=== PATIENT | female | born 1945 | race Caucasian/White ===

== ENCOUNTER 2016-12-19 12:48 | Inpatient (IN) | payer OTHER, MEDICARE ==
[2016-12-19] VITALS (9 sets, daily range): BP systolic 110–153; BP diastolic 66–107; PULSE 101–114; RESP 18–24; TEMP 96.6–98.2; O2SAT 92–96
[~2016-12-19] VITALS: Ht 157.5 cm; Wt 63.2 kg
[2016-12-19] MEDS ORDERED: methylPREDNISolone SOD SUCC 125 MG/2 ML VIAL IVP ONE (13:15)
[2016-12-19] MEDS ORDERED: SODIUM CHLORIDE 0.9% FLUSH 10 ML FLUSH IVF PRN ×2 (13:15→14:15)
[2016-12-19] MEDS ORDERED: ATOR40TA16 PO (13:17)
[2016-12-19] MEDS ORDERED: NORT50CA PO (13:17)
[2016-12-19] MEDS ORDERED: IPRASOL INH (13:17)
[2016-12-19] MEDS ORDERED: METO25TA6 PO (13:17)
[2016-12-19] MEDS ORDERED: FLUT1INH INH (13:17)
[2016-12-19] MEDS: RESP: ALBUTEROL 2.5 MG/IPRATROPIUM 0.5 MG NEB (SCH) INH ×2 (13:22→19:23)
[2016-12-19 13:57] LABS: AUTOMATED NEUTROPHIL # 19.1 TH/MM3 (1.8-7.7); BASOPHIL # 0.3 TH/MM3 (0-0.2); BASOPHIL % 1.1 % (0.0-2.0); EOSINOPHIL # 0.2 TH/MM3 (0-0.4); HEMATOCRIT 45.4 % (35.0-46.0); LYMPH % 6.5 % (9.0-44.0); LYMPHOCYTE # 1.5 TH/MM3 (1.0-4.8); MEAN CELL VOLUME 83.7 FL (80.0-100.0); MEAN CORPUSCULAR HEMOGLOBIN 27.5 PG (27.0-34.0); MEAN CORPUSCULAR HGB CONC 32.9 % (32.0-36.0); MONO % 7.3 % (0.0-8.0); NEUT % 84.1 % (16.0-70.0); PLATELET COUNT 503 TH/MM3 (150-450); RED BLOOD COUNT 5.42 MIL/MM3 (4.00-5.30); RED CELL DISTRIBUTION WIDTH 15.8 % (11.6-17.2); WHITE BLOOD COUNT 22.8 TH/MM3 (4.0-11.0)
[2016-12-19] MEDS ORDERED: RESP: ALBUTEROL 2.5 MG/IPRATROPIUM 0.5 MG NEB (SCH) NEB ONE (14:00)
[2016-12-19 14:03] LABS: HEMO FLAGS AUTO DIFF
--- NOTE | 2016-12-19 14:05 | PD ---
HPI Chief Complaint: Respiratory Distress Time Seen by Provider: 13:09 Travel History International Travel<30 days: No Contact w/Intl Traveler<30days: No Traveled to known affect area: No History of Present Illness HPI 71-year-old female states that about Sunday she finished her antibiotic course and on Sunday she finished her steroids through her primary care physician for her COPD exacerbation. She has not gotten better despite this treatment and feels like now she is getting worse. She states she's having a hard time breathing and feels weak all over. She denies other significant complaints. She feels worse when she moves around. She denies other modifying factors. She states that she has been using her breathing treatments 4 times a day without improvement. She states she usually uses them 4 times a day. Quality is feels short of breath. Severity is worsening. Duration is couple of days PFSH Past Medical History Narrative Medical reviewed High Cholesterol: Yes COPD: Yes Hypertension: Yes Insomnia: Yes Influenza Vaccination: Yes ?: Not Past Surgical History Narrative Surgical reviewed Appendectomy: Yes Hysterectomy: Yes Family History Family Myocardial Infarction: Yes Social History Alcohol Use: No Tobacco Use: No Substance Use: No Allergies-Medications (Allergen,Severity, Reaction): Coded Allergies: No Known Allergies (Unverified , 12/19/16) Reported Meds & Prescriptions Reported Meds & Active Scripts Active Reported Atorvastatin (Atorvastatin Calcium) 40 Mg Tab 40 Mg PO HS Nortriptyline (Nortriptyline HCl) 50 Mg Cap 50 Mg PO HS Metoprolol Succinate ER 24 HR (Metoprolol Succinate) 25 Mg Tab 25 Mg PO DAILY Breo Ellipta Inh (Fluticasone/Vilanterol) 100-25 Mcg/Act Inh 1 Puff INH DAILY Use daily at the same time. Duoneb (Ipratropium-Albuterol Neb) 0.5-2.5 Mg/3 Ml Neb 1 Nebule INH Q4HR NEB Review of Systems Except as stated in HPI: all other systems reviewed are Neg Physical Exam Narrative GENERAL: Well-nourished, well-developed patient. SKIN: Warm and dry. HEAD: Normocephalic and atraumatic. EYES: No injection or drainage. ENT: No nasal drainage noted. NECK: Supple, trachea midline. CARDIOVASCULAR: Regular rate and rhythm RESPIRATORY: Decreased aeration bilaterally. No accessory muscle use. GASTROINTESTINAL: Abdomen soft, non-tender, nondistended. EXTREMITIES: No edema. NEUROLOGICAL: Awake and alert. Moves all extremities. Normal speech. Data Data Last Documented VS Vital Signs Date Time Temp Pulse Resp B/P Pulse Ox O2 Delivery O2 Flow Rate FiO2 12/19/16 14:11 95 21 12/19/16 13:55 109 20 128/83 Room Air 117/80 12/19/16 12:55 98.2 Orders Electrocardiogram (12/19/16 13:15) B-Type Natriuretic Peptide (12/19/16 13:15) Ckmb (Isoenzyme) Profile (12/19/16 13:15) Complete Blood Count With Diff (12/19/16 13:15) Comprehensive Metabolic Panel (12/19/16 13:15) Magnesium (Mg) (12/19/16 13:15) Prothrombin Time / Inr (Pt) (12/19/16 13:15) Act Partial Throm Time (Ptt) (12/19/16 13:15) Troponin I (12/19/16 13:15) Chest, Single Ap (12/19/16 13:15) Ecg Monitoring (12/19/16 13:15) Bilateral Bp Monitoring (12/19/16 13:15) Iv Access Insert/Monitor (12/19/16 13:15) Oximetry (12/19/16 13:15) Sodium Chloride 0.9% Flush (Ns Flush) (12/19/16 13:15) Methylprednisolone So Succ Inj (Solumedr (12/19/16 13:15) Albuterol-Ipratropium Neb (Duoneb Neb) (12/19/16 13:15) Ct Pulmonary Angiogram (12/19/16 13:41) Albuterol-Ipratropium Neb (Duoneb Neb) (12/19/16 14:00) Lactic Acid Sepsis Protocol (12/19/16 14:14) Blood Culture (12/19/16 14:14) Sodium Chloride 0.9% Flush (Ns Flush) (12/19/16 14:15) Ceftriaxone Inj (Rocephin Inj) (12/19/16 14:15) Azithromycin Inj (Zithromax Inj) (12/19/16 14:15) Sodium Chlor 0.9% 1000 Ml Inj (Ns 1000 M (12/19/16 14:30) Sodium Chlor 0.9% 1000 Ml Inj (Ns 1000 M (12/19/16 14:37) Iohexol 350 Inj (Omnipaque 350 Inj) (12/19/16 15:03) Admit Order (Ed Use Only) (12/19/16 15:53) Admit To Inpatient (12/19/16 ) Vital Signs (Adult) Q4H (12/19/16 15:57) Activity Bed Rest With Brp (12/19/16 ) Diet Heart Healthy (12/19/16 Dinner) Sodium Chloride 0.9% Flush (Ns Flush) (12/19/16 21:00) Sodium Chloride 0.9% Flush (Ns Flush) (12/19/16 16:00) Albuterol-Ipratropium Neb (Duoneb Neb) (12/19/16 20:00) Albuterol Neb (Albuterol Neb) (12/19/16 16:00) Methylprednisolone So Succ Inj (Solumedr (12/19/16 16:00) Ceftriaxone Inj (Rocephin Inj) (12/19/16 16:00) Basic Metabolic Panel (Bmp) (12/20/16 06:00) Complete Blood Count With Diff (12/20/16 06:00) Influenzae A/B Antigen (12/19/16 15:57) Resp Oxygen Omega C Titrat 1-4 L (12/19/16 ) Copd Educator Consult (12/19/16 ) Azithromycin Inj (Zithromax Inj) (12/19/16 16:00) Enoxaparin Inj (Lovenox Inj) (12/19/16 16:00) Inpatient Certification (12/19/16 ) Bedside Glucose KALIE.AC&HS (12/19/16 15:59) Blood Glucose Goal (Criteria) (12/19/16 15:59) Hypoglycemia 51 - 69 Mg/Dl (12/19/16 15:59) Hypoglycemia 50 Mg/Dl Or < (12/19/16 15:59) Notify Dr: Other (12/19/16 15:59) Dextrose 50% In Leonid (Vial) Inj (D50w (Vi (12/19/16 16:00) Glucagon Inj (Glucagon Inj) (12/19/16 16:00) Insulin Aspart Supplemtl Scale (Novolog (12/19/16 16:00) Labs Laboratory Tests Test 12/19/16 12/19/16 13:48 14:34 White Blood Count 22.8 TH/MM3 Red Blood Count 5.42 MIL/MM3 Hemoglobin 14.9 GM/DL Hematocrit 45.4 % Mean Corpuscular Volume 83.7 FL Mean Corpuscular Hemoglobin 27.5 PG Mean Corpuscular Hemoglobin 32.9 % Concent Red Cell Distribution Width 15.8 % Platelet Count 503 TH/MM3 Mean Platelet Volume 7.9 FL Neutrophils (%) (Auto) 84.1 % Lymphocytes (%) (Auto) 6.5 % Monocytes (%) (Auto) 7.3 % Eosinophils (%) (Auto) 1.0 % Basophils (%) (Auto) 1.1 % Neutrophils # (Auto) 19.1 TH/MM3 Lymphocytes # (Auto) 1.5 TH/MM3 Monocytes # (Auto) 1.7 TH/MM3 Eosinophils # (Auto) 0.2 TH/MM3 Basophils # (Auto) 0.3 TH/MM3 CBC Comment AUTO DIFF Differential Total Cells 100 Counted Neutrophils % (Manual) 72 % Band Neutrophils % 11 % Lymphocytes % 8 % Monocytes % 5 % Eosinophils % 3 % Neutrophils # (Manual) 19.2 TH/MM3 Metamyelocytes 1 % Differential Comment FINAL DIFF MANUAL Platelet Estimate HIGH Platelet Morphology Comment NORMAL Red Cell Morphology Comment NORMAL Prothrombin Time 10.5 SEC Prothromb Time International 1.0 RATIO Ratio Activated Partial 24.5 SEC Thromboplast Time Sodium Level 139 MEQ/L Potassium Level 3.8 MEQ/L Chloride Level 102 MEQ/L Carbon Dioxide Level 27.7 MEQ/L Anion Gap 9 MEQ/L Blood Urea Nitrogen 17 MG/DL Creatinine 0.83 MG/DL Estimat Glomerular Filtration 68 ML/MIN Rate Random Glucose 131 MG/DL Calcium Level 9.0 MG/DL Magnesium Level 2.2 MG/DL Total Bilirubin 0.6 MG/DL Aspartate Amino Transf 15 U/L (AST/SGOT) Alanine Aminotransferase 26 U/L (ALT/SGPT) Alkaline Phosphatase 88 U/L Total Creatine Kinase 21 U/L Troponin I LESS THAN 0.02 NG/ML B-Type Natriuretic Peptide 53 PG/ML Total Protein 6.9 GM/DL Albumin 3.1 GM/DL Lactic Acid Level 1.5 mmol/L [facility] Medical Decision Making Medical Screen Exam Complete: Yes Emergency Medical Condition: Yes Medical Record Reviewed: Yes (past history confirmed) Interpretation(s) EKG shows sinus tachycardia at 115 without STEMI criteria, wandering baseline CBC & BMP Diagram 12/19/16 13:48 Last 24 hours Impressions Chest X-Ray 12/19/16 1315 Signed Impressions: Service Date/Time: Monday, December 19, 2016 13:24 - CONCLUSION: 1. Patchy opacity within the right midlung field consistent with possible pneumonia. Clinical correlation is recommended. 2. Small right pleural effusion. Nico Fox MD Differential Diagnosis COPD exacerbation, pneumonia, PE, renal failure, anemia, pneumothorax Narrative Course Will check blood work, chest x-ray and reevaluate after Solu-Medrol and DuoNeb's Patient without increased aeration after nebulizer treatment will check CT chest to rule out PE Chest x-ray shows possible infiltrate and small effusion, will add on blood cultures and lactate given elevated white count and dose with Rocephin and azithromycin patient without PE on CT, right middle lobe infiltrate with possible central obstructing lesion, will admit to the hospital for further care, lactate within normal limits Sepsis Criteria SIRS Criteria (2 or more): Heart rate over 90, WBC > 06699, < 4000 or > 10% bands Sepsis Criteria (SIRS+source): Infect source susp/known Criteria Outcome: Meets sepsis criteria Physician Communication Physician Communication dr yee agrees to admit Diagnosis Primary Impression: Pneumonia Qualified Code: J18.1 - Pneumonia of right middle lobe due to infectious organism Additional Impressions: Sepsis Qualified Code: A41.9 - Sepsis, due to unspecified organism COPD exacerbation Admitting Information Admitting Physician Requests: Admit Annette Forbes MD Dec 19, 2016 14:05
[2016-12-19 14:07] LABS: CHLORIDE 102 MEQ/L (98-107); POTASSIUM 3.8 MEQ/L (3.5-5.1); SODIUM (NA) 139 MEQ/L (136-145)
--- NOTE | 2016-12-19 14:10 | RADHPO ---
EXAM DATE/TIME: 12/19/2016 13:24 [facility] COMPARISON: No previous studies available for comparison. INDICATIONS : Shortness of breath and chest pain. MEDICAL HISTORY : Myocardial infarction. Hypercholesterolemia. Chronic obstructive pulmonary disease. Hypertension. SURGICAL HISTORY : Hysterectomy. Appendectomy. ENCOUNTER: Initial ACUITY: 2 days PAIN SCORE: 5/10 LOCATION: Bilateral chest FINDINGS: There is some patchy opacity within the right midlung field. A small right pleural effusion is noted. The left lung is clear. The heart is top normal in size. CONCLUSION: 1. Patchy opacity within the right midlung field consistent with possible pneumonia. Clinical correla tion is recommended. 2. Small right pleural effusion. Nico Fox MD on December 19, 2016 at 14:08 Board Certified Radiologist. This report was verified electronically.
[2016-12-19 14:11] LABS: ANION GAP 9 MEQ/L (5-15); BICARBONATE 27.7 MEQ/L (21.0-32.0); BLOOD UREA NITROGEN 17 MG/DL (7-18); MAGNESIUM 2.2 MG/DL (1.5-2.5)
[2016-12-19 14:14] LABS: ALT (GPT) 26 U/L (10-53); AST (GOT) 15 U/L (15-37); GLOMERULAR FILTRATION RATE 68 ML/MIN (>89)
[2016-12-19] MEDS ORDERED: cefTRIAXone INJ 1,000 MG in SODIUM CHLORIDE 0.9% INJ 100 ML IV ONE (14:15)
[2016-12-19] MEDS ORDERED: AZITHROMYCIN INJ 500 MG in SODIUM CHLOR 0.9% 250 ML INJ 250 ML IV ONE (14:15)
[2016-12-19 14:16] LABS: TOTAL BILIRUBIN ADULT 0.6 MG/DL (0.2-1.0)
[2016-12-19 14:17] LABS: ALKALINE PHOSPHATASE 88 U/L (45-117)
[2016-12-19 14:20] LABS: CREATINE KINASE 21 U/L (26-192)
[2016-12-19 14:22] LABS: APTT (PATIENT) 24.5 SEC (24.3-30.1); PROTHROMBIN TIME - PATIENT 10.5 SEC (9.8-11.6)
[2016-12-19] MEDS ORDERED: SODIUM CHLOR 0.9% 1000 ML INJ 1,000 ML IV ONE (14:30)
[2016-12-19 14:35] LABS: BANDS 11 % (0-6); EOSINOPHILS 3 % (0-4); METAMYELOCYTES 1 % (0-1); NEUTROPHIL # MANUAL DIFF 19.2 TH/MM3 (1.8-7.7); PLATELET ESTIMATE SMEAR HIGH (NORMAL); PLATELET MORPHOLOGY NORMAL (NORMAL); POLYS (SEG NEUTROPHILS) 72 % (16-70); SCAN/DIFF FINAL DIFF MANUAL; WBC DIFF SAMPLE 100
[2016-12-19] MEDS ORDERED: SODIUM CHLOR 0.9% 1000 ML INJ 800 ML IV ONE (14:37)
[2016-12-19] MEDS ORDERED: IOHEXOL 350 MG/ML 10 ML VIAL (for RAD DIAG) IV ONE (15:03)
--- NOTE | 2016-12-19 15:59 | RADHPO ---
EXAM DATE/TIME: 12/19/2016 14:47 [facility] COMPARISON: CHEST SINGLE AP, December 19, 2016, 13:24. INDICATIONS : Diffuse chest pain. Evaluate for pulmonary embolism. IV CONTRAST: 65 cc Omnipaque 350 (iohexol) IV RADIATION DOSE: 8.30 CTDIvol (mGy) MEDICAL HISTORY : Hypertension. Chronic obstructive pulmonary disease. SURGICAL HISTORY : Appendectomy. Hysterectomy. ENCOUNTER: Initial ACUITY: 3 weeks PAIN SCALE: 6/10 LOCATION: Bilateral chest TECHNIQUE: Volumetric scanning of the chest was performed using a pulmonary embolism protocol MIP images were re constructed. Using automated exposure control and adjustment of the mA and/or kV according to patien t size, radiation dose was kept as low as reasonably achievable to obtain optimal diagnostic quality images. FINDINGS: PULMONARY ARTERIES: No filling defects are seen in the pulmonary arteries through the segmental level. There is narrowin g of the pulmonary arteries as they course through the area of dense consolidation right middle lobe. LUNGS: There is a large area of consolidation in the right middle lobe which measures 4.0 x 7.3 cm. This oc cupies most of the right middle lobe. There is nonvisualization of the bronchi to the middle lobe puentes ggesting obstruction. The pulmonary arteries as they course through the dense area of consolidation are also now, but contrast is seen within pulmonary arteries. PLEURAE: There is a moderate size pleural effusion in the mid chest on the right side. This does not track do wn into the costophrenic angle. MEDIASTINUM: There are enlarged mediastinal nodes including AP window (2.3 cm) and precarinal (1.9 cm). There is concentric thickening of the pericardium up to 12 mm suggesting pericardial effusion. CONCLUSION: 1. The study is negative for pulmonary embolism. 2. Large area of consolidation involving most the entire right middle lobe without air bronchograms a nd with truncation of the bronchus to the middle lobe. This suggests a central obstructing lesion. 3. Mediastinal adenopathy. 4. Probable pericardial effusion. John Negron MD on December 19, 2016 at 15:45 Board Certified Radiologist. This report was verified electronically.
[2016-12-19] MEDS ORDERED: DEXTROSE 50% IN WATER 50 ML VIAL(D50) IV PUSH PRN (16:00)
[2016-12-19] MEDS ORDERED: GLUCAGON 1 MG/ML VIAL OTHER PRN (16:00)
[2016-12-19] MEDS ORDERED: INSULIN ASPART SUPPLEMENTAL SCALE SQ SCH (16:00)
[2016-12-19] MEDS ORDERED: SODIUM CHLORIDE 0.9% FLUSH 10 ML FLUSH IV FLUSH PRN (16:00)
[2016-12-19] MEDS ORDERED: RESP: ALBUTEROL 2.5 MG/3 ML NEB (PRN) INH (16:00)
[2016-12-19] MEDS ORDERED: MAGNESIUM HYDROXIDE SUSP 30 ML CUP PO PRN (16:15)
[2016-12-19] MEDS ORDERED: ONDANSETRON HCL 4 MG/2 ML VIAL IV PRN (16:15)
[2016-12-19] MEDS ORDERED: ALUMINUM/MAGNESIUM/SIMETH 30 ML CUP PO PRN (16:15)
[2016-12-19] MEDS ORDERED: DOCUSATE SODIUM 100 MG CAP PO PRN (16:15)
[2016-12-19] MEDS ORDERED: CALCIUM CARBONATE 500 MG CHEWABLE TAB CHEW PRN (17:30)
--- NOTE | 2016-12-19 18:14 | HHI.HP ---
HPI Service [facility] Primary Care Physician No Primary Care Physician Admission Diagnosis sepsis, pneumonia Diagnoses: Chief Complaint: Shortness of breath Travel History International Travel<30 Days: No Contact w/Intl Traveler <30 Da: No Traveled to Known Affected Are: No Sepsis Criteria SIRS Criteria (2 or more): Heart rate over 90, RR > 20 or PaCO2 < 32, WBC > 20093, < 4000 or > 10% bands Sepsis Criteria (SIRS+source): Infect source susp/known Criteria Outcome: Meets sepsis criteria History of Present Illness 71-year-old female with a past medical history of HTN, HLD, CAD, COPD, depression who presented with shortness of breath. The patient states that for the past 3 weeks she's been having sensations of shortness of breath, chest heaviness, headache, nausea, chills. She saw her PCP who prescribed her a ten- day course of azithromycin and steroids. She finished antibiotics last Sunday and steroids last Sunday. Shortness of breath was getting better, became acutely worse today with associated wheezing so she came in for evaluation. Patient denies any fevers, cough, or recent weight loss. She states that she's been having intermittent headaches that starts in her jaw and radiates up into her head. She denies any head or neck fullness. She has been referred to see pulmonology, Dr. Denton, but has not yet seen him. After receiving treatment in the ED, the patient states her wheezing and shortness of breath has significantly improved. Review of Systems Except as stated in HPI: all other systems reviewed are Neg Past Family Social History Past Medical History Hypertension Hyperlipidemia COPD Depression Coronary artery disease Past Surgical History Appendectomy Hysterectomy Reported Medications Atorvastatin (Atorvastatin Calcium) 40 Mg Tab 40 Mg PO HS Nortriptyline (Nortriptyline HCl) 50 Mg Cap 50 Mg PO HS Metoprolol Succinate ER 24 HR (Metoprolol Succinate) 25 Mg Tab 25 Mg PO DAILY Breo Ellipta Inh (Fluticasone/Vilanterol) 100-25 Mcg/Act Inh 1 Puff INH DAILY Use daily at the same time. Duoneb (Ipratropium-Albuterol Neb) 0.5-2.5 Mg/3 Ml Neb 1 Nebule INH Q4HR NEB Allergies: Coded Allergies: No Known Allergies (Unverified , 12/19/16) Active Ordered Medications Current Medications Medications (Trade) Dose Ordered Sig/Eloise Route Start Time Stop Time Status Last Admin (NS Flush) 2 ml BID IV FLUSH 12/19/16 21:00 (NS Flush) 2 ml UNSCH PRN IV FLUSH 12/19/16 16:00 Methylprednisolone Sodium Succinate 60 mg 60 mg Q6H IVP 12/19/16 20:00 Ceftriaxone Sodium 1000 mg/ Sodium Chloride 100 ml @ 200 mls/hr Q24H IV 12/20/16 15:00 (Zithromax Inj/ NS 250 ml Inj) 250 ml @ 250 mls/hr Q24H IV 12/20/16 15:00 (Lovenox Inj) 40 mg Q24H SQ 12/19/16 18:00 (D50w (Vial) Inj) 25 ml UNSCH PRN IV PUSH 12/19/16 16:00 (Glucagon Inj) 1 mg UNSCH PRN OTHER 12/19/16 16:00 (Tylenol) 650 mg Q4H PRN PO 12/19/16 16:15 (Zofran Inj) 4 mg Q6H PRN IV 12/19/16 16:15 (Colace) 100 mg BID PRN PO 12/19/16 16:15 (Milk Of Magnesia Liq) 30 ml DAILY PRN PO 12/19/16 16:15 (Mag-Al Plus Susp Liq) 30 ml Q6H PRN PO 12/19/16 16:15 (Tums Chew) 1,000 mg TID PRN CHEW 12/19/16 17:30 (Lipitor) 40 mg HS PO 12/19/16 21:00 (Breo Ellipta 100-25 Inh) 1 puff DAILY INH 12/20/16 09:00 (Pamelor) 50 mg HS PO 12/19/16 21:00 Family History Family history of AR. Denies any family history of cancer. Social History The patient continues to occasionally smoke tobacco She lives at home by herself Physical Exam Vital Signs Vital Signs Date Time Temp Pulse Resp B/P Pulse Ox O2 Delivery O2 Flow Rate FiO2 12/19/16 17:35 96.6 106 24 153/107 92 4/18/17 16:04 101 18 140/83 95 Room Air 12/19/16 14:11 95 21 12/19/16 13:55 109 20 128/83 95 Room Air 117/80 12/19/16 13:20 96 Room Air 12/19/16 13:12 109 18 128/83 96 Room Air 12/19/16 13:12 96 Room Air 12/19/16 12:55 98.2 114 18 96 Physical Exam GENERAL: Well-developed well-nourished. In no acute distress. SKIN: Warm and dry. No lesions noted. HEENT: Normocephalic. Pupils equal and round. Mucous membranes pink and moist. JVD. CARDIOVASCULAR: Regular rate and rhythm. No murmur appreciated. RESPIRATORY: No accessory muscle use. Clear to auscultation. Breath sounds equal bilaterally. Decreased breath sounds on the right. No wheezing. GASTROINTESTINAL: Abdomen soft, non-tender, nondistended. Bowel sounds x4. MUSCULOSKELETAL: No obvious deformities. Mild finger clubbing. No edema. NEUROLOGICAL: Awake and alert. No focal neurological deficits. Moves upper and lower extremities spontaneously. Normal speech. PSYCHIATRIC: Appropriate mood and affect; insight and judgment normal. Laboratory Laboratory Tests Test 12/19/16 12/19/16 13:48 14:34 White Blood Count 22.8 Red Blood Count 5.42 Hemoglobin 14.9 Hematocrit 45.4 Mean Corpuscular Volume 83.7 Mean Corpuscular Hemoglobin 27.5 Mean Corpuscular Hemoglobin 32.9 Concent Red Cell Distribution Width 15.8 Platelet Count 503 Mean Platelet Volume 7.9 Neutrophils (%) (Auto) 84.1 Lymphocytes (%) (Auto) 6.5 Monocytes (%) (Auto) 7.3 Eosinophils (%) (Auto) 1.0 Basophils (%) (Auto) 1.1 Neutrophils # (Auto) 19.1 Lymphocytes # (Auto) 1.5 Monocytes # (Auto) 1.7 Eosinophils # (Auto) 0.2 Basophils # (Auto) 0.3 CBC Comment AUTO DIFF Differential Total Cells 100 Counted Neutrophils % (Manual) 72 Band Neutrophils % 11 Lymphocytes % 8 Monocytes % 5 Eosinophils % 3 Neutrophils # (Manual) 19.2 Metamyelocytes 1 Differential Comment FINAL DIFF MANUAL Platelet Estimate HIGH Platelet Morphology Comment NORMAL Red Cell Morphology Comment NORMAL Prothrombin Time 10.5 Prothromb Time International 1.0 Ratio Activated Partial 24.5 Thromboplast Time Sodium Level 139 Potassium Level 3.8 Chloride Level 102 Carbon Dioxide Level 27.7 Anion Gap 9 Blood Urea Nitrogen 17 Creatinine 0.83 Estimat Glomerular Filtration 68 Rate Random Glucose 131 Calcium Level 9.0 Magnesium Level 2.2 Total Bilirubin 0.6 Aspartate Amino Transf 15 (AST/SGOT) Alanine Aminotransferase 26 (ALT/SGPT) Alkaline Phosphatase 88 Total Creatine Kinase 21 Troponin I LESS THAN 0.02 B-Type Natriuretic Peptide 53 Total Protein 6.9 Albumin 3.1 Lactic Acid Level 1.5 Date/Time Procedure Status Source Growth 12/19/16 16:38 Legionella Antigen Received Urine Random Urine Pending 12/19/16 16:38 Streptococcus pneumoniae Antigen (M Received Urine Random Urine Pending 12/19/16 16:17 Influenza Types A,B Antigen (PATSY) - Final Complete Nasal Washing NEGATIVE FOR FLU A AND B ANTIGEN.... 12/19/16 14:34 Aerobic Blood Culture Received Blood Peripheral Pending 12/19/16 14:34 Anaerobic Blood Culture Received Blood Peripheral Pending Result Diagram: 12/19/16 1348 12/19/[address] Angiography 12/19/16 1341 Signed Impressions: Service Date/Time: Monday, December 19, 2016 14:47 - CONCLUSION: 1. The study is negative for pulmonary embolism. 2. Large area of consolidation involving most the entire right middle lobe without air bronchograms and with truncation of the bronchus to the middle lobe. This suggests a central obstructing lesion. 3. Mediastinal adenopathy. 4. Probable pericardial effusion. John Negron MD Chest X-Ray 12/19/16 1315 Signed Impressions: Service Date/Time: Monday, December 19, 2016 13:24 - CONCLUSION: 1. Patchy opacity within the right midlung field consistent with possible pneumonia. Clinical correlation is recommended. 2. Small right pleural effusion. Nico Fox MD Assessment and Plan Assessment and Plan 71-year-old female with a past medical history of HTN, HLD, CAD, COPD, depression who presented with shortness of breath Shortness of breath with acute COPD exacerbation, pneumonia, and new onset obstructing bronchial lesion Imaging reviewed: Chest x-ray with patchy opacity in the right lung field. Pulmonary angiogram with no PE, large consolidation in the right middle lobe with suggestion of central obstructing lesion, mediastinal adenopathy. Influenza negative. Plan: Scheduled and as needed nebs. IV steroids. IV azithromycin and ceftriaxone. Supplemental oxygen as needed. Consult pulmonology for possible bronchoscopy. Continue home Breo. Check sputum culture and urinary antigens. Sepsis: Source pneumonia. Tachycardia, tachypnea, WBC 22.8 with 11% bands. Afebrile. Lactic acid within normal limits. Continue IV antibiotics. Blood cultures pending. Headache: Check a head CT with possible lung mass as above. Maybe consider MRI with contrast depending on the findings. Tylenol as needed. Hyperglycemia: Random glucose 131, likely due to recent steroid use. Monitor Accu-Cheks and cover with SSI while on steroids. History of CAD/HTN/HLD: Chronic, stable. Continue home metoprolol and statin. Consider adding aspirin. Depression: Chronic, stable. Continue home nortriptyline. DVT prophylaxis: Lovenox Written by Aren Reese, acting as scribe for Dr. Rangel on 12/19/16 at 18:13. This note was transcribed by scribe []. I, Dr. Jt Rangel personally performed the history, physical exam, and medical decision making; and confirmed the accuracy of the information in the transcribed note. Authenticated by Dr. Jt Rangel on 12/19/16 at 21:56. Discussed Condition With Patient with her daughters at bedside, Aren Mendoza Dec 19, 2016 18:14 Jt Rangel MD Dec 19, 2016 21:56
[2016-12-19] MEDS ORDERED: methylPREDNISolone SOD SUCC 125 MG/2 ML VIAL IVP SCH (20:00)
[2016-12-19] MEDS: SODIUM CHLORIDE 0.9% FLUSH 10 ML FLUSH IV FLUSH SCH (21:00)
[2016-12-19] MEDS: ATORVASTATIN 40 MG TAB PO SCH (21:52)
[2016-12-19] MEDS: NORTRIPTYLINE HCL 25 MG CAP PO SCH (21:52)
[2016-12-19] MEDS: INSULIN ASPART SUPPLEMENTAL SCALE SQ SCH (21:53)
[2016-12-19] MEDS: methylPREDNISolone SOD SUCC 40 MG/1 ML VIAL IV SCH (21:53)
--- NOTE | 2016-12-19 22:05 | MB ---
cc: BERTIN DENTON MD DATE OF CONSULTATION 12/19/16 REASON FOR CONSULTATION 1. COPD exacerbation 2. Obstructive lesion right middle lobe HISTORY OF PRESENT ILLNESS Mrs. Vu is a 71-year-old female who presents to the emergency room with increasing shortness of breath. Despite therapy as an outpatient, the patient has received outpatient therapy including antibiotic and steroids with some improvement. However, subsequent worsening symptomatology. She denies history of fever, chills, hemoptysis. She did have a CT angiogram of the chest without evidence of pulmonary mobilization, obstruction of the right middle lobe bronchus was noted with evidence of mediastinal adenopathy and question pericardial effusion. PAST MEDICAL HISTORY 1. COPD, 2. Hypertension, 3. Hyperlipidemia. 4. Mood disorder 5. Coronary artery disease. PAST SURGICAL HISTORY 1. Previous appendectomy 2. Hysterectomy MEDICATIONS At home 1. Breo once daily. 2. Metoprolol 3. Nortriptyline 4. Atorvastatin 5. DuoNeb by nebulization. ALLERGIES None known to medications. FAMILY HISTORY Noncontributory. SOCIAL HISTORY Smoked in the past, not at present. Does not use any alcohol. Does not use drugs. REVIEW OF SYSTEMS 12-point review of systems as per HPI and past history otherwise negative PHYSICAL EXAMINATION VITAL SIGNS: Temperature 97, pulse 100, respiration 24, blood pressure 150/70, oxygen saturation 92% on room air. HEENT: Exam unremarkable. Eyes without icterus. NECK: Without adenopathy or thyroid enlargement. Central trachea. CHEST: A few scattered rhonchi bilaterally. CARDIAC: PMI distant. S1-S2 audible. 1/6 ejection systolic murmur left sternal border. ABDOMEN: Lax, bowel sounds audible. EXTREMITIES: No clubbing, cyanosis or edema. LABORATORY DATA White count 22,000, hemoglobin 14, hematocrit 45, platelets 503,000. Sodium 139, potassium 3.8, BUN 17, creatinine 0.8, INR 1.0. CT angiogram - no pulmonary embolism noted. Occluded right middle lobe bronchus and total consolidation right middle lobe noted as well. The patient has mediastinal adenopathy and a question pericardial effusion. IMPRESSION 1. Pneumonia. question postobstructive. 2. Occluded right middle lobe bronchus 3. COPD 4. Hypertension 5. Hyperlipidemia 6. Mood disorder. PLAN Patient is being treated for COPD and exacerbation, antibiotics for underlying pneumonia. Once more stable, arrangement will be made for bronchoscopic examination to evaluate the obstruction of the right middle lobe. The patient does have mediastinal adenopathy and underlying malignancy obviously need be suspect. We will follow her course along with you and depending on progress proceed further. I do thank you for asking me to partake in Mrs. Vu's care. Bertin Denton MD WWW/ /6:32 PM /9:52 PM
--- NOTE | 2016-12-19 23:41 | EKG ---
Date Performed: 12/19/2016 Time Performed: 13:02:38 PTAGE: 71 years EKG: Sinus tachycardia Possible left atrial abnormality Possible inferior infarct - age undeterm ined Low QRS voltages in precordial leads Abnormal ECG NO PREVIOUS TRACING DOCTOR: Jonathan Schaefer Interpretating Date/Time 12/19/2016 23:39:58
[2016-12-20] VITALS (7 sets, daily range): BP systolic 109–157; BP diastolic 71–88; PULSE 87–103; RESP 18–20; TEMP 96.8–97.9; O2SAT 94–100
[2016-12-20] MEDS: INSULIN ASPART SUPPLEMENTAL SCALE SQ SCH ×4 (06:01→19:59)
[2016-12-20] MEDS: methylPREDNISolone SOD SUCC 40 MG/1 ML VIAL IV SCH ×3 (06:01→22:17)
[2016-12-20 06:34] LABS: AUTOMATED NEUTROPHIL # 16.2 TH/MM3 (1.8-7.7); BASOPHIL # 0.2 TH/MM3 (0-0.2); BASOPHIL % 1.4 % (0.0-2.0); HEMATOCRIT 37.4 % (35.0-46.0); LYMPH % 3.7 % (9.0-44.0); LYMPHOCYTE # 0.6 TH/MM3 (1.0-4.8); MEAN CELL VOLUME 83.3 FL (80.0-100.0); MEAN CORPUSCULAR HEMOGLOBIN 27.5 PG (27.0-34.0); MONO % 1.3 % (0.0-8.0); NEUT % 93.6 % (16.0-70.0); PLATELET COUNT 448 TH/MM3 (150-450); RED BLOOD COUNT 4.49 MIL/MM3 (4.00-5.30); RED CELL DISTRIBUTION WIDTH 15.6 % (11.6-17.2); WHITE BLOOD COUNT 17.2 TH/MM3 (4.0-11.0)
[2016-12-20 06:45] LABS: POTASSIUM 4.3 MEQ/L (3.5-5.1)
[2016-12-20 06:47] LABS: HEMO FLAGS DIFF FINAL
[2016-12-20 06:51] LABS: BICARBONATE 25.3 MEQ/L (21.0-32.0)
[2016-12-20] MEDS: RESP: ALBUTEROL 2.5 MG/IPRATROPIUM 0.5 MG NEB (SCH) INH ×3 (07:13→19:17)
[2016-12-20] MEDS: FLUTICASONE 100 MCG/VILANTEROL 25 MCG INHALER INH SCH (09:13)
[2016-12-20] MEDS: SODIUM CHLORIDE 0.9% FLUSH 10 ML FLUSH IV FLUSH SCH ×2 (09:14→19:58)
[2016-12-20] MEDS: METOPROLOL SUCCINATE 25 MG EXTENDED RELEASE TAB PO SCH (09:14)
[2016-12-20] MEDS: ACETAMINOPHEN 325 MG TAB PO PRN ×2 (09:47→19:58)
[2016-12-20] MEDS ORDERED: PNEUMOCOCCAL POLYVALENT INJ 25 MCG/0.5 ML SYR IM ONE (10:00)
--- NOTE | 2016-12-20 10:16 | RADHPO ---
EXAM DATE/TIME: 12/20/2016 09:31 [facility] COMPARISON: No previous studies available for comparison. INDICATIONS : Cephalgia. RADIATION DOSE: 64.52 CTDIvol (mGy) MEDICAL HISTORY : Chronic obstructive pulmonary disease. Hypertension. SURGICAL HISTORY : Appendectomy. Hysterectomy.Cardiac stents. ENCOUNTER: Initial ACUITY: 3 weeks PAIN SCALE: 4/10 LOCATION: cranial TECHNIQUE: Multiple contiguous axial images were obtained of the head. Using automated exposure control and adj ustment of the mA and/or kV according to patient size, radiation dose was kept as low as reasonably a chievable to obtain optimal diagnostic quality images. FINDINGS: CEREBRUM: The ventricles are normal for age. No evidence of midline shift, mass lesion, hemorrhage or acute in farction. No extra-axial fluid collections are seen. POSTERIOR FOSSA: The cerebellum and brainstem are intact. The 4th ventricle is midline. The cerebellopontine angle i s unremarkable. EXTRACRANIAL: The visualized portion of the orbits is intact. SKULL: The calvaria is intact. No evidence of skull fracture. CONCLUSION: Negative noncontrast CT brain. John Negron MD on December 20, 2016 at 10:13 Board Certified Radiologist. This report was verified electronically.
--- NOTE | 2016-12-20 14:07 | HHI.PR ---
Subjective Remarks Follow-up pneumonia, lung mass. The patient states that she is feeling better and is hoping to go home soon. Shortness of breath improving, but she does still report dyspnea with any exertion. Denies chest pain. No headache currently. She describes her headaches as starting in her jaw and radiating up to the top of her head. Objective Vitals Vital Signs Date Time Temp Pulse Resp B/P Pulse Ox O2 Delivery O2 Flow Rate FiO2 12/20/16 12:00 97.9 91 18 119/73 96 12/20/16 08:00 97.2 92 20 157/84 100 12/20/16 07:15 97 21 12/20/16 00:00 96.8 103 18 144/88 98 12/19/16 20:00 96.8 102 18 110/66 96 12/19/16 19:23 95 21 12/19/16 17:35 96.6 106 24 153/107 92 12/19/16 16:04 101 18 140/83 95 Room Air 12/19/16 14:11 95 21 I/O 12/19/16 12/19/16 12/19/16 12/20/16 12/20/16 12/20/16 07:00 15:00 23:00 07:00 15:00 23:00 Intake Total 2390 ml 240 ml Balance 2390 ml 240 ml Intake Oral 240 ml 240 ml IV Total 2150 ml # Voids 4 3 # Bowel Movements 0 1 Result Diagram: 12/20/16 0620 12/20/16 [address] Angiography 12/19/16 1341 Signed Impressions: Service Date/Time: Monday, December 19, 2016 14:47 - CONCLUSION: 1. The study is negative for pulmonary embolism. 2. Large area of consolidation involving most the entire right middle lobe without air bronchograms and with truncation of the bronchus to the middle lobe. This suggests a central obstructing lesion. 3. Mediastinal adenopathy. 4. Probable pericardial effusion. John Negron MD Chest X-Ray 12/19/16 1315 Signed Impressions: Service Date/Time: Monday, December 19, 2016 13:24 - CONCLUSION: 1. Patchy opacity within the right midlung field consistent with possible pneumonia. Clinical correlation is recommended. 2. Small right pleural effusion. Nico Fox MD Head CT 12/19/16 0000 Signed Impressions: Service Date/Time: Tuesday, December 20, 2016 09:31 - CONCLUSION: Negative noncontrast CT brain. John Negron MD Objective Remarks General: Elderly female in no acute distress. Heart: Regular rate and rhythm. No murmur. Lungs: Scattered rhonchi. Breathing is nonlabored. Abdomen: Soft, nontender, nondistended. Extremities: No lower extremity edema. Psych: Alert and oriented. Procedures None Urinary Catheter: No Vascular Central Line Catheter: No A/P Problem List: (1) Postobstructive pneumonia ICD Code: J18.9 Status: Acute (2) Sepsis ICD Code: A41.9 Status: Acute (3) Lung mass ICD Code: R91.8 Status: Acute (4) COPD exacerbation ICD Code: J44.1 Status: Acute Assessment and Plan 1. COPD exacerbation, pneumonia, lung mass: Pneumonia appears to be postobstructive. Appreciate pulmonology recommendations. Continue antibiotics, steroids, bronchodilators. Continue supplemental oxygen. Bronchoscopy once patient is more clinically stable. 2. Sepsis secondary to pneumonia: Presented with tachycardia, tachypnea, leukocytosis. Patient is afebrile. Continue antibiotics. Blood cultures are pending. 3. Headache: CT head is negative. 4. Hyperglycemia: Likely secondary to steroids. Monitor Accu-Cheks and cover with sliding scale insulin. 5. Coronary artery disease, hypertension, hyperlipidemia: Chronic, stable. Continue beta nasima, statin. 6. Depression: Chronic, stable. Continue nortriptyline. 7. DVT prophylaxis: Lovenox. Problem Qualifiers (1) Sepsis: Qualified Code: A41.9 - Sepsis, due to unspecified organism Logan Cavanaugh MD Dec 20, 2016 14:07
[2016-12-20] MEDS: cefTRIAXone INJ 1,000 MG in SODIUM CHLORIDE 0.9% INJ 100 ML IV SCH (14:20)
[2016-12-20] MEDS: AZITHROMYCIN INJ 500 MG in SODIUM CHLOR 0.9% 250 ML INJ 250 ML IV SCH (15:11)
[2016-12-20] MEDS: ENOXAPARIN SODIUM 40 MG/0.4 ML SYRINGE SQ SCH (17:17)
[2016-12-20] MEDS: ATORVASTATIN 40 MG TAB PO SCH (19:58)
[2016-12-20] MEDS: NORTRIPTYLINE HCL 25 MG CAP PO SCH (19:58)
--- NOTE | 2016-12-20 22:01 | EC ---
Study Study Date:12/20/2016 STUDY CONCLUSIONS SUMMARY - Left ventricle: The cavity size was normal. Wall thickness was normal. Systolic function was normal. The estimated ejection fraction was 65%. Wall motion was normal; there were no regional wall motion abnormalities. - Pericardium, extracardiac: There wastrace pericardial effusion. If LV function is below 40, please consider prescribing an ACEI or ARB or document rationale for non-use. PROCEDURE DATA STUDY STATUS: Elective. Procedure: Transthoracic echocardiography. Image quality was good. Scanning was performed from the parasternal, apical, and subcostal acoustic windows. Study completion: The patient tolerated the procedure well. Transthoracic echocardiography. M-mode, complete 2D, complete spectral Doppler, and color Doppler. Height: Height: 62in. Weight: Weight: 124.7lb. Body mass index: BMI: 22.9kg/m^2. Body surface area: BSA: 1.57m^2. Patient status: Inpatient. CARDIAC ANATOMY LEFT VENTRICLE: The cavity size was normal. Wall thickness was normal. Systolic function was normal. The estimated ejection fraction was 65%. Wall motion was normal; there were no regional wall motion abnormalities. AORTIC VALVE: Trileaflet; normal thickness leaflets. Doppler: Transvalvular velocity was within the normal range. There was no stenosis. No regurgitation. Peak gradient: 13mm Hg (S). AORTA: Aortic root: The aortic root was normal in size. MITRAL VALVE: Structurally normal valve. Doppler: Transvalvular velocity was within the normal range. There was no evidence for stenosis. No regurgitation. Valve area by pressure half-time: 4.68cm^2. Indexed valve area by pressure half-time: 2.98cm^2/m^2. Peak gradient: 3mm Hg (D). LEFT ATRIUM: The atrium was normal in size. RIGHT VENTRICLE: The cavity size was normal. Wall thickness was normal. PULMONIC VALVE: Doppler: Transvalvular velocity was within the normal range. There was no evidence for stenosis. No regurgitation. TRICUSPID VALVE: Structurally normal valve. Doppler: Transvalvular velocity was within the normal range. No regurgitation. Peak gradient: 13mm Hg (D). PULMONARY ARTERY: The main pulmonary artery was normal-sized. Systolic pressure was within the normal range. RIGHT ATRIUM: The atrium was normal in size. PERICARDIUM: There wastrace pericardial effusion. SYSTEMIC VEINS: Inferior vena cava: The vessel was normal in size. Patient weight: 124.7lb _Ejection fraction:_ 65-75% _Fractional shortening:_ 32% up to 5Kg 5-11.5Kg 11.6-22.9Kg 23-45Kg 45-57Kg Aortic Root 7-13 <17 13-22 17-27 17-27 LA diam 6-13 <23 24-38 33-47 37-40 RVID 10-17 7-15 7-15 7-18 8-17 LVIDd 12-22 <32 24-38 33-47 37-40 LVPW 2-4 3-6 5-7 6-8 7-8 IVS 2-4 3-6 5-7 6-8 7-8 BASIC MEASUREMENTS ADULT NORMAL Left ventricle Volume, ED, MOD, 1-plane 54 ml Volume, ES, MOD, 1-plane 16 ml Ejection fraction, MOD, 1-plane 70 % Stroke volume, MOD, 1-plane 38 ml Volume index, ED, MOD, 1-plane 34 ml/m^2 Volume index, ES, MOD, 1-plane 10 ml/m^2 Stroke index, MOD, 1-plane 24.2 ml/m^2 Aortic valve Leaflet separation 19 mm 15-26 BASIC MEASUREMENTS ADULT NORMAL Left ventricle LV internal dimension, ED 46.9 mm 37-56 LV internal dimension, ES 28.7 mm Fractional shortening 39 % 29-45 LV posterior wall, ED 8.17 mm 6-11 Septal/posterior wall ratio, ED 1 Relative wall thickness, ED 0.35 <0.45 Volume, ED, Teichholz 102 ml Volume, ES, Teichholz 31.4 ml Ejection fraction, Teichholz 69.2 % 64-83 Stroke volume, Teichholz 70.6 ml Volume index, ED, Teichholz 65 ml/m^2 Volume index, ES, Teichholz 20 ml/m^2 Stroke index, Teichholz 45 ml/m^2 Wall mass 125.2 g Wall mass index 79.7 g/m^2 Mass/height 0.79 g/cm Ventricular septum Septal thickness, ED 8.17 mm Aortic valve Leaflet separation 19 mm 15-26 Aorta Root diameter, ED 28 mm 20-37 DOPPLER MEASUREMENTS ADULT NORMAL Aortic valve Peak velocity, S 183 cm/s Peak gradient, S 13 mm Hg Mitral valve Peak E-wave velocity 87.4 cm/s Peak A-wave velocity 125 cm/s Pressure half-time 47 ms Peak gradient, D 3 mm Hg Peak E/A ratio 0.7 Valve area, pressure half-time 4.68 cm^2 Valve area index, pressure half-time 2.98 cm^2/m^2 Tricuspid valve Peak gradient, D 13 mm Hg Maximal inflow velocity 182 cm/s LEGEND: Mean values are shown as u=mean value. Asterisk (*) rocha values outside specified normal range. Prepared and signed by [place] [id number]
[2016-12-21] VITALS (7 sets, daily range): BP systolic 129–154; BP diastolic 84–94; PULSE 70–98; RESP 14–20; TEMP 96.7–98.7; O2SAT 96–97
[2016-12-21 05:41] LABS: AUTOMATED NEUTROPHIL # 26.5 TH/MM3 (1.8-7.7); BASOPHIL # 0.3 TH/MM3 (0-0.2); HEMATOCRIT 35.4 % (35.0-46.0); LYMPH % 2.5 % (9.0-44.0); LYMPHOCYTE # 0.7 TH/MM3 (1.0-4.8); MEAN CELL VOLUME 84.9 FL (80.0-100.0); MEAN CORPUSCULAR HEMOGLOBIN 27.6 PG (27.0-34.0); MEAN CORPUSCULAR HGB CONC 32.5 % (32.0-36.0); MONO % 2.6 % (0.0-8.0); NEUT % 93.9 % (16.0-70.0); PLATELET COUNT 405 TH/MM3 (150-450); RED BLOOD COUNT 4.17 MIL/MM3 (4.00-5.30); RED CELL DISTRIBUTION WIDTH 15.2 % (11.6-17.2); WHITE BLOOD COUNT 28.2 TH/MM3 (4.0-11.0)
[2016-12-21 05:44] LABS: HEMO FLAGS AUTO DIFF
[2016-12-21 05:54] LABS: POTASSIUM 4.4 MEQ/L (3.5-5.1)
[2016-12-21 05:57] LABS: BICARBONATE 25.1 MEQ/L (21.0-32.0)
[2016-12-21 06:02] LABS: BANDS 9 % (0-6); NEUTROPHIL # MANUAL DIFF 26.8 TH/MM3 (1.8-7.7); PLATELET ESTIMATE SMEAR NORMAL (NORMAL); PLATELET MORPHOLOGY NORMAL (NORMAL); POLYS (SEG NEUTROPHILS) 86 % (16-70); SCAN/DIFF FINAL DIFF MANUAL; WBC DIFF SAMPLE 100
[2016-12-21] MEDS: methylPREDNISolone SOD SUCC 40 MG/1 ML VIAL IV SCH ×3 (06:18→22:49)
[2016-12-21] MEDS: INSULIN ASPART SUPPLEMENTAL SCALE SQ SCH ×4 (06:18→22:48)
[2016-12-21] MEDS: SODIUM CHLORIDE 0.9% FLUSH 10 ML FLUSH IV FLUSH SCH ×2 (08:33→22:48)
[2016-12-21] MEDS: METOPROLOL SUCCINATE 25 MG EXTENDED RELEASE TAB PO SCH (08:33)
[2016-12-21] MEDS: FLUTICASONE 100 MCG/VILANTEROL 25 MCG INHALER INH SCH (08:43)
--- NOTE | 2016-12-21 10:10 | HHI.PR ---
Subjective Remarks Follow up pneumonia, lung mass. The patient states that she does not feel well today. Still with dyspnea on exertion. Cough is nonproductive. No fever, nausea , vomiting, chest pain. Objective Vitals Vital Signs Date Time Temp Pulse Resp B/P Pulse Ox O2 Delivery O2 Flow Rate FiO2 12/21/16 08:59 97.1 89 16 129/84 96 12/21/16 07:35 96 21 12/21/16 00:00 98.2 98 20 152/94 97 12/20/16 20:58 20 12/20/16 20:00 97.6 91 20 109/71 96 12/20/16 19:17 94 21 12/20/16 16:00 97.6 87 18 121/80 96 12/20/16 12:00 97.9 91 18 119/73 96 I/O 12/20/16 12/20/16 12/20/16 12/21/16 12/21/16 12/21/16 07:00 15:00 23:00 07:00 15:00 23:00 Intake Total 240 ml 750 ml 360 ml 60 ml Balance 240 ml 750 ml 360 ml 60 ml Intake Oral 240 ml 750 ml 360 ml 60 ml # Voids 3 3 3 1 # Bowel Movements 1 0 0 0 Result Diagram: 12/21/16 0504 12/21/16 [address] Angiography 12/19/16 1341 Signed Impressions: Service Date/Time: Monday, December 19, 2016 14:47 - CONCLUSION: 1. The study is negative for pulmonary embolism. 2. Large area of consolidation involving most the entire right middle lobe without air bronchograms and with truncation of the bronchus to the middle lobe. This suggests a central obstructing lesion. 3. Mediastinal adenopathy. 4. Probable pericardial effusion. John Negron MD Chest X-Ray 12/19/16 1315 Signed Impressions: Service Date/Time: Monday, December 19, 2016 13:24 - CONCLUSION: 1. Patchy opacity within the right midlung field consistent with possible pneumonia. Clinical correlation is recommended. 2. Small right pleural effusion. Nico Fox MD Head CT 12/19/16 0000 Signed Impressions: Service Date/Time: Tuesday, December 20, 2016 09:31 - CONCLUSION: Negative noncontrast CT brain. John Negron MD Objective Remarks General: Elderly female in no acute distress. Heart: Regular rate and rhythm. No murmur. Lungs: Scattered rhonchi. Breathing is nonlabored. Abdomen: Soft, nontender, nondistended. Extremities: No lower extremity edema. Psych: Alert and oriented. Procedures None Urinary Catheter: No Vascular Central Line Catheter: No A/P Problem List: (1) Postobstructive pneumonia ICD Code: J18.9 Status: Acute (2) Sepsis ICD Code: A41.9 Status: Acute (3) Lung mass ICD Code: R91.8 Status: Acute (4) COPD exacerbation ICD Code: J44.1 Status: Acute (5) Leukocytosis ICD Code: D72.829 Status: Acute Assessment and Plan 1. COPD exacerbation, pneumonia, lung mass: Pneumonia appears to be postobstructive. Appreciate pulmonology recommendations. Continue antibiotics, steroids, bronchodilators. Continue supplemental oxygen as needed. Currently tolerating room air. Bronchoscopy once patient is more clinically stable. 2. Sepsis secondary to pneumonia: Presented with tachycardia, tachypnea, leukocytosis. Patient is afebrile. Continue antibiotics. Blood cultures are negative so far. 3. Headache: CT head is negative. 4. Hyperglycemia: Likely secondary to steroids. Monitor Accu-Cheks and cover with sliding scale insulin. 5. Coronary artery disease, hypertension, hyperlipidemia: Chronic, stable. Continue beta nasima, statin. 6. Depression: Chronic, stable. Continue nortriptyline. 7. DVT prophylaxis: Lovenox. 8. Leukocytosis: Initially secondary to infection. WBCs had improved, but are significantly elevated again today. Recent elevation possibly secondary to steroids. Problem Qualifiers (1) Sepsis: Qualified Code: A41.9 - Sepsis, due to unspecified organism Logan Cavanaugh MD Dec 21, 2016 10:10
[2016-12-21] MEDS: ACETAMINOPHEN 325 MG TAB PO PRN ×3 (10:22→22:47)
--- NOTE | 2016-12-21 14:27 | HHI.PR ---
Subjective Remarks still sob but less Objective Vital Signs Date Time Temp Pulse Resp B/P Pulse Ox O2 Delivery O2 Flow Rate FiO2 12/21/16 13:47 97.4 84 18 154/86 97 12/21/16 08:59 97.1 89 16 129/84 96 12/21/16 07:35 96 21 12/21/16 00:00 98.2 98 20 152/94 97 12/20/16 20:58 20 12/20/16 20:00 97.6 91 20 109/71 96 12/20/16 19:17 94 21 12/20/16 16:00 97.6 87 18 121/80 96 I/O 12/20/16 12/20/16 12/20/16 12/21/16 12/21/16 12/21/16 07:00 15:00 23:00 07:00 15:00 23:00 Intake Total 240 ml 750 ml 360 ml 60 ml Balance 240 ml 750 ml 360 ml 60 ml Intake Oral 240 ml 750 ml 360 ml 60 ml # Voids 3 3 3 1 # Bowel Movements 1 0 0 0 Result Diagram: 12/21/16 0504 12/21/16 0504 Objective Remarks GENERAL: SKIN: Warm and dry. HEAD: Atraumatic. Normocephalic. EYES: Pupils equal and round. No scleral icterus. No injection or drainage. ENT: No nasal bleeding or discharge. Mucous membranes pink and moist. NECK: Trachea midline. No JVD. CARDIOVASCULAR: Regular rate and rhythm. RESPIRATORY: No accessory muscle use. Clear to auscultation. Breath sounds equal bilaterally. GASTROINTESTINAL: Abdomen soft, non-tender, nondistended. Hepatic and splenic margins not palpable. MUSCULOSKELETAL: Extremities without clubbing, cyanosis, or edema. No obvious deformities. NEUROLOGICAL: Awake and alert. No obvious cranial nerve deficits. Motor grossly within normal limits. Five out of 5 muscle strength in the arms and legs. Normal speech. PSYCHIATRIC: Appropriate mood and affect; insight and judgment normal. Assessment and Plan Assessment and Plan assessment pneumonia ? post obstructive HTN CAD PLAN O2 ANTBIOTICS F/U CXRAY IF STILL PERSISTANT INFILTRAE , BRONCHOSCOPY Bertin Denton MD Dec 21, 2016 14:27
[2016-12-21] MEDS: RESP: ALBUTEROL 2.5 MG/IPRATROPIUM 0.5 MG NEB (SCH) INH ×2 (14:57→20:00)
[2016-12-21] MEDS: AZITHROMYCIN INJ 500 MG in SODIUM CHLOR 0.9% 250 ML INJ 250 ML IV SCH (15:00)
--- NOTE | 2016-12-21 15:38 | RADHPO ---
EXAM DATE/TIME: 12/21/2016 14:30 [facility] COMPARISON: No previous studies available for comparison. INDICATIONS : Cough, short of breath, pneumonia. MEDICAL HISTORY : Hypercholesterolemia. Hypertension. Chronic obstructive pulmonary disease SURGICAL HISTORY : Appendectomy. Hysterectomy. Cardiac cath with stent placement. ENCOUNTER: Subsequent ACUITY: 3 days PAIN SCORE: 0/10 LOCATION: Chest FINDINGS: There is focal consolidation within the right midlung field consistent with atelectasis and/or pneumo gisel. Clinical correlation is recommended. The left lung is clear. The heart is stable. Degenerative changes are noted throughout the thoracic spine. CONCLUSION: 1. Focal alveolar consolidation within the right midlung field consistent with atelectasis and/or pne umonia. Clinical correlation is recommended. 2. Degenerative changes and scoliosis of the thoracic spine. Nico Fox MD on December 21, 2016 at 15:33 Board Certified Radiologist. This report was verified electronically.
[2016-12-21] MEDS: cefTRIAXone INJ 1,000 MG in SODIUM CHLORIDE 0.9% INJ 100 ML IV SCH (16:12)
[2016-12-21] MEDS: ENOXAPARIN SODIUM 40 MG/0.4 ML SYRINGE SQ SCH (17:59)
[2016-12-21] MEDS: ATORVASTATIN 40 MG TAB PO SCH (22:48)
[2016-12-21] MEDS: NORTRIPTYLINE HCL 25 MG CAP PO SCH (23:06)
[2016-12-22] VITALS (7 sets, daily range): BP systolic 142–164; BP diastolic 59–96; PULSE 78–90; RESP 15–20; TEMP 96.5–98.4; O2SAT 95–100
[2016-12-22] MEDS: methylPREDNISolone SOD SUCC 40 MG/1 ML VIAL IV SCH ×3 (05:33→21:57)
[2016-12-22] MEDS: INSULIN ASPART SUPPLEMENTAL SCALE SQ SCH ×4 (05:38→21:00)
[2016-12-22] MEDS: RESP: ALBUTEROL 2.5 MG/IPRATROPIUM 0.5 MG NEB (SCH) INH ×3 (07:46→19:22)
[2016-12-22 07:59] LABS: AUTOMATED NEUTROPHIL # 19.5 TH/MM3 (1.8-7.7); BASOPHIL % 0.1 % (0.0-2.0); EOSINOPHIL # 0.3 TH/MM3 (0-0.4); EOSINOPHIL % 1.3 % (0.0-4.0); HEMATOCRIT 34.7 % (35.0-46.0); LYMPH % 2.5 % (9.0-44.0); LYMPHOCYTE # 0.5 TH/MM3 (1.0-4.8); MEAN CORPUSCULAR HEMOGLOBIN 28.4 PG (27.0-34.0); MONO % 1.6 % (0.0-8.0); NEUT % 94.5 % (16.0-70.0); PLATELET COUNT 379 TH/MM3 (150-450); RED BLOOD COUNT 4.03 MIL/MM3 (4.00-5.30); RED CELL DISTRIBUTION WIDTH 15.9 % (11.6-17.2); WHITE BLOOD COUNT 20.6 TH/MM3 (4.0-11.0)
[2016-12-22 08:08] LABS: HEMO FLAGS DIFF FINAL
[2016-12-22] MEDS: FLUTICASONE 100 MCG/VILANTEROL 25 MCG INHALER INH SCH (08:45)
[2016-12-22] MEDS: METOPROLOL SUCCINATE 25 MG EXTENDED RELEASE TAB PO SCH (08:45)
[2016-12-22] MEDS: SODIUM CHLORIDE 0.9% FLUSH 10 ML FLUSH IV FLUSH SCH ×2 (08:45→21:56)
--- NOTE | 2016-12-22 11:17 | HHI.PR ---
Subjective Remarks Follow up pneumonia, lung mass. Patient continuing to have cough and occasional dyspnea. Cough is nonproductive. Denies fever, chills, chest pain. Objective Vitals Vital Signs Date Time Temp Pulse Resp B/P Pulse Ox O2 Delivery O2 Flow Rate FiO2 12/22/16 08:37 97.4 85 15 148/93 95 12/22/16 07:46 96 21 12/22/16 00:00 96.5 90 18 164/91 97 12/21/16 20:28 96 12/21/16 20:00 96.7 70 18 150/86 97 12/21/16 18:16 98.7 82 14 151/91 96 12/21/16 13:47 97.4 84 18 154/86 97 I/O 12/21/16 12/21/16 12/21/16 12/22/16 12/22/16 12/22/16 07:00 15:00 23:00 07:00 15:00 23:00 Intake Total 60 ml 800 ml 360 ml Balance 60 ml 800 ml 360 ml Intake Oral 60 ml 800 ml 360 ml # Voids 1 2 4 # Bowel Movements 0 1 0 Result Diagram: 12/22/16 0735 12/21/16 0504 Imaging Last Impressions Chest X-Ray 12/21/16 0000 Signed Impressions: Service Date/Time: December 14:30 - CONCLUSION: 1. Focal alveolar consolidation within the right midlung field consistent with atelectasis and/or pneumonia. Clinical correlation is recommended. 2. Degenerative changes and scoliosis of the thoracic spine. Nico Fox MD CT Angiography 12/19/16 1341 Signed Impressions: Service Date/Time: Monday, December 19, 2016 14:47 - CONCLUSION: 1. The study is negative for pulmonary embolism. 2. Large area of consolidation involving most the entire right middle lobe without air bronchograms and with truncation of the bronchus to the middle lobe. This suggests a central obstructing lesion. 3. Mediastinal adenopathy. 4. Probable pericardial effusion. John Negron MD Head CT 12/19/16 0000 Signed Impressions: Service Date/Time: Tuesday, December 20, 2016 09:31 - CONCLUSION: Negative noncontrast CT brain. John Negron MD Objective Remarks General: Elderly female in no acute distress. Heart: Regular rate and rhythm. No murmur. Lungs: Scattered rhonchi. Breathing is nonlabored. Abdomen: Soft, nontender, nondistended. Extremities: No lower extremity edema. Psych: Alert and oriented. Procedures None Urinary Catheter: No Vascular Central Line Catheter: No A/P Problem List: (1) Postobstructive pneumonia ICD Code: J18.9 Status: Acute (2) Sepsis ICD Code: A41.9 Status: Acute (3) Lung mass ICD Code: R91.8 Status: Acute (4) COPD exacerbation ICD Code: J44.1 Status: Acute (5) Leukocytosis ICD Code: D72.829 Status: Acute Assessment and Plan 1. COPD exacerbation, pneumonia, lung mass: Pneumonia appears to be postobstructive. Appreciate pulmonology recommendations. Continue antibiotics, steroids, bronchodilators. Continue supplemental oxygen as needed. Currently tolerating room air. Repeat chest x-ray continues to show consolidation. Discussed with Dr. Denton yesterday. We'll plan to transfer to [facility] for bronchoscopy. 2. Sepsis secondary to pneumonia: Presented with tachycardia, tachypnea, leukocytosis. Patient is afebrile. Continue antibiotics. Blood cultures are negative so far. 3. Headache: CT head is negative. 4. Hyperglycemia: Likely secondary to steroids. Monitor Accu-Cheks and cover with sliding scale insulin. 5. Coronary artery disease, hypertension, hyperlipidemia: Chronic, stable. Continue beta nasima, statin. 6. Depression: Chronic, stable. Continue nortriptyline. 7. DVT prophylaxis: Lovenox. 8. Leukocytosis: Initially secondary to infection. WBCs are trending down again. Monitor labs. Elevation possibly secondary to steroids, ongoing infection. Discharge Planning Transfer to [facility] for bronchoscopy. Problem Qualifiers (1) Sepsis: Qualified Code: A41.9 - Sepsis, due to unspecified organism Logan Cavanaugh MD Dec 22, 2016 11:17
[2016-12-22] MEDS: cefTRIAXone INJ 1,000 MG in SODIUM CHLORIDE 0.9% INJ 100 ML IV SCH (14:53)
[2016-12-22] MEDS: AZITHROMYCIN INJ 500 MG in SODIUM CHLOR 0.9% 250 ML INJ 250 ML IV SCH (16:29)
[2016-12-22] MEDS: ACETAMINOPHEN 325 MG TAB PO PRN ×2 (16:33→21:57)
[2016-12-22] MEDS: ENOXAPARIN SODIUM 40 MG/0.4 ML SYRINGE SQ SCH (18:00)
[2016-12-22] MEDS: NORTRIPTYLINE HCL 25 MG CAP PO SCH (21:56)
[2016-12-22] MEDS: ATORVASTATIN 40 MG TAB PO SCH (21:57)
[2016-12-23] VITALS (9 sets, daily range): BP systolic 131–178; BP diastolic 81–94; PULSE 83–93; RESP 16–20; TEMP 96.1–98.6; O2SAT 93–98
[2016-12-23] MEDS: INSULIN ASPART SUPPLEMENTAL SCALE SQ SCH ×4 (06:08→20:40)
[2016-12-23] MEDS: methylPREDNISolone SOD SUCC 40 MG/1 ML VIAL IV SCH ×3 (06:09→21:32)
[2016-12-23] MEDS: RESP: ALBUTEROL 2.5 MG/IPRATROPIUM 0.5 MG NEB (SCH) INH ×3 (07:29→19:44)
[2016-12-23] MEDS: SODIUM CHLORIDE 0.9% FLUSH 10 ML FLUSH IV FLUSH SCH ×2 (08:51→20:42)
[2016-12-23] MEDS: METOPROLOL SUCCINATE 25 MG EXTENDED RELEASE TAB PO SCH (08:51)
[2016-12-23] MEDS: FLUTICASONE 100 MCG/VILANTEROL 25 MCG INHALER INH SCH (08:51)
[2016-12-23 09:48] LABS: AUTOMATED NEUTROPHIL # 13.1 TH/MM3 (1.8-7.7); BASOPHIL # 0.1 TH/MM3 (0-0.2); BASOPHIL % 0.7 % (0.0-2.0); HEMATOCRIT 36.8 % (35.0-46.0); LYMPH % 3.6 % (9.0-44.0); LYMPHOCYTE # 0.5 TH/MM3 (1.0-4.8); MEAN CELL VOLUME 84.4 FL (80.0-100.0); MEAN CORPUSCULAR HEMOGLOBIN 27.2 PG (27.0-34.0); MEAN CORPUSCULAR HGB CONC 32.3 % (32.0-36.0); MONO % 1.8 % (0.0-8.0); NEUT % 93.9 % (16.0-70.0); PLATELET COUNT 381 TH/MM3 (150-450); RED BLOOD COUNT 4.37 MIL/MM3 (4.00-5.30); RED CELL DISTRIBUTION WIDTH 15.8 % (11.6-17.2); WHITE BLOOD COUNT 13.9 TH/MM3 (4.0-11.0)
[2016-12-23 09:59] LABS: HEMO FLAGS DIFF FINAL
--- NOTE | 2016-12-23 13:38 | HHI.PR ---
Subjective Remarks Follow-up pneumonia, lung mass. Patient awaiting transfer to [facility] for bronchoscopy. Still gets short of breath with any activity. No chest pain. Objective Vitals Vital Signs Date Time Temp Pulse Resp B/P Pulse Ox O2 Delivery O2 Flow Rate FiO2 12/23/16 12:00 98.5 86 20 131/81 95 12/23/16 08:00 97.1 85 20 136/94 95 12/23/16 07:29 98 21 12/23/16 00:50 96.1 84 16 139/91 93 12/22/16 21:36 96.6 87 20 142/96 100 12/22/16 19:25 97 21 12/22/16 15:51 98.4 84 16 154/59 97 I/O 12/22/16 12/22/16 12/22/16 12/23/16 12/23/16 12/23/16 07:00 15:00 23:00 07:00 15:00 23:00 Intake Total 360 ml 1200 ml Balance 360 ml 1200 ml Intake Oral 360 ml 1200 ml # Voids 4 4 1 # Bowel Movements 0 2 Result Diagram: 12/23/16 0935 12/21/16 0504 Imaging Last Impressions Chest X-Ray 12/21/16 0000 Signed Impressions: Service Date/Time: December 14:30 - CONCLUSION: 1. Focal alveolar consolidation within the right midlung field consistent with atelectasis and/or pneumonia. Clinical correlation is recommended. 2. Degenerative changes and scoliosis of the thoracic spine. Nico Fox MD CT Angiography 12/19/16 1341 Signed Impressions: Service Date/Time: Monday, December 19, 2016 14:47 - CONCLUSION: 1. The study is negative for pulmonary embolism. 2. Large area of consolidation involving most the entire right middle lobe without air bronchograms and with truncation of the bronchus to the middle lobe. This suggests a central obstructing lesion. 3. Mediastinal adenopathy. 4. Probable pericardial effusion. John Negrno MD Head CT 12/19/16 0000 Signed Impressions: Service Date/Time: Tuesday, December 20, 2016 09:31 - CONCLUSION: Negative noncontrast CT brain. John Negron MD Objective Remarks General: Elderly female in no acute distress. Heart: Regular rate and rhythm. No murmur. Lungs: Scattered rhonchi. Breathing is nonlabored. Abdomen: Soft, nontender, nondistended. Extremities: No lower extremity edema. Psych: Alert and oriented. Procedures None Urinary Catheter: No Vascular Central Line Catheter: No A/P Problem List: (1) Postobstructive pneumonia ICD Code: J18.9 Status: Acute (2) Sepsis ICD Code: A41.9 Status: Acute (3) Lung mass ICD Code: R91.8 Status: Acute (4) COPD exacerbation ICD Code: J44.1 Status: Acute (5) Leukocytosis ICD Code: D72.829 Status: Acute Assessment and Plan 1. COPD exacerbation, pneumonia, lung mass: Pneumonia appears to be postobstructive. Appreciate pulmonology recommendations. Continue antibiotics, steroids, bronchodilators. Continue supplemental oxygen as needed. Currently tolerating room air. Repeat chest x-ray continues to show consolidation. Awaiting transfer to [facility] for bronchoscopy. 2. Sepsis secondary to pneumonia: Presented with tachycardia, tachypnea, leukocytosis. Patient is afebrile. Continue antibiotics. Blood cultures are negative so far. 3. Headache: CT head is negative. 4. Hyperglycemia: Likely secondary to steroids. Monitor Accu-Cheks and cover with sliding scale insulin. 5. Coronary artery disease, hypertension, hyperlipidemia: Chronic, stable. Continue beta nasima, statin. 6. Depression: Chronic, stable. Continue nortriptyline. 7. DVT prophylaxis: Lovenox. 8. Leukocytosis: Initially secondary to infection. WBCs continue to improve. Monitor labs. Elevation possibly secondary to steroids, ongoing infection. Discharge Planning Transfer to [facility] for bronchoscopy. Problem Qualifiers (1) Sepsis: Qualified Code: A41.9 - Sepsis, due to unspecified organism Logan Cavanaugh MD Dec 23, 2016 13:38
[2016-12-23] MEDS: cefTRIAXone INJ 1,000 MG in SODIUM CHLORIDE 0.9% INJ 100 ML IV SCH (14:03)
[2016-12-23] MEDS: AZITHROMYCIN INJ 500 MG in SODIUM CHLOR 0.9% 250 ML INJ 250 ML IV SCH (14:03)
[2016-12-23] MEDS: ACETAMINOPHEN 325 MG TAB PO PRN ×3 (14:09→21:33)
[2016-12-23] MEDS: ENOXAPARIN SODIUM 40 MG/0.4 ML SYRINGE SQ SCH (18:00)
[2016-12-23] MEDS: NORTRIPTYLINE HCL 25 MG CAP PO SCH (20:41)
[2016-12-23] MEDS: ATORVASTATIN 40 MG TAB PO SCH (20:41)
[2016-12-24] VITALS (7 sets, daily range): BP systolic 150–170; BP diastolic 69–95; PULSE 71–86; RESP 15–21; TEMP 95.8–97.5; O2SAT 94–98
[2016-12-24] MEDS: ACETAMINOPHEN 325 MG TAB PO PRN ×4 (01:23→20:52)
[2016-12-24 05:41] LABS: AUTOMATED NEUTROPHIL # 12.3 TH/MM3 (1.8-7.7); BASOPHIL % 0.2 % (0.0-2.0); HEMATOCRIT 33.7 % (35.0-46.0); HEMO FLAGS DIFF FINAL; LYMPH % 3.7 % (9.0-44.0); LYMPHOCYTE # 0.5 TH/MM3 (1.0-4.8); MEAN CELL VOLUME 84.2 FL (80.0-100.0); MEAN CORPUSCULAR HEMOGLOBIN 27.9 PG (27.0-34.0); MEAN CORPUSCULAR HGB CONC 33.1 % (32.0-36.0); MONO % 2.9 % (0.0-8.0); NEUT % 93.2 % (16.0-70.0); PLATELET COUNT 349 TH/MM3 (150-450); RED BLOOD COUNT 4.01 MIL/MM3 (4.00-5.30); RED CELL DISTRIBUTION WIDTH 16.3 % (11.6-17.2); WHITE BLOOD COUNT 13.1 TH/MM3 (4.0-11.0)
[2016-12-24 05:49] LABS: BICARBONATE 29.7 MEQ/L (21.0-32.0); POTASSIUM 4.3 MEQ/L (3.5-5.1)
[2016-12-24] MEDS: methylPREDNISolone SOD SUCC 40 MG/1 ML VIAL IV SCH ×3 (06:37→20:43)
[2016-12-24] MEDS: INSULIN ASPART SUPPLEMENTAL SCALE SQ SCH ×2 (06:40→12:57)
[2016-12-24] MEDS: METOPROLOL SUCCINATE 25 MG EXTENDED RELEASE TAB PO SCH (07:54)
[2016-12-24] MEDS: SODIUM CHLORIDE 0.9% FLUSH 10 ML FLUSH IV FLUSH SCH ×2 (07:56→20:42)
--- NOTE | 2016-12-24 08:05 | HHI.PR ---
Subjective Remarks Patient seen and examined this morning. Her vitals are stable and she is afebrile. She is sitting comfortably eating her breakfast. She denies SOB when sitting still. But states when she does any activity she feels SOB and then develops a ZAYAS. This has been going on now for 3 weeks. She wants to know if we can stop checking her blood sugar with every meal and if she can have her duonebs. No other concerns today. Objective Vital Signs Date Time Temp Pulse Resp B/P Pulse Ox O2 Delivery O2 Flow Rate FiO2 12/24/16 04:11 96.7 86 19 158/90 95 12/24/16 03:20 18 12/23/16 23:25 178/85 12/23/16 23:11 97.7 93 18 12/23/16 20:30 98.4 83 18 164/94 94 12/23/16 19:44 94 21 12/23/16 16:00 98.6 90 20 150/93 96 12/23/16 15:09 18 12/23/16 15:09 18 12/23/16 12:00 98.5 86 20 131/81 95 12/23/16 08:00 97.1 85 20 136/94 95 I/O 12/23/16 12/23/16 12/23/16 12/24/16 12/24/16 12/24/16 07:00 15:00 23:00 07:00 15:00 23:00 Intake Total 540 ml 120 ml Balance 540 ml 120 ml Intake Oral 540 ml 120 ml # Voids 1 4 2 1 # Bowel Movements 1 0 Result Diagram: 12/24/16 0333 12/24/16 0333 Imaging Last Impressions Chest X-Ray 12/21/16 0000 Signed Impressions: Service Date/Time: December 14:30 - CONCLUSION: 1. Focal alveolar consolidation within the right midlung field consistent with atelectasis and/or pneumonia. Clinical correlation is recommended. 2. Degenerative changes and scoliosis of the thoracic spine. Nico Fox MD CT Angiography 12/19/16 1341 Signed Impressions: Service Date/Time: Monday, December 19, 2016 14:47 - CONCLUSION: 1. The study is negative for pulmonary embolism. 2. Large area of consolidation involving most the entire right middle lobe without air bronchograms and with truncation of the bronchus to the middle lobe. This suggests a central obstructing lesion. 3. Mediastinal adenopathy. 4. Probable pericardial effusion. John Negron MD Head CT 12/19/16 0000 Signed Impressions: Service Date/Time: Tuesday, December 20, 2016 09:31 - CONCLUSION: Negative noncontrast CT brain. John Negron MD Objective Remarks GENERAL: well appearing NAD SKIN: Warm and dry. HEAD: Normocephalic. EYES: No scleral icterus. No injection or drainage. NECK: Supple, trachea midline. No JVD or lymphadenopathy. CARDIOVASCULAR: Regular rate and rhythm without murmurs, gallops, or rubs. RESPIRATORY: Breath sounds equal bilaterally. No accessory muscle use. Slightly diminished on the right. GASTROINTESTINAL: Abdomen soft, non-tender, nondistended. MUSCULOSKELETAL: No cyanosis, or edema. BACK: Nontender without obvious deformity. No CVA tenderness. A/P Problem List: (1) Pneumonia ICD Code: J18.9 (2) Lung mass ICD Code: R91.8 (3) Sepsis ICD Code: A41.9 (4) COPD exacerbation ICD Code: J44.1 (5) Postobstructive pneumonia ICD Code: J18.9 (6) Depression ICD Code: F32.9 Assessment and Plan This is a 71 yo female patient who was admitted to [facility] for sepsis due to pneumonia. The patients CXR continued to show right middle lobe obstruction, Dr. Ga was consulted and it was decided when the patient was stable she would be transferred to [facility] for bronchoscopy. The patient also has mediastinal adenopathy so an underlying malignancy must be ruled out. Dr. Ga is aware of the patient. 1. COPD exacerbation, pneumonia, lung mass: Pneumonia appears to be postobstructive. Appreciate pulmonology recommendations. Continue antibiotics, steroids, bronchodilators. Continue supplemental oxygen as needed. Currently tolerating room air. Repeat chest x-ray continues to show consolidation. 2. Sepsis secondary to pneumonia: Presented with tachycardia, tachypnea, leukocytosis. Currently afebrile, WBC downtrending, blood cultures negative x 4 days, negative flu, urine is negative legionella and strep . Rocephin & azithromycin were started 12/20 3. Headache: CT head is negative. 4. Hyperglycemia: Likely secondary to steroids. Was on sliding scale but has not required any insulin. Patient with no hx of diabetes. Will stop accu checks and hold sliding scale. Will order A1C, if abnormal will resume sliding scale and patient can likely be discharged on metformin if indicated. 5. Coronary artery disease, hypertension, hyperlipidemia: Chronic, stable. Continue beta nasima, statin. 6. Depression: Chronic, stable. Continue nortriptyline. 7. DVT prophylaxis: Lovenox. Discharge Planning D/C is pending further work up of lung mass by Dr. Harmeet Ga Problem Qualifiers (1) Pneumonia: Qualified Code: J18.1 - Pneumonia of right middle lobe due to infectious organism (2) Sepsis: Qualified Code: A41.9 - Sepsis, due to unspecified organism Renu Hansen MD R3 Dec 24, 2016 08:05
[2016-12-24] MEDS: FLUTICASONE 100 MCG/VILANTEROL 25 MCG INHALER INH SCH (10:21)
[2016-12-24] MEDS: RESP: ALBUTEROL 2.5 MG/IPRATROPIUM 0.5 MG NEB (SCH) NEB ×3 (12:48→20:44)
[2016-12-24 13:50] LABS: AUTOMATED NEUTROPHIL # 11.4 TH/MM3 (1.8-7.7); BASOPHIL # 0.2 TH/MM3 (0-0.2); BASOPHIL % 1.8 % (0.0-2.0); EOSINOPHIL # 0.1 TH/MM3 (0-0.4); EOSINOPHIL % 0.5 % (0.0-4.0); HEMATOCRIT 36.4 % (35.0-46.0); LYMPHOCYTE # 0.8 TH/MM3 (1.0-4.8); MEAN CELL VOLUME 83.4 FL (80.0-100.0); MEAN CORPUSCULAR HGB CONC 32.4 % (32.0-36.0); MONO % 6.5 % (0.0-8.0); NEUT % 85.2 % (16.0-70.0); PLATELET COUNT 300 TH/MM3 (150-450); RED BLOOD COUNT 4.36 MIL/MM3 (4.00-5.30); RED CELL DISTRIBUTION WIDTH 16.1 % (11.6-17.2); WHITE BLOOD COUNT 13.4 TH/MM3 (4.0-11.0)
[2016-12-24 13:51] LABS: HEMO FLAGS AUTO DIFF
[2016-12-24 13:58] LABS: APTT (PATIENT) 23.1 SEC (24.3-30.1)
[2016-12-24 14:12] LABS: BANDS 3 % (0-6); MYELOCYTES 2 % (0-0); NEUTROPHIL # MANUAL DIFF 12.3 TH/MM3 (1.8-7.7); POLYS (SEG NEUTROPHILS) 87 % (16-70); WBC DIFF SAMPLE 100
[2016-12-24 14:13] LABS: PLATELET ESTIMATE SMEAR NORMAL (NORMAL); PLATELET MORPHOLOGY NORMAL (NORMAL); SCAN/DIFF FINAL DIFF MANUAL
[2016-12-24] MEDS: cefTRIAXone INJ 1,000 MG in SODIUM CHLORIDE 0.9% INJ 100 ML IV SCH (15:12)
[2016-12-24] MEDS: AZITHROMYCIN INJ 500 MG in SODIUM CHLOR 0.9% 250 ML INJ 250 ML IV SCH (17:09)
[2016-12-24] MEDS: ENOXAPARIN SODIUM 40 MG/0.4 ML SYRINGE SQ SCH (17:10)
[2016-12-24] MEDS: ATORVASTATIN 40 MG TAB PO SCH (20:42)
[2016-12-24] MEDS: NORTRIPTYLINE HCL 25 MG CAP PO SCH (20:43)
[2016-12-25] MEDS: RESP: ALBUTEROL 2.5 MG/IPRATROPIUM 0.5 MG NEB (SCH) NEB ×4 (04:05→21:19)
[2016-12-25] MEDS: methylPREDNISolone SOD SUCC 40 MG/1 ML VIAL IV SCH ×3 (05:02→22:17)
[2016-12-25 06:26] LABS: AUTOMATED NEUTROPHIL # 11.6 TH/MM3 (1.8-7.7); BASOPHIL % 0.2 % (0.0-2.0); HEMATOCRIT 34.3 % (35.0-46.0); LYMPH % 6.3 % (9.0-44.0); LYMPHOCYTE # 0.8 TH/MM3 (1.0-4.8); MEAN CELL VOLUME 83.8 FL (80.0-100.0); MEAN CORPUSCULAR HEMOGLOBIN 28.3 PG (27.0-34.0); MEAN CORPUSCULAR HGB CONC 33.8 % (32.0-36.0); MONO % 3.9 % (0.0-8.0); NEUT % 89.6 % (16.0-70.0); PLATELET COUNT 329 TH/MM3 (150-450); WHITE BLOOD COUNT 12.9 TH/MM3 (4.0-11.0)
[2016-12-25 06:27] LABS: HEMO FLAGS AUTO DIFF
[2016-12-25 06:52] LABS: BICARBONATE 33.6 MEQ/L (21.0-32.0); POTASSIUM 3.9 MEQ/L (3.5-5.1)
[2016-12-25 07:53] LABS: BANDS 2 % (0-6); METAMYELOCYTES 2 % (0-1); NEUTROPHIL # MANUAL DIFF 11.1 TH/MM3 (1.8-7.7); PLATELET ESTIMATE SMEAR NORMAL (NORMAL); PLATELET MORPHOLOGY NORMAL (NORMAL); POLYS (SEG NEUTROPHILS) 82 % (16-70); SCAN/DIFF FINAL DIFF MANUAL; WBC DIFF SAMPLE 100
[2016-12-25 08:00] VITALS: BP 184/89; PULSE 86; RESP 17; TEMP 97.9; O2SAT 93
--- NOTE | 2016-12-25 08:42 | RADRPT ---
EXAM DATE/TIME: 12/25/2016 08:22 [facility] COMPARISON: No previous studies available for comparison. INDICATIONS : Right leg pain. MEDICAL HISTORY : Hypercholesterolemia. Hypertension. Chronic obstructive pulmonary disease. SURGICAL HISTORY : Appendectomy. Hysterectomy. Cardiac stents. Cardiac catheterization. ENCOUNTER: Initial ACUITY: 1 day PAIN SCORE: 2/10 LOCATION: Right leg. TECHNIQUE: Venous ultrasound of the leg was performed from the inguinal ligament to the proximal calf. Real-loretta e, color Doppler and spectral tracing, compression and augmentation techniques were used. FINDINGS: There is normal compressibility of the deep venous system from the inguinal region to the proximal ca lf. No echogenic clot is seen in the lumen of the common femoral, femoral, popliteal, and posterior tibial veins. There is a normal response of the venous system to proximal and distal augmentation an d respiration. CONCLUSION: No DVT in the right leg. Russel Vyas MD on December 25, 2016 at 8:40 Board Certified Radiologist. This report was verified electronically.
[2016-12-25 09:36] VITALS: O2SAT 97
[2016-12-25] MEDS: METOPROLOL SUCCINATE 25 MG EXTENDED RELEASE TAB PO SCH (11:00)
[2016-12-25] MEDS: SODIUM CHLORIDE 0.9% FLUSH 10 ML FLUSH IV FLUSH SCH ×2 (11:00→20:18)
[2016-12-25] MEDS: LISINOPRIL 10 MG TAB PO SCH (11:00)
[2016-12-25] MEDS: FLUTICASONE 100 MCG/VILANTEROL 25 MCG INHALER INH SCH (11:02)
--- NOTE | 2016-12-25 11:37 | HHI.PR ---
Subjective Remarks Admitted with sepsis and pneumonia, with new finding of a lung mass. Bronchoscopy pending for today. She also has results pending on a lower extremity ultrasound for leg swelling/pain. The swelling and pain are improved today, per patient. No new complaints. She has significant dyspnea with exertion but is stable when resting in bed. Objective Vital Signs Date Time Temp Pulse Resp B/P Pulse Ox O2 Delivery O2 Flow Rate FiO2 12/25/16 09:36 97 21 12/25/16 08:00 97.9 86 17 184/89 93 12/24/16 23:49 97.5 82 21 163/85 96 12/24/16 20:00 96.3 83 20 170/83 98 12/24/16 16:00 97.5 73 18 150/69 94 12/24/16 12:00 95.8 71 16 169/79 95 I/O 12/24/16 12/24/16 12/24/16 12/25/16 12/25/16 12/25/16 07:00 15:00 23:00 07:00 15:00 23:00 Intake Total 120 ml 360 ml 120 ml 120 ml Balance 120 ml 360 ml 120 ml 120 ml Intake Oral 120 ml 360 ml 120 ml 120 ml IV Total 0 ml # Voids 1 3 2 3 # Bowel Movements 0 1 0 0 Result Diagram: 12/25/16 0519 12/25/16518 Objective Remarks GENERAL: NAD, A&Ox3 SKIN: Warm and dry. HEAD: Normocephalic. EYES: No scleral icterus. No injection or drainage. NECK: Supple, trachea midline. No JVD or lymphadenopathy. CARDIOVASCULAR: Regular rate and rhythm without murmurs, gallops, or rubs. RESPIRATORY: Breath sounds equal bilaterally. No accessory muscle use. GASTROINTESTINAL: Abdomen soft, non-tender, nondistended. MUSCULOSKELETAL: No cyanosis, or edema. BACK: Nontender without obvious deformity. No CVA tenderness. Medications and IVs Administered Medications Medications (Trade) Dose Ordered Sig/Eloise Route PRN Reason Start Time Stop Time Status Last Admin Dose Admin Sodium Chloride (NS Flush) 2 ml BID IV FLUSH 12/19/16 21:00 12/25/16 11:00 Sodium Chloride 2 ml 2 ml UNSCH PRN IV FLUSH FLUSH AFTER USING IV ACCESS 12/19/16 16:00 12/23/16 14:04 Ceftriaxone Sodium 1000 mg/ Sodium Chloride 100 ml @ 200 mls/hr Q24H IV 12/20/16 15:00 12/24/16 15:12 Azithromycin/ Sodium Chloride (Zithromax Inj/ NS 250 ml Inj) 250 ml @ 250 mls/hr Q24H IV 12/20/16 15:00 12/24/16 17:09 Enoxaparin Sodium (Lovenox Inj) 40 mg Q24H SQ 12/19/16 18:00 12/24/16 17:10 Acetaminophen (Tylenol) 650 mg Q4H PRN PO Temp > 100.4, ZAYAS 12/19/16 16:15 12/24/16 20:52 Atorvastatin Calcium (Lipitor) 40 mg HS PO 12/19/16 21:00 12/24/16 20:42 Fluticasone/ Vilanterol (Breo Ellipta 100-25 Inh) 1 puff DAILY INH 12/20/16 09:00 12/25/16 11:02 Nortriptyline HCl (Pamelor) 50 mg HS PO 12/19/16 21:00 12/24/16 20:43 Metoprolol Succinate (Toprol Xl) 25 mg DAILY PO 12/20/16 09:00 12/25/16 11:00 Methylprednisolone Sodium Succinate (SoluMEDROL INJ) 40 mg Q8HR IV 12/19/16 22:00 12/25/16 05:02 Lisinopril (Prinivil) 10 mg DAILY PO 12/25/16 09:00 12/25/16 11:00 A/P Problem List: (1) Pneumonia ICD Code: J18.9 (2) Leukocytosis ICD Code: D72.829 (3) COPD exacerbation ICD Code: J44.1 (4) Sepsis ICD Code: A41.9 (5) Lung mass ICD Code: R91.8 Assessment and Plan COPD Exacerbation Pneumonia No change to antibiotics Continue steroids Globally improved Will need an oxygen walk test when discharge nears Lung Mass Bronchoscopy today Pulmonology following May be complicating her respiratory recovery Sepsis Resolved Follow clinically Hyperglycemia Steroid effect Insulin sliding scale No prior history of DM CAD HTN Hyperlipidemia Depression Continue baseline treatments No exacerbations Follow BP and follow clinically DVT Prophylaxis Lovenox Problem Qualifiers (1) Pneumonia: Qualified Code: J18.1 - Pneumonia of right middle lobe due to infectious organism (2) Sepsis: Qualified Code: A41.9 - Sepsis, due to unspecified organism Luis A Rebollar MD Dec 25, 2016 11:37
[2016-12-25 12:00] VITALS: BP 156/83; PULSE 86; RESP 17; TEMP 97.6; O2SAT 91
[2016-12-25] MEDS ORDERED: PROPOFOL 200 MG/20 ML AMP IV ONE (12:00)
[2016-12-25] MEDS ORDERED: ONDANSETRON HCL 4 MG/2 ML VIAL IV PUSH ONE (12:00)
[2016-12-25 14:45] LABS: HEMOGLOBIN A1a 1.1 %; HEMOGLOBIN A1b 2.1 %; HEMOGLOBIN Ao 83.7 %; HEMOGLOBIN P3 4.1 %
[2016-12-25] MEDS: cefTRIAXone INJ 1,000 MG in SODIUM CHLORIDE 0.9% INJ 100 ML IV SCH (15:02)
[2016-12-25 16:00] VITALS: BP 154/83; PULSE 74; RESP 17; TEMP 96.8; O2SAT 92
[2016-12-25 16:39] VITALS: O2SAT 94
[2016-12-25] MEDS ORDERED: SODIUM CHLORIDE 0.9% 20 ML VIAL ONE (17:03)
[2016-12-25] MEDS ORDERED: LIDOCAINE HCL 2% 50 ML VIAL ONE (17:03)
[2016-12-25] MEDS ORDERED: EPINEPHrine HCL (1:1000) 1 MG/ML VIAL ONE (17:04)
[2016-12-25] MEDS ORDERED: LIDOCAINE VISCOUS 2% SOLN 15 ML UDC ONE (17:15)
[2016-12-25] MEDS ORDERED: *RESP: ALBUTEROL 2.5 MG/3 ML NEB (PRN) PERIprocedural Use ONLY NEB ONE (18:27)
[2016-12-25] MEDS: AZITHROMYCIN INJ 500 MG in SODIUM CHLOR 0.9% 250 ML INJ 250 ML IV SCH (18:47)
[2016-12-25] MEDS ORDERED: DO NOT ADM ANY ANTICOAGULANT DRUGS PRN (19:45)
[2016-12-25 20:00] VITALS: BP 143/75; PULSE 62; RESP 21; TEMP 98; O2SAT 92
[2016-12-25] MEDS: NORTRIPTYLINE HCL 25 MG CAP PO SCH (20:17)
[2016-12-25] MEDS: ATORVASTATIN 40 MG TAB PO SCH (20:17)
[2016-12-25] MEDS: ACETAMINOPHEN 325 MG TAB PO PRN (20:18)
[2016-12-25] MEDS: ENOXAPARIN SODIUM 40 MG/0.4 ML SYRINGE SQ SCH (20:24)
[2016-12-26] VITALS (8 sets, daily range): BP systolic 131–167; BP diastolic 61–99; PULSE 69–85; RESP 17–20; TEMP 96.6–97.5; O2SAT 94–98
[2016-12-26] MEDS: RESP: ALBUTEROL 2.5 MG/IPRATROPIUM 0.5 MG NEB (SCH) NEB ×4 (04:02→21:38)
[2016-12-26] MEDS: methylPREDNISolone SOD SUCC 40 MG/1 ML VIAL IV SCH ×2 (05:57→17:37)
--- NOTE | 2016-12-26 07:10 | MB ---
cc: BERTIN DENTON M.D. DATE OF CONSULTATION 12/25/2016 PROCEDURE Fiberoptic bronchoscopy flexible. REASON FOR BRONCHOSCOPY Atelectasis right mid-lung lobe, rule out underlying malignancy. ANESTHESIA Fiberoptic bronchoscopy performed via LMA. FINDINGS Vocal cords intact. Trachea mildly hyperemic. Alessandra sharp. Left main bronchus, left upper and lower lobes with no obstruction or mass lesion. Right main bronchus patent. Right upper, middle and lower lobes inspected. The middle lobe is significantly narrowed. The upper and lower lobes appear patent. The middle lobe is funnel-shaped with almost a pinhead patency at the tip. Washings, brushings and biopsy of the right middle lobe orifice taken and sent for routine TB, fungal cultures, cytological exam, biopsy placed in formalin and sent for pathological exam. The procedure was well tolerated. The patient transferred to Recovery in stable condition. IMPRESSION 1. Marked narrowing right middle lobe as above. 2. Samples obtained as above. 3. Procedure well tolerated. 4. Patient transferred to Recovery in stable condition. Bertin Denton MD WWW/ROB /6:15 PM /7:02 AM
--- NOTE | 2016-12-26 07:28 | HHI.PR ---
Subjective Remarks minimal sputum up and ambulating Objective Vitals Vital Signs Date Time Temp Pulse Resp B/P Pulse Ox O2 Delivery O2 Flow Rate FiO2 12/26/16 04:00 96.6 77 19 137/66 94 12/26/16 00:00 97.3 85 20 131/61 98 12/25/16 20:00 98.0 62 21 143/75 92 12/25/16 19:15 98.4 81 16 159/92 92 Nasal Cannula 3 12/25/16 19:00 80 20 159/92 92 Nasal Cannula 3 12/25/16 18:45 96 20 155/89 92 Nasal Cannula 3 12/25/16 18:30 83 22 171/100 98 Nasal Cannula 3 12/25/16 18:15 98.0 72 22 141/85 92 Nasal Cannula 3 12/25/16 16:39 94 Nasal Cannula 3.00 12/25/16 16:00 96.8 74 17 154/83 92 12/25/16 12:00 97.6 86 17 156/83 91 12/25/16 09:36 97 21 12/25/16 08:00 97.9 86 17 184/89 93 I/O 12/25/16 12/25/16 12/25/16 12/26/16 12/26/16 12/26/16 07:00 15:00 23:00 07:00 15:00 23:00 Intake Total 120 ml 0 ml 200 ml 480 ml Output Total 5 ml Balance 120 ml 0 ml 195 ml 480 ml Intake Oral 120 ml 0 ml 480 ml IV Total 100 ml Other 100 ml Output Estimated Blood Loss 5 ml # Voids 3 5 3 # Bowel Movements 0 0 0 Result Diagram: 12/25/16 0519 12/25/16 0519 Imaging Last Impressions Lower Extremity Ultrasound 12/25/16 0000 Signed Impressions: Service Date/Time: Sunday, December 25, 2016 08:22 - CONCLUSION: No DVT in the right leg. Russel Vyas MD Chest X-Ray 12/21/16 0000 Signed Impressions: Service Date/Time: December 14:30 - CONCLUSION: 1. Focal alveolar consolidation within the right midlung field consistent with atelectasis and/or pneumonia. Clinical correlation is recommended. 2. Degenerative changes and scoliosis of the thoracic spine. Nico Fox MD CT Angiography 12/19/16 1341 Signed Impressions: Service Date/Time: Monday, December 19, 2016 14:47 - CONCLUSION: 1. The study is negative for pulmonary embolism. 2. Large area of consolidation involving most the entire right middle lobe without air bronchograms and with truncation of the bronchus to the middle lobe. This suggests a central obstructing lesion. 3. Mediastinal adenopathy. 4. Probable pericardial effusion. John Negron MD Head CT 12/19/16 0000 Signed Impressions: Service Date/Time: Tuesday, December 20, 2016 09:31 - CONCLUSION: Negative noncontrast CT brain. John Negron MD Objective Remarks awake and alert, oriented x 3 anicteric lungs- slightly decreased breath sounds and decereased vocal fremiti- right base to mid regular rhythm abdomen soft, good bowel sounds extremities no edema Procedures 12/25- bronchoscopy A/P Problem List: (1) Postobstructive pneumonia ICD Code: J18.9 Status: Acute (2) Sepsis ICD Code: A41.9 Status: Acute (3) Lung mass ICD Code: R91.8 Status: Acute (4) COPD exacerbation ICD Code: J44.1 Status: Acute (5) Leukocytosis ICD Code: D72.829 Status: Acute Assessment and Plan 71 years old female COPD Exacerbation Pneumonia Continue steroids- change to po Prednisone continue antibiotics Globally improved Will need an oxygen walk test when discharge nears Lung Mass S/P bronchoscopy Pulmonology following May be complicating her respiratory recovery Sepsis Resolved Follow clinically Hyperglycemia Steroid effect Insulin sliding scale No prior history of DM CAD HTN Hyperlipidemia Depression Continue baseline treatments No exacerbations Follow BP and follow clinically DVT Prophylaxis Lovenox Problem Qualifiers (1) Sepsis: Qualified Code: A41.9 - Sepsis, due to unspecified organism Susie Winters MD Dec 26, 2016 07:28
[2016-12-26] MEDS: SODIUM CHLORIDE 0.9% FLUSH 10 ML FLUSH IV FLUSH SCH ×2 (08:41→21:07)
[2016-12-26] MEDS: METOPROLOL SUCCINATE 25 MG EXTENDED RELEASE TAB PO SCH (08:41)
[2016-12-26] MEDS: LISINOPRIL 10 MG TAB PO SCH (08:41)
[2016-12-26] MEDS: FLUTICASONE 100 MCG/VILANTEROL 25 MCG INHALER INH SCH (08:42)
[2016-12-26] MEDS: ACETAMINOPHEN 325 MG TAB PO PRN (11:34)
[2016-12-26] MEDS: AZITHROMYCIN INJ 500 MG in SODIUM CHLOR 0.9% 250 ML INJ 250 ML IV SCH (15:29)
[2016-12-26] MEDS: cefTRIAXone INJ 1,000 MG in SODIUM CHLORIDE 0.9% INJ 100 ML IV SCH (15:29)
[2016-12-26] MEDS: ENOXAPARIN SODIUM 40 MG/0.4 ML SYRINGE SQ SCH (17:37)
[2016-12-26] MEDS: cloNIDine HCL 0.1 MG TAB PO PRN (17:43)
[2016-12-26] MEDS: NORTRIPTYLINE HCL 25 MG CAP PO SCH (21:06)
[2016-12-26] MEDS: ATORVASTATIN 40 MG TAB PO SCH (21:06)
[2016-12-27] VITALS (7 sets, daily range): BP systolic 136–166; BP diastolic 67–99; PULSE 75–114; RESP 16–18; TEMP 96.6–98.6; O2SAT 92–97
[2016-12-27] MEDS: RESP: ALBUTEROL 2.5 MG/IPRATROPIUM 0.5 MG NEB (SCH) NEB ×4 (03:34→21:03)
[2016-12-27] MEDS: methylPREDNISolone SOD SUCC 40 MG/1 ML VIAL IV SCH (05:15)
[2016-12-27] MEDS: FLUTICASONE 100 MCG/VILANTEROL 25 MCG INHALER INH SCH (09:00)
[2016-12-27] MEDS: METOPROLOL SUCCINATE 25 MG EXTENDED RELEASE TAB PO SCH (09:26)
[2016-12-27] MEDS: LISINOPRIL 10 MG TAB PO SCH (09:26)
[2016-12-27] MEDS: SODIUM CHLORIDE 0.9% FLUSH 10 ML FLUSH IV FLUSH SCH ×2 (09:28→19:47)
--- NOTE | 2016-12-27 12:13 | HHI.PR ---
Subjective Remarks minimal sputum feeling better Objective Vitals Vital Signs Date Time Temp Pulse Resp B/P Pulse Ox O2 Delivery O2 Flow Rate FiO2 12/27/16 11:23 2.00 12/27/16 08:00 97.1 90 17 136/67 95 12/27/16 03:34 97 Nasal Cannula 2.00 12/27/16 03:34 97 Nasal Cannula 2.00 12/27/16 00:00 96.6 85 16 140/71 96 12/26/16 21:40 98 Nasal Cannula 2.00 12/26/16 19:47 97.5 69 18 153/83 94 12/26/16 16:00 97.5 80 17 167/81 97 12/26/16 12:34 18 I/O 12/26/16 12/26/16 12/26/16 12/27/16 12/27/16 12/27/16 07:00 15:00 23:00 07:00 15:00 23:00 Intake Total 480 ml 400 ml 120 ml 600 ml Balance 480 ml 400 ml 120 ml 600 ml Intake Oral 480 ml 400 ml 120 ml 600 ml # Voids 3 5 3 4 # Bowel Movements 0 0 0 Result Diagram: 12/25/16 0519 12/25/16 0519 Imaging Last Impressions Lower Extremity Ultrasound 12/25/16 0000 Signed Impressions: Service Date/Time: Sunday, December 25, 2016 08:22 - CONCLUSION: No DVT in the right leg. Russel Vyas MD Chest X-Ray 12/21/16 0000 Signed Impressions: Service Date/Time: December 14:30 - CONCLUSION: 1. Focal alveolar consolidation within the right midlung field consistent with atelectasis and/or pneumonia. Clinical correlation is recommended. 2. Degenerative changes and scoliosis of the thoracic spine. Nico Fox MD CT Angiography 12/19/16 1341 Signed Impressions: Service Date/Time: Monday, December 19, 2016 14:47 - CONCLUSION: 1. The study is negative for pulmonary embolism. 2. Large area of consolidation involving most the entire right middle lobe without air bronchograms and with truncation of the bronchus to the middle lobe. This suggests a central obstructing lesion. 3. Mediastinal adenopathy. 4. Probable pericardial effusion. John Negron MD Head CT 12/19/16 0000 Signed Impressions: Service Date/Time: Tuesday, December 20, 2016 09:31 - CONCLUSION: Negative noncontrast CT brain. John Negron MD Objective Remarks awake and alert, oriented x 3 anicteric lungs- no rales or wheezes, better breath sounds- more equal regular rhythm abdomen soft, good bowel sounds extremities no edema Procedures 12/25- bronchoscopy A/P Problem List: (1) Postobstructive pneumonia ICD Code: J18.9 Status: Acute (2) Sepsis ICD Code: A41.9 Status: Acute (3) Lung mass ICD Code: R91.8 Status: Acute (4) COPD exacerbation ICD Code: J44.1 Status: Acute (5) Leukocytosis ICD Code: D72.829 Status: Acute Assessment and Plan 71 years old female COPD Exacerbation Pneumonia- possibly postobstructive Continue steroids- change to po Prednisone continue antibiotics Globally improved Will need an oxygen walk test when discharge nears Lung Mass S/P bronchoscopy Pulmonology following/biopsy/micro pending -cardiothoracic surgery consulted by Dr. Denton Sepsis Resolved Follow clinically Hyperglycemia Steroid effect Insulin sliding scale No prior history of DM CAD HTN Hyperlipidemia Depression Continue baseline treatments No exacerbations Follow BP and follow clinically DVT Prophylaxis Lovenox Problem Qualifiers (1) Sepsis: Qualified Code: A41.9 - Sepsis, due to unspecified organism Susie Winters MD Dec 27, 2016 12:13
[2016-12-27] MEDS: CEFUROXIME AXETIL 500 MG TAB PO SCH ×2 (13:27→19:46)
[2016-12-27] MEDS ORDERED: OXYGENTANK NAS.CANULA ×3 (13:40→16:26)
[2016-12-27] MEDS: cloNIDine HCL 0.1 MG TAB PO PRN (16:04)
[2016-12-27] MEDS: ENOXAPARIN SODIUM 40 MG/0.4 ML SYRINGE SQ SCH (16:04)
--- NOTE | 2016-12-27 16:18 | HHI.PR ---
Subjective Remarks still sob but less PATHOLOGY , negative cytology pending Objective Vital Signs Date Time Temp Pulse Resp B/P Pulse Ox O2 Delivery O2 Flow Rate FiO2 12/27/16 15:52 97 Nasal Cannula 2.00 12/27/16 12:00 98.6 76 17 166/82 97 12/27/16 11:23 2.00 12/27/16 08:00 97.1 90 17 136/67 95 12/27/16 03:34 97 Nasal Cannula 2.00 12/27/16 03:34 97 Nasal Cannula 2.00 12/27/16 00:00 96.6 85 16 140/71 96 12/26/16 21:40 98 Nasal Cannula 2.00 12/26/16 19:47 97.5 69 18 153/83 94 I/O 12/26/16 12/26/16 12/26/16 12/27/16 12/27/16 12/27/16 07:00 15:00 23:00 07:00 15:00 23:00 Intake Total 480 ml 400 ml 120 ml 600 ml Balance 480 ml 400 ml 120 ml 600 ml Intake Oral 480 ml 400 ml 120 ml 600 ml # Voids 3 5 3 4 # Bowel Movements 0 0 0 Result Diagram: 12/25/1651812/25/16518 Objective Remarks GENERAL: SKIN: Warm and dry. HEAD: Atraumatic. Normocephalic. EYES: Pupils equal and round. No scleral icterus. No injection or drainage. ENT: No nasal bleeding or discharge. Mucous membranes pink and moist. NECK: Trachea midline. No JVD. CARDIOVASCULAR: Regular rate and rhythm. RESPIRATORY: No accessory muscle use. Clear to auscultation. Breath sounds equal bilaterally. GASTROINTESTINAL: Abdomen soft, non-tender, nondistended. Hepatic and splenic margins not palpable. MUSCULOSKELETAL: Extremities without clubbing, cyanosis, or edema. No obvious deformities. NEUROLOGICAL: Awake and alert. No obvious cranial nerve deficits. Motor grossly within normal limits. Five out of 5 muscle strength in the arms and legs. Normal speech. PSYCHIATRIC: Appropriate mood and affect; insight and judgment normal. Assessment and Plan Assessment and Plan assessment near total occlusion RML BRONCHUS pneumonia ? post obstructive HTN CAD PLAN O2 ANTBIOTICS THORACIC SURGERY CONSULT Bertin Denton MD Dec 27, 2016 16:18
[2016-12-27] MEDS: ATORVASTATIN 40 MG TAB PO SCH (19:46)
[2016-12-27] MEDS: NORTRIPTYLINE HCL 25 MG CAP PO SCH (19:46)
[2016-12-28] VITALS (8 sets, daily range): BP systolic 135–175; BP diastolic 68–91; PULSE 74–97; RESP 16–21; TEMP 97.1–97.8; O2SAT 92–100
[2016-12-28] MEDS: RESP: ALBUTEROL 2.5 MG/IPRATROPIUM 0.5 MG NEB (SCH) NEB ×4 (03:37→21:18)
[2016-12-28] MEDS: METOPROLOL SUCCINATE 25 MG EXTENDED RELEASE TAB PO SCH (09:47)
[2016-12-28] MEDS: FLUTICASONE 100 MCG/VILANTEROL 25 MCG INHALER INH SCH (09:47)
[2016-12-28] MEDS: predniSONE 20 MG TAB PO SCH (09:47)
[2016-12-28] MEDS: CEFUROXIME AXETIL 500 MG TAB PO SCH (09:47)
[2016-12-28] MEDS: SODIUM CHLORIDE 0.9% FLUSH 10 ML FLUSH IV FLUSH SCH ×2 (09:47→20:51)
[2016-12-28] MEDS: LISINOPRIL 10 MG TAB PO SCH (09:47)
--- NOTE | 2016-12-28 10:26 | HHI.PR ---
Subjective Remarks still complains of shortness of breath with exertion minimal sputum Objective Vitals Vital Signs Date Time Temp Pulse Resp B/P Pulse Ox O2 Delivery O2 Flow Rate FiO2 12/28/16 09:14 98 Nasal Cannula 2.00 12/28/16 08:00 97.1 97 20 157/78 95 12/28/16 03:40 98 Nasal Cannula 2.00 12/28/16 00:00 97.7 78 16 160/68 92 12/27/16 20:00 97.0 114 16 163/89 92 12/27/16 16:00 97.5 75 18 166/99 97 12/27/16 15:52 97 Nasal Cannula 2.00 12/27/16 12:00 98.6 76 17 166/82 97 12/27/16 11:23 2.00 I/O 12/27/16 12/27/16 12/27/16 12/28/16 12/28/16 12/28/16 07:00 15:00 23:00 07:00 15:00 23:00 Intake Total 600 ml 440 ml 360 ml 360 ml 120 ml Balance 600 ml 440 ml 360 ml 360 ml 120 ml Intake Oral 600 ml 440 ml 360 ml 360 ml 120 ml # Voids 4 4 3 2 # Bowel Movements 0 0 0 Result Diagram: 12/25/16 0519 12/25/16 0519 Imaging Last Impressions Lower Extremity Ultrasound 12/25/16 0000 Signed Impressions: Service Date/Time: Sunday, December 25, 2016 08:22 - CONCLUSION: No DVT in the right leg. Russel Vyas MD Chest X-Ray 12/21/16 0000 Signed Impressions: Service Date/Time: December 14:30 - CONCLUSION: 1. Focal alveolar consolidation within the right midlung field consistent with atelectasis and/or pneumonia. Clinical correlation is recommended. 2. Degenerative changes and scoliosis of the thoracic spine. Nico Fox MD CT Angiography 12/19/16 1341 Signed Impressions: Service Date/Time: Monday, December 19, 2016 14:47 - CONCLUSION: 1. The study is negative for pulmonary embolism. 2. Large area of consolidation involving most the entire right middle lobe without air bronchograms and with truncation of the bronchus to the middle lobe. This suggests a central obstructing lesion. 3. Mediastinal adenopathy. 4. Probable pericardial effusion. John Negron MD Head CT 12/19/16 0000 Signed Impressions: Service Date/Time: Tuesday, December 20, 2016 09:31 - CONCLUSION: Negative noncontrast CT brain. John Negron MD Objective Remarks awake and alert, oriented x 3 anicteric lungs- no rales or wheezes, decreased breath sounds regular rhythm abdomen soft, good bowel sounds extremities no edema Procedures 12/25- bronchoscopy A/P Problem List: (1) Postobstructive pneumonia ICD Code: J18.9 Status: Acute (2) Sepsis ICD Code: A41.9 Status: Acute (3) Lung mass ICD Code: R91.8 Status: Acute (4) COPD exacerbation ICD Code: J44.1 Status: Acute (5) Leukocytosis ICD Code: D72.829 Status: Acute Assessment and Plan 71 years old female COPD Exacerbation Pneumonia- possibly postobstructive- growing Sterno Maltophilia On steroids- po Prednisone- gradual taper DC Ceftin- change to Levaquin Will need an oxygen walk test when discharge nears Lung Mass S/P bronchoscopy Pulmonology following/biopsy/micro pending -cardiothoracic surgery consulted by Dr. Denton for evaluation Repeat CXR- PA and Lateral today Sepsis secondary to PNA Resolved- on Levaquin Follow clinically Hyperglycemia Steroid effect Insulin sliding scale No prior history of DM CAD HTN Hyperlipidemia Depression Continue baseline treatments No exacerbations Follow BP and follow clinically DVT Prophylaxis Lovenox Problem Qualifiers (1) Sepsis: Qualified Code: A41.9 - Sepsis, due to unspecified organism Susie Winters MD Dec 28, 2016 10:26
--- NOTE | 2016-12-28 12:00 | RADRPT ---
EXAM DATE/TIME: 12/28/2016 10:59 [facility] COMPARISON: CT PULMONARY ANGIOGRAM, December 19, 2016, 14:47. CHEST PA & LAT, December 21, 2016, 14:30. INDICATIONS : Dyspnea. MEDICAL HISTORY : Hypercholesterolemia. Hypertension. Chronic obstructive pulmonary disease. SURGICAL HISTORY : Appendectomy. Hysterectomy. Cardiac cath with stent placement. ENCOUNTER: Initial ACUITY: 1 week PAIN SCORE: 0/10 LOCATION: Bilateral chest FINDINGS: AP and lateral views of the chest demonstrate a normal-sized cardiac silhouette with mild rightward s hift of the mediastinum. There is persistent right midlung zone airspace consolidation, stable from t he prior study and there is slight blunting of the right costophrenic angle. No pneumothorax is visua lized. CONCLUSION: Persistent volume loss in the right hemithorax with severe consolidation in the right midlung zone wi th likely trace right pleural effusion. Overall, there has been no significant change from the prior exam. Chapo Escalona MD on December 28, 2016 at 11:50 Board Certified Radiologist. This report was verified electronically.
[2016-12-28] MEDS: LEVOFLOXACIN 500 MG TAB PO SCH (12:22)
[2016-12-28] MEDS: ENOXAPARIN SODIUM 40 MG/0.4 ML SYRINGE SQ SCH (17:21)
--- NOTE | 2016-12-28 18:39 | MB ---
cc: SVETLANA MAGAÑA MD DATE OF CONSULTATION 12/28/16 1945 A 71 year-old female patient of Dr. Rashida Red and Dr. Denton with longstanding history of COPD who has apparently had some shortness of breath off and on for the past couple of months, treated for upper respiratory infection with antibiotics and steroids with some improvement. However, worsening symptoms with a recent congestion, cough, fatigue. No recent fever, chills, hemoptysis, hemoptysis. No recent ill contacts. No travel. No weight gain or weight loss. She presented to the emergency room. She had apparently been using her breathing treatment for times a day without improvement. She still feels short of breath, severity was worsening for the last couple of days prior to admission. They did a CT chest with no evidence of pulmonary emboli, however, there was obstruction of the right middle lobe bronchus with evidence of mediastinal adenopathy and questionable pericardial effusion. The patient was treated with some antibiotics again and underwent flexible fiberoptic bronchoscopy which showed marked narrowing of the right middle lobe. The left main and left upper and lower lobes with no obstruction or mass lesion. The main bronchus was patent. Right upper, middle lobes were inspected. The middle lobe was significantly narrowed. The middle lobe appeared frontal shaped with almost a pinhead patency at the tip. Bronchial washings pathology - predominantly denuded respiratory mucosa without significant histological abnormality, inconclusive, did show bronchial washings positive for Stenotrophomonas maltophilia. No AFB today, mycobacterial still pending. Fungal culture still pending. No fungal elements noted. She was negative for influenza A, B. Blood cultures were negative. She is currently on Levaquin. We were consulted to evaluate for near occlusion of the right middle lobe and evaluate for surgical intervention. PAST MEDICAL HISTORY 1. COPD. She has a nebulizer at home 2. Hypertension, 3. Hyperlipidemia, 4. Mood disorder 5. Coronary artery disease 6. Prior [place] PAST SURGICAL HISTORY 1. Appendectomy, 2. Hysterectomy 3. Cardiac cath [address] Aayush Patel where she has had two stents placed. ALLERGIES No known allergies MEDICATIONS home meds include 1. Breo elipta 2. Metoprolol 3. Nortriptyline. 4. Atorvastatin. 5. DuoNebs. FAMILY HISTORY Mother at 82. Father at 92 0 both had heart disease. SOCIAL HISTORY The patient is single. She does have a daughter nearby and a brother nearby. She smoked for 50 years, one pack. She quit three years ago. No alcohol. REVIEW OF SYSTEMS 12-point systems as per HPI, otherwise, history unremarkable. PHYSICAL EXAMINATION VITAL SIGNS: Blood pressure 130/80, heart rate 74, temperature max 97.8, pulse ox 97 on 2 liters. GENERAL: Patient is awake, alert in no acute distress. HEAD: Normocephalic, atraumatic. Pupils equal and reactive. Oral mucosa pink, moist. NECK: Supple. No JVD. CARDIAC: Heart sounds S1-S2 regular rate and rhythm. Soft systolic murmur left sternal border. LUNGS: Diminished in the right lower and mid lobe otherwise clear to auscultation. ABDOMEN: Soft, nontender. No masses or organomegaly. EXTREMITIES: No cyanosis, clubbing or edema. LABORATORY DATA Initial white cell count 22,000, went up to 28,000, now is 12,000, hemoglobin 11, hematocrit 34, platelets of 329. Sodium 139, potassium 3.9, BUN of 18, creatinine 0.79, INR 1.0. Micro as above. IMAGING STUDIES Radiological exams as above. She also had a lower extremity ultrasound which showed no DVT in the right leg. IMPRESSION This is a postobstructive pneumonia near occlusion of the right middle lobe, status post flexible bronchoscopy by Dr. Denton on 12/25/2016. Pathology inconclusive. Cytology still pending. Bronchial washes positive for Stenotrophomonas maltophilia on Levaquin at this time. At this time recommend that the patient undergo pulmonary function testing with resolution of the pneumonia. Cardiac clearance will be required prior to any surgical interventions since she has had prior stenting x2 by Dr. Aayush Patel in 2008. I also recommend PET scan as an outpatient if possible prior to any intervention. Dictated by EYAL Jackson Svetlana AYON /2:42 PM /9:01 AM
[2016-12-28] MEDS: NORTRIPTYLINE HCL 25 MG CAP PO SCH (20:50)
[2016-12-28] MEDS: ATORVASTATIN 40 MG TAB PO SCH (20:51)
[2016-12-29 00:06] VITALS: BP 155/80; PULSE 79; RESP 21; TEMP 96.7; O2SAT 96
[2016-12-29] MEDS: RESP: ALBUTEROL 2.5 MG/IPRATROPIUM 0.5 MG NEB (SCH) NEB ×4 (04:00→21:32)
[2016-12-29 08:05] VITALS: BP 136/80; PULSE 80; RESP 19; TEMP 97.6; O2SAT 96
[2016-12-29] MEDS: LISINOPRIL 10 MG TAB PO SCH (08:06)
[2016-12-29] MEDS: predniSONE 20 MG TAB PO SCH (08:06)
[2016-12-29] MEDS: METOPROLOL SUCCINATE 25 MG EXTENDED RELEASE TAB PO SCH (08:06)
[2016-12-29] MEDS: SODIUM CHLORIDE 0.9% FLUSH 10 ML FLUSH IV FLUSH SCH (08:07)
--- NOTE | 2016-12-29 08:39 | HHI.PR ---
Subjective Remarks patient up and ambulating appears comfortable minimal sputum no nausea or vomiting, no abdominal pain, no diarrhea Objective Vitals Vital Signs Date Time Temp Pulse Resp B/P Pulse Ox O2 Delivery O2 Flow Rate FiO2 12/29/16 08:05 97.6 80 19 136/80 96 12/29/16 00:06 96.7 79 21 155/80 96 12/28/16 21:19 99 Nasal Cannula 2.00 12/28/16 20:00 97.6 87 21 175/75 100 12/28/16 16:00 97.8 88 17 164/91 95 12/28/16 12:00 97.8 74 17 135/80 97 12/28/16 09:14 98 Nasal Cannula 2.00 I/O 12/28/16 12/28/16 12/28/16 12/29/16 12/29/16 12/29/16 07:00 15:00 23:00 07:00 15:00 23:00 Intake Total 360 ml 840 ml 240 ml 120 ml 120 ml Output Total 650 ml Balance 360 ml 190 ml 240 ml 120 ml 120 ml Intake Oral 360 ml 840 ml 240 ml 120 ml 120 ml IV Total 0 ml 0 ml Output Urine Total 650 ml # Voids 2 1 2 # Bowel Movements 0 3 0 0 Result Diagram: 12/25/16 0519 12/25/16 0519 Imaging Last Impressions Chest X-Ray 12/28/16 1027 Signed Impressions: Service Date/Time: December 10:59 - CONCLUSION: Persistent volume loss in the right hemithorax with severe consolidation in the right midlung zone with likely trace right pleural effusion. Overall, there has been no significant change from the prior exam. Chapo Escalona MD Lower Extremity Ultrasound 12/25/16 0000 Signed Impressions: Service Date/Time: Sunday, December 25, 2016 08:22 - CONCLUSION: No DVT in the right leg. Russel Vyas MD CT Angiography 12/19/16 1341 Signed Impressions: Service Date/Time: Monday, December 19, 2016 14:47 - CONCLUSION: 1. The study is negative for pulmonary embolism. 2. Large area of consolidation involving most the entire right middle lobe without air bronchograms and with truncation of the bronchus to the middle lobe. This suggests a central obstructing lesion. 3. Mediastinal adenopathy. 4. Probable pericardial effusion. John Negron MD Head CT 12/19/16 0000 Signed Impressions: Service Date/Time: Tuesday, December 20, 2016 09:31 - CONCLUSION: Negative noncontrast CT brain. John Negron MD Objective Remarks awake and alert, oriented x 3 anicteric lungs- no rales or wheezes, decreased breath sounds and vocal fremiti right base regular rhythm abdomen soft, good bowel sounds extremities no edema Procedures 12/25- bronchoscopy A/P Problem List: (1) Postobstructive pneumonia ICD Code: J18.9 Status: Acute (2) Sepsis ICD Code: A41.9 Status: Acute (3) Lung mass ICD Code: R91.8 Status: Acute (4) COPD exacerbation ICD Code: J44.1 Status: Acute (5) Leukocytosis ICD Code: D72.829 Status: Acute Assessment and Plan 71 years old female COPD Exacerbation Pneumonia- possibly postobstructive- growing Sterno Maltophilia On steroids- po Prednisone-down to 20 mg 12/28- gradual taper bacteria resistant to Ceftriaxone po Levaquin- started 12/27 Will need an oxygen walk test when discharge nears MDIs- Sprivia, Proventil Lung Mass S/P bronchoscopy- cytology + for malignancy with features of neuroendocrine features biopsy negative Consult Medical oncology for recommendations for further work up cardiothoracic surgery consulted by Dr. Denton for evaluation Sepsis secondary to PNA- Resolved- on Levaquin Follow clinically Hyperglycemia Steroid effect Insulin sliding scale No prior history of DM CAD HTN Hyperlipidemia Depression Continue baseline treatments No exacerbations Follow BP and follow clinically DVT Prophylaxis Lovenox Problem Qualifiers (1) Sepsis: Qualified Code: A41.9 - Sepsis, due to unspecified organism Susie Winters MD Dec 29, 2016 08:39
[2016-12-29] MEDS: FLUTICASONE 100 MCG/VILANTEROL 25 MCG INHALER INH SCH (08:57)
[2016-12-29] MEDS ORDERED: TIOTROPIUM BROMIDE 18 MCG INH INH SCH (09:00)
[2016-12-29 10:04] VITALS: O2SAT 99
[2016-12-29] MEDS: LEVOFLOXACIN 500 MG TAB PO SCH (11:25)
[2016-12-29] MEDS: ALBUTEROL SULFATE 2 MG TAB PO SCH ×2 (11:25→17:05)
[2016-12-29 12:00] VITALS: BP 164/68; PULSE 86; RESP 17; TEMP 97; O2SAT 95
[2016-12-29 16:00] VITALS: BP 114/70; PULSE 80; RESP 19; TEMP 98.1; O2SAT 95
[2016-12-29] MEDS: ENOXAPARIN SODIUM 40 MG/0.4 ML SYRINGE SQ SCH (17:05)
[2016-12-29] MEDS ORDERED: LISI10TA3 PO (17:33)
[2016-12-29] MEDS ORDERED: LEVA500T PO (17:33)
[2016-12-29] MEDS ORDERED: SPIRCAP INH (17:33)
[2016-12-29] MEDS ORDERED: PRED20 PO (17:33)
--- NOTE | 2016-12-29 17:37 | HHI.DS ---
Discharge Summary Admission Date Dec 19, 2016 at 15:54 Discharge Date: Dec 29, 2016 Admitting Diagnosis sepsis, pneumonia (1) Postobstructive pneumonia ICD Code: J18.9 Diagnosis: Principal (2) Sepsis ICD Code: A41.9 Diagnosis: Principal (3) Lung mass ICD Code: R91.8 Diagnosis: Principal (4) COPD exacerbation ICD Code: J44.1 Diagnosis: Secondary (5) Leukocytosis ICD Code: D72.829 Diagnosis: Secondary Procedures 12/25- bronchoscopy Brief History - From Admission 71-year-old female with a past medical history of HTN, HLD, CAD, COPD, depression who presented with shortness of breath. The patient states that for the past 3 weeks she's been having sensations of shortness of breath, chest heaviness, headache, nausea, chills. She saw her PCP who prescribed her a ten- day course of azithromycin and steroids. She finished antibiotics last Sunday and steroids last Sunday. Shortness of breath was getting better, became acutely worse today with associated wheezing so she came in for evaluation. Patient denies any fevers, cough, or recent weight loss. She states that she's been having intermittent headaches that starts in her jaw and radiates up into her head. She denies any head or neck fullness. She has been referred to see pulmonology, Dr. Denton, but has not yet seen him. After receiving treatment in the ED, the patient states her wheezing and shortness of breath has significantly improved. CBC/BMP: 12/25/16 0519 12/25/16 0519 Imaging Last Impressions Chest X-Ray 12/28/16 1027 Signed Impressions: Service Date/Time: December 10:59 - CONCLUSION: Persistent volume loss in the right hemithorax with severe consolidation in the right midlung zone with likely trace right pleural effusion. Overall, there has been no significant change from the prior exam. Chapo Escalona MD Lower Extremity Ultrasound 12/25/16 0000 Signed Impressions: Service Date/Time: Sunday, December 25, 2016 08:22 - CONCLUSION: No DVT in the right leg. Russel Vyas MD CT Angiography 12/19/16 1341 Signed Impressions: Service Date/Time: Monday, December 19, 2016 14:47 - CONCLUSION: 1. The study is negative for pulmonary embolism. 2. Large area of consolidation involving most the entire right middle lobe without air bronchograms and with truncation of the bronchus to the middle lobe. This suggests a central obstructing lesion. 3. Mediastinal adenopathy. 4. Probable pericardial effusion. John Negron MD Head CT 12/19/16 0000 Signed Impressions: Service Date/Time: Tuesday, December 20, 2016 09:31 - CONCLUSION: Negative noncontrast CT brain. John Negron MD PE at Discharge awake and alert, oriented x 3 anicteric lungs- no rales or wheezes, decreased breath sounds and vocal fremiti right base regular rhythm abdomen soft, good bowel sounds extremities no edema Pt update on day of discharge qualified for home 02 vs stable lungs no rales or wheezes ambulating well Hospital Course 71 years old female COPD Exacerbation Pneumonia- possibly postobstructive- growing Sterno Maltophilia On steroids- po Prednisone-down to 20 mg 12/28- gradual taper bacteria resistant to Ceftriaxone po Levaquin- started 12/27 Will need an oxygen walk test when discharge nears Is- Sprivia Proventil Lung Mass S/P bronchoscopy- cytology + for malignancy with features of neuroendocrine features biopsy negative Consult Medical oncology for recommendations for further work up cardiothoracic surgery consulted by Dr. Denton for evaluation Sepsis secondary to PNA- Resolved- on Levaquin Follow clinically Hyperglycemia Steroid effect Insulin sliding scale No prior history of DM CAD HTN Hyperlipidemia Depression Continue baseline treatments No exacerbations Follow BP and follow clinically Pt Condition on Discharge: Stable Discharge Disposition: Discharge Home Discharge Time: <= 30 minutes Discharge Instructions DIET: Follow Instructions for: As Tolerated, No Restrictions Speech Therapy-Diet Recommends: Regular Activities you can perform: Weight Bearing as Marichuy Activities to Avoid: Strenuous Activity Follow up Referrals: Oncology - 01/01/17 with MIKAYLA PCP Follow-up - 3-5 Days with PCP Pulmonology - 3-5 Days with Bertin Denton MD New Medications: Oxygen tank (Oxygen tank) 1 Ea Tank 2 LITER JIMMY.CANULA CONTINUOUS Oxygen Concentrator Portable Gaseous 2 L/min via Nasal Cannula Continuous For 99 months HYPOXEMIA PREVENTION #1 CYLINDER Levofloxacin (Levaquin) 500 Mg Tab 500 MG PO Q24H Infection #5 Ref 0 TAB Lisinopril (Lisinopril) 10 Mg Tab 10 MG PO DAILY HTN Days 30 TAB Prednisone (Prednisone) 20 Mg Tab 20 MG PO DAILY BRTH #3 TAB Tiotropium Inh (Spiriva Handihaler) 18 Mcg Cap 18 MCG INH DAILY COPD #1 Ref 1 CAP Continued Medications: Atorvastatin (Atorvastatin) 40 Mg Tab 40 MG PO HS Cholesterol Management #30 Ref 0 TAB Fluticasone-Vilanterol Inh (Breo Ellipta Inh) 100-25 Mcg/Act Inh 1 PUFF INH DAILY Use daily at the same time. #1 Ref 0 INHALER Ipratropium-Albuterol Neb (Duoneb) 0.5-2.5 Mg/3 Ml Neb 1 NEBULE INH Q4HR NEB Breathing Treatment #180 Ref 0 NEBULE Metoprolol Succinate ER 24 HR (Metoprolol Succinate ER 24 HR) 25 Mg Tab 25 MG PO DAILY #30 Ref 0 TAB Nortriptyline (Nortriptyline) 50 Mg Cap 50 MG PO HS Depression Control #30 Ref 0 CAP Susie Winters MD Dec 29, 2016 17:37
--- NOTE | 2016-12-29 19:17 | MB ---
cc: ARI DEGROOT MD, PATRICIA DATE OF CONSULTATION 12/29/16 REASON FOR CONSULTATION Consult requested by Dr. Winters for evaluation of neuroendocrine tumor of the lung. HISTORY OF PRESENT ILLNESS This is a 71-year-old very pleasant white female. 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 She has a history of heavy cigarette smoking which she quit about three years ago. She used to smoke one to two packs a day for at least 50 years. She had developed COPD and coronary artery disease. The patient has been recently suffering from cough and shortness of breath. This was treated with antibiotics by her primary physician, Dr. Red. These symptoms did not improve and the patient decided to come to the emergency room on 12/19. She had a CT angiogram which did not show any evidence of pulmonary embolism, however, it shows a 7 cm large consolidative area in the right middle lobe of the lung with mediastinal lymphadenopathy. The patient was subsequently admitted to the hospital. Dr. Denton, pbx mechanic, was consulted. The patient underwent bronchoscopy. The pathology report came back suggestive of neuroendocrine tumor. I have been asked to see the patient for further evaluation. The patient has been complaining of cough and shortness of breath. She stated that this has improved. She had severe headaches prior to coming to the hospital. She stated that the headache has now resolved. She denies any weight loss. She denies any anorexia. The rest of the review of systems is negative. PAST MEDICAL HISTORY 1. COPD, 2. Coronary artery disease status post CO, 3. Hypertension, 4. Hypercholesterolemia, 5. Peripheral neuropathy, 6. Depression. PAST SURGICAL HISTORY 1. Appendectomy 2. Complete hysterectomy, 3. Coronary stent placement. ALLERGIES None. MEDICATIONS Prior to going the hospital 1. Metoprolol 2. Atorvastatin 3. Nortriptyline 4. Nebulizer 5. Aspirin. FAMILY HISTORY Parents from stroke. The patient does not have any sisters. The patient has one brother who has coronary artery disease. She has two daughters, both were present today. The patient had one son who from heart attack. SOCIAL HISTORY The patient is a . Her a year ago. The patient used to smoke cigarettes one to two packs a day for 50 years, quit three years ago. Does not drink alcohol. 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 PHYSICAL EXAMINATION GENERAL: A well-developed, well-nourished white female in no apparent distress. VITAL SIGNS: Temperature 98.1, heart rate is 80, blood pressure 114/70, O2 saturation 95% on 2 liters nasal cannula. HEENT: PERRLA, EOMI, anicteric. No oral lesions are noted. NECK: Supple. LYMPHATICS: There is no cervical, supraclavicular or axillary lymphadenopathy noted. LUNGS: Clear. No wheezing, rhonchi or rales. HEART: Regular rate and rhythm. ABDOMEN: Soft, nontender. No hepatosplenomegaly. EXTREMITIES: No pedal edema. NEUROLOGIC: Awake, alert, oriented x3. SKIN: No significant lesions are noted. ASSESSMENT Large right middle lobe obstructive mass with mediastinal lymphadenopathy. The biopsy Is inconclusive but suggestive for neuroendocrine differentiation. I suspect the patient has small cell lung cancer until proven otherwise. PLAN I have reviewed her available records and I had an extensive discussion with the patient and two of her daughters who were present. The patient has a medical background. 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 She has read her pathology report. We discussed that the right middle lobe brushings were positive for malignant cells. They are large atypical cells with some features suggestive for neuroendocrine differentiation. However, other cells have nucleoli and abundant cytoplasm. The characterization of the tumor is not possible on this material. The lung biopsy is nondiagnostic. It was predominantly denuded respiratory mucosa without significant histopathologic abnormality. The bronchial washings are inconclusive for malignant cells. We discussed that we probably need to do the CT-guided core needle biopsy of the right lung mass. I have reviewed radiological films with invasive radiologist, Dr. Yousuf Carlton. He suggested that biopsy could be arranged as an outpatient. I discussed with the patient regarding two options. The biopsy could be done as an outpatient or we can keep her in house until next week to do the biopsy. The patient preferred to go home and have the biopsy as an outpatient. I have discussed with the patient's nurse and informed her that as far as I am concerned the patient could be discharged to home. I advised her to call her admitting physician for the discharge orders. I have also advised the patient to call me on Sunday to discuss arrangement for the lung biopsy as an outpatient. I will consult case management to arrange for the lung biopsy as an outpatient next week with the invasive radiologist. The patient would need a PET scan and MRI of the brain for further staging. The patient can be referred to our clinic next week to arrange all these studies. The patient and her daughters have asked several questions and these were answered to their satisfaction. Thank you for asking my opinion. MD ASYA Manicni/ /5:27 PM /6:52 PM MTDHeber
[2016-12-29 20:00] VITALS: BP 131/75; PULSE 84; RESP 20; TEMP 98; O2SAT 97
--- NOTE | 2017-01-02 09:05 | RSPPFT ---
DATE OF PROCEDURE: 12/21/16 COMMENTS: Spirometry with FVC of 0.5, FEV1 of 0.5, FEV1/FVC ratio at 100%. A non-significant response to acutely inhaled bronchodilator noted. IMPRESSION: 1. Decreased flow rates. 2. No obvious obstruction. 3. Possible airways restriction. If clinically warranted, lung volumes may be helpful.
== END 2016-12-29 21:38 | disposition home or self-care (01) | DRG 853 ==
LOC: PHED 12:48 → PHEDA 15:54 → PH3A 17:32 → N07A 12-23 23:00
PROVIDERS: ADMIT Internal Medicine; ATTEND Internal Medicine
PROC: 0BBD8ZX Excision of Right Middle Lung Lobe, Via Natural or Artificial Opening Endoscopic, Diagnostic (ICD-10-PCS; principal; 2016-12-25 17:27)
DX: A41.9 Sepsis, unspecified organism (principal); J18.9 Pneumonia, unspecified organism; I31.3 Pericardial effusion (noninflammatory); C34.2 Malignant neoplasm of middle lobe, bronchus or lung; G62.9 Polyneuropathy, unspecified; J44.1 Chronic obstructive pulmonary disease with (acute) exacerbation; J98.11 Atelectasis; I25.10 Atherosclerotic heart disease of native coronary artery without angina pectoris; I10 Essential (primary) hypertension; E78.5 Hyperlipidemia, unspecified; F32.9 Major depressive disorder, single episode, unspecified; T38.0X5A Adverse effect of glucocorticoids and synthetic analogues, initial encounter; R73.9 Hyperglycemia, unspecified; Z87.891 Personal history of nicotine dependence; R59.0 Localized enlarged lymph nodes; I25.2 Old myocardial infarction; E78.00 Pure hypercholesterolemia, unspecified; Z95.5 Presence of coronary angioplasty implant and graft
CPT/HCPCS: 70450; 71010; 71020; 71275; 80048; 80053; 82550; 82948; 83036; 83605; 83735; 83880; 84484; 85007; 85025; 85027; 85610; 85730; 87015; 87040; 87070; 87077; 87102; 87116; 87186; 87205; 87206; 87449; 87804; 88112; 88305; 93005; 93306; 93971; 94060; 94150; 94620; 94640; 94664; 96365; 96367; 96375; J0171; J0456; J0696; J1650; J1815; J2405; J2920; J2930; J7030; J7050; J7512; J7613; Q9967

== ENCOUNTER 2017-01-15 07:40 | Day surgery (SDC) | payer OTHER ==
[~2017-01-15] VITALS: Ht 157.5 cm; Wt 60.0 kg
[2017-01-15] VITALS (8 sets, daily range): BP systolic 118–136; BP diastolic 73–89; PULSE 65–78; RESP 18–20; TEMP 98.2–98.3; O2SAT 92–98
[~2017-01-15 07:40] MED LIST: ATOR40TA16 PO; FLUT1INH INH; IPRASOL INH; LEVA500T PO; LISI10TA3 PO; METO25TA6 PO; NORT50CA PO; OXYGENTANK NAS.CANULA; PRED20 PO; SPIRCAP INH
[2017-01-15] MEDS ORDERED: CO Q100C9 PO (08:09)
[2017-01-15 08:31] LABS: AUTOMATED NEUTROPHIL # 12.3 TH/MM3 (1.8-7.7); BASOPHIL # 0.1 TH/MM3 (0-0.2); BASOPHIL % 0.6 % (0.0-2.0); EOSINOPHIL % 0.2 % (0.0-4.0); HEMATOCRIT 39.6 % (35.0-46.0); LYMPH % 7.8 % (9.0-44.0); LYMPHOCYTE # 1.1 TH/MM3 (1.0-4.8); MEAN CELL VOLUME 84.5 FL (80.0-100.0); MEAN CORPUSCULAR HEMOGLOBIN 27.7 PG (27.0-34.0); MEAN CORPUSCULAR HGB CONC 32.8 % (32.0-36.0); MONO % 5.7 % (0.0-8.0); NEUT % 85.7 % (16.0-70.0); PLATELET COUNT 664 TH/MM3 (150-450); RED BLOOD COUNT 4.68 MIL/MM3 (4.00-5.30); RED CELL DISTRIBUTION WIDTH 17.4 % (11.6-17.2); WHITE BLOOD COUNT 14.3 TH/MM3 (4.0-11.0)
[2017-01-15 08:32] LABS: HEMO FLAGS AUTO DIFF
[2017-01-15 08:40] LABS: APTT (PATIENT) 23.4 SEC (24.3-30.1); INTERNATIONAL NORMALIZED RATIO 0.9 RATIO; PROTHROMBIN TIME - PATIENT 10.4 SEC (9.8-11.6)
[2017-01-15 09:13] LABS: BANDS 5 % (0-6); MYELOCYTES 1 % (0-0); POLYS (SEG NEUTROPHILS) 78 % (16-70); WBC DIFF SAMPLE 100
[2017-01-15 09:14] LABS: PLATELET ESTIMATE SMEAR HIGH (NORMAL); PLATELET MORPHOLOGY NORMAL (NORMAL); SCAN/DIFF FINAL DIFF MANUAL
[2017-01-15] MEDS ORDERED: MIDAZOLAM HCL 5 MG/5 ML VIAL ONE (09:45)
[2017-01-15] MEDS ORDERED: fentaNYL CITRATE 250 MCG/5 ML AMP ONE (09:46)
[2017-01-15] MEDS ORDERED: ONDANSETRON HCL 4 MG/2 ML VIAL ONE (10:00)
[2017-01-15] MEDS ORDERED: LIDOCAINE 1%/EPINEPHrine 1:100,000 SOLN 20 ML VIAL ONE (10:54)
--- NOTE | 2017-01-15 12:55 | RADRPT ---
EXAM DATE/TIME: 01/15/2017 12:34 [facility] COMPARISON: No previous studies available for comparison. INDICATIONS : Post lung biopsy. MEDICAL HISTORY : Chronic obstructive pulmonary disease. Hypercholesterolemia. Hypertension. SURGICAL HISTORY : Appendectomy. Hysterectomy. Cardiac cath with stent placement ENCOUNTER: Initial ACUITY: 1 day PAIN SCORE: 0/10 LOCATION: Bilateral chest FINDINGS: There is no pneumothorax following biopsy on the right. There is significant improvement in the ches t following the right thoracentesis. Left lung is clear. CONCLUSION: Negative for pneumothorax. Liam Carlton MD FACR on January 15, 2017 at 12:49 Board Certified Radiologist. This report was verified electronically.
--- NOTE | 2017-01-15 14:22 | RADRPT ---
EXAM DATE/TIME: 01/15/2017 10:05 [facility] COMPARISON: No previous studies available for comparison. INDICATIONS : Right lung mass. SEDATION TIME: 15 minutes BIOPSY SITE: Right lung MEDICATION(S): 1.) 2 mg midazolam (Versed) IV 2.) 100 mcg fentanyl (Sublimaze) IV DEVICE(S): 1.) 18 gauge Lozoya blunt needle 2.) 20 gauge Temno core biopsy needle MEDICAL HISTORY : Hypertension. Chronic obstructive pulmonary disease. SURGICAL HISTORY : Appendectomy. cardiac stent placement ENCOUNTER: Initial ACUITY: 1 day PAIN SCORE: 0/10 LOCATION: Bilateral chest A total of three core specimen(s) were obtained and sent to the laboratory for pathologic evaluation. PROCEDURE: 1. CT guided lungright biopsy. 2. Conscious sedation with continuous EKG and oximetry monitoring. 3. EKG and oximetry remained stable throughout the procedure. Prior to the procedure informed consent was obtained. Any appropriate prior imaging studies were rev iewed. Using automated exposure control and adjustment of the mA and/or kV according to patient size, radiation dose was kept as low as reasonably achievable to obtain optimal diagnostic quality images. The site was prepped in a sterile fashion. Full sterile technique was used, including cap, mask, robert rile gloves and gown and a large sterile sheet. Hand hygiene and 2% chlorhexidine and/or betadine/al cohol prep was utilized per protocol for cutaneous antisepsis. The skin and subcutaneous tissues wer e infiltrated with local anesthetic solution. There is now a moderate right pleural effusion. This was aspirated out. 18 gauge body was placed do wn to the mass in the right infrahilar region. 3 cores were obtained. The followup scan reveals sig nificant improvement with less fluid and no pneumothorax. Conscious sedation was performed with the prescribed dosages and duration as above in the presence of an independent trained radiology nurse to assist in the monitoring of the patient. EKG and oximetry remained stable throughout the procedure. The patient tolerated the procedure well and there were no complications. The patient was sent to Radiology Outpatient Unit in stable condition. CONCLUSION: Uncomplicated CT guided biopsy.. Liam Carlton MD FACR on January 15, 2017 at 14:18 Board Certified Radiologist. This report was verified electronically.
--- NOTE | 2017-01-15 14:23 | RADRPT ---
EXAM DATE/TIME: 01/15/2017 10:05 INDICATIONS : Pleural effusion. SEDATION TIME: 15 minutes MEDICATION(S): 1.) 2 mg midazolam (Versed) IV 2.) 100 mcg fentanyl (Sublimaze) IV DEVICE(S): 1.) 18 gauge Lozoya blunt needle FLUID: Total volume of 300 cc of clear, yellow fluid was removed. Fluid was sent for laboratory ordered studies. MEDICAL HISTORY : Hypertension. Chronic obstructive pulmonary disease. SURGICAL HISTORY : Hysterectomy. cardiac stent placement ENCOUNTER: Initial ACUITY: 1 day PAIN SCORE: 0/10 LOCATION: Bilateral chest PROCEDURE: 1. CT guided right thoracentesis. 2. Conscious sedation with continuous EKG and oximetry monitoring. 3. EKG and oximetry remained stable throughout the procedure. The site was prepped in sterile fashion. Full sterile technique was used, including cap, mask, steri le gloves and gown and a large sterile sheet. Hand hygiene and 2% chlorhexidine and/or betadine/alco hol prep was utilized per protocol for cutaneous antisepsis. The skin and subcutaneous tissues were infiltrated with local anesthetic solution. Using automated exposure control and adjustment of the mA and/or kV according to patient size, radiation dose was kept as low as reasonably achievable to obta in optimal diagnostic quality images. Patient arrived for a biopsy of mass in the right infrahilar region. There is now enlarged pleural effusion present. This was aspirated out using an 18 gauge thoracentesis needle. Attention was then turned to biopsy in the right infrahilar mass. The patient tolerated the procedure well and there were no complications. EKG and oximetry remained s table throughout the procedure. The patient was sent to recovery in stable condition. CONCLUSION: Uncomplicated CT-guided thoracentesis. Fluid was sent for cytology. Liam Carlton MD FACR on January 15, 2017 at 14:20 Board Certified Radiologist. This report was verified electronically.
== END 2017-01-15 14:30 | disposition home or self-care (01) ==
LOC: HRAD 07:40 → HRIP 07:41 → HRAD 14:30
PROVIDERS: ATTEND Internal Medicine Hematology & Oncology
DX: C34.91 Malignant neoplasm of unspecified part of right bronchus or lung (principal); J91.0 Malignant pleural effusion; I10 Essential (primary) hypertension; J44.9 Chronic obstructive pulmonary disease, unspecified; E78.00 Pure hypercholesterolemia, unspecified; I25.10 Atherosclerotic heart disease of native coronary artery without angina pectoris; F32.9 Major depressive disorder, single episode, unspecified; G62.9 Polyneuropathy, unspecified; Z87.891 Personal history of nicotine dependence; Z95.5 Presence of coronary angioplasty implant and graft
CPT/HCPCS: 32405; 32555; 71010; 77012; 85007; 85027; 85610; 85730; 88112; 88305; 88333; 88341; 88342; 99151; J2250; J2405; J3010; 81235; 88360; 88377; 88381

== ENCOUNTER 2017-01-30 15:13 | Inpatient (IN) | payer OTHER, MEDICARE ==
[~2017-01-30] VITALS: Ht 157.5 cm; Wt 53.0 kg
[2017-01-30] VITALS (8 sets, daily range): BP systolic 128–156; BP diastolic 73–83; PULSE 87–98; RESP 15–20; TEMP 97.6–98.3; O2SAT 94–100
[~2017-01-30 15:13] MED LIST changes: +CO Q100C9 PO; -LEVA500T PO; -LISI10TA3 PO; -PRED20 PO; -SPIRCAP INH
--- NOTE | 2017-01-30 15:20 | PD ---
Physical Exam Date Seen by Provider: January 30, 2017 Time Seen by Provider: 15:18 Narrative 71 yo female here for abdominal pain and SOB. SOB worst with excertion. History of pleural effusion. Concerned she might have fluid on lungs again. No chest pain. Abdominal pain is all over. No vomiting. BM is mucous like. Cramping and pain is 6/10. Congestion and chills. No injuries. Vitals sign stable. Patient awaiting bed placement. Data Data Last Documented VS Vital Signs Date Time Temp Pulse Resp B/P Pulse Ox O2 Delivery O2 Flow Rate FiO2 01/30/17 15:15 97.6 87 15 156/79 94 MDM Medical Record Reviewed: Yes Supervised Visit with JAMARI: No Ashutosh Robin January 30, 2017 15:20
--- NOTE | 2017-01-30 15:35 | PD ---
HPI Chief Complaint: Musculoskeletal Complaint Time Seen by Provider: 15:34 Travel History International Travel<30 days: No Contact w/Intl Traveler<30days: No Traveled to known affect area: No PFSH Past Medical History Hx Anticoagulant Therapy: Yes (Warfarin) Cardiovascular Problems: Yes (A.fib) High Cholesterol: Yes Chemotherapy: Yes (SUPPOSED TO START TODAY) COPD: Yes Diminished Hearing: No Endocrine: No Gastrointestinal Disorders: No Genitourinary: No Hypertension: Yes Insomnia: Yes Musculoskeletal: No Neurologic: Yes Reproductive: No Respiratory: Yes (COPD/ LUNG CA) Immunizations Current: Yes Influenza Vaccination: Yes ?: Not Menopausal: Yes Past Surgical History Abdominal Surgery: Yes (appendectomy 1982) AICD: No Appendectomy: Yes Cardiac Surgery: Yes (stents and cath 2009) Ear Surgery: No Endocrine Surgery: No Eye Surgery: No Genitourinary Surgery: No Gynecologic Surgery: Yes (hysterectomy 1982) Hysterectomy: Yes Joint Replacement: No Oral Surgery: No Pacemaker: No Thoracic Surgery: No Other Surgery: Yes Social History Alcohol Use: No Tobacco Use: No Substance Use: No Allergies-Medications (Allergen,Severity, Reaction): Coded Allergies: No Known Allergies (Unverified , 01/30/17) Reported Meds & Prescriptions Reported Meds & Active Scripts Active Reported Co Q 10 (Coenzyme Q10 (Ubidecarenone)) 100 Mg Cap 1 Cap PO DAILY Atorvastatin (Atorvastatin Calcium) 40 Mg Tab 50 Mg PO HS Nortriptyline (Nortriptyline HCl) 50 Mg Cap 50 Mg PO BID Metoprolol Succinate ER 24 HR (Metoprolol Succinate) 25 Mg Tab 50 Mg PO DAILY Breo Ellipta Inh (Fluticasone/Vilanterol) 100-25 Mcg/Act Inh 1 Puff INH DAILY Use daily at the same time. Duoneb (Ipratropium-Albuterol Neb) 0.5-2.5 Mg/3 Ml Neb 1 Nebule INH Q4HR NEB Data Data Last Documented VS Vital Signs Date Time Temp Pulse Resp B/P Pulse Ox O2 Delivery O2 Flow Rate FiO2 01/30/17 16:00 20 95 Nasal Cannula 2 01/30/17 15:43 89 128/76 01/30/17 15:15 97.6 Orders Electrocardiogram (01/30/17 ) Complete Blood Count With Diff (01/30/17 15:54) Comprehensive Metabolic Panel (01/30/17 15:54) Act Partial Throm Time (Ptt) (01/30/17 15:54) Prothrombin Time / Inr (Pt) (01/30/17 15:54) Magnesium (Mg) (01/30/17 15:54) Urinalysis - C+S If Indicated (01/30/17 15:54) Iv Access Insert/Monitor (01/30/17 15:54) Ecg Monitoring (01/30/17 15:54) Oximetry (01/30/17 15:54) Oxygen Administration (01/30/17 15:54) Chest, Single Ap (01/30/17 15:54) Sodium Chloride 0.9% Flush (Ns Flush) (01/30/17 16:00) Lipase (01/30/17 15:54) Ct Abd/Pel W Iv Contrast(Rout) (01/30/17 15:54) Ondansetron Inj (Zofran Inj) (01/30/17 16:00) Sodium Chlor 0.9% 1000 Ml Inj (Ns 1000 M (01/30/17 15:54) Lactic Acid Sepsis Protocol (01/30/17 16:32) Blood Culture (01/30/17 16:32) Sodium Chloride 0.9% Flush (Ns Flush) (01/30/17 16:45) Ceftriaxone Inj (Rocephin Inj) (01/30/17 16:45) Azithromycin Inj (Zithromax Inj) (01/30/17 16:45) Dirk Barker January 30, 2017 15:35
[2017-01-30] MEDS ORDERED: SODIUM CHLOR 0.9% 1000 ML INJ 1,000 ML IV SCH (15:54)
--- NOTE | 2017-01-30 15:54 | PD ---
HPI Chief Complaint: weakness and SOB Time Seen by Provider: 15:52 Travel History International Travel<30 days: No Contact w/Intl Traveler<30days: No Traveled to known affect area: No History of Present Illness HPI 8o-year-old female presents the emergency department with increasing exertional shortness of breath and generalized weakness over the past weekend. Patient was recently diagnosed with metastatic lung cancer approximately 6 weeks ago, with history of bilateral lung effusions and recent lung biopsy. Patient was scheduled to have chemotherapy today but was canceled secondary to insurance issues. Patient sees Dr. Paredes as her oncologist. Patient has decreased appetite but is taking fluids. She complains of generalized abdominal discomfort and bloating, as well as having mucousy stools. Patient denies vomiting or urinary symptoms. Patient states she is drinking fluids as much as possible. She is not complaining of significant pain. Patient has no headache or other neurological symptoms. She has no known drug allergies. PFSH Past Medical History Hx Anticoagulant Therapy: Yes (Warfarin) Cardiovascular Problems: Yes (A.fib) High Cholesterol: Yes Chemotherapy: Yes (SUPPOSED TO START TODAY) COPD: Yes Diminished Hearing: No Endocrine: No Gastrointestinal Disorders: No Genitourinary: No Hypertension: Yes Insomnia: Yes Musculoskeletal: No Neurologic: Yes Reproductive: No Respiratory: Yes (COPD/ LUNG CA WITH METHASTASIS) Immunizations Current: Yes Influenza Vaccination: Yes ?: Not Menopausal: Yes Past Surgical History Abdominal Surgery: Yes (appendectomy 1982) AICD: No Appendectomy: Yes Cardiac Surgery: Yes (stents and cath 2009) Ear Surgery: No Endocrine Surgery: No Eye Surgery: No Genitourinary Surgery: No Gynecologic Surgery: Yes (hysterectomy 1982) Hysterectomy: Yes Joint Replacement: No Oral Surgery: No Pacemaker: No Thoracic Surgery: No Other Surgery: Yes Social History Alcohol Use: No Tobacco Use: No Substance Use: No Allergies-Medications (Allergen,Severity, Reaction): Coded Allergies: No Known Allergies (Unverified , 01/30/17) Reported Meds & Prescriptions Reported Meds & Active Scripts Active Reported Co Q 10 (Coenzyme Q10 (Ubidecarenone)) 100 Mg Cap 1 Cap PO DAILY Atorvastatin (Atorvastatin Calcium) 40 Mg Tab 50 Mg PO HS Nortriptyline (Nortriptyline HCl) 50 Mg Cap 50 Mg PO BID Metoprolol Succinate ER 24 HR (Metoprolol Succinate) 25 Mg Tab 50 Mg PO DAILY Breo Ellipta Inh (Fluticasone/Vilanterol) 100-25 Mcg/Act Inh 1 Puff INH DAILY Use daily at the same time. Duoneb (Ipratropium-Albuterol Neb) 0.5-2.5 Mg/3 Ml Neb 1 Nebule INH Q4HR NEB Review of Systems Except as stated in HPI: all other systems reviewed are Neg General / Constitutional: Positive: Weight Loss, No: Fever Eyes: No: Visual changes HENT: No: Headaches, Vertigo, Lightheadedness, Sore Throat, Rhinitis, Rhinorrhea, Congestion, Nosebleed, Neck Stiffness, Neck Pain, Ear Discharge, Earache Cardiovascular: Positive: Dyspnea on exertion, No: Chest Pain or Discomfort, Palpitations, Irregular Rhythm, Tachycardia Respiratory: No: Cough, Shortness of Breath, Wheezing Gastrointestinal: Positive: Nausea, Abdominal Pain (mild generalized), Changes in Bowel Habits (mucousy stools), Loss of Appetite, No: Vomiting, Diarrhea, Hematemesis, Hematochezia, Constipation, Indigestion, Dysphagia Genitourinary: No: Dysuria Musculoskeletal: No: Pain Skin: No Rash Neurologic: No: Weakness Psychiatric: No: Depression Endocrine: No: Polydipsia Hematologic/Lymphatic: No: Easy Bruising Physical Exam Narrative GENERAL: Patient appears somewhat cachectic but in no obvious distress.poor pallor and poor turgor. SKIN: Warm and dry. Poor pallor and poor turgor. HEAD: Atraumatic. Normocephalic. EYES: Pupils equal and round. No scleral icterus. No injection or drainage. ENT: No nasal bleeding or discharge. Mucous membranes pink and dry. Pharynx is clear. Airway is patent. NECK: Trachea midline. No JVD. Supple and nontender. CARDIOVASCULAR: Regular rate and rhythm. No murmurs gallops or rubs. RESPIRATORY: No accessory muscle use. Clear to auscultation. Breath sounds equal bilaterally. GASTROINTESTINAL: Abdomen soft, mild nonspecific tenderness, nondistended. Hepatic and splenic margins not palpable. No CVA tenderness. MUSCULOSKELETAL: Extremities without clubbing, cyanosis, or edema. No obvious deformities. NEUROLOGICAL: Awake and alert. No obvious cranial nerve deficits. Motor grossly within normal limits. Five out of 5 muscle strength in the arms and legs. Normal speech. PSYCHIATRIC: Appropriate mood and affect; insight and judgment normal. Data Data Last Documented VS Vital Signs Date Time Temp Pulse Resp B/P Pulse Ox O2 Delivery O2 Flow Rate FiO2 01/30/17 17:42 97.8 94 20 133/81 100 Nasal Cannula 2 Orders Electrocardiogram (01/30/17 ) Complete Blood Count With Diff (01/30/17 15:54) Comprehensive Metabolic Panel (01/30/17 15:54) Act Partial Throm Time (Ptt) (01/30/17 15:54) Prothrombin Time / Inr (Pt) (01/30/17 15:54) Magnesium (Mg) (01/30/17 15:54) Urinalysis - C+S If Indicated (01/30/17 15:54) Iv Access Insert/Monitor (01/30/17 15:54) Ecg Monitoring (01/30/17 15:54) Oximetry (01/30/17 15:54) Oxygen Administration (01/30/17 15:54) Chest, Single Ap (01/30/17 15:54) Sodium Chloride 0.9% Flush (Ns Flush) (01/30/17 16:00) Lipase (01/30/17 15:54) Ondansetron Inj (Zofran Inj) (01/30/17 16:00) Sodium Chlor 0.9% 1000 Ml Inj (Ns 1000 M (01/30/17 15:54) Lactic Acid Sepsis Protocol (01/30/17 16:32) Blood Culture (01/30/17 16:32) Sodium Chloride 0.9% Flush (Ns Flush) (01/30/17 16:45) Ceftriaxone Inj (Rocephin Inj) (01/30/17 16:45) Azithromycin Inj (Zithromax Inj) (01/30/17 16:45) Ct Abd/Pel W/O Iv Contrast (01/30/17 16:34) Invasive Rad Dept Consult (01/30/17 ) Us Guided Thoracentesis (01/30/17 ) ^ Instruction (01/30/17 17:50) ^ Instruction (01/30/17 ) Admit Order (Ed Use Only) (01/30/17 17:56) Labs Laboratory Tests Test 01/30/17 01/30/17 16:00 16:40 White Blood Count 21.1 TH/MM3 Red Blood Count 4.68 MIL/MM3 Hemoglobin 12.8 GM/DL Hematocrit 40.4 % Mean Corpuscular Volume 86.3 FL Mean Corpuscular Hemoglobin 27.3 PG Mean Corpuscular Hemoglobin 31.6 % Concent Red Cell Distribution Width 18.3 % Platelet Count 459 TH/MM3 Mean Platelet Volume 8.0 FL Neutrophils (%) (Auto) 90.8 % Lymphocytes (%) (Auto) 3.9 % Monocytes (%) (Auto) 4.8 % Eosinophils (%) (Auto) 0.2 % Basophils (%) (Auto) 0.3 % Neutrophils # (Auto) 19.1 TH/MM3 Lymphocytes # (Auto) 0.8 TH/MM3 Monocytes # (Auto) 1.0 TH/MM3 Eosinophils # (Auto) 0.0 TH/MM3 Basophils # (Auto) 0.1 TH/MM3 CBC Comment AUTO DIFF Differential Total Cells 100 Counted Neutrophils % (Manual) 79 % Band Neutrophils % 14 % Lymphocytes % 5 % Monocytes % 2 % Neutrophils # (Manual) 19.6 TH/MM3 Differential Comment FINAL DIFF MANUAL Platelet Estimate HIGH Platelet Morphology Comment NORMAL Red Cell Morphology Comment NORMAL Prothrombin Time 10.7 SEC Prothromb Time International 1.0 RATIO Ratio Activated Partial 24.1 SEC Thromboplast Time Urine Color YELLOW Urine Turbidity CLEAR Urine pH 5.5 Urine Specific Lackey 1.023 Urine Protein TRACE mg/dL Urine Glucose (UA) NEG mg/dL Urine Ketones NEG mg/dL Urine Occult Blood NEG Urine Nitrite NEG Urine Bilirubin NEG Urine Urobilinogen LESS THAN 2.0 MG/DL Urine Leukocyte Esterase TRACE Urine WBC LESS THAN 1 /hpf Urine Squamous Epithelial <1 /hpf Cells Urine Hyaline Casts 1 /lpf Urine Mucus FEW /lpf Microscopic Urinalysis Comment CULT NOT INDICATED Sodium Level 136 MEQ/L Potassium Level 4.8 MEQ/L Chloride Level 96 MEQ/L Carbon Dioxide Level 31.5 MEQ/L Anion Gap 9 MEQ/L Blood Urea Nitrogen 16 MG/DL Creatinine 0.59 MG/DL Estimat Glomerular Filtration 101 ML/MIN Rate Random Glucose 115 MG/DL Calcium Level 9.7 MG/DL Magnesium Level 2.4 MG/DL Total Bilirubin 0.5 MG/DL Aspartate Amino Transf 29 U/L (AST/SGOT) Alanine Aminotransferase 22 U/L (ALT/SGPT) Alkaline Phosphatase 92 U/L Total Protein 7.0 GM/DL Albumin 3.0 GM/DL Lipase 105 U/L Lactic Acid Level 1.1 mmol/L [facility] Medical Decision Making Medical Screen Exam Complete: Yes Emergency Medical Condition: Yes Medical Record Reviewed: Yes Differential Diagnosis Weakness. Exertional dyspnea. Pleural effusions. History of lung cancer. Metastatic disease to the liver and kidneys. Electrolyte imbalance. Dehydration. Narrative Course Patient is medically stable at time of exam. Labs ordered including CBC, CMP, lipase, magnesium, coagulation studies, urinalysis. IV access is obtained and the patient is given 4 mg Zofran IV as well as thousand mL of normal saline bolus. Chest x-ray and abdominal CT with IV contrast was ordered. CBC shows leukocytosis of 21.1. Platelet count is 459. CMP is unremarkable, Lactic acid is 1.1 Urine is unremarkable. Chest x-ray shows moderate-sized right pleural effusion increased in size from prior study. His persistent and associated atelectasis and masslike consolidation per radiologist. Abdominal CT shows no acute findings of the abdomen. Patient discussed with Dr. Forbes, who feels the patient needs to have IR perform a thoracentesis for her right-sided lung effusion. Is felt the patient would need admission to observation for IR to perform this tomorrow morning. Patient was discussed with Dr. Rebollar who agreed to admit the patient to observation. Diagnosis Primary Impression: Pleural effusion on right Additional Impressions: Acute dyspnea Metastatic lung carcinoma Qualified Code: C78.00 - Metastatic lung carcinoma, unspecified laterality Admitting Information Admitting Physician Requests: Observation Condition: Stable Dirk Barker January 30, 2017 15:54
[2017-01-30] MEDS ORDERED: ONDANSETRON HCL 4 MG/2 ML VIAL IVP ONE (16:00)
[2017-01-30] MEDS ORDERED: SODIUM CHLORIDE 0.9% FLUSH 10 ML FLUSH IVF PRN ×2 (16:00→16:45)
--- NOTE | 2017-01-30 16:35 | RADRPT ---
EXAM DATE/TIME: 01/30/2017 16:20 [facility] COMPARISON: CT GUIDED THORACENTESIS RIGHT, January 15, 2017, 10:05. CHEST EXPIRATION ONLY, January 15, 2017, 12:34. [facility] PA & LAT, December 28, 2016, 10:59. CHEST SINGLE AP, December 19, 2016, 13:24. INDICATIONS : Shortness of breath. MEDICAL HISTORY : Carcinoma, lung. Hypertension Chronic obstructive pulmonary disease. SURGICAL HISTORY : None. ENCOUNTER: Initial ACUITY: 2 days PAIN SCORE: 3/10 LOCATION: Bilateral chest FINDINGS: Portable AP view of the chest demonstrates a normal-sized cardiac silhouette. There is a moderate siz e right basilar pleural-parenchymal opacity. There is mild degree of volume loss in the right hemitho rax. Left lung demonstrates no abnormality. No pneumothorax is seen. Bones and soft tissues demonstra te no acute finding. CONCLUSION: Moderate size right pleural effusion, increased in size from the prior study. There is persistent ass ociated atelectasis and masslike consolidation. Chapo Escalona MD on January 30, 2017 at 16:32 Board Certified Radiologist. This report was verified electronically.
[2017-01-30 16:45] LABS: AUTOMATED NEUTROPHIL # 19.1 TH/MM3 (1.8-7.7); BASOPHIL # 0.1 TH/MM3 (0-0.2); BASOPHIL % 0.3 % (0.0-2.0); EOSINOPHIL % 0.2 % (0.0-4.0); HEMATOCRIT 40.4 % (35.0-46.0); LYMPH % 3.9 % (9.0-44.0); LYMPHOCYTE # 0.8 TH/MM3 (1.0-4.8); MEAN CELL VOLUME 86.3 FL (80.0-100.0); MEAN CORPUSCULAR HEMOGLOBIN 27.3 PG (27.0-34.0); MEAN CORPUSCULAR HGB CONC 31.6 % (32.0-36.0); MONO % 4.8 % (0.0-8.0); NEUT % 90.8 % (16.0-70.0); PLATELET COUNT 459 TH/MM3 (150-450); RED BLOOD COUNT 4.68 MIL/MM3 (4.00-5.30); RED CELL DISTRIBUTION WIDTH 18.3 % (11.6-17.2); WHITE BLOOD COUNT 21.1 TH/MM3 (4.0-11.0)
[2017-01-30] MEDS ORDERED: cefTRIAXone INJ 1,000 MG in SODIUM CHLORIDE 0.9% INJ 100 ML IV ONE (16:45)
[2017-01-30] MEDS ORDERED: AZITHROMYCIN INJ 500 MG in SODIUM CHLOR 0.9% 250 ML INJ 250 ML IV ONE (16:45)
[2017-01-30 16:49] LABS: HEMO FLAGS AUTO DIFF
[2017-01-30 16:50] LABS: BLOOD, URINE NEG (NEG); COMMENT (UR) CULT NOT INDICATED; CULTURE IF INDICATED CULT NOT INDICATED; GLUCOSE,URINE NEG (NEG); HYALINE CAST, URINE 1 /lpf (RARE); KETONE, URINE NEG (NEG); MUCUS URINE FEW /lpf (OCC); NITRITE,URINE NEG (NEG); PH, URINE 5.5 (5.0-8.5); SQUAMOUS EPITHELIAL CELL URINE <1 /hpf (0-5); URINE COLOR YELLOW (YELLW/STRAW)
[2017-01-30 17:11] LABS: ALKALINE PHOSPHATASE 92 U/L (45-117); TOTAL BILIRUBIN ADULT 0.5 MG/DL (0.2-1.0)
[2017-01-30 17:17] LABS: ALT (GPT) 22 U/L (10-53); ANION GAP 9 MEQ/L (5-15); AST (GOT) 29 U/L (15-37); BICARBONATE 31.5 MEQ/L (21.0-32.0); BLOOD UREA NITROGEN 16 MG/DL (7-18); CHLORIDE 96 MEQ/L (98-107); GLOMERULAR FILTRATION RATE 101 ML/MIN (>89); MAGNESIUM 2.4 MG/DL (1.5-2.5); POTASSIUM 4.8 MEQ/L (3.5-5.1); SODIUM (NA) 136 MEQ/L (136-145)
[2017-01-30 17:18] LABS: BANDS 14 % (0-6); NEUTROPHIL # MANUAL DIFF 19.6 TH/MM3 (1.8-7.7); POLYS (SEG NEUTROPHILS) 79 % (16-70); WBC DIFF SAMPLE 100
[2017-01-30 17:19] LABS: PLATELET ESTIMATE SMEAR HIGH (NORMAL); PLATELET MORPHOLOGY NORMAL (NORMAL); SCAN/DIFF FINAL DIFF MANUAL
--- NOTE | 2017-01-30 17:20 | RADRPT ---
EXAM DATE/TIME: 01/30/2017 17:06 [facility] COMPARISON: CHEST SINGLE AP, January 30, 2017, 16:20. INDICATIONS : Diffuse abdominal pain. Metastatic lung cancer. ORAL CONTRAST: No oral contrast ingested. RADIATION DOSE: 9.96 CTDIvol (mGy) MEDICAL HISTORY : Cardiovascular disease. Chronic obstructive pulmonary disease. Hypertension.Lung cancer. SURGICAL HISTORY : Hysterectomy. Appendectomy.Coronary stents. ENCOUNTER: Initial ACUITY: 1 day PAIN SCALE: 6/10 LOCATION: Bilateral abdomen TECHNIQUE: Volumetric scanning of the abdomen and pelvis was performed. Using automated exposure control and ad justment of the mA and/or kV according to patient size, radiation dose was kept as low as reasonably achievable to obtain optimal diagnostic quality images. The lack of IV contrast limits the diagnosis for certain organ pathology. FINDINGS: LOWER LUNGS: Moderate to large right effusion with parenchymal consolidation/mass extending from the right hilar a sal with collapse of the right lower lung. The left lung base is clear. LIVER: Homogeneous density without lesion. There is no dilation of the biliary tree. A few tiny calcified g allstones. No surrounding inflammatory changes. SPLEEN: Normal size without lesion. PANCREAS: Within normal limits. KIDNEYS: Normal in size and shape. There is no mass, stone, or hydronephrosis. Probable 1 cm cyst left kidney . ADRENAL GLANDS: Within normal limits. VASCULAR: There is no aortic aneurysm. Atherosclerotic changes. BOWEL/MESENTERY: The stomach, small bowel, and colon demonstrate no acute abnormality. There is no free intraperitone al air or fluid. Scattered diverticulosis of the sigmoid colon without inflammatory changes. ABDOMINAL WALL: Within normal limits. RETROPERITONEUM: There is no lymphadenopathy. BLADDER: No wall thickening or mass. REPRODUCTIVE: Within normal limits. INGUINAL: There is no lymphadenopathy or hernia. MUSCULOSKELETAL: Within normal limits for patient age. Primary degenerative changes. No gross lytic or blastic lesions . CONCLUSION: 1. Moderate to large right pleural effusion 2. Prominent consolidation/mass right hilar area with collapse of the right lower lung 3. Tiny gallstones in the gallbladder. No biliary tract obstruction. 4. Scattered diverticulosis of the sigmoid colon without inflammatory changes. Germain Massey MD on January 30, 2017 at 17:14 Board Certified Radiologist. This report was verified electronically.
[2017-01-30 17:22] LABS: APTT (PATIENT) 24.1 SEC (24.3-30.1); PROTHROMBIN TIME - PATIENT 10.7 SEC (9.8-11.6)
[2017-01-30] MEDS ORDERED: SODIUM CHLORIDE 0.9% FLUSH 10 ML FLUSH IV FLUSH PRN (18:15)
[2017-01-30] MEDS ORDERED: BISACODYL 10 MG SUPP RECTAL PRN (18:15)
[2017-01-30] MEDS ORDERED: SENNOSIDES 8.6 MG TAB PO PRN (18:15)
[2017-01-30] MEDS ORDERED: NALOXONE HCL 0.4 MG/ML AMP IV PRN (18:15)
[2017-01-30] MEDS ORDERED: MAGNESIUM HYDROXIDE SUSP 30 ML CUP PO PRN (18:15)
[2017-01-30] MEDS ORDERED: LACTULOSE SYRUP 20 GM/30 ML CUP PO PRN (18:15)
--- NOTE | 2017-01-30 19:05 | HHI.HP ---
[facility] Service [facility] Primary Care Physician Rashida Mcneil MD Admission Diagnosis Pleural Effusion with Acute Dyspnea Diagnoses: Travel History International Travel<30 Days: No Contact w/Intl Traveler <30 Da: No Traveled to Known Affected Are: No History of Present Illness Mrs. Vu is a 71 year old female. She came in today with shortness of breath. She has a history of lung cancer with metastasis to the abdomen. Pleural effusions have been a problem in the past, her last drainage is reported to be about two weeks ago. Tonight she has a right-sided pleural effusion. Symptoms at home have some dyspnea and shortness of breath. No fevers reported. I am seeing her after her thorocentesis, which pulled off about 1L of fluid and had to be discontinued due to pain. Mrs. Vu is still in pain when seen, and is breathing better. No other complaints present tonight. Review of Systems Constitutional: DENIES: Fatigue, Fever, Chills Eyes: DENIES: Blurred vision, Diplopia Ears, nose, mouth, throat: DENIES: Tinnitus, Hearing loss Respiratory: COMPLAINS OF: Cough, Wheezing, Shortness of breath Cardiovascular: COMPLAINS OF: Chest pain, DENIES: Palpitations, Syncope Gastrointestinal: DENIES: Abdominal pain, Black stools, Bloody stools Musculoskeletal: DENIES: Joint pain, Muscle aches Integumentary: DENIES: Abnormal pigmentation Immunologic/allergic: DENIES: Eczema Neurologic: DENIES: Abnormal gait, Headache Psychiatric: DENIES: Anxiety, Confusion Past Family Social History Past Medical History Hypertension Hyperlipidemia COPD Depression Coronary artery disease Past Surgical History Appendectomy Hysterectomy Reported Medications Reported Meds & Active Scripts Active Reported Co Q 10 (Coenzyme Q10 (Ubidecarenone)) 100 Mg Cap 1 Cap PO DAILY Atorvastatin (Atorvastatin Calcium) 40 Mg Tab 50 Mg PO HS Nortriptyline (Nortriptyline HCl) 50 Mg Cap 50 Mg PO BID Metoprolol Succinate ER 24 HR (Metoprolol Succinate) 25 Mg Tab 50 Mg PO DAILY Breo Ellipta Inh (Fluticasone/Vilanterol) 100-25 Mcg/Act Inh 1 Puff INH DAILY Use daily at the same time. Duoneb (Ipratropium-Albuterol Neb) 0.5-2.5 Mg/3 Ml Neb 1 Nebule INH Q4HR NEB Allergies: Coded Allergies: No Known Allergies (Unverified , 01/30/17) Active Ordered Medications Administered Medications Medications (Trade) Dose Ordered Sig/Eloise Route PRN Reason Start Time Stop Time Status Last Admin Dose Admin Sodium Chloride (NS Flush) 2 ml UNSCH PRN IVF FLUSH AFTER USING IV ACCESS 01/30/17 16:45 01/30/17 16:18 Family History Myocardial infarction Social History Occasional use of tobacco Patient lives alone at home No alcohol abuse No drug abuse Physical Exam Vital Signs Vital Signs Date Time Temp Pulse Resp B/P Pulse Ox O2 Delivery O2 Flow Rate FiO2 01/30/17 17:42 97.8 94 20 133/81 100 Nasal Cannula 2 01/30/17 16:00 20 95 Nasal Cannula 2 01/30/17 16:00 95 Nasal Cannula 2 01/30/17 15:43 89 17 128/76 95 Room Air 01/30/17 15:35 89 22 01/30/17 15:15 97.6 87 15 156/79 94 Physical Exam GENERAL: NAD, A&Ox3 SKIN: Warm and dry. HEAD: Normocephalic. EYES: No scleral icterus. No injection or drainage. NECK: Supple, trachea midline. No JVD or lymphadenopathy. CARDIOVASCULAR: Regular rate and rhythm without murmurs, gallops, or rubs. RESPIRATORY: Breath sounds equal bilaterally. No accessory muscle use. Decreased breath sounds on the right GASTROINTESTINAL: Abdomen soft, non-tender, nondistended. MUSCULOSKELETAL: No cyanosis, or edema. Laboratory Laboratory Tests Test 01/30/17 01/30/17 16:00 16:40 White Blood Count 21.1 Red Blood Count 4.68 Hemoglobin 12.8 Hematocrit 40.4 Mean Corpuscular Volume 86.3 Mean Corpuscular Hemoglobin 27.3 Mean Corpuscular Hemoglobin 31.6 Concent Red Cell Distribution Width 18.3 Platelet Count 459 Mean Platelet Volume 8.0 Neutrophils (%) (Auto) 90.8 Lymphocytes (%) (Auto) 3.9 Monocytes (%) (Auto) 4.8 Eosinophils (%) (Auto) 0.2 Basophils (%) (Auto) 0.3 Neutrophils # (Auto) 19.1 Lymphocytes # (Auto) 0.8 Monocytes # (Auto) 1.0 Eosinophils # (Auto) 0.0 Basophils # (Auto) 0.1 CBC Comment AUTO DIFF Differential Total Cells 100 Counted Neutrophils % (Manual) 79 Band Neutrophils % 14 Lymphocytes % 5 Monocytes % 2 Neutrophils # (Manual) 19.6 Differential Comment FINAL DIFF MANUAL Platelet Estimate HIGH Platelet Morphology Comment NORMAL Red Cell Morphology Comment NORMAL Prothrombin Time 10.7 Prothromb Time International 1.0 Ratio Activated Partial 24.1 Thromboplast Time Urine Color YELLOW Urine Turbidity CLEAR Urine pH 5.5 Urine Specific [place] 1.023 Urine Protein TRACE Urine Glucose (UA) NEG Urine Ketones NEG Urine Occult Blood NEG Urine Nitrite NEG Urine Bilirubin NEG Urine Urobilinogen LESS THAN 2.0 Urine Leukocyte Esterase TRACE Urine WBC LESS THAN 1 Urine Squamous Epithelial <1 Cells Urine Hyaline Casts 1 Urine Mucus FEW Microscopic Urinalysis Comment CULT NOT INDICATED Sodium Level 136 Potassium Level 4.8 Chloride Level 96 Carbon Dioxide Level 31.5 Anion Gap 9 Blood Urea Nitrogen 16 Creatinine 0.59 Estimat Glomerular Filtration 101 Rate Random Glucose 115 Calcium Level 9.7 Magnesium Level 2.4 Total Bilirubin 0.5 Aspartate Amino Transf 29 (AST/SGOT) Alanine Aminotransferase 22 (ALT/SGPT) Alkaline Phosphatase 92 Total Protein 7.0 Albumin 3.0 Lipase 105 Lactic Acid Level 1.1 Date/Time Procedure Status Source Growth 01/30/17 16:45 Aerobic Blood Culture Received Blood Peripheral Pending 01/30/17 16:45 Anaerobic Blood Culture Received Blood Peripheral Pending Result Diagram: 01/30/17 1600 01/30/17 1600 Imaging Last Impressions Abdomen/Pelvis CT 01/30/17 1634 Signed Impressions: Service Date/Time: Monday, January 30, 2017 17:06 - CONCLUSION: 1. Moderate to large right pleural effusion 2. Prominent consolidation/mass right hilar area with collapse of the right lower lung 3. Tiny gallstones in the gallbladder. No biliary tract obstruction. 4. Scattered diverticulosis of the sigmoid colon without inflammatory changes. Germain Massey MD Chest X-Ray 01/30/17 1554 Signed Impressions: Service Date/Time: Monday, January 30, 2017 16:20 - CONCLUSION: Moderate size right pleural effusion, increased in size from the prior study. There is persistent associated atelectasis and masslike consolidation. Chapo Escalona MD Assessment and Plan Problem List: (1) Acute dyspnea ICD Code: R06.00 Status: Acute (2) Metastatic lung carcinoma ICD Code: C78.00 Status: Acute (3) Pleural effusion on right ICD Code: J90 Status: Acute Assessment and Plan Assessment and plan 71-year-old female admitted with a right-sided pleural effusion and related dyspnea Lung cancer Left-sided pleural effusion Dyspnea Thoracentesis performed Monitor for signs of pneumothorax overnight Follow up chest x-ray in AM Determine if further thoracentesis is needed based on imaging Interventional radiology consulted Nothing by mouth after midnight Hypertension Continue baseline home treatments Follow blood pressure next Hyperlipidemia Continue baseline treatments Follow up in outpatient COPD Follow-up for exacerbation Currently exacerbated When necessary albuterol Depression Continue baseline treatment Outpatient monitoring Coronary artery disease Follow clinically No reports of chest pain DVT prophylaxis SCDs given pending procedure Physician Certification 2 Midnight Certification Type: Admission for Inpatient Services Order for Inpatient Services The services are ordered in accordance with Medicare regulations or non- Medicare payer requirements, as applicable. In the case of services not specified as inpatient-only, they are appropriately provided as inpatient services in accordance with the 2-midnight benchmark. Estimated LOS (days): 2 days is the estimated time the patient will need to remain in the hospital, assuming treatment plan goals are met and no additional complications. Post-Hospital Plan: Home Problem Qualifiers (1) Metastatic lung carcinoma: Qualified Code: C78.00 - Metastatic lung carcinoma, unspecified laterality Luis A Rebollar MD January 30, 2017 7:05 pm
--- NOTE | 2017-01-30 19:18 | RADRPT ---
EXAM DATE/TIME: 01/30/2017 18:57 [facility] COMPARISON: CHEST EXPIRATION ONLY, January 15, 2017, 12:34. INDICATIONS : Post thoracentesis. MEDICAL HISTORY : None. SURGICAL HISTORY : None. ENCOUNTER: Initial ACUITY: 1 day PAIN SCORE: 0/10 LOCATION: Right chest FINDINGS: A single portable frontal view of the chest shows worsening consolidation involving the right lung ba se. Tiny right effusion is stable. Left lung is clear. Heart remains mildly enlarged. No pneumothorax following right thoracentesis. CONCLUSION: 1. No pneumothorax following thoracentesis. 2. Worsening consolidation of the right lung base. 3. Tiny residual right effusion. John Contreras Jr., MD on January 30, 2017 at 19:15 Board Certified Radiologist. This report was verified electronically.
[2017-01-30] MEDS ORDERED: ACETAMINOPHEN/HYDROcodone 325 MG/7.5 MG TAB PO ONE (19:45)
[2017-01-30] MEDS ORDERED: RESP: ALBUTEROL 2.5 MG/3 ML NEB (SCH) NEB (20:00)
[2017-01-30] MEDS: RESP: ALBUTEROL 2.5 MG/IPRATROPIUM 0.5 MG NEB (SCH) INH (20:00)
[2017-01-30] MEDS: DOCUSATE SODIUM 50 MG/SENNA 8.6 MG TAB PO SCH (21:00)
--- NOTE | 2017-01-30 22:07 | RADRPT ---
EXAM DATE/TIME: 01/30/2017 18:29 [facility] COMPARISON: No previous studies available for comparison. INDICATIONS : Pleural effusion. MEDICAL HISTORY : Hypercholesterolemia. Chronic obstructive pulmonary disease. Hypertension. Lung cancer with metastasi s. Afib. SURGICAL HISTORY : Hysterectomy. Appendectomy. Coronary artery stent. ENCOUNTER: Initial ACUITY: 1 month PAIN SCORE: 8/10 LOCATION: Right chest FLUID: Total volume of 1000 cc of clear, yellow fluid was removed. Fluid was discarded. Thoracentesis was therapeutic only. TECHNIQUE: 1. Ultrasound guidance for thoracentesis. 2. Thoracentesis. The risks, benefits, and alternatives to ultrasound guided thoracentesis were explained to the patien t in lay simple terms, including the risk of bleeding and infection. Written and verbal informed con sent was obtained. Appropriate area for thoracentesis was marked under ultrasound guidance with the patient in the uprig ht position. Overlying skin was prepped and draped in the usual sterile fashion and with local anest hetic, a dermatotomy was made with an 11 blade scalpel. A 6 [place] thoracentesis catheter was placed in the pleural space and fluid was removed. Catheter was then removed and a sterile dressing applie d. There were no immediate complications. The patient tolerated the procedure well and the left the ultrasound suite in stable condition. Chest radiograph is to be obtained. CONCLUSION: Uncomplicated ultrasound guided right thoracentesis. John Contreras Jr., MD on January 30, 2017 at 22:04 Board Certified Radiologist. This report was verified electronically.
[2017-01-30] MEDS: ATORVASTATIN 40 MG TAB PO SCH (23:36)
[2017-01-30] MEDS: SODIUM CHLORIDE 0.9% FLUSH 10 ML FLUSH IV FLUSH SCH (23:37)
[2017-01-30] MEDS: ACETAMINOPHEN/HYDROcodone 325 MG/7.5 MG TAB PO PRN (23:38)
[2017-01-30] MEDS: SODIUM CHLOR 0.9% 1000 ML INJ 1,000 ML IV SCH (23:40)
[2017-01-30] MEDS: NORTRIPTYLINE HCL 25 MG CAP PO SCH (23:47)
[2017-01-31] VITALS (10 sets, daily range): BP systolic 108–156; BP diastolic 57–80; PULSE 79–111; RESP 18–22; TEMP 97.2–98.1; O2SAT 95–100
[2017-01-31] MEDS: RESP: ALBUTEROL 2.5 MG/IPRATROPIUM 0.5 MG NEB (SCH) INH ×7 (04:00→23:57)
[2017-01-31] MEDS: ACETAMINOPHEN/HYDROcodone 325 MG/7.5 MG TAB PO PRN ×3 (04:33→21:18)
[2017-01-31 07:39] LABS: AUTOMATED NEUTROPHIL # 15.3 TH/MM3 (1.8-7.7); BASOPHIL # 0.1 TH/MM3 (0-0.2); BASOPHIL % 0.5 % (0.0-2.0); EOSINOPHIL # 0.2 TH/MM3 (0-0.4); HEMATOCRIT 35.9 % (35.0-46.0); LYMPH % 7.3 % (9.0-44.0); LYMPHOCYTE # 1.4 TH/MM3 (1.0-4.8); MEAN CELL VOLUME 86.1 FL (80.0-100.0); MEAN CORPUSCULAR HEMOGLOBIN 27.5 PG (27.0-34.0); MONO % 8.3 % (0.0-8.0); NEUT % 82.9 % (16.0-70.0); PLATELET COUNT 416 TH/MM3 (150-450); RED BLOOD COUNT 4.17 MIL/MM3 (4.00-5.30); RED CELL DISTRIBUTION WIDTH 17.7 % (11.6-17.2); WHITE BLOOD COUNT 18.5 TH/MM3 (4.0-11.0)
[2017-01-31 07:46] LABS: HEMO FLAGS AUTO DIFF
[2017-01-31 08:33] LABS: BANDS 6 % (0-6); NEUTROPHIL # MANUAL DIFF 15.7 TH/MM3 (1.8-7.7); POLYS (SEG NEUTROPHILS) 79 % (16-70); WBC DIFF SAMPLE 100
[2017-01-31 08:34] LABS: PLATELET ESTIMATE SMEAR NORMAL (NORMAL); PLATELET MORPHOLOGY NORMAL (NORMAL); SCAN/DIFF FINAL DIFF MANUAL
[2017-01-31] MEDS: DOCUSATE SODIUM 50 MG/SENNA 8.6 MG TAB PO SCH ×2 (09:00→21:00)
[2017-01-31] MEDS: SODIUM CHLORIDE 0.9% FLUSH 10 ML FLUSH IV FLUSH SCH ×2 (09:00→21:00)
[2017-01-31] MEDS ORDERED: NON-FORMULARY DRUG (Coenzyme Q10 (Ubidecarenone) (Co Q 10) 1 CAP) PO SCH (09:00)
[2017-01-31] MEDS: NORTRIPTYLINE HCL 25 MG CAP PO SCH ×2 (09:00→21:00)
[2017-01-31] MEDS: METOPROLOL SUCCINATE 25 MG EXTENDED RELEASE TAB PO SCH (09:01)
[2017-01-31] MEDS: FLUTICASONE 100 MCG/VILANTEROL 25 MCG INHALER INH SCH (09:06)
[2017-01-31] MEDS: SODIUM CHLOR 0.9% 1000 ML INJ 1,000 ML IV SCH ×2 (09:18→20:06)
--- NOTE | 2017-01-31 09:33 | EKG ---
Date Performed: 01/30/2017 Time Performed: 15:34:25 PTAGE: 71 years EKG: Sinus rhythm NORMAL ECG PREVIOUS TRACING : 12/19/2016 13.02 DOCTOR: Osmel Jauregui Interpretating Date/Time 01/31/2017 09:32:01
[2017-01-31] MEDS: ONDANSETRON HCL 4 MG/2 ML VIAL IV PUSH PRN ×2 (10:24→18:43)
--- NOTE | 2017-01-31 10:47 | RADRPT ---
EXAM DATE/TIME: 01/31/2017 09:50 [facility] COMPARISON: CHEST PA & LAT, December 28, 2016, 10:59. INDICATIONS : Short of breath, post thoracentesis. MEDICAL HISTORY : Chronic obstructive pulmonary disease. Myocardial infarction. SURGICAL HISTORY : CABG. Carotid stent. ENCOUNTER: Subsequent ACUITY: 3 days PAIN SCORE: 0/10 LOCATION: Bilateral chest FINDINGS: Moderate right pleural effusion with associated right lower lobe airspace disease. Left lung is clear . Cardiomediastinal contours are stable. Remainder of the exam is unchanged. CONCLUSION: 1. Moderate right pleural effusion with associated right lower lobe airspace disease. Navid Tompkins MD on January 31, 2017 at 10:43 Board Certified Radiologist. This report was verified electronically.
[2017-01-31 13:25] LABS: BICARBONATE 31.9 MEQ/L (21.0-32.0); POTASSIUM 3.8 MEQ/L (3.5-5.1)
[2017-01-31] MEDS: cefTRIAXone INJ 1,000 MG in SODIUM CHLORIDE 0.9% INJ 100 ML IV SCH (15:33)
--- NOTE | 2017-01-31 16:17 | HHI.PR ---
Subjective Remarks Incomplete thoracentesis yesterday as patient had to stop the procedure secondary to pain. 1 L had been removed. A repeat chest x-ray today shows no pneumothorax but she does have persistence of a moderate sized pleural effusion. Objective Vital Signs Date Time Temp Pulse Resp B/P Pulse Ox O2 Delivery O2 Flow Rate FiO2 01/31/17 15:30 100 Nasal Cannula 2.00 01/31/17 12:00 97.7 86 22 114/58 100 01/31/17 08:14 108 01/31/17 08:09 98 Nasal Cannula 2.00 01/31/17 08:00 97.2 111 22 143/80 99 01/31/17 08:00 Nasal Cannula 2.00 01/31/17 04:48 97.8 103 18 149/71 95 01/31/17 04:00 Nasal Cannula 2.00 01/31/17 00:26 98.1 98 18 156/75 100 01/31/17 00:00 Nasal Cannula 2.00 01/30/17 23:30 Nasal Cannula 2.00 01/30/17 23:00 97 01/30/17 22:00 98.3 93 18 153/73 97 01/30/17 21:39 98 20 141/83 99 Nasal Cannula 2 01/30/17 20:13 96 Nasal Cannula 21 01/30/17 17:42 97.8 94 20 133/81 100 Nasal Cannula 2 I/O 01/30/17 01/30/17 01/30/17 01/31/17 01/31/17 01/31/17 07:00 15:00 23:00 07:00 15:00 23:00 Intake Total 947 ml Output Total 600 ml Balance 347 ml Intake Oral 360 ml IV Total 587 ml Output Urine Total 600 ml # Voids 3 # Bowel Movements 0 1 Result Diagram: 01/31/17 0620 01/31/17 1233 Imaging Last Impressions Chest X-Ray 01/31/17 0000 Signed Impressions: Service Date/Time: Tuesday, January 31, 2017 09:50 - CONCLUSION: 1. Moderate right pleural effusion with associated right lower lobe airspace disease. Navid Tompkins MD Abdomen/Pelvis CT 01/30/17 1634 Signed Impressions: Service Date/Time: Monday, January 30, 2017 17:06 - CONCLUSION: 1. Moderate to large right pleural effusion 2. Prominent consolidation/mass right hilar area with collapse of the right lower lung 3. Tiny gallstones in the gallbladder. No biliary tract obstruction. 4. Scattered diverticulosis of the sigmoid colon without inflammatory changes. Germain Massey MD Thoracentesis Ultrasound 01/30/17 0000 Signed Impressions: Service Date/Time: Monday, January 30, 2017 18:29 - CONCLUSION: Uncomplicated ultrasound guided right thoracentesis. John Contreras Jr., MD Procedures Right side Thoracentesis on 01/30/17 Objective Remarks GENERAL: NAD, A&Ox3 SKIN: Warm and dry. HEAD: Normocephalic. EYES: No scleral icterus. No injection or drainage. NECK: Supple, trachea midline. No JVD or lymphadenopathy. CARDIOVASCULAR: Regular rate and rhythm without murmurs, gallops, or rubs. RESPIRATORY: Decreased breath sounds on the right compared to the left at approximately the mid lung field and down. No accessory muscle use. GASTROINTESTINAL: Abdomen soft, non-tender, nondistended. MUSCULOSKELETAL: No cyanosis, or edema. Medications and IVs Administered Medications Medications (Trade) Dose Ordered Sig/Eloise Route PRN Reason Start Time Stop Time Status Last Admin Dose Admin Sodium Chloride (NS 1000 ml Inj) 1,000 ml @ 83 mls/hr Q12H3M IV 01/30/17 20:00 01/31/17 09:18 Sodium Chloride (NS Flush) 2 ml BID IV FLUSH 01/30/17 21:00 01/30/17 23:37 Acetaminophen/ Hydrocodone Bitart ([place] 7.5-325 Mg) 1 tab Q4H PRN PO PAIN SCALE 6 TO 10 01/30/17 18:15 01/31/17 09:01 Atorvastatin Calcium (Lipitor) 40 mg HS PO 01/30/17 21:00 01/30/17 23:36 Fluticasone/ Vilanterol (Breo Ellipta 100-25 Inh) 1 puff DAILY INH 01/31/17 09:00 01/31/17 09:06 Metoprolol Succinate (Toprol Xl) 50 mg DAILY PO 01/31/17 09:00 01/31/17 09:01 Nortriptyline HCl (Pamelor) 50 mg BID PO 01/30/17 21:00 01/31/17 09:00 Ondansetron HCl 4 mg 4 mg Q6HR PRN IV PUSH Nausea 01/31/17 10:15 01/31/17 10:24 Ceftriaxone Sodium/Sodium Chloride (Rocephin Inj/NS Inj) 100 ml @ 200 mls/hr Q24H IV 01/31/17 16:00 01/31/17 15:33 A/P Problem List: (1) Acute dyspnea ICD Code: R06.00 (2) Metastatic lung carcinoma ICD Code: C78.00 (3) Pleural effusion on right ICD Code: J90 Assessment and Plan Assessment and plan 71-year-old female admitted with a right-sided pleural effusion and related dyspnea. Status post thoracentesis on 01/30/17. Yesterday's procedure could not be completed secondary to pain. It appears she would benefit from repeat thoracentesis. Pain symptoms have improved today. Lung cancer Left-sided pleural effusion Dyspnea Thoracentesis performed on 01/30/17 Follow up chest x-ray shows continued pleural effusion Determine if further thoracentesis is needed based on imaging Interventional radiology consulted Nothing by mouth after midnight Hypertension Continue baseline home treatments Follow blood pressure next Hyperlipidemia Continue baseline treatments Follow up in outpatient COPD Follow-up for exacerbation Currently exacerbated When necessary albuterol Depression Continue baseline treatment Outpatient monitoring Coronary artery disease Follow clinically No reports of chest pain DVT prophylaxis SCDs given pending procedure Problem Qualifiers (1) Metastatic lung carcinoma: Qualified Code: C78.00 - Metastatic lung carcinoma, unspecified laterality Luis A Rebollar MD January 31, 2017 16:17
[2017-01-31] MEDS: AZITHROMYCIN INJ 500 MG in SODIUM CHLOR 0.9% 250 ML INJ 250 ML IV SCH (16:42)
[2017-01-31] MEDS: ATORVASTATIN 40 MG TAB PO SCH (21:18)
[2017-02-01] VITALS (12 sets, daily range): BP systolic 97–151; BP diastolic 52–73; PULSE 74–102; RESP 20; TEMP 97–98.6; O2SAT 95–100
[2017-02-01] MEDS: ONDANSETRON HCL 4 MG/2 ML VIAL IV PUSH PRN ×4 (00:33→21:36)
[2017-02-01] MEDS: RESP: ALBUTEROL 2.5 MG/IPRATROPIUM 0.5 MG NEB (SCH) INH ×5 (04:00→20:09)
[2017-02-01] MEDS: SODIUM CHLOR 0.9% 1000 ML INJ 1,000 ML IV SCH ×2 (08:09→20:12)
[2017-02-01] MEDS: NORTRIPTYLINE HCL 25 MG CAP PO SCH ×2 (08:32→21:39)
[2017-02-01] MEDS: METOPROLOL SUCCINATE 25 MG EXTENDED RELEASE TAB PO SCH (08:32)
[2017-02-01] MEDS: ACETAMINOPHEN/HYDROcodone 325 MG/7.5 MG TAB PO PRN ×2 (08:32→21:36)
[2017-02-01] MEDS: SODIUM CHLORIDE 0.9% FLUSH 10 ML FLUSH IV FLUSH SCH ×2 (08:41→21:37)
[2017-02-01] MEDS: FLUTICASONE 100 MCG/VILANTEROL 25 MCG INHALER INH SCH (09:00)
[2017-02-01] MEDS: DOCUSATE SODIUM 50 MG/SENNA 8.6 MG TAB PO SCH ×2 (09:00→21:00)
[2017-02-01] MEDS ORDERED: HYDROmorphone HCL PF 1 MG/ML VIAL IV PUSH PRN (10:00)
[2017-02-01] MEDS ORDERED: ONDANSETRON HCL 4 MG/2 ML VIAL IV PUSH PRN (10:00)
--- NOTE | 2017-02-01 15:30 | RADRPT ---
EXAM DATE/TIME: 02/01/2017 14:47 [facility] COMPARISON: CHEST EXPIRATION ONLY, January 30, 2017, 18:57. INDICATIONS : Post right thoracentesis MEDICAL HISTORY : Chronic obstructive pulmonary disease. Myocardial infarction. SURGICAL HISTORY : CABG. Carotid stent. ENCOUNTER: Subsequent ACUITY: 1 day PAIN SCORE: 0/10 LOCATION: Right Chest FINDINGS: Portable upright expiratory view of the chest demonstrates no pneumothorax following recent right tho racentesis. Persistent opacity/mass is present in the right lower lung zone with a small amount of re sidual pleural fluid. There is rightward shift of the mediastinum. CONCLUSION: No pneumothorax following recent right thoracentesis. Pulmonary mass and small amount of pleural flui d remain. Chapo Escalona MD on February 01, 2017 at 15:27 Board Certified Radiologist. This report was verified electronically.
[2017-02-01] MEDS: AZITHROMYCIN INJ 500 MG in SODIUM CHLOR 0.9% 250 ML INJ 250 ML IV SCH (16:00)
--- NOTE | 2017-02-01 16:02 | HHI.PR ---
Subjective Remarks Repeat thoracentesis today. About 950ml removed. Patient is willing to stay through tomorrow morning for monitoring and to ensure that she is not having rapid return of her effusion. Other complaints today have been nausea (chronic ) and dysuria. Objective Vital Signs Date Time Temp Pulse Resp B/P Pulse Ox O2 Delivery O2 Flow Rate FiO2 02/01/17 15:31 96 20 104/65 99 02/01/17 15:15 98.6 96 20 98/63 100 02/01/17 14:53 97.0 91 20 97/66 98 02/01/17 13:58 97.0 101 20 128/73 96 02/01/17 12:00 97.5 95 20 123/56 95 02/01/17 08:02 99 Nasal Cannula 3.00 02/01/17 08:00 74 02/01/17 08:00 98.3 102 20 151/52 100 02/01/17 08:00 96 Nasal Cannula 2.00 21 02/01/17 04:00 98.0 83 20 120/67 97 02/01/17 00:00 97.7 89 20 125/69 97 01/31/17 20:15 79 01/31/17 20:15 Nasal Cannula 2.00 01/31/17 20:00 97.4 79 19 108/57 100 I/O 01/31/17 01/31/17 01/31/17 02/01/17 02/01/17 02/01/17 07:00 15:00 23:00 07:00 15:00 23:00 Intake Total 947 ml 695 ml 842 ml Output Total 600 ml 400 ml Balance 347 ml 695 ml 842 ml -400 ml Intake Oral 360 ml 340 ml 120 ml IV Total 587 ml 355 ml 722 ml Output Urine Total 600 ml 400 ml # Voids 3 2 2 2 # Bowel Movements 0 1 0 1 Result Diagram: 01/31/17 0620 01/31/17 1233 Procedures Right side Thoracentesis on 01/30/17 Objective Remarks GENERAL: NAD, A&Ox3 SKIN: Warm and dry. HEAD: Normocephalic. EYES: No scleral icterus. No injection or drainage. NECK: Supple, trachea midline. No JVD or lymphadenopathy. CARDIOVASCULAR: Regular rate and rhythm without murmurs, gallops, or rubs. RESPIRATORY: Decreased breath sounds on the right compared to the left at approximately the mid lung field and down. No accessory muscle use. GASTROINTESTINAL: Abdomen soft, non-tender, nondistended. MUSCULOSKELETAL: No cyanosis, or edema. A/P Problem List: (1) Acute dyspnea ICD Code: R06.00 (2) Metastatic lung carcinoma ICD Code: C78.00 (3) Pleural effusion on right ICD Code: J90 Assessment and Plan Assessment and plan 71-year-old female admitted with a right-sided pleural effusion and related dyspnea. Status post thoracentesis on 01/30/17. Completion of drainage today. 950ml removed today, about 1000ml removed yesterday. Repeat chest x-ray in AM to determine stability of effusion. UA for dysuria is ordered today. Lung cancer Left-sided pleural effusion Dyspnea Thoracentesis performed on 01/30/17 Follow up chest x-ray shows continued pleural effusion Determine if further thoracentesis is needed based on imaging Interventional radiology consulted Nothing by mouth after midnight Hypertension Continue baseline home treatments Follow blood pressure next Hyperlipidemia Continue baseline treatments Follow up in outpatient Dysuria UA COPD Follow-up for exacerbation Currently exacerbated When necessary albuterol Depression Continue baseline treatment Outpatient monitoring Coronary artery disease Follow clinically No reports of chest pain DVT prophylaxis SCDs given pending procedure Problem Qualifiers (1) Metastatic lung carcinoma: Qualified Code: C78.00 - Metastatic lung carcinoma, unspecified laterality Luis A Rebollar MD Feb 01, 2017 16:02
[2017-02-01] MEDS: cefTRIAXone INJ 1,000 MG in SODIUM CHLORIDE 0.9% INJ 100 ML IV SCH (16:28)
--- NOTE | 2017-02-01 16:32 | RADRPT ---
EXAM DATE/TIME: 02/01/2017 13:52 [facility] COMPARISON: US GUIDED THORACENTESIS RIGHT, January 30, 2017, 18:29. INDICATIONS : Right Pleural effusion. MEDICAL HISTORY : Myocardial infarction. Hypertension. Chronic obstructive pulmonary disease. Missing teeth. Headache. Numbness. Cardiac disorders. Chest pain. Thoracentesis. Dyspnea. Claustrophobia. Lung cancer. Metasta tic cancer. Chemotherapy. Insomnia. SURGICAL HISTORY : Tonsillectomy. Appendectomy. Hysterectomy. Adenoidectomy. Stents and cath 2008. ENCOUNTER: Subsequent ACUITY: 3 weeks PAIN SCORE: 3/10 LOCATION: Right chest FLUID: Total volume of 950 cc of clear, yellow fluid was removed. Fluid was discarded. Thoracentesis was therapeutic only. TECHNIQUE: 1. Ultrasound guidance for thoracentesis. 2. Thoracentesis. The risks, benefits, and alternatives to ultrasound guided thoracentesis were explained to the patien t in lay simple terms, including the risk of bleeding and infection. Written and verbal informed con sent was obtained. Appropriate area for thoracentesis was marked under ultrasound guidance with the patient in the uprig ht position. Overlying skin was prepped and draped in the usual sterile fashion and with local anest hetic, a dermatotomy was made with an 11 blade scalpel. A 6 [place] thoracentesis catheter was placed in the pleural space and fluid was removed. Catheter was then removed and a sterile dressing applie d. There were no immediate complications. The patient tolerated the procedure well and the left the ultrasound suite in stable condition. Chest radiograph is to be obtained. CONCLUSION: Uncomplicated ultrasound guided thoracentesis with removal of 950 cc of fluid. The remaining fluid wa s not removed since the patient experienced chest pain. Given the right pulmonary mass and collapse o f a portion of the lung, this fluid will likely recur. Chapo Escalona MD on February 01, 2017 at 16:29 Board Certified Radiologist. This report was verified electronically.
[2017-02-01] MEDS: ATORVASTATIN 40 MG TAB PO SCH (21:37)
[2017-02-01 23:29] LABS: BACTERIA, URINE RARE /hpf; BLOOD, URINE NEG (NEG); COMMENT (UR) CULT NOT INDICATED; CULTURE IF INDICATED CULT NOT INDICATED; GLUCOSE,URINE NEG (NEG); KETONE, URINE TRACE mg/dL (NEG); MUCUS URINE FEW /lpf (OCC); NITRITE,URINE NEG (NEG); SQUAMOUS EPITHELIAL CELL URINE 2 /hpf (0-5); URINE COLOR YELLOW (YELLW/STRAW)
[2017-02-02] VITALS (10 sets, daily range): BP systolic 106–133; BP diastolic 58–75; PULSE 100–111; RESP 18–20; TEMP 97.3–98.9; O2SAT 95–100
[2017-02-02] MEDS: RESP: ALBUTEROL 2.5 MG/IPRATROPIUM 0.5 MG NEB (SCH) INH ×5 (04:00→15:31)
[2017-02-02] MEDS: METOPROLOL SUCCINATE 25 MG EXTENDED RELEASE TAB PO SCH (07:44)
[2017-02-02] MEDS: NORTRIPTYLINE HCL 25 MG CAP PO SCH ×2 (07:44→20:54)
[2017-02-02] MEDS: FLUTICASONE 100 MCG/VILANTEROL 25 MCG INHALER INH SCH (07:46)
[2017-02-02] MEDS: SODIUM CHLOR 0.9% 1000 ML INJ 1,000 ML IV SCH ×2 (07:48→20:18)
[2017-02-02] MEDS: SODIUM CHLORIDE 0.9% FLUSH 10 ML FLUSH IV FLUSH SCH ×2 (07:48→20:50)
[2017-02-02] MEDS: DOCUSATE SODIUM 50 MG/SENNA 8.6 MG TAB PO SCH ×2 (07:49→20:50)
[2017-02-02] MEDS: ONDANSETRON HCL 4 MG/2 ML VIAL IV PUSH PRN ×3 (08:01→20:48)
--- NOTE | 2017-02-02 09:33 | RADRPT ---
EXAM DATE/TIME: 02/02/2017 08:19 [facility] COMPARISON: CHEST SINGLE AP, January 30, 2017, 16:20. INDICATIONS : Effusion with Shortness of Breath MEDICAL HISTORY : Chronic obstructive pulmonary disease. Myocardial infarction SURGICAL HISTORY : CABG. Carotid stent ENCOUNTER: Subsequent ACUITY: 3 weeks PAIN SCORE: 0/10 LOCATION: Bilateral chest FINDINGS: Single AP view of the chest. Moderate to large right pleural effusion unchanged. Right lower lung ate lectasis versus consolidation. Left lung clear. Cardiomediastinal silhouette unchanged. No evidence o f pneumothorax. CONCLUSION: Moderate to large right pleural effusion and left lower lung atelectasis versus consolidation. Keshav Krishnan MD on February 02, 2017 at 9:30 Board Certified Radiologist. This report was verified electronically.
--- NOTE | 2017-02-02 13:56 | HHI.PR ---
Subjective Remarks The patient is complaining of continued shortness of breath. She had 1 L taken off her right pleural effusion at time of admit. She has another liter taken off her right pleural effusion yesterday. She reports that she had to stop the procedure early again yesterday because of pain. She has not seen a spring bender as an outpatient. Objective Vital Signs Date Time Temp Pulse Resp B/P Pulse Ox O2 Delivery O2 Flow Rate FiO2 02/02/17 12:00 97.3 106 18 133/71 98 02/02/17 09:34 Nasal Cannula 3.00 02/02/17 08:00 98.9 111 18 129/75 96 02/02/17 07:28 110 02/02/17 04:00 97.8 100 20 131/73 100 02/02/17 00:00 98.3 106 20 108/58 100 02/01/17 20:15 97 Nasal Cannula 2.00 02/01/17 20:10 96 Nasal Cannula 3.00 02/01/17 20:00 98 02/01/17 20:00 97.4 97 20 114/62 98 02/01/17 17:00 97.0 92 20 114/65 100 02/01/17 15:31 96 20 104/65 99 02/01/17 15:15 98.6 96 20 98/63 100 02/01/17 14:53 97.0 91 20 97/66 98 02/01/17 13:58 97.0 101 20 128/73 96 I/O 02/01/17 02/01/17 02/01/17 02/02/17 02/02/17 02/02/17 07:00 15:00 23:00 07:00 15:00 23:00 Intake Total 842 ml 899 ml 994 ml Output Total 400 ml Balance 842 ml -400 ml 899 ml 994 ml Intake Oral 120 ml 240 ml 240 ml IV Total 722 ml 659 ml 754 ml Output Urine Total 400 ml # Voids 2 2 1 0 # Bowel Movements 0 1 0 0 Result Diagram: 01/31/17 0620 01/31/17 1233 Procedures Right side Thoracentesis on 01/30/17 and 02/01/17. Objective Remarks GENERAL: NAD, A&Ox3 SKIN: Warm and dry. HEAD: Normocephalic. EYES: No scleral icterus. No injection or drainage. NECK: Supple, trachea midline. No JVD or lymphadenopathy. CARDIOVASCULAR: Regular rate and rhythm without murmurs, gallops, or rubs. RESPIRATORY: Decreased breath sounds on the right compared to the left at approximately the mid lung field and down. No accessory muscle use. GASTROINTESTINAL: Abdomen soft, non-tender, nondistended. MUSCULOSKELETAL: No cyanosis, or edema. A/P Problem List: (1) Acute dyspnea ICD Code: R06.00 (2) Metastatic lung carcinoma ICD Code: C78.00 (3) Pleural effusion on right ICD Code: J90 Assessment and Plan Assessment and plan 71-year-old female admitted with a right-sided pleural effusion and related dyspnea. Status post thoracentesis on 01/30/17 and 02/01/17. No improvement of symptoms since drainage yesterday. Continue breathing treatments. Pulmonology consult placed. Lung cancer Left-sided pleural effusion Dyspnea Thoracentesis performed on 01/30/17 Follow up chest x-ray shows continued pleural effusion Determine if further thoracentesis is needed based on imaging Interventional radiology consulted Nothing by mouth after midnight Hypertension Continue baseline home treatments Follow blood pressure next Hyperlipidemia Continue baseline treatments Follow up in outpatient Dysuria UA COPD Follow-up for exacerbation Currently exacerbated When necessary albuterol Depression Continue baseline treatment Outpatient monitoring Coronary artery disease Follow clinically No reports of chest pain DVT prophylaxis SCDs given pending procedure Problem Qualifiers (1) Metastatic lung carcinoma: Qualified Code: C78.00 - Metastatic lung carcinoma, unspecified laterality Luis A Rebollar MD Feb 02, 2017 1:56 pm
[2017-02-02] MEDS: ACETAMINOPHEN/HYDROcodone 325 MG/5 MG TAB PO PRN (14:04)
[2017-02-02] MEDS: AZITHROMYCIN INJ 500 MG in SODIUM CHLOR 0.9% 250 ML INJ 250 ML IV SCH (15:24)
[2017-02-02] MEDS: cefTRIAXone INJ 1,000 MG in SODIUM CHLORIDE 0.9% INJ 100 ML IV SCH (16:18)
[2017-02-02] MEDS: ACETAMINOPHEN/HYDROcodone 325 MG/7.5 MG TAB PO PRN (20:49)
[2017-02-02] MEDS: ATORVASTATIN 40 MG TAB PO SCH (20:49)
[2017-02-02] MEDS: RESP: ALBUTEROL 2.5 MG/IPRATROPIUM 0.5 MG NEB (SCH) NEB (21:03)
[2017-02-03] VITALS (9 sets, daily range): BP systolic 108–155; BP diastolic 69–77; PULSE 90–116; RESP 18–22; TEMP 96.4–99; O2SAT 96–99
[2017-02-03] MEDS: ACETAMINOPHEN/HYDROcodone 325 MG/7.5 MG TAB PO PRN ×3 (06:39→20:38)
[2017-02-03] MEDS: ONDANSETRON HCL 4 MG/2 ML VIAL IV PUSH PRN ×3 (06:39→20:38)
[2017-02-03] MEDS: RESP: ALBUTEROL 2.5 MG/IPRATROPIUM 0.5 MG NEB (SCH) NEB ×4 (07:44→20:27)
[2017-02-03] MEDS: SODIUM CHLOR 0.9% 1000 ML INJ 1,000 ML IV SCH ×2 (08:21→20:24)
--- NOTE | 2017-02-03 08:24 | RADRPT ---
EXAM DATE/TIME: 02/03/2017 07:59 [place] COMPARISON: No previous studies available for comparison. EXTERNAL COMPARISON : [facility], CHEST- PA & LAT, May 31, 2012 INDICATIONS : Right pleural effusion. MEDICAL HISTORY : Myocardial infarction. Hypercholesterolemia. Lung cancer with mets. Dyspnea. Headache. Bilateral le g numbness. Chest pain. HTN. COPD. Insomnia. SURGICAL HISTORY : Tonsillectomy. Coronary artery stent. Hysterectomy. Adenoidectomy. Thoracentesis. Cardiac cath. Chemo therapy. ENCOUNTER: Subsequent ACUITY: 2 days PAIN SCORE: 0/10 LOCATION: Right chest MEASUREMENTS: SKIN TO PARIETAL PLEURA: 2.8 cm SKIN TO MAX SAFE DEPTH: 7.0 cm ESTIMATED FLUID VOLUME: 824 cc FLUID COMPOSITION: complex FINDINGS: Pleural effusion is visualized with multiple septations. A pipo was placed on the skin surface superf icial to the pleural fluid collection. CONCLUSION: Right pleural effusion with septations. Skin marked. Keshav Krishnan MD on February 03, 2017 at 8:21 Board Certified Radiologist. This report was verified electronically.
--- NOTE | 2017-02-03 08:53 | HHI.PR ---
Subjective Remarks Right pleural effusion has occurred again. An ultrasound this morning shows a reaccumulation of approximately 1 L. The rate of pleural effusion recurrences rapid. Pigtail catheter is being considered, the patient is agreeable with this if it is recommended. Objective Vital Signs Date Time Temp Pulse Resp B/P Pulse Ox O2 Delivery O2 Flow Rate FiO2 02/03/17 08:00 98.5 115 22 118/69 97 02/03/17 07:44 96 Nasal Cannula 2.00 02/03/17 04:32 99.0 110 20 133/76 96 02/03/17 00:34 98.2 110 20 108/76 99 02/02/17 21:04 98 Nasal Cannula 3.00 02/02/17 20:34 97.5 100 18 129/61 100 02/02/17 20:30 100 Nasal Cannula 3.00 02/02/17 20:00 107 02/02/17 16:00 Nasal Cannula 3.00 02/02/17 16:00 97.8 104 18 106/60 96 02/02/17 12:00 97.3 106 18 133/71 98 02/02/17 12:00 Nasal Cannula 3.00 02/02/17 09:34 Nasal Cannula 3.00 I/O 02/02/17 02/02/17 02/02/17 02/03/17 02/03/17 02/03/17 07:00 15:00 23:00 07:00 15:00 23:00 Intake Total 994 ml 1518 ml 1483 ml 240 ml Output Total 400 ml 600 ml Balance 994 ml 1118 ml 1483 ml -360 ml Intake Oral 240 ml 960 ml 600 ml 240 ml IV Total 754 ml 558 ml 883 ml Output Urine Total 400 ml 600 ml # Voids 0 3 # Bowel Movements 0 0 1 0 Result Diagram: 01/31/17 0620 01/31/17 1233 Procedures Right side Thoracentesis on 01/30/17 and 02/01/17. Objective Remarks GENERAL: NAD, A&Ox3 SKIN: Warm and dry. HEAD: Normocephalic. EYES: No scleral icterus. No injection or drainage. NECK: Supple, trachea midline. No JVD or lymphadenopathy. CARDIOVASCULAR: Regular rate and rhythm without murmurs, gallops, or rubs. RESPIRATORY: Decreased breath sounds on the right compared to the left at approximately the mid lung field and down. No accessory muscle use. GASTROINTESTINAL: Abdomen soft, non-tender, nondistended. MUSCULOSKELETAL: No cyanosis, or edema. A/P Problem List: (1) Acute dyspnea ICD Code: R06.00 (2) Metastatic lung carcinoma ICD Code: C78.00 (3) Pleural effusion on right ICD Code: J90 Assessment and Plan Assessment and plan 71-year-old female admitted with a right-sided pleural effusion and related dyspnea. Status post thoracentesis on 01/30/17 and 02/01/17. She feels her symptoms have worsened since yesterday. Reaccumulation of 1 L of pleural effusion at the right side. Possible need for pigtail catheter. Lung cancer Left-sided pleural effusion Dyspnea Thoracentesis performed on 01/30/17 Follow up chest x-ray shows continued pleural effusion Determine if further thoracentesis is needed based on imaging Interventional radiology consulted Nothing by mouth after midnight Hypertension Continue baseline home treatments Follow blood pressure next Hyperlipidemia Continue baseline treatments Follow up in outpatient Dysuria UA COPD Follow-up for exacerbation Currently exacerbated When necessary albuterol Depression Continue baseline treatment Outpatient monitoring Coronary artery disease Follow clinically No reports of chest pain DVT prophylaxis SCDs given pending procedure Problem Qualifiers (1) Metastatic lung carcinoma: Qualified Code: C78.00 - Metastatic lung carcinoma, unspecified laterality Luis A Rebollar MD Feb 03, 2017 8:53 am
[2017-02-03] MEDS: METOPROLOL SUCCINATE 25 MG EXTENDED RELEASE TAB PO SCH (08:59)
[2017-02-03] MEDS: NORTRIPTYLINE HCL 25 MG CAP PO SCH ×2 (09:00→20:37)
[2017-02-03] MEDS: SODIUM CHLORIDE 0.9% FLUSH 10 ML FLUSH IV FLUSH SCH ×2 (09:00→20:36)
[2017-02-03] MEDS: DOCUSATE SODIUM 50 MG/SENNA 8.6 MG TAB PO SCH ×2 (09:00→20:37)
[2017-02-03] MEDS: FLUTICASONE 100 MCG/VILANTEROL 25 MCG INHALER INH SCH (09:02)
--- NOTE | 2017-02-03 15:21 | HHI.PR ---
Subjective Remarks She has SOB at rest and on O2 at 2 L. US shows a moderate effusion again. On O2 . Objective Vital Signs Date Time Temp Pulse Resp B/P Pulse Ox O2 Delivery O2 Flow Rate FiO2 02/03/17 12:00 98.3 106 20 155/73 98 02/03/17 09:00 116 02/03/17 08:00 98.5 115 22 118/69 97 02/03/17 07:44 96 Nasal Cannula 2.00 02/03/17 04:32 99.0 110 20 133/76 96 02/03/17 00:34 98.2 110 20 108/76 99 02/02/17 21:04 98 Nasal Cannula 3.00 02/02/17 20:34 97.5 100 18 129/61 100 02/02/17 20:30 100 Nasal Cannula 3.00 02/02/17 20:00 107 02/02/17 16:00 Nasal Cannula 3.00 02/02/17 16:00 97.8 104 18 106/60 96 I/O 02/02/17 02/02/17 02/02/17 02/03/17 02/03/17 02/03/17 07:00 15:00 23:00 07:00 15:00 23:00 Intake Total 994 ml 1518 ml 1483 ml 240 ml 420 ml Output Total 400 ml 600 ml Balance 994 ml 1118 ml 1483 ml -360 ml 420 ml Intake Oral 240 ml 960 ml 600 ml 240 ml 420 ml IV Total 754 ml 558 ml 883 ml Output Urine Total 400 ml 600 ml # Voids 0 3 1 # Bowel Movements 0 0 1 0 0 Result Diagram: 01/31/17 0620 01/31/17 1233 Procedures Right side Thoracentesis on 01/30/17 and 02/01/17. Objective Remarks GENERAL: This is a well-nourished, well-developed patient, in mild distress. CARDIOVASCULAR: Regular rate and rhythm without murmurs, gallops, or rubs. RESPIRATORY: Diffuse expiratory wheezes, diminish breath sounds right chest and crackles GASTROINTESTINAL: Abdomen soft, non-tender,nondistended. Normal active bowel sounds MUSCULOSKELETAL: Extremities without clubbing, cyanosis, or edema. NEURO: Alert & Oriented x4 to person, place, time, situation. Moves all ext x4 Assessment and Plan Assessment and Plan Primary Impression: Pleural effusion on right Additional Impressions: Acute dyspnea Metastatic lung carcinoma Qualified Code: C78.00 - Metastatic lung carcinoma, unspecified laterality Plan : 1. Radiology to place chest tube under CT guidance. 2. O2 at 2 L 3. Nebs qid , duoneb. 4. Continue pain meds. prn. 5. Rpt CXR in am 6. Continue antibiotics, Rocephin ,Zithro. Antonio Cazares MD Feb 03, 2017 15:21
[2017-02-03] MEDS: AZITHROMYCIN INJ 500 MG in SODIUM CHLOR 0.9% 250 ML INJ 250 ML IV SCH (16:00)
[2017-02-03] MEDS: cefTRIAXone INJ 1,000 MG in SODIUM CHLORIDE 0.9% INJ 100 ML IV SCH (17:25)
[2017-02-03] MEDS: ATORVASTATIN 40 MG TAB PO SCH (20:36)
[2017-02-04] VITALS (10 sets, daily range): BP systolic 132–178; BP diastolic 62–117; PULSE 100–120; RESP 18–20; TEMP 97.4–97.8; O2SAT 96–98
[2017-02-04] MEDS ORDERED: RESP: ALBUTEROL 2.5 MG/IPRATROPIUM 0.5 MG NEB (PRN) NEB (02:45)
[2017-02-04] MEDS: ONDANSETRON HCL 4 MG/2 ML VIAL IV PUSH PRN ×3 (02:49→20:51)
[2017-02-04] MEDS ORDERED: FUROSEMIDE 40 MG/4 ML VIAL IV PUSH ONE (03:00)
[2017-02-04] MEDS: RESP: ALBUTEROL 2.5 MG/IPRATROPIUM 0.5 MG NEB (PRN) NEB ×2 (03:10→23:32)
[2017-02-04] MEDS: RESP: ALBUTEROL 2.5 MG/IPRATROPIUM 0.5 MG NEB (SCH) NEB ×4 (08:10→20:02)
[2017-02-04] MEDS ORDERED: LIDOCAINE HCL 1% 20 ML VIAL ONE (08:31)
[2017-02-04 08:41] LABS: APTT (PATIENT) 28.7 SEC (24.3-30.1); INTERNATIONAL NORMALIZED RATIO 1.1 RATIO; PROTHROMBIN TIME - PATIENT 11.9 SEC (9.8-11.6)
[2017-02-04] MEDS: FLUTICASONE 100 MCG/VILANTEROL 25 MCG INHALER INH SCH (09:00)
[2017-02-04] MEDS: DOCUSATE SODIUM 50 MG/SENNA 8.6 MG TAB PO SCH ×2 (09:00→20:50)
[2017-02-04] MEDS: SODIUM CHLORIDE 0.9% FLUSH 10 ML FLUSH IV FLUSH SCH ×2 (09:00→20:51)
[2017-02-04] MEDS ORDERED: fentaNYL CITRATE 250 MCG/5 ML AMP ONE (09:50)
[2017-02-04] MEDS ORDERED: LORazepam 2 MG/ML VIAL ONE (09:50)
--- NOTE | 2017-02-04 10:25 | PD.RAD ---
Post CT Procedure Prog Note Pre Procedure Diagnosis: (1) Metastatic lung carcinoma (2) Pleural effusion on right Post Procedure Diagnosis: (1) Metastatic lung carcinoma (2) Pleural effusion on right Procedure Date: Feb 04, 2017 Supervising Radiologist: John Contreras JR Anesthesia: Conscious Sedation Plan of Activity Patient to Unit: Nursing Unit Patient Condition: Good See PACS Report for procedural detail/treatment Drainage Procedure Procedure 1 Imaging Guidance: CT Side: Right Procedure Type: Chest Tube Non-Tunneled Procedure: Placement Burmese: 8 Drainage: Pleurovac Fluid Description: [place] Contreras Jr., Thomas Justin MD Feb 04, 2017 10:25
--- NOTE | 2017-02-04 11:02 | RADRPT ---
EXAM DATE/TIME: 02/04/2017 09:55 INDICATIONS : <Recurrent right effusion.>> SEDATION TIME: 20 minutes MEDICATION(S): 1.) 50 mcg fentanyl (Sublimaze) IV 2.) 1 mg lorazepam (Ativan) IV DEVICE(S): 1.) 8 Fr [place] 2.) 18 gauge Lozoya blunt needle FLUID: Total volume of 800 cc of clear, yellow fluid was removed. Fluid was discarded. MEDICAL HISTORY : Chronic obstructive pulmonary disease. Carcinoma, lung. Myocardial infarction. SURGICAL HISTORY : Hysterectomy. Appendectomy. thoracentesis, cardiac catheterization ENCOUNTER: Subsequent ACUITY: 1 day PAIN SCORE: 0/10 LOCATION: Bilateral chest PROCEDURE: 1.) Conscious sedation with continuous EKG and oximetry monitoring. 2.) EKG and oximetry remained stable throughout the procedure. PROCEDURE : 1. CT guided chest tube placement. 2. Conscious sedation with continuous EKG and oximetry monitoring. The risks, benefits and alternatives to the procedure were explained and verbal and written consent w as obtained. The site was prepped in sterile fashion. Full sterile technique was used, including ca p, mask, sterile gloves and gown and a large sterile sheet. Hand hygiene and 2% chlorhexidine and/or betadine/alcohol prep was utilized per protocol for cutaneous antisepsis. The skin and subcutaneous tissues were infiltrated with local anesthetic solution. Using automated exposure control and adjus tment of the mA and/or kV according to patient size, radiation dose was kept as low as reasonably ach ievable to obtain optimal diagnostic quality images. With CT guidance the chest was punctured and the prescribed catheter was placed in the inferior porti on of the right hemithorax. Wall suction was applied. 800 mL of serous fluid obtained. Post procedure images demonstrate satisfactory position of the tube. The catheter was sutured in place and a Percu -Stay was applied. Conscious sedation was performed with the prescribed dosages and duration as above. The patient claudette ated the procedure well and there were no complications. EKG and oximetry remained stable throughout the procedure. The patient was sent to post anesthesia recovery in stable condition. CONCLUSION: Uncomplicated chest tube placement as above. John Contreras Jr., MD on February 04, 2017 at 10:57 Board Certified Radiologist. This report was verified electronically.
[2017-02-04] MEDS: NORTRIPTYLINE HCL 25 MG CAP PO SCH ×3 (11:05→20:52)
[2017-02-04] MEDS: ACETAMINOPHEN/HYDROcodone 325 MG/7.5 MG TAB PO PRN ×2 (11:06→20:51)
[2017-02-04] MEDS: METOPROLOL SUCCINATE 25 MG EXTENDED RELEASE TAB PO SCH (11:06)
--- NOTE | 2017-02-04 14:13 | HHI.PR ---
Subjective Remarks Status post right-sided chest tube placement today. Patient is lethargic status post procedure when seen today. He is breathing better. No complaints of pain. Objective Vital Signs Date Time Temp Pulse Resp B/P Pulse Ox O2 Delivery O2 Flow Rate FiO2 02/04/17 11:45 97.6 118 18 137/62 98 02/04/17 11:14 97.6 120 20 148/117 97 02/04/17 09:00 115 02/04/17 08:13 98 Nasal Cannula 2.00 02/04/17 08:02 97.4 114 20 148/74 98 02/04/17 08:00 Nasal Cannula 2.00 02/04/17 04:13 Nasal Cannula 2.00 02/04/17 04:00 97.8 111 18 132/70 98 02/04/17 00:15 Nasal Cannula 2.00 02/04/17 00:00 97.4 100 18 178/81 96 02/03/17 21:29 Nasal Cannula 2.00 02/03/17 20:29 97 Nasal Cannula 2.00 02/03/17 20:00 96.4 90 18 128/69 97 02/03/17 20:00 95 02/03/17 16:00 97.7 113 20 147/77 98 I/O 02/03/17 02/03/17 02/03/17 02/04/17 02/04/17 02/04/17 07:00 15:00 23:00 07:00 15:00 23:00 Intake Total 240 ml 420 ml 668 ml 89 ml Output Total 600 ml 150 ml 600 ml Balance -360 ml 420 ml 518 ml 89 ml -600 ml Intake Oral 240 ml 420 ml IV Total 668 ml 89 ml Output Urine Total 600 ml 150 ml Chest Tube Drainage Total 600 ml # Voids 1 1 # Bowel Movements 0 0 0 0 Result Diagram: 01/31/17 0620 01/31/17 1233 Procedures Right side Thoracentesis on 01/30/17 and 02/01/17. Objective Remarks GENERAL: NAD, A&Ox3 SKIN: Warm and dry. HEAD: Normocephalic. EYES: No scleral icterus. No injection or drainage. NECK: Supple, trachea midline. No JVD or lymphadenopathy. CARDIOVASCULAR: Regular rate and rhythm without murmurs, gallops, or rubs. RESPIRATORY: Breath sounds equal bilaterally. No accessory muscle use. Chest tube present on the right. GASTROINTESTINAL: Abdomen soft, non-tender, nondistended. MUSCULOSKELETAL: No cyanosis, or edema. A/P Problem List: (1) Acute dyspnea ICD Code: R06.00 (2) Metastatic lung carcinoma ICD Code: C78.00 (3) Pleural effusion on right ICD Code: J90 Assessment and Plan Assessment and plan 71-year-old female admitted with a right-sided pleural effusion and related dyspnea. Status post thoracentesis on 01/30/17 and 02/01/17. Chest tube placed today. Patient tolerated procedure well. She is seen and comfortable after procedure. Lung cancer Left-sided pleural effusion Dyspnea Thoracentesis performed on 01/30/17 Follow up chest x-ray shows continued pleural effusion Determine if further thoracentesis is needed based on imaging Interventional radiology consulted Nothing by mouth after midnight Hypertension Continue baseline home treatments Follow blood pressure next Hyperlipidemia Continue baseline treatments Follow up in outpatient Dysuria UA COPD Follow-up for exacerbation Currently exacerbated When necessary albuterol Depression Continue baseline treatment Outpatient monitoring Coronary artery disease Follow clinically No reports of chest pain DVT prophylaxis SCDs given pending procedure Problem Qualifiers (1) Metastatic lung carcinoma: Qualified Code: C78.00 - Metastatic lung carcinoma, unspecified laterality Luis A Rebollar MD Feb 04, 2017 2:13 pm
[2017-02-04] MEDS: cefTRIAXone INJ 1,000 MG in SODIUM CHLORIDE 0.9% INJ 100 ML IV SCH (15:30)
--- NOTE | 2017-02-04 15:51 | MB ---
cc: ENRIQUE PIPER DATE OF CONSULTATION: 02/02/2017. REASON FOR CONSULTATION: Respiratory insufficiency with pleural effusion. HISTORY OF PRESENT ILLNESS: This is a 71-year-old lady with a history of recurrent right pleural effusions who has recently had a thoracentesis done following admission for shortness of breath. The patient has metastatic carcinoma of the lung and has had bilateral pleural effusions and is under the care of Dr. Jaquez for her lung cancer. She had been getting weaker and had some abdominal discomfort with bloating and was having some loose stools and thus presented to the emergency room. Following admission, she did have a chest x-ray which showed a moderate-sized effusion and she did undergo a thoracentesis on 02/01/17 with removal of over a liter of fluid. Presently she is feeling better but is still somewhat orthopneic and is on oxygen at 3 liters nasal cannula. Her saturations are running around 93% to 95%. She denies any hemoptysis, nausea or vomiting or chest pains. PAST MEDICAL HISTORY: Her past history has included: 1. History of atrial fibrillation. 2. History of COPD. 3. Past history of hypertension. 4. History of carcinoma of the lung with metastatic disease. 5. She also has had a hysterectomy in the past. 6. Cardiac catheterization with stenting for her coronary artery disease. 7. She had an appendectomy remotely. ALLERGIES: NO KNOWN DRUG ALLERGIES. MEDICATION LIST: 1. Atorvastatin 40 milligrams a day. 2. 50 milligrams twice a day. 3. Brio one puff daily. HABITS: The patient had smoked in the past for about twenty years, but not recently. No significant alcohol use. FAMILY HISTORY: Noncontributory. REVIEW OF SYSTEMS: The patient has lost weight. She has no leg swelling. She has abdominal bloating and discomfort and denies GI bleed but has some loose stools. She has no urinary symptoms. No leg swelling or calf muscle pains. She has anxiety with some depression. PHYSICAL EXAMINATION: GENERAL: This is an averagely built elderly white female is anxious and mildly dyspneic at rest. VITAL SIGNS: Her blood pressure is 138/80, pulse 96, respirations 22, temperature 97.5. HEAD, EYES, EARS, NOSE, THROAT: Head normocephalic. The pupils are reactive. Tongue is moist. Throat is clear. NECK: The neck is supple without bruits. No thyroid enlargement. CHEST: Equal movements with dullness over the right lower chest with occasional crackles at the right base. HEART: Heart sounds are regular. S1 and S2 with no murmur. No S3. ABDOMEN: Abdomen is soft and protuberant with mild epigastric tenderness. No organomegaly. The bowel sounds are active. EXTREMITIES: No lesions. No edema. NEUROLOGIC: Reflexes are brisk with no gross motor deficits. Cranial nerves are grossly intact. SKIN: No lesions are noted. IMPRESSION: 1. Recurrent right pleural effusion. 2. Metastatic carcinoma of the lung. 3. COPD. 4. History of hypertension. 5. Coronary artery disease. PLAN: 1. The patient will be maintained on 02 at three liters. 2. We will get a repeat chest x-ray and an ultrasound examination of the chest. 3. The patient would possibly need a chest tube for drainage and pleural sclerosis with talc once the pleural fluid is completely drained. 4. Nebulized DuoNeb solution added four times a day. 5. Chemotherapy per Dr. Jaquez. 6. The patient will be given antibiotic coverage and if there is any sign of infection, she has already been started on Rocephin and Zithromax. 7. She will also be placed on Solu-Medrol 40 milligrams twice a day. Thank you, , for this consultation. ADDENDUM FINAL DIAGNOSES 1. Recurrent malignant right pleural effusion. 2. History of lung CA status post chemotherapy. 3. COPD. 4. Respiratory insufficiency. 5. Status post thoracentesis PLAN The patient has been advised that an ultrasound examination of the chest will be obtained to see if there is significant fluid present. Nebulized DuoNeb solution added q.i.d. and we will continue with O2 at 2 liters nasal cannula, and if there is significant reaccumulation of fluid a PleurX catheter could be placed for drainage. A coagulation profile to be obtained as well and incentive spirometry every two hours. MD REYES Solorzano/DEANNA /3:28 PM /8:35 AM
--- NOTE | 2017-02-04 17:03 | HHI.PR ---
Subjective Remarks She had a Chest catheter placed in IR, and on O2 at 2 L. Feels better. Poor appetite Objective Vital Signs Date Time Temp Pulse Resp B/P Pulse Ox O2 Delivery O2 Flow Rate FiO2 02/04/17 11:45 97.6 118 18 137/62 98 02/04/17 11:14 97.6 120 20 148/117 97 02/04/17 09:00 115 02/04/17 08:13 98 Nasal Cannula 2.00 02/04/17 08:02 97.4 114 20 148/74 98 02/04/17 08:00 Nasal Cannula 2.00 02/04/17 04:13 Nasal Cannula 2.00 02/04/17 04:00 97.8 111 18 132/70 98 02/04/17 00:15 Nasal Cannula 2.00 02/04/17 00:00 97.4 100 18 178/81 96 02/03/17 21:29 Nasal Cannula 2.00 02/03/17 20:29 97 Nasal Cannula 2.00 02/03/17 20:00 96.4 90 18 128/69 97 02/03/17 20:00 95 I/O 02/03/17 02/03/17 02/03/17 02/04/17 02/04/17 02/04/17 07:00 15:00 23:00 07:00 15:00 23:00 Intake Total 240 ml 420 ml 668 ml 89 ml Output Total 600 ml 150 ml 820 ml Balance -360 ml 420 ml 518 ml 89 ml -820 ml Intake Oral 240 ml 420 ml IV Total 668 ml 89 ml Output Urine Total 600 ml 150 ml Chest Tube Drainage Total 820 ml # Voids 1 1 # Bowel Movements 0 0 0 0 Result Diagram: 01/31/17 0620 01/31/17 1233 Procedures Right side Thoracentesis on 01/30/17 and 02/01/17. Objective Remarks GENERAL: This is a well-nourished, well-developed patient, in mild distress. CARDIOVASCULAR: Regular rate and rhythm without murmurs, gallops, or rubs. RESPIRATORY: Diffuse expiratory wheezes, diminish breath sounds right chest and occ crackles GASTROINTESTINAL: Abdomen soft, non-tender,nondistended. Normal active bowel sounds. No mass MUSCULOSKELETAL: Extremities without clubbing, cyanosis, or edema. NEURO: Alert & Oriented x4 to person, place, time, situation. Moves all ext x4 Assessment and Plan Assessment and Plan Primary Impression: Pleural effusion on right Additional Impressions: Acute dyspnea/Hypoxia Metastatic lung carcinoma COPD. Anemia. Anxiety. Plan : 1. Chest X ray in am 2. O2 at 2 L 3. Nebs qid , duoneb. 4. Continue pain meds. prn. 5. Labs in am 6. Continue antibiotics, Rocephin and D/C Zithromax. Antonio Cazares MD Feb 04, 2017 17:03
[2017-02-04] MEDS: methylPREDNISolone SOD SUCC 40 MG/1 ML VIAL IV SCH (20:50)
[2017-02-04] MEDS: ATORVASTATIN 40 MG TAB PO SCH (20:51)
[2017-02-05] VITALS (9 sets, daily range): BP systolic 122–157; BP diastolic 72–81; PULSE 94–116; RESP 16–20; TEMP 97.4–98.4; O2SAT 95–100
[2017-02-05] MEDS: ACETAMINOPHEN/HYDROcodone 325 MG/7.5 MG TAB PO PRN ×4 (00:31→21:11)
[2017-02-05] MEDS: ONDANSETRON HCL 4 MG/2 ML VIAL IV PUSH PRN ×4 (04:10→21:13)
[2017-02-05 06:51] LABS: HEMATOCRIT 32.8 % (35.0-46.0); MEAN CELL VOLUME 85.1 FL (80.0-100.0); MEAN CORPUSCULAR HEMOGLOBIN 28.9 PG (27.0-34.0); PLATELET COUNT 486 TH/MM3 (150-450); RED BLOOD COUNT 3.85 MIL/MM3 (4.00-5.30); REVIEW FLAG FINAL; WHITE BLOOD COUNT 14.4 TH/MM3 (4.0-11.0)
[2017-02-05 07:10] LABS: APTT (PATIENT) 28.7 SEC (24.3-30.1); PROTHROMBIN TIME - PATIENT 11.4 SEC (9.8-11.6)
[2017-02-05 07:13] LABS: BICARBONATE 37.7 MEQ/L (21.0-32.0); POTASSIUM 3.1 MEQ/L (3.5-5.1)
[2017-02-05] MEDS: RESP: ALBUTEROL 2.5 MG/IPRATROPIUM 0.5 MG NEB (SCH) NEB ×4 (07:47→19:59)
[2017-02-05] MEDS ORDERED: POTASSIUM CHLORIDE 10 MEQ CONTROLLED RELEASE TAB PO ONE (09:00)
[2017-02-05] MEDS: methylPREDNISolone SOD SUCC 40 MG/1 ML VIAL IV SCH ×2 (09:05→21:12)
[2017-02-05] MEDS: DOCUSATE SODIUM 50 MG/SENNA 8.6 MG TAB PO SCH ×2 (09:06→21:00)
[2017-02-05] MEDS: NORTRIPTYLINE HCL 25 MG CAP PO SCH ×2 (09:06→21:00)
[2017-02-05] MEDS: METOPROLOL SUCCINATE 25 MG EXTENDED RELEASE TAB PO SCH (09:06)
[2017-02-05] MEDS: SODIUM CHLORIDE 0.9% FLUSH 10 ML FLUSH IV FLUSH SCH ×2 (09:07→21:13)
[2017-02-05] MEDS: FLUTICASONE 100 MCG/VILANTEROL 25 MCG INHALER INH SCH (09:08)
--- NOTE | 2017-02-05 10:14 | HHI.PR ---
Subjective Remarks Status post right-sided chest tube placement yesterday. She currently complains of less pain than previously, with the chest tube in. She is breathing better with the chest tube in. She does have a complaint of nausea. She also complains of a sensation of a swollen throat with difficulty swallowing. Objective Vital Signs Date Time Temp Pulse Resp B/P Pulse Ox O2 Delivery O2 Flow Rate FiO2 02/05/17 08:00 97.4 105 20 142/78 96 02/05/17 07:53 95 Nasal Cannula 2.00 02/05/17 04:00 97.9 105 16 122/75 97 02/05/17 00:00 97.6 116 20 126/81 98 02/04/17 21:54 Nasal Cannula 2.00 02/04/17 20:07 107 02/04/17 20:03 98 Nasal Cannula 2.00 02/04/17 20:00 97.8 115 18 138/79 98 02/04/17 11:45 97.6 118 18 137/62 98 02/04/17 11:14 97.6 120 20 148/117 97 I/O 02/04/17 02/04/17 02/04/17 02/05/17 02/05/17 02/05/17 07:00 15:00 23:00 07:00 15:00 23:00 Intake Total 89 ml 120 ml 242 ml 0 ml Output Total 820 ml 155 ml Balance 89 ml -700 ml 242 ml -155 ml Intake Oral 120 ml 240 ml 0 ml IV Total 89 ml 2 ml Chest Tube Drainage Total 820 ml 155 ml # Voids 1 3 0 0 # Bowel Movements 0 0 0 Result Diagram: 02/05/17 0620 02/05/17 0620 Procedures Right side Thoracentesis on 01/30/17 and 02/01/17. Objective Remarks GENERAL: NAD, A&Ox3 SKIN: Warm and dry. HEAD: Normocephalic. EYES: No scleral icterus. No injection or drainage. NECK: Supple, trachea midline. No JVD or lymphadenopathy. CARDIOVASCULAR: Regular rate and rhythm without murmurs, gallops, or rubs. RESPIRATORY: Breath sounds equal bilaterally. No accessory muscle use. Chest tube present on the right. GASTROINTESTINAL: Abdomen soft, non-tender, nondistended. MUSCULOSKELETAL: No cyanosis, or edema. A/P Problem List: (1) Acute dyspnea ICD Code: R06.00 (2) Metastatic lung carcinoma ICD Code: C78.00 (3) Pleural effusion on right ICD Code: J90 Assessment and Plan Assessment and plan 71-year-old female admitted with a right-sided pleural effusion and related dyspnea. Status post thoracentesis on 01/30/17 and 02/01/17. Chest tube placed yesterday. Speech therapy evaluation regarding dysphagia. Zofran adjustment for nausea. Lung cancer Left-sided pleural effusion Dyspnea Thoracentesis performed on 01/30/17 Follow up chest x-ray shows continued pleural effusion Determine if further thoracentesis is needed based on imaging Interventional radiology consulted Nothing by mouth after midnight Hypertension Continue baseline home treatments Follow blood pressure next Hyperlipidemia Continue baseline treatments Follow up in outpatient Dysuria UA COPD Follow-up for exacerbation Currently exacerbated When necessary albuterol Depression Continue baseline treatment Outpatient monitoring Coronary artery disease Follow clinically No reports of chest pain DVT prophylaxis SCDs given pending procedure Problem Qualifiers (1) Metastatic lung carcinoma: Qualified Code: C78.00 - Metastatic lung carcinoma, unspecified laterality Luis A Rebollar MD Feb 05, 2017 10:14 am
[2017-02-05] MEDS: cefTRIAXone INJ 1,000 MG in SODIUM CHLORIDE 0.9% INJ 100 ML IV SCH (18:03)
--- NOTE | 2017-02-05 19:30 | HHI.PR ---
Subjective Remarks Breathing better after Chest catheter placed in IR. Now on O2 at 2 L. Poor appetite. C/O some pain in lower chest. Objective Vital Signs Date Time Temp Pulse Resp B/P Pulse Ox O2 Delivery O2 Flow Rate FiO2 02/05/17 18:25 18 02/05/17 16:00 96 Nasal Cannula 2.00 02/05/17 16:00 97.9 94 20 157/72 96 02/05/17 12:00 97.6 111 20 139/73 99 02/05/17 08:00 97.4 105 20 142/78 96 02/05/17 07:53 95 Nasal Cannula 2.00 02/05/17 04:00 97.9 105 16 122/75 97 02/05/17 00:00 97.6 116 20 126/81 98 02/04/17 21:54 Nasal Cannula 2.00 02/04/17 20:07 107 02/04/17 20:03 98 Nasal Cannula 2.00 02/04/17 20:00 97.8 115 18 138/79 98 I/O 02/04/17 02/04/17 02/04/17 02/05/17 02/05/17 02/05/17 07:00 15:00 23:00 07:00 15:00 23:00 Intake Total 89 ml 120 ml 242 ml 0 ml 360 ml Output Total 820 ml 155 ml Balance 89 ml -700 ml 242 ml -155 ml 360 ml Intake Oral 120 ml 240 ml 0 ml 360 ml IV Total 89 ml 2 ml Chest Tube Drainage Total 820 ml 155 ml # Voids 1 3 0 0 2 # Bowel Movements 0 0 0 Result Diagram: 02/05/17 0620 02/05/17 0620 Procedures Right side Thoracentesis on 01/30/17 and 02/01/17. Objective Remarks GENERAL: This is a well-nourished, well-developed patient, in no distress. CARDIOVASCULAR: Regular rate and rhythm without murmurs, gallops, or rubs. RESPIRATORY: Diffuse expiratory wheezes, diminished breath sounds right chest and occ crackles GASTROINTESTINAL: Abdomen soft, non-tender,nondistended. Normal active bowel sounds. No mass MUSCULOSKELETAL: Extremities without clubbing, cyanosis, or edema. NEURO: Alert & Oriented x4 to person, place, time, situation. Moves all ext x4 Assessment and Plan Assessment and Plan Primary Impression: Pleural effusion on right Additional Impressions: Acute dyspnea/Hypoxia Metastatic lung carcinoma COPD. Anemia. Anxiety. Plan : 1. Chest X ray in am 2. O2 at 2 L 3. Nebs qid , duoneb. 4. Continue chest tube drainage 5. Send Pleural fluid for cytology 6. Continue antibiotics, Rocephin 1 G IV Antonio Cazares MD Feb 05, 2017 19:29
[2017-02-05] MEDS: ATORVASTATIN 40 MG TAB PO SCH (21:11)
[2017-02-05] MEDS: RESP: ALBUTEROL 2.5 MG/IPRATROPIUM 0.5 MG NEB (PRN) NEB (23:26)
[2017-02-06] VITALS (10 sets, daily range): BP systolic 122–155; BP diastolic 66–99; PULSE 94–108; RESP 14–20; TEMP 96.8–97.9; O2SAT 93–100
[2017-02-06] MEDS: RESP: ALBUTEROL 2.5 MG/IPRATROPIUM 0.5 MG NEB (PRN) NEB (04:31)
[2017-02-06] MEDS: RESP: ALBUTEROL 2.5 MG/IPRATROPIUM 0.5 MG NEB (SCH) NEB ×4 (07:50→19:34)
--- NOTE | 2017-02-06 07:59 | MB ---
cc: ARI DEGROOT M.D. DATE OF CONSULTATION 02/05/2017 REASON FOR CONSULTATION Consult requested by Dr. Rebollar for followup of non-small cell lung cancer. HISTORY OF PRESENT ILLNESS Rashida is a pleasant 71-year-old female. 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 She has a history of heavy cigarette smoking which she quit about a few years ago. She used to smoke one pack a day for at least 50 years. She was recently diagnosed with non-small cell lung cancer Stage IV. She has malignant pleural effusion. I saw her recently in our office and ordered chemotherapy. However, her insurance had not approved the chemotherapy when I saw her. In the next few days the patient developed severe shortness of breath and she came into the emergency room at [facility]. The patient is found to have recurrent pleural effusion. The patient underwent thoracentesis twice and now she has a chest tube placed an. Dr. Cazares, system planning engineer is on the case. He is planning for pleurodesis. I have been asked to see her for further evaluation. REVIEW OF SYSTEMS The patient has been complaining of cough, shortness of breath and right-sided pleuritic chest pain. She had a chest tube in. She is complaining of anorexia and weight loss. She is complaining generalized weakness and fatigue. The rest of the review of systems is negative. PAST MEDICAL HISTORY 1. COPD. 2. Coronary artery disease status post [place]. 3. Hypertension. 4. Hypercholesterolemia. 5. Peripheral neuropathy. 6. Depression. PAST SURGICAL HISTORY 1. Appendectomy. 2. Complete hysterectomy. 3. Coronary stent placement. ALLERGIES None. MEDICATIONS 1. Metoprolol. 2. Atorvastatin. 3. Nortriptyline. 4. Nebulizer. 5. Aspirin. FAMILY HISTORY Parents from stroke. The patient does not have any sisters. She has one brother who has coronary artery disease. She has two daughters; both are alive and well. The patient had one son who from heart attack. SOCIAL HISTORY The patient is a . She used to smoke cigarettes, one to two packs a day for at least 50 years, quit about three years ago. She does not drink alcohol. 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 She used to work at [employer] for 20 years. PHYSICAL EXAMINATION GENERAL: This is a well-developed, well-nourished white female in mild respiratory distress. VITAL SIGNS: Temperature 97.4, heart rate is 105. Blood pressure 142/78. HEENT: PERRLA. EOMI. Anicteric. No oral lesions are noted. NECK: No lymphadenopathy noted. LUNGS: Decreased breath sounds on the right side. Chest tube noted on the right side. HEART: Regular rate and rhythm. ABDOMEN: Soft, nontender. No other hepatosplenomegaly. EXTREMITIES: No pedal edema. NEUROLOGY: Awake, alert, oriented x 3. SKIN: No significant lesions are noted. ASSESSMENT 1. Non-small cell lung cancer with right malignant pleural effusion, Stage IV. PLAN I have reviewed her available records and I have discussed with the patient regarding her clinical situation. The patient has a chest tube in and is still draining a significant amount of pleural fluid. I do not think that a pleurodesis would be a viable option at this point given that she still has significant pleural drainage and has not had any chemotherapy as of yet. My recommendation is that we should convert chest tube into PleurX tube so that she could be discharged to home and have chemotherapy as an outpatient. However, I will consult senior case manager to see whether she can get approval for inpatient chemotherapy. If her insurance approves the inpatient chemotherapy, then we will start inpatient Otherwise, my recommendation is that she should be discharged to home with the PleurX tube and we will have chemotherapy in our office as soon as possible. Further recommendations based on her hospital stay. Thank you for asking my opinion. MD ASYA Mancini/ROB /8:22 PM /7:36 AM IVELISSE
[2017-02-06 08:27] LABS: POTASSIUM 3.8 MEQ/L (3.5-5.1)
--- NOTE | 2017-02-06 08:42 | PD.ONC.PN ---
Subjective Subjective Remarks Afebrile overnight. Patient got confused last night and forgot where she was. She states she remembered after she saw the nurse, but the experience frightened her. Objective Data Date Time Temp Pulse Resp B/P Pulse Ox O2 Delivery O2 Flow Rate FiO2 02/06/17 07:52 100 Nasal Cannula 2.00 02/06/17 04:33 95 Nasal Cannula 2.00 02/06/17 04:00 96.8 108 14 122/66 100 02/06/17 00:00 97.9 104 16 144/99 98 02/05/17 23:30 98 Nasal Cannula 2.00 02/05/17 20:45 Nasal Cannula 2.00 02/05/17 20:02 100 Nasal Cannula 2.00 02/05/17 20:00 98.4 99 16 131/76 95 02/05/17 18:25 18 02/05/17 16:00 96 Nasal Cannula 2.00 02/05/17 16:00 97.9 94 20 157/72 96 02/05/17 12:00 97.6 111 20 139/73 99 Result Diagram: 02/05/17 0620 02/06/17 0654 Laboratory Results Laboratory Tests Test 02/06/17 06:54 Sodium Level 138 MEQ/L Potassium Level 3.8 MEQ/L Chloride Level 96 MEQ/L Carbon Dioxide Level 38.0 MEQ/L Anion Gap 4 MEQ/L Blood Urea Nitrogen 14 MG/DL Creatinine 0.42 MG/DL Estimat Glomerular Filtration 149 ML/MIN Rate Random Glucose 139 MG/DL Calcium Level 9.7 MG/DL Administered Medications Medications (Trade) Dose Ordered Sig/Eloise Route PRN Reason Start Time Stop Time Status Last Admin Dose Admin Sodium Chloride (NS 1000 ml Inj) 1,000 ml @ 83 mls/hr Q12H3M IV 01/30/17 20:00 Hold 02/03/17 08:21 Sodium Chloride (NS Flush) 2 ml BID IV FLUSH 01/30/17 21:00 02/05/17 21:13 Acetaminophen/ Hydrocodone Bitart ([place]ell 5-325 Mg) 1 tab Q4H PRN PO PAIN SCALE 3 TO 5 01/30/17 18:15 02/02/17 14:04 Acetaminophen/ Hydrocodone Bitart ([place] 7.5-325 Mg) 1 tab Q4H PRN PO PAIN SCALE 6 TO 10 01/30/17 18:15 02/05/17 21:11 Senna/Docusate Sodium (Janneth-Colace) 1 tab BID PO 01/30/17 21:00 02/05/17 09:06 Atorvastatin Calcium (Lipitor) 40 mg HS PO 01/30/17 21:00 02/05/17 21:11 Fluticasone/ Vilanterol (Breo Ellipta 100-25 Inh) 1 puff DAILY INH 01/31/17 09:00 02/05/17 09:08 Metoprolol Succinate (Toprol Xl) 50 mg DAILY PO 01/31/17 09:00 02/05/17 09:06 Nortriptyline HCl 50 mg 50 mg BID PO 01/30/17 21:00 02/05/17 09:06 Ceftriaxone Sodium/Sodium Chloride (Rocephin Inj/NS Inj) 100 ml @ 200 mls/hr Q24H IV 01/31/17 16:00 02/05/17 18:03 Methylprednisolone Sodium Succinate (SoluMEDROL INJ) 40 mg BID IV 02/04/17 21:00 02/05/17 21:12 Ondansetron HCl (Zofran Inj) 4 mg Q4HR PRN IV PUSH Nausea 02/05/17 12:00 02/05/17 21:13 Objective Remarks GENERAL: Elderly female, sitting up in bed on 2L O2 via NC. SKIN: Warm and dry. HEAD: Normocephalic. EYES: No injection or drainage. NECK: Supple, trachea midline. CARDIOVASCULAR: Regular rate and rhythm RESPIRATORY: Breath sounds equal bilaterally. No accessory muscle use. GASTROINTESTINAL: Abdomen soft, non-tender, nondistended. EXTREMITIES: No cyanosis NEUROLOGICAL: awake and alert, normal speech. moving all extremities. Assessment/Plan Problem List: (1) Metastatic lung carcinoma Status: Acute Plan: 02/06: will transfer to [facility] and start Carbo/Taxol tomorrow. will also consult invasive radiology for port placement. --+ pleural effusion --stage IV disease (2) Pleural effusion on right Status: Acute Plan: --s/p thoracentesis x 2, chest tube still draining. --pleurodesis vs pleur-x catheter placement Assessment 71y/o female with recently diagnosed stage IV non-small cell lung cancer with malignant pleural effusion. Admitted with dyspnea. h/o COPD. Coronary artery disease status post [place]. Hypertension. Hypercholesterolemia. Peripheral neuropathy. Attending Statement Patient had change in mental status last night She's feeling much better now Consult radiology for InfusaPort Start Taxol and carboplatin chemotherapy tomorrow Will follow Problem Qualifiers (1) Metastatic lung carcinoma: Qualified Code: C78.00 - Metastatic lung carcinoma, unspecified laterality Radha Whipple Feb 06, 2017 08:42 Katarzyna Jaquez MD Feb 07, 2017 01:07
[2017-02-06] MEDS: FLUTICASONE 100 MCG/VILANTEROL 25 MCG INHALER INH SCH (09:48)
[2017-02-06] MEDS: methylPREDNISolone SOD SUCC 40 MG/1 ML VIAL IV SCH (09:49)
[2017-02-06] MEDS: NORTRIPTYLINE HCL 25 MG CAP PO SCH ×2 (09:49→21:00)
[2017-02-06] MEDS: DOCUSATE SODIUM 50 MG/SENNA 8.6 MG TAB PO SCH ×2 (09:49→22:12)
[2017-02-06] MEDS: SODIUM CHLORIDE 0.9% FLUSH 10 ML FLUSH IV FLUSH SCH ×2 (09:49→22:17)
[2017-02-06] MEDS: METOPROLOL SUCCINATE 25 MG EXTENDED RELEASE TAB PO SCH (09:49)
--- NOTE | 2017-02-06 12:06 | HHI.PR ---
Subjective Remarks No acute complaints today. Pain is minimal. Breathing continues to be improved. Oral/Pharyngeal candidasis is present on exam and may be contributory to her difficulty swallowing. Objective Vital Signs Date Time Temp Pulse Resp B/P Pulse Ox O2 Delivery O2 Flow Rate FiO2 02/06/17 08:00 97.5 106 20 148/74 100 02/06/17 07:52 100 Nasal Cannula 2.00 02/06/17 04:33 95 Nasal Cannula 2.00 02/06/17 04:00 96.8 108 14 122/66 100 02/06/17 00:00 97.9 104 16 144/99 98 02/05/17 23:30 98 Nasal Cannula 2.00 02/05/17 20:45 Nasal Cannula 2.00 02/05/17 20:02 100 Nasal Cannula 2.00 02/05/17 20:00 98.4 99 16 131/76 95 02/05/17 18:25 18 02/05/17 16:00 96 Nasal Cannula 2.00 02/05/17 16:00 97.9 94 20 157/72 96 I/O 02/05/17 02/05/17 02/05/17 02/06/17 02/06/17 02/06/17 07:00 15:00 23:00 07:00 15:00 23:00 Intake Total 0 ml 360 ml Output Total 155 ml 150 ml Balance -155 ml 210 ml Intake Oral 0 ml 360 ml Chest Tube Drainage Total 155 ml 150 ml # Voids 0 2 # Bowel Movements 0 Result Diagram: 02/05/17 0620 02/06/17 0654 Procedures Right side Thoracentesis on 01/30/17 and 02/01/17. Objective Remarks GENERAL: NAD, A&Ox3 SKIN: Warm and dry. HEAD: Normocephalic. EYES: No scleral icterus. No injection or drainage. NECK: Supple, trachea midline. No JVD or lymphadenopathy. CARDIOVASCULAR: Regular rate and rhythm without murmurs, gallops, or rubs. RESPIRATORY: Breath sounds equal bilaterally. No accessory muscle use. Chest tube present on the right. GASTROINTESTINAL: Abdomen soft, non-tender, nondistended. MUSCULOSKELETAL: No cyanosis, or edema. MOUTH: White plaques on pharynx. A/P Problem List: (1) Acute dyspnea ICD Code: R06.00 (2) Metastatic lung carcinoma ICD Code: C78.00 (3) Pleural effusion on right ICD Code: J90 Assessment and Plan Assessment and plan 71-year-old female admitted with a right-sided pleural effusion and related dyspnea. Status post chest tube placement. Oral candidasis found and nystatin started. Oral Candidasis Possible relation to dysphagia Start nystatin swish/swallow Lung cancer Left-sided pleural effusion Dyspnea Thoracentesis performed on 01/30/17 Follow up chest x-ray shows continued pleural effusion Determine if further thoracentesis is needed based on imaging Interventional radiology consulted Nothing by mouth after midnight Hypertension Continue baseline home treatments Follow blood pressure next Hyperlipidemia Continue baseline treatments Follow up in outpatient Dysuria UA COPD Follow-up for exacerbation Currently exacerbated When necessary albuterol Depression Continue baseline treatment Outpatient monitoring Coronary artery disease Follow clinically No reports of chest pain DVT prophylaxis SCDs given pending procedure Problem Qualifiers (1) Metastatic lung carcinoma: Qualified Code: C78.00 - Metastatic lung carcinoma, unspecified laterality Luis A Rebollar MD Feb 06, 2017 12:06
[2017-02-06] MEDS: ONDANSETRON HCL 4 MG/2 ML VIAL IV PUSH PRN ×2 (14:01→19:38)
[2017-02-06] MEDS: NYSTATIN SUSP 500,000 U/5 ML CUP SWISH-SWAL SCH ×3 (14:01→20:44)
[2017-02-06] MEDS: ACETAMINOPHEN/HYDROcodone 325 MG/7.5 MG TAB PO PRN ×2 (14:02→22:26)
[2017-02-06] MEDS ORDERED: VANCOMYCIN INJ 1,000 MG in SODIUM CHLOR 0.9% 250 ML INJ 250 ML IV SCH (16:30)
--- NOTE | 2017-02-06 18:44 | HHI.PR ---
Subjective Remarks Breathing better after Chest catheter placed in IR. Now on O2 at 2 L. Seems in better spirits , but has trouble with swallowing. C/O some pain in lower chest. Objective Vital Signs Date Time Temp Pulse Resp B/P Pulse Ox O2 Delivery O2 Flow Rate FiO2 02/06/17 16:00 97.7 94 20 141/76 97 02/06/17 15:23 97 Nasal Cannula 2.00 02/06/17 14:44 96 Nasal Cannula 2.00 02/06/17 12:00 97.4 107 20 155/81 96 02/06/17 08:00 97.5 106 20 148/74 100 02/06/17 07:52 100 Nasal Cannula 2.00 02/06/17 04:33 95 Nasal Cannula 2.00 02/06/17 04:00 96.8 108 14 122/66 100 02/06/17 00:00 97.9 104 16 144/99 98 02/05/17 23:30 98 Nasal Cannula 2.00 02/05/17 20:45 Nasal Cannula 2.00 02/05/17 20:02 100 Nasal Cannula 2.00 02/05/17 20:00 98.4 99 16 131/76 95 I/O 02/05/17 02/05/17 02/05/17 02/06/17 02/06/17 02/06/17 06:59 14:59 22:59 06:59 14:59 22:59 Intake Total 0 ml 360 ml 0 ml 100 ml Output Total 155 ml 150 ml 200 ml Balance -155 ml 210 ml -200 ml 100 ml Intake Oral 0 ml 360 ml IV Total 0 ml 100 ml Output Urine Total 200 ml Chest Tube Drainage Total 155 ml 150 ml # Voids 0 2 # Bowel Movements 0 Result Diagram: 02/05/17 0620 02/06/17 0654 Procedures Right side Thoracentesis on 01/30/17 and 02/01/17. Objective Remarks GENERAL: This is a well-nourished, well-developed patient, in no distress. CARDIOVASCULAR: Regular rate and rhythm without murmurs, gallops, or rubs. RESPIRATORY:diminished breath sounds right chest and occ crackles GASTROINTESTINAL: Abdomen soft, non-tender,nondistended. Normal active bowel sounds. No mass MUSCULOSKELETAL: Extremities without clubbing, cyanosis, or edema. NEURO: Alert & Oriented x4 to person, place, time, situation. Moves all ext x4 Assessment and Plan Assessment and Plan Primary Impression: Pleural effusion on right Additional Impressions: Acute dyspnea/Hypoxia Metastatic lung carcinoma COPD. Anemia. Anxiety. Plan : 1. Chest X ray in am. 2. O2 at 2 L 3. Nebs qid , duoneb. 4. Continue chest tube drainage 5. Will do talc pleurodesis this week 6. Continue antibiotics, Rocephin 1 G IV Antonio Cazares MD Feb 06, 2017 18:44
[2017-02-06] MEDS: cefTRIAXone INJ 1,000 MG in SODIUM CHLORIDE 0.9% INJ 100 ML IV SCH (19:13)
[2017-02-06] MEDS: ATORVASTATIN 40 MG TAB PO SCH (22:13)
[2017-02-06] MEDS: predniSONE 10 MG TAB PO SCH (22:13)
[2017-02-07] VITALS (12 sets, daily range): BP systolic 144–169; BP diastolic 77–99; PULSE 9–111; RESP 20–22; TEMP 96.6–98.1; O2SAT 96–99
[2017-02-07] MEDS: ONDANSETRON HCL 4 MG/2 ML VIAL IV PUSH PRN ×2 (05:33→18:48)
[2017-02-07] MEDS: SODIUM CHLORIDE 0.9% FLUSH 10 ML FLUSH IV FLUSH SCH ×2 (09:00→22:43)
[2017-02-07] MEDS: FLUTICASONE 100 MCG/VILANTEROL 25 MCG INHALER INH SCH (09:00)
[2017-02-07] MEDS: NORTRIPTYLINE HCL 25 MG CAP PO SCH ×2 (09:00→22:43)
[2017-02-07] MEDS ORDERED: MIDAZOLAM HCL 5 MG/5 ML VIAL ONE (09:21)
[2017-02-07] MEDS ORDERED: fentaNYL CITRATE 250 MCG/5 ML AMP ONE (09:21)
[2017-02-07] MEDS ORDERED: LIDOCAINE 1%/EPINEPHrine 1:100,000 SOLN 30 ML VIAL ONE (09:46)
--- NOTE | 2017-02-07 10:21 | PD.RAD ---
Post Procedure Progress Note Pre Procedure Diagnosis: (1) Lung mass Post Procedure Diagnosis: (1) Lung mass Procedure Date: Feb 07, 2017 Supervising Radiologist: Navid Tompkins Proceduralist/Assist: RT Yessi(R)(CV) Anesthesia: Conscious Sedation Plan of Activity Patient to Unit: Nursing Unit Patient Condition: Good See PACS Report for procedural detail/treatment Navid Tompkins MD Feb 07, 2017 10:21
[2017-02-07] MEDS ORDERED: SODIUM CHLORIDE 0.9% FLUSH 10 ML FLUSH IVF PRN (10:30)
--- NOTE | 2017-02-07 11:03 | RADRPT ---
EXAM DATE/TIME: 02/07/2017 09:31 [facility] COMPARISON: No previous studies available for comparison. INDICATIONS : Lung cancer with malignent pleural effusion. MEDICAL HISTORY : 1.HTN 2. Lung ca 3. COPD 4. CAD 5. depression 6. Hyperlipidemia SURGICAL HISTORY : 1. Right chest tube 2. Appendectomy 3. hysterectomy ENCOUNTER: Initial ACUITY: 2 weeks PAIN SCORE: 3/10 LOCATION: back FLUORO TIME: 0.3 minutes IMAGE SERIES: 0 SEDATION TIME: 15 minutes ACCESS: Right internal jugular vein SEDATION: 1.) 1 mg midazolam (Versed) IV 2.) 100 mcg fentanyl (Sublimaze) IV Prophylactic antibiotics were administered with appropriate pre-procedure timing. Vancomycin within 2 hours of procedure, Ancef (or alternative) within 1 hour of procedure. DEVICE: 1. 8 [place] single lumen Bard Power Port PROCEDURE : 1. Continuous pulse oximetry and EKG monitoring. 2. Intravenous conscious sedation. 3. Ultrasound guidance for venous access. 4. Fluoroscopic guided implantable central venous port placement. The patient was placed supine. The neck was prepped in sterile fashion. Full sterile technique was u sed, including cap, mask, sterile gloves and gown, and a large sterile sheet. Hand hygiene and 2% ch lorhexidine Betadine was utilized per protocol for cutaneous antisepsis with appropriate dry time for site. The skin and subcutaneous tissues were infiltrated with local anesthetic solution. Under direct ultrasound guidance, central venous access was accomplished in the targeted vessel. The ultrasound images depicting access guidance were stored and saved to PACS for permanent record. A s ubcutaneous pocket was created using blunt dissection. The port was introduced to the pocket. The c atheter tubing was fed through a subcutaneous tunnel to the venotomy site. The catheter tubing was c ut to a suitable length and then was introduced through a valved Peel-Away sheath and positioned with catheter tubing tip at the cavo-atrial junction level. The pocket incision was closed with subcutic ular Vicryl suture. Steri-Strips were applied. The port was flushed and locked with heparin solutio n per protocol. Sterile dressing was applied to the site. The patient tolerated the procedure well. Conscious sedation was performed with the prescribed dosages and duration as above in the presence of an independent trained radiology nurse to assist in the monitoring of the patient. EKG and oximetry remained stable throughout the procedure. The patient tolerated the procedure well and there were no complications. The patient was sent to post anesthesia recovery in stable condition. CONCLUSION: Uncomplicated ultrasound and fluoroscopic guided implanted central venous port catheter placement as described in detail above. An 8 Armenian Power port was placed. Navid Tompkins MD on February 07, 2017 at 11:01 Board Certified Radiologist. This report was verified electronically.
[2017-02-07] MEDS: NYSTATIN SUSP 500,000 U/5 ML CUP SWISH-SWAL SCH ×4 (12:00→22:43)
[2017-02-07] MEDS ORDERED: FAMOTIDINE 20 MG TAB PO ONE (12:00)
[2017-02-07] MEDS: DOCUSATE SODIUM 50 MG/SENNA 8.6 MG TAB PO SCH ×2 (12:00→22:43)
[2017-02-07] MEDS ORDERED: diphenhydrAMINE HCL 25 MG CAP PO ONE (12:00)
[2017-02-07] MEDS ORDERED: GRANISETRON HCL 1 MG/ML VIAL IV ONE (12:00)
[2017-02-07] MEDS ORDERED: DEXAMETHASONE INJ 20 MG in SODIUM CHLORIDE 0.9% INJ 50 ML IV ONE (12:00)
[2017-02-07] MEDS: METOPROLOL SUCCINATE 25 MG EXTENDED RELEASE TAB PO SCH (12:01)
[2017-02-07] MEDS: ACETAMINOPHEN/HYDROcodone 325 MG/7.5 MG TAB PO PRN (12:01)
[2017-02-07] MEDS: predniSONE 10 MG TAB PO SCH ×2 (12:01→22:43)
[2017-02-07] MEDS ORDERED: NS IV ONE (13:00)
[2017-02-07] MEDS ORDERED: PACLITAXEL IV ONE (13:00)
[2017-02-07] MEDS ORDERED: SODIUM CHLOR 0.9% 250 ML INJ 250 ML IV SCH (13:00)
--- NOTE | 2017-02-07 14:47 | PD.ONC.PN ---
Subjective Subjective Remarks Afebrile overnight. Feels tired Ready for chemo Got her port this am with no problems Objective Data Date Time Temp Pulse Resp B/P Pulse Ox O2 Delivery O2 Flow Rate FiO2 02/07/17 12:32 96 Nasal Cannula 3.00 02/07/17 12:09 98.1 104 20 163/91 96 02/07/17 11:10 111 22 151/85 99 02/07/17 10:50 111 20 156/99 99 02/07/17 10:35 97.4 111 22 144/80 99 02/07/17 08:30 98 Nasal Cannula 3.00 02/07/17 07:30 97.1 102 20 146/83 99 02/07/17 04:00 97.0 96 20 156/77 98 02/07/17 00:00 96.6 98 20 153/80 98 02/06/17 22:00 97 Nasal Cannula 2.00 02/06/17 20:00 96.8 95 18 147/76 100 02/06/17 19:37 93 Nasal Cannula 3.00 02/06/17 19:13 18 02/06/17 16:00 97.7 94 20 141/76 97 02/06/17 15:23 97 Nasal Cannula 2.00 02/06/17 14:44 96 Nasal Cannula 2.00 Result Diagram: 02/05/17 0620 02/06/17 0654 Imaging Studies Last 24 hours Impressions Port Line Insertion 02/07/17 0000 Signed Impressions: Service Date/Time: Tuesday, February 07, 2017 09:31 - CONCLUSION: Uncomplicated ultrasound and fluoroscopic guided implanted central venous port catheter placement as described in detail above. An 8 [place] Power port was placed. Navid Tompkins MD Administered Medications Medications (Trade) Dose Ordered Sig/Eloise Route PRN Reason Start Time Stop Time Status Last Admin Dose Admin Sodium Chloride (NS 1000 ml Inj) 1,000 ml @ 83 mls/hr Q12H3M IV 01/30/17 20:00 Hold 02/03/17 08:21 Sodium Chloride (NS Flush) 2 ml BID IV FLUSH 01/30/17 21:00 02/06/17 22:17 Acetaminophen/ Hydrocodone Bitart ([place] 5-325 Mg) 1 tab Q4H PRN PO PAIN SCALE 3 TO 5 01/30/17 18:15 02/02/17 14:04 Acetaminophen/ Hydrocodone Bitart ([place] 7.5-325 Mg) 1 tab Q4H PRN PO PAIN SCALE 6 TO 10 01/30/17 18:15 02/07/17 12:01 Senna/Docusate Sodium (Janneth-Colace) 1 tab BID PO 01/30/17 21:00 02/07/17 12:00 Atorvastatin Calcium (Lipitor) 40 mg HS PO 01/30/17 21:00 02/06/17 22:13 Fluticasone/ Vilanterol (Breo Ellipta 100-25 Inh) 1 puff DAILY INH 01/31/17 09:00 02/06/17 09:48 Metoprolol Succinate (Toprol Xl) 50 mg DAILY PO 01/31/17 09:00 02/07/17 12:01 Nortriptyline HCl 50 mg 50 mg BID PO 01/30/17 21:00 02/06/17 09:49 Ceftriaxone Sodium/Sodium Chloride (Rocephin Inj/NS Inj) 100 ml @ 200 mls/hr Q24H IV 01/31/17 16:00 02/06/17 19:13 Ondansetron HCl (Zofran Inj) 4 mg Q4HR PRN IV PUSH Nausea 02/05/17 12:00 02/07/17 05:33 Nystatin (Mycostatin Liq) 5 ml QID SWISH-SWAL 02/06/17 13:00 02/07/17 12:00 Prednisone (Deltasone) 10 mg BID PO 02/06/17 21:00 02/07/17 12:01 Objective Remarks GENERAL: Chronically ill appearing older female, sitting up in bed on 2L O2 via NC. Visitors at bedside. SKIN: Warm and dry. HEAD: Normocephalic. EYES: No injection or drainage. NECK: Supple, trachea midline. CARDIOVASCULAR: Regular rate and rhythm RESPIRATORY: R side lung chang diminished. L side clear. Chest tube to R chest draining serous fluid. GASTROINTESTINAL: Abdomen soft, non-tender, nondistended. EXTREMITIES: No cyanosis. Ankle and feet with minimal edema. NEUROLOGICAL: Awake and alert, normal speech. moving all extremities. Assessment/Plan Problem List: (1) Metastatic lung carcinoma Status: Acute Plan: 02/07: The pt got her infusaport today. Chemotherapy planned for later today. Emotional care provided. Will monitor. 02/06: will transfer to [facility] and start Carbo/Taxol tomorrow. will also consult invasive radiology for port placement. --+ pleural effusion --stage IV disease (2) Pleural effusion on right Status: Acute Plan: --s/p thoracentesis x 2, chest tube still draining. --pleurodesis vs pleur-x catheter placement Assessment 71y/o female with recently diagnosed stage IV non-small cell lung cancer with malignant pleural effusion. Admitted with dyspnea. h/o COPD. Coronary artery disease status post [place]. Hypertension. Hypercholesterolemia. Peripheral neuropathy. Attending Statement Complaining of shortness of breath Has severe anxiety Right-sided pleuritic chest pain Patient will have infusaport by the radiologist today Will start chemotherapy carboplatin and Taxol today Risk benefits and alternatives of the chemotherapy discuss with the patient Patient has agreed to proceed with the chemotherapy Informed consent has been obtained Recommend a chest tube to be replaced by the Pleurx Ones patient get Pleurx drainage tube then she could be discharged to home We'll follow Problem Qualifiers (1) Metastatic lung carcinoma: Qualified Code: C78.00 - Metastatic lung carcinoma, unspecified laterality Brigid Sanchez Feb 07, 2017 14:47 Katarzyna Jaquez MD Feb 08, 2017 06:55
[2017-02-07] MEDS ORDERED: SODIUM CHLOR 0.9% IV ONE (15:00)
[2017-02-07] MEDS ORDERED: CARBOPLATIN IV ONE (15:00)
--- NOTE | 2017-02-07 17:59 | HHI.PR ---
Subjective Remarks Breathing better after Chest catheter placed in IR. Still on O2 at 2 L. Seems in better spirits , but has trouble with swallowing. On Nystatin mouthwash with some improvement in swallowing Objective Vital Signs Date Time Temp Pulse Resp B/P Pulse Ox O2 Delivery O2 Flow Rate FiO2 02/07/17 17:46 96 Nasal Cannula 3.00 02/07/17 12:32 96 Nasal Cannula 3.00 02/07/17 12:09 98.1 104 20 163/91 96 02/07/17 11:10 111 22 151/85 99 02/07/17 10:50 111 20 156/99 99 02/07/17 10:35 97.4 111 22 144/80 99 02/07/17 08:30 98 Nasal Cannula 3.00 02/07/17 07:30 97.1 102 20 146/83 99 02/07/17 04:00 97.0 96 20 156/77 98 02/07/17 00:00 96.6 98 20 153/80 98 02/06/17 22:00 97 Nasal Cannula 2.00 02/06/17 20:00 96.8 95 18 147/76 100 02/06/17 19:37 93 Nasal Cannula 3.00 02/06/17 19:13 18 I/O 02/06/17 02/06/17 02/06/17 02/07/17 02/07/17 02/07/17 07:00 15:00 23:00 07:00 15:00 23:00 Intake Total 0 ml 340 ml 237 ml Output Total 200 ml 110 ml 300 ml Balance -200 ml 340 ml -110 ml -63 ml Intake Oral 240 ml 237 ml IV Total 0 ml 100 ml Output Urine Total 200 ml 300 ml Chest Tube Drainage Total 110 ml # Bowel Movements 0 Result Diagram: 02/05/17 0620 02/06/17 0654 Procedures Right side Thoracentesis on 01/30/17 and 02/01/17. Objective Remarks GENERAL: This is a well-nourished, well-developed patient, in no distress. CARDIOVASCULAR: Regular rate and rhythm without murmurs, gallops, or rubs. RESPIRATORY:diminished breath sounds right chest and occ crackles at the bases. GASTROINTESTINAL: Abdomen soft, non-tender,nondistended. Normal active bowel sounds. No mass MUSCULOSKELETAL: Extremities without clubbing, cyanosis, or edema. NEURO: Alert & Oriented x4 to person, place, time, situation. Moves all ext x4 Assessment and Plan Assessment and Plan Primary Impression: Pleural effusion on right Additional Impressions: Acute dyspnea/Hypoxia Metastatic lung carcinoma COPD. Anemia. Anxiety. Plan : 1. CBC,BMP. 2. O2 at 2 L 3. Nebs qid , duoneb. 4. Continue chest tube drainage 5. Will do talc pleurodesis this week 6. Continue antibiotics and switch to PO Antonio Kraft MD Feb 07, 2017 17:59
[2017-02-07] MEDS ORDERED: cloNIDine HCL 0.1 MG TAB PO ONE (21:00)
--- NOTE | 2017-02-07 21:05 | HHI.PR ---
Subjective Remarks Follow up for metastatic stage IV lung cancer. Patient is not able to sleep much at night. She requests a sleep aid. She is using nystatin liquid for oral/ pharyngeal thrush. Still having some odynophagia. No fever, chills. Objective Vitals Vital Signs Date Time Temp Pulse Resp B/P Pulse Ox O2 Delivery O2 Flow Rate FiO2 02/07/17 18:32 97.6 90 20 169/99 98 02/07/17 18:00 99 Nasal Cannula 3.00 02/07/17 17:46 96 Nasal Cannula 3.00 02/07/17 12:32 96 Nasal Cannula 3.00 02/07/17 12:09 98.1 104 20 163/91 96 02/07/17 11:10 111 22 151/85 99 02/07/17 10:50 111 20 156/99 99 02/07/17 10:35 97.4 111 22 144/80 99 02/07/17 08:30 98 Nasal Cannula 3.00 02/07/17 07:30 97.1 102 20 146/83 99 02/07/17 04:00 97.0 96 20 156/77 98 02/07/17 00:00 96.6 98 20 153/80 98 02/06/17 22:00 97 Nasal Cannula 2.00 I/O 02/06/17 02/06/17 02/06/17 02/07/17 02/07/17 02/07/17 07:00 15:00 23:00 07:00 15:00 23:00 Intake Total 0 ml 340 ml 237 ml Output Total 200 ml 110 ml 300 ml Balance -200 ml 340 ml -110 ml -63 ml Intake Oral 240 ml 237 ml IV Total 0 ml 100 ml Output Urine Total 200 ml 300 ml Chest Tube Drainage Total 110 ml # Bowel Movements 0 Result Diagram: 02/05/17 0620 02/06/17 0654 Imaging Last Impressions Port Line Insertion 02/07/17 0000 Signed Impressions: Service Date/Time: Tuesday, February 07, 2017 09:31 - CONCLUSION: Uncomplicated ultrasound and fluoroscopic guided implanted central venous port catheter placement as described in detail above. An 8 [place] Power port was placed. Navid Tompkins MD Chest Tube Insertion 02/04/17 0000 Signed Impressions: Service Date/Time: Saturday, February 04, 2017 09:55 - CONCLUSION: Uncomplicated chest tube placement as above. John Contreras Jr., MD Chest Ultrasound 02/03/17 0000 Signed Impressions: Service Date/Time: Friday, February 03, 2017 07:59 - CONCLUSION: Right pleural effusion with septations. Skin marked. Keshav Krishnan MD Chest X-Ray 02/02/17 0000 Signed Impressions: Service Date/Time: Thursday, February 02, 2017 08:19 - CONCLUSION: Moderate to large right pleural effusion and left lower lung atelectasis versus consolidation. Keshav Krishnan MD Thoracentesis Ultrasound 02/01/17 0000 Signed Impressions: Service Date/Time: February 13:52 - CONCLUSION: Uncomplicated ultrasound guided thoracentesis with removal of 950 cc of fluid. The remaining fluid was not removed since the patient experienced chest pain. Given the right pulmonary mass and collapse of a portion of the lung, this fluid will likely recur. Chapo Escalona MD Abdomen/Pelvis CT 01/30/17 1634 Signed Impressions: Service Date/Time: Monday, January 30, 2017 17:06 - CONCLUSION: 1. Moderate to large right pleural effusion 2. Prominent consolidation/mass right hilar area with collapse of the right lower lung 3. Tiny gallstones in the gallbladder. No biliary tract obstruction. 4. Scattered diverticulosis of the sigmoid colon without inflammatory changes. Germain Massey MD Objective Remarks GENERAL: Alert, NAD. SKIN: Warm and dry. HEAD: Normocephalic. EYES: No scleral icterus. No injection or drainage. NECK: Supple, trachea midline. No JVD or lymphadenopathy. CARDIOVASCULAR: Regular rate and rhythm without murmurs, gallops, or rubs. RESPIRATORY: Moderate air entry. Chest tube in place, No wheezing noted. GASTROINTESTINAL: Abdomen soft, non-tender, nondistended. MUSCULOSKELETAL: No cyanosis, or edema. BACK: Nontender without obvious deformity. No CVA tenderness. Procedures Right sided Chest tube placement on 02/04/2017 Port placement 02/07/2017. A/P Problem List: (1) Metastatic lung carcinoma ICD Code: C78.00 Status: Acute (2) Pleural effusion on right ICD Code: J90 Status: Acute (3) Acute respiratory failure ICD Code: J96.00 Status: Acute (4) COPD Status: Acute Assessment and Plan Ms. Vu is a pleasant 71 year old female with a long history of smoking, recently diagnosed with stage IV lung cancer who presented to the ED on 2016 due to worsening shortness of breath. Initial work up indicated significant pleural effusion on the right side as well as mass. Patient underwent thoracentesis. Medical oncology, Pulmonary are on board and following patient. Patient underwent Port placement on 02/07/2017 and chemotherapy started on the same day. - Stage IV non-small cell lung cancer - Malignant pleural effusion - s/p Thoracentesis X 2. Chest tube in place on the right side, draining. - Patient started on Carboplatin as well Paclitaxel per Oncology. - Pulmonary to consider pleuro-x cath vs. Pleurodesis in future. - Acute respiratory failure - Likely due to large pleural effusion as well as COPD. - Continue Ceftriaxone 1g Q24hrs. - Continue DuoNeb PRN, Prednisone 10mg BID. Continue Fluticasone-Vilanter INH. - Oral/Pharyngeal candidiasis - Continue Nystatin liquid. - Hypertension - Patient's BP elevated during the course of Chemotherapy today. - Will continue to monitor. For now, use Clonidine 0.1mg Q6hrs PRN - Hyperlipidemia - continue Lipitor 40mg QHS. Full code. SCDs. Will consider Pharmacological prophylaxis once chest tube is discontinued. Problem Qualifiers (1) Metastatic lung carcinoma: Qualified Code: C78.00 - Metastatic lung carcinoma, unspecified laterality Yakov Galdamez DO Feb 07, 2017 21:05
[2017-02-07] MEDS ORDERED: cloNIDine HCL 0.1 MG TAB PO PRN (21:15)
[2017-02-07] MEDS: RESP: ALBUTEROL 2.5 MG/IPRATROPIUM 0.5 MG NEB (PRN) NEB (21:55)
[2017-02-07] MEDS: ATORVASTATIN 40 MG TAB PO SCH (22:42)
[2017-02-08] MEDS: cefTRIAXone INJ 1,000 MG in SODIUM CHLORIDE 0.9% INJ 100 ML IV SCH (00:06)
[2017-02-08] MEDS: ACETAMINOPHEN/HYDROcodone 325 MG/7.5 MG TAB PO PRN ×4 (02:34→22:23)
[2017-02-08 05:40] VITALS: BP 150/86; PULSE 99; RESP 18; TEMP 97.7; O2SAT 95
--- NOTE | 2017-02-08 05:55 | RADRPT ---
EXAM DATE/TIME: 02/08/2017 04:12 [facility] COMPARISON: CHEST SINGLE AP, February 02, 2017, 8:19. INDICATIONS : Shortness of breath, possible pulmonary disease. MEDICAL HISTORY : Chronic obstructive pulmonary disease. Myocardial infarction. SURGICAL HISTORY : CABG. ENCOUNTER: Subsequent ACUITY: 1 month PAIN SCORE: 0/10 LOCATION: Bilateral chest FINDINGS: A single view of the chest demonstrates a the right sided [id number]-f-Khwz and right-sided pigtail derek ter both in good position. Persistent infiltrate and a moderate size right pleural effusion. Small le ft pleural effusion is noted. Mild pulmonary vascular congestion. The cardiomediastinal contours are unremarkable. Osseous structures are intact. CONCLUSION: Right-sided pigtail catheter overlies the lower lobe. Moderate size consolidation pleural effusion ar e on the right stable from the previous study Osmel Buchanan MD on February 08, 2017 at 5:52 Board Certified Radiologist. This report was verified electronically.
[2017-02-08 07:50] VITALS: BP 123/60; PULSE 89; RESP 20; TEMP 96.5; O2SAT 99
--- NOTE | 2017-02-08 08:12 | MB ---
cc: ANNE ANTHONY M.D. DATE OF CONSULTATION 02/07/2017 DATE OF 1945 REFERRING PHYSICIAN REASON FOR REFERRAL Poor nutrition, nausea and lung cancer. Thank you for the consultation for this 71-year-old lady who has been a heavy smoker, quit a few years ago. The patient came in with shortness of breath and was found to have alu-ygtkm-yher lung cancer. The patient is being evaluated by oncology. She is going to start chemotherapy. The patient complained and because of shortness of breath, she was evaluated by pulmonary. She had chemotherapy that was supposed to be started in the next day or so, but the patient is having chronic nausea with poor nutrition and not able to eat as good as she anticipated especially for a patient who is getting chemotherapy. The patient stated that she never had an endoscopy or colonoscopy. She feels okay. No significant pain, just the nausea whenever she eats anything. No dysphagia. She thinks she is eating a reasonable amount according to her. PAST MEDICAL HISTORY Significant for: 1. Coronary artery disease 2. Hypertension 3. COPD 4. Depression 5. Peripheral neuropathy 6. Hypercholesterolemia PAST SURGICAL HISTORY 1. Coronary artery stents. 2. Appendectomy 3. Hysterectomy ALLERGIES No known drug allergies. REVIEW OF SYSTEMS All 12-point negative except HPI. FAMILY HISTORY Significant for stroke, coronary artery disease. MEDICATIONS Reviewed on the chart. SOCIAL HISTORY She quit smoking after a long time smoking years ago. She denied any drug or alcohol. PHYSICAL EXAMINATION Alert, oriented in no acute distress. VITAL SIGNS: Stable at this time. HEENT: Pupils are round and reactive to light. NECK: Supple. No hepatosplenomegaly. CHEST: Decreased breathing sounds on the right side, chest tube in place. CARDIAC: Regular rate and rhythm. ABDOMEN: Soft, nondistended and nontender. No hepatosplenomegaly. Positive bowel signs. No masses. EXTREMITIES: No edema, clubbing or cyanosis. NEUROLOGIC: Alert and oriented. No limitations or weakness. PSYCHOLOGIC: Appropriate. LABORATORY DATA White count 14.4, hemoglobin 11.1, platelet 486, INR 1.0. Liver function tests were normal BUN 14, creatinine 0.42. Abdominal CT scan, moderate to large right pleural effusion. Mass in the right hilar area. Scattered diverticulosis of the sigmoid. ASSESSMENT/PLAN A 71-year-old lady who was recently diagnosed with [id number]-[id number] lung CA. She is requiring chemotherapy. She has nausea and poor nutrition. I had a discussion with the patient about placement of a PEG tube or just do an endoscopy for evaluation for esophagitis or any other etiology that can cause nausea. The patient stated that her nausea is not severe enough to warrant that. She does not want the PEG tube. I advised her that during chemotherapy this it can hard to be nourished and that she needs oral nutrition and she said she will try to improve her eating habits and try to take as much as she. I told her that and see how she does in the next couple of days, but if this is not going to be enough, then I strongly suggested to her doing the PEG tube or least the upper endoscopy. Meanwhile, the patient seems to be having some depression and maybe antidepressant medication could be entertained. We will follow up with you tomorrow to see how she is doing and if she changes her mind. MD SONAM Rhodes/WILLIAM /5:51 PM /7:52 AM
--- NOTE | 2017-02-08 08:36 | PD.ONC.PN ---
Subjective Subjective Remarks Afebrile overnight. Pt asleep on approach. Had 1st dose chemo yesterday Per RN she has been more confused, difficult to arouse today. SOB unchanged. Objective Data Date Time Temp Pulse Resp B/P Pulse Ox O2 Delivery O2 Flow Rate FiO2 02/08/17 05:40 97.7 99 18 150/86 95 02/07/17 23:00 156/98 02/07/17 20:45 3.00 02/07/17 20:00 97.4 96 20 166/98 98 02/07/17 18:32 97.6 90 20 169/99 98 02/07/17 18:00 99 Nasal Cannula 3.00 02/07/17 17:46 96 Nasal Cannula 3.00 02/07/17 12:32 96 Nasal Cannula 3.00 02/07/17 12:09 98.1 104 20 163/91 96 02/07/17 11:10 111 22 151/85 99 02/07/17 10:50 111 20 156/99 99 02/07/17 10:35 97.4 111 22 144/80 99 02/07/17 08:30 98 Nasal Cannula 3.00 02/08/17 02/08/17 02/08/17 07:00 15:00 23:00 Intake Total 240 ml Output Total 150 ml 10 ml Balance 90 ml -10 ml Result Diagram: 02/05/17 0620 02/06/17 0654 Imaging Studies Last 24 hours Impressions Chest X-Ray 02/08/17 0600 Signed Impressions: Service Date/Time: February 04:12 - CONCLUSION: Right-sided pigtail catheter overlies the lower lobe. Moderate size consolidation pleural effusion are on the right stable from the previous study Osmel Buchanan MD Administered Medications Medications (Trade) Dose Ordered Sig/Eloise Route PRN Reason Start Time Stop Time Status Last Admin Dose Admin Sodium Chloride (NS 1000 ml Inj) 1,000 ml @ 83 mls/hr Q12H3M IV 01/30/17 20:00 Hold 02/03/17 08:21 Sodium Chloride (NS Flush) 2 ml BID IV FLUSH 01/30/17 21:00 02/07/17 22:43 Acetaminophen/ Hydrocodone Bitart ([place] 5-325 Mg) 1 tab Q4H PRN PO PAIN SCALE 3 TO 5 01/30/17 18:15 02/02/17 14:04 Acetaminophen/ Hydrocodone Bitart ([place] 7.5-325 Mg) 1 tab Q4H PRN PO PAIN SCALE 6 TO 10 01/30/17 18:15 02/08/17 02:34 Senna/Docusate Sodium (Janneth-Colace) 1 tab BID PO 01/30/17 21:00 02/07/17 22:43 Magnesium Hydroxide (Milk Of Magnesia Liq) 30 ml Q12H PRN PO MILD - MODERATE CONSTIPATION 01/30/17 18:15 02/07/17 23:18 Atorvastatin Calcium (Lipitor) 40 mg HS PO 01/30/17 21:00 02/07/17 22:42 Fluticasone/ Vilanterol (Breo Ellipta 100-25 Inh) 1 puff DAILY INH 01/31/17 09:00 02/07/17 09:00 Metoprolol Succinate (Toprol Xl) 50 mg DAILY PO 01/31/17 09:00 02/07/17 12:01 Nortriptyline HCl (Pamelor) 50 mg BID PO 01/30/17 21:00 02/07/17 22:43 Ondansetron HCl (Zofran Inj) 4 mg Q4HR PRN IV PUSH Nausea 02/05/17 12:00 02/07/17 18:48 Nystatin (Mycostatin Liq) 5 ml QID SWISH-SWAL 02/06/17 13:00 02/07/17 22:43 Prednisone 10 mg 10 mg BID PO 02/06/17 21:00 02/07/17 22:43 Ceftriaxone Sodium/Sodium Chloride (Rocephin Inj/NS Inj) 100 ml @ 200 mls/hr Q24H IV 02/07/17 23:00 02/08/17 00:06 Objective Remarks GENERAL: Chronically ill appearing older female, asleep in bed in no distress. Awakens with gentle shaking. SKIN: Warm and dry. HEAD: Normocephalic. EYES: No injection or drainage. NECK: Supple, trachea midline. CARDIOVASCULAR: +S1/S2. RESPIRATORY: Diminished to R side. No oozing from chest tube placement. On 3L NC. GASTROINTESTINAL: Abdomen soft, non-tender, nondistended. EXTREMITIES: No edema. SCD's to BLE. MUSCULOSKELETAL: Generalized weakness. NEUROLOGICAL: Asleep on approach. Awakens to firm shaking. Nods head yes/no appropriately. Moving all extremities. Assessment/Plan Problem List: (1) Metastatic lung carcinoma Status: Acute Plan: 02/08: Tolerated chemo OK yesterday. Chest tube output significantly decreased. Will arrange for Pleur-X cath placement. Pt somewhat more lethargic than yesterday. Will obtain CT head. 02/07: The pt got her infusaport today. Chemotherapy planned for later today. Emotional care provided. Will monitor. 02/06: [facility]/Taxol tomorrow. will also consult invasive radiology for port placement. --+ pleural effusion --stage IV disease (2) Pleural effusion on right Status: Acute Plan: --s/p thoracentesis x 2, chest tube still draining. --pleurodesis vs pleur-x catheter placement Assessment 71y/o female with recently diagnosed stage IV non-small cell lung cancer with malignant pleural effusion. Admitted with dyspnea. h/o COPD. Coronary artery disease status post [place]. Hypertension. Hypercholesterolemia. Peripheral neuropathy. Attending Statement Patient is confused Lethargic but arousable Denies any nausea or vomiting Still complaining of shortness of breath Patient had Infusaport yesterday Patient had First cycle of chemotherapy yesterday. Has tolerated the chemotherapy Well CAT scan of the brain is negativeLeaving Pleurex by the interventional radiologist will follow Problem Qualifiers (1) Metastatic lung carcinoma: Qualified Code: C78.00 - Metastatic lung carcinoma, unspecified laterality Brigid Sanchez Feb 08, 2017 08:36 Katarzyna Jaquez MD Feb 09, 2017 06:34
[2017-02-08] MEDS: SODIUM CHLORIDE 0.9% FLUSH 10 ML FLUSH IV FLUSH SCH ×2 (09:00→22:19)
[2017-02-08] MEDS: FLUTICASONE 100 MCG/VILANTEROL 25 MCG INHALER INH SCH (09:00)
[2017-02-08] MEDS: METOPROLOL SUCCINATE 25 MG EXTENDED RELEASE TAB PO SCH (09:24)
[2017-02-08] MEDS: predniSONE 10 MG TAB PO SCH ×2 (09:24→22:26)
[2017-02-08] MEDS: NORTRIPTYLINE HCL 25 MG CAP PO SCH ×2 (09:24→22:19)
[2017-02-08] MEDS: NYSTATIN SUSP 500,000 U/5 ML CUP SWISH-SWAL SCH ×4 (09:24→22:19)
[2017-02-08] MEDS: DOCUSATE SODIUM 50 MG/SENNA 8.6 MG TAB PO SCH ×2 (09:24→22:19)
[2017-02-08 10:00] VITALS: O2SAT 98
[2017-02-08] MEDS: ONDANSETRON HCL 4 MG/2 ML VIAL IV PUSH PRN ×3 (11:40→22:23)
--- NOTE | 2017-02-08 12:40 | HHI.PR ---
Subjective Remarks Breathing better after Chest catheter placed in IR. Still on O2 at 2 L. Seems in better spirits , Chest tube drained >350 CC Objective Vital Signs Date Time Temp Pulse Resp B/P Pulse Ox O2 Delivery O2 Flow Rate FiO2 02/08/17 09:42 Nasal Cannula 3.00 21 02/08/17 07:50 96.5 89 20 123/60 99 Automatic Cuff 02/08/17 05:40 97.7 99 18 150/86 95 02/07/17 23:00 156/98 02/07/17 20:45 3.00 02/07/17 20:00 97.4 96 20 166/98 98 02/07/17 18:32 97.6 90 20 169/99 98 02/07/17 18:00 99 Nasal Cannula 3.00 02/07/17 17:46 96 Nasal Cannula 3.00 I/O 02/07/17 02/07/17 02/07/17 02/08/17 02/08/17 02/08/17 07:00 15:00 23:00 07:00 15:00 23:00 Intake Total 237 ml 420 ml 240 ml Output Total 110 ml 300 ml 300 ml 150 ml 10 ml Balance -110 ml -63 ml 120 ml 90 ml -10 ml Intake Oral 237 ml 420 ml 240 ml Output Urine Total 300 ml 300 ml 150 ml Chest Tube Drainage Total 110 ml 10 ml # Voids 2 3 # Bowel Movements 0 5 Result Diagram: 02/05/17 0620 02/06/17 0654 Procedures Right side Thoracentesis on 01/30/17 and 02/01/17. Objective Remarks GENERAL: This is a well-nourished, well-developed patient, in no distress. CARDIOVASCULAR: Regular rate and rhythm without murmurs, gallops, or rubs. RESPIRATORY:diminished breath sounds right chest and occ crackles at the bases. GASTROINTESTINAL: Abdomen soft, non-tender,nondistended. Normal active bowel sounds. No mass MUSCULOSKELETAL: Extremities without clubbing, cyanosis, or edema. NEURO: Alert & Oriented x4 to person, place, time, situation. Moves all ext x4 Assessment and Plan Assessment and Plan Primary Impression: Pleural effusion on right Additional Impressions: Acute dyspnea/Hypoxia Metastatic lung carcinoma COPD. Anemia. Anxiety. Plan : 1. CBC,BMP. 2. O2 at 2 L 3. Nebs qid , duoneb. 4. Continue chest tube drainage 5. Will hold off on pleurodesis till drainage is <100 CC 6. Continue PO ceftin for 5 days Antonio Cazares MD Feb 08, 2017 12:40
--- NOTE | 2017-02-08 12:41 | HHI.GIFU ---
Subjective Remarks Pt sitting up in bed, in no apparent distress. Says she has some nausesa, some pain at chest tube site. Adamantly refuses feeding tube. (Karlee Velasco ) Objective Vitals I&O Vital Signs Date Time Temp Pulse Resp B/P Pulse Ox O2 Delivery O2 Flow Rate FiO2 02/08/17 09:42 Nasal Cannula 3.00 21 02/08/17 07:50 96.5 89 20 123/60 99 Automatic Cuff 02/08/17 05:40 97.7 99 18 150/86 95 02/07/17 23:00 156/98 02/07/17 20:45 3.00 02/07/17 20:00 97.4 96 20 166/98 98 02/07/17 18:32 97.6 90 20 169/99 98 02/07/17 18:00 99 Nasal Cannula 3.00 02/07/17 17:46 96 Nasal Cannula 3.00 I/O 02/07/17 02/07/17 02/07/17 02/08/17 02/08/17 02/08/17 07:00 15:00 23:00 07:00 15:00 23:00 Intake Total 237 ml 420 ml 240 ml Output Total 110 ml 300 ml 300 ml 150 ml 10 ml Balance -110 ml -63 ml 120 ml 90 ml -10 ml Intake Oral 237 ml 420 ml 240 ml Output Urine Total 300 ml 300 ml 150 ml Chest Tube Drainage Total 110 ml 10 ml # Voids 2 3 # Bowel Movements 0 5 Imaging Last Impressions Chest X-Ray 02/08/17 0600 Signed Impressions: Service Date/Time: February 04:12 - CONCLUSION: Right-sided pigtail catheter overlies the lower lobe. Moderate size consolidation pleural effusion are on the right stable from the previous study Osmel Buchanan MD Port Line Insertion 02/07/17 0000 Signed Impressions: Service Date/Time: Tuesday, February 07, 2017 09:31 - CONCLUSION: Uncomplicated ultrasound and fluoroscopic guided implanted central venous port catheter placement as described in detail above. An 8 [place] Power port was placed. Navid Tompkins MD Chest Tube Insertion 02/04/17 0000 Signed Impressions: Service Date/Time: Saturday, February 04, 2017 09:55 - CONCLUSION: Uncomplicated chest tube placement as above. John Contreras Jr., MD Chest Ultrasound 02/03/17 0000 Signed Impressions: Service Date/Time: Friday, February 03, 2017 07:59 - CONCLUSION: Right pleural effusion with septations. Skin marked. Keshav Krishnan MD Thoracentesis Ultrasound 02/01/17 0000 Signed Impressions: Service Date/Time: February 13:52 - CONCLUSION: Uncomplicated ultrasound guided thoracentesis with removal of 950 cc of fluid. The remaining fluid was not removed since the patient experienced chest pain. Given the right pulmonary mass and collapse of a portion of the lung, this fluid will likely recur. Chapo Escalona MD Abdomen/Pelvis CT 01/30/17 1634 Signed Impressions: Service Date/Time: Monday, January 30, 2017 17:06 - CONCLUSION: 1. Moderate to large right pleural effusion 2. Prominent consolidation/mass right hilar area with collapse of the right lower lung 3. Tiny gallstones in the gallbladder. No biliary tract obstruction. 4. Scattered diverticulosis of the sigmoid colon without inflammatory changes. Germain Massey MD Physical Exam HEENT: EOMI; normocephalic; atraumatic; no jaundice. CHEST: lung sounds diminished. Chest tube. Port right side. CARDIAC: RRR ABDOMEN: Soft, nondistended, nontender; no hepatosplenomegaly; bowel sounds are present in all four quadrants. EXTREMITIES: No clubbing, cyanosis, or edema. SKIN: Normal; no rash; no jaundice. LEGAL COORDINATOR: No focal deficits; alert and oriented times three. (Karlee Velasco) Assessment and Plan Plan ASSESSMENT - nausea, poor nutrition - non small cell lung ca, starting chemo. Pt refusing PEG. PLAN - GI will sign off. This pt seen by myself and Dr Mondragon and this note is written on his behalf. ( Karlee Velasco) Physician Comments Seen and examined with isabella Desir as above. Please notify us if needed (Angela Mondragon MD) Karlee Velasco Feb 08, 2017 12:41 Angela Mondragon MD Feb 08, 2017 14:15
--- NOTE | 2017-02-08 14:45 | HHI.PR ---
Subjective Remarks Follow up for metastatic stage IV lung cancer. Patient felt like she was somewhat confused earlier. However currently she is not confused and she maintains a coherent speech. Denies any chest pain, shortness of breath or fever or chills. She has some nausea. She does not have much appetite. Objective Vitals Vital Signs Date Time Temp Pulse Resp B/P Pulse Ox O2 Delivery O2 Flow Rate FiO2 02/08/17 10:00 98 Nasal Cannula 3.00 02/08/17 09:42 Nasal Cannula 3.00 21 02/08/17 07:50 96.5 89 20 123/60 99 Automatic Cuff 02/08/17 05:40 97.7 99 18 150/86 95 02/07/17 23:00 156/98 02/07/17 20:45 3.00 02/07/17 20:00 97.4 96 20 166/98 98 02/07/17 18:32 97.6 90 20 169/99 98 02/07/17 18:00 99 Nasal Cannula 3.00 02/07/17 17:46 96 Nasal Cannula 3.00 I/O 02/07/17 02/07/17 02/07/17 02/08/17 02/08/17 02/08/17 07:00 15:00 23:00 07:00 15:00 23:00 Intake Total 237 ml 420 ml 240 ml Output Total 110 ml 300 ml 300 ml 150 ml 310 ml Balance -110 ml -63 ml 120 ml 90 ml -310 ml Intake Oral 237 ml 420 ml 240 ml Output Urine Total 300 ml 300 ml 150 ml Chest Tube Drainage Total 110 ml 310 ml # Voids 2 3 # Bowel Movements 0 5 Result Diagram: 02/05/17 0620 02/06/17 0654 Imaging Last Impressions Chest X-Ray 02/08/17 0600 Signed Impressions: Service Date/Time: February 04:12 - CONCLUSION: Right-sided pigtail catheter overlies the lower lobe. Moderate size consolidation pleural effusion are on the right stable from the previous study Osmel Buchanan MD Port Line Insertion 02/07/17 0000 Signed Impressions: Service Date/Time: Tuesday, February 07, 2017 09:31 - CONCLUSION: Uncomplicated ultrasound and fluoroscopic guided implanted central venous port catheter placement as described in detail above. An 8 [place] Power port was placed. Navid Tompkins MD Chest Tube Insertion 02/04/17 0000 Signed Impressions: Service Date/Time: Saturday, February 04, 2017 09:55 - CONCLUSION: Uncomplicated chest tube placement as above. John Contrears Jr., MD Chest Ultrasound 02/03/17 0000 Signed Impressions: Service Date/Time: Friday, February 03, 2017 07:59 - CONCLUSION: Right pleural effusion with septations. Skin marked. Keshav Krishnan MD Thoracentesis Ultrasound 02/01/17 0000 Signed Impressions: Service Date/Time: February 13:52 - CONCLUSION: Uncomplicated ultrasound guided thoracentesis with removal of 950 cc of fluid. The remaining fluid was not removed since the patient experienced chest pain. Given the right pulmonary mass and collapse of a portion of the lung, this fluid will likely recur. Chapo Escalona MD Abdomen/Pelvis CT 01/30/17 1634 Signed Impressions: Service Date/Time: Monday, January 30, 2017 17:06 - CONCLUSION: 1. Moderate to large right pleural effusion 2. Prominent consolidation/mass right hilar area with collapse of the right lower lung 3. Tiny gallstones in the gallbladder. No biliary tract obstruction. 4. Scattered diverticulosis of the sigmoid colon without inflammatory changes. Germain Massey MD Objective Remarks GENERAL: Alert, NAD. SKIN: Warm and dry. HEAD: Normocephalic. EYES: No scleral icterus. No injection or drainage. NECK: Supple, trachea midline. No JVD or lymphadenopathy. CARDIOVASCULAR: Regular rate and rhythm without murmurs, gallops, or rubs. RESPIRATORY: Moderate air entry. Chest tube in place, No wheezing noted. GASTROINTESTINAL: Abdomen soft, non-tender, nondistended. MUSCULOSKELETAL: No cyanosis, or edema. BACK: Nontender without obvious deformity. No CVA tenderness. Procedures Right sided Chest tube placement on 02/04/2017 Port placement 02/07/2017. A/P Problem List: (1) Metastatic lung carcinoma ICD Code: C78.00 Status: Acute (2) Pleural effusion on right ICD Code: J90 Status: Acute (3) Acute respiratory failure ICD Code: J96.00 Status: Acute (4) COPD Status: Acute Assessment and Plan Ms. Vu is a pleasant 71 year old female with a long history of smoking, recently diagnosed with stage IV lung cancer who presented to the ED on 2016 due to worsening shortness of breath. Initial work up indicated significant pleural effusion on the right side as well as mass. Patient underwent thoracentesis. Medical oncology, Pulmonary are on board and following patient. Patient underwent Port placement on 02/07/2017 and chemotherapy started on the same day. - Stage IV non-small cell lung cancer - Malignant pleural effusion - s/p Thoracentesis X 2. Chest tube in place on the right side, draining. - Patient started on Carboplatin as well Paclitaxel per Oncology. - Pulmonary to consider pleuro-x cath vs. Pleurodesis in future. - Acute respiratory failure - Likely due to large pleural effusion as well as COPD. - Continue Ceftriaxone 1g Q24hrs. - Continue DuoNeb PRN, Prednisone 10mg BID. Continue Fluticasone-Vilanter INH. - Oral/Pharyngeal candidiasis - Poor nutrition - Continue Nystatin liquid. - GI consulted. Patient currently does not want a PEG tube. I discussed again regarding benefit of PEG tube. Patient will think about it. - Hypertension - Patient's BP elevated during the course of Chemotherapy today. - BP within reasonable range. Continue Clonidine 0.1mg Q6hrs PRN - Hyperlipidemia - continue Lipitor 40mg QHS. - Depression - Will consider discontinuing nortriptyline and start Fluoxetine 20mg. Full code. SCDs. Will consider Pharmacological prophylaxis once chest tube is discontinued. Problem Qualifiers (1) Metastatic lung carcinoma: Qualified Code: C78.00 - Metastatic lung carcinoma, unspecified laterality Yakov Galdamez DO Feb 08, 2017 2:45 pm
[2017-02-08] MEDS ORDERED: ceFAZolin 2 GM PREMIX 50 ML IV SCH (15:00)
[2017-02-08 15:50] VITALS: BP 159/95; PULSE 92; RESP 20; TEMP 96.9; O2SAT 96
[2017-02-08] MEDS: RESP: ALBUTEROL 2.5 MG/IPRATROPIUM 0.5 MG NEB (PRN) NEB (17:04)
--- NOTE | 2017-02-08 19:16 | RADRPT ---
EXAM DATE/TIME: 02/08/2017 18:57 [facility] COMPARISON: CT BRAIN W/O CONTRAST, December 20, 2016, 9:31. INDICATIONS : Altered mental status. RADIATION DOSE: 56.35 CTDIvol (mGy) MEDICAL HISTORY : Hypertension. Cardiovascular disease Carcinoma, lung. SURGICAL HISTORY : None. ENCOUNTER: Initial ACUITY: 1 day PAIN SCALE: 0/10 LOCATION: cranial TECHNIQUE: Multiple contiguous axial images were obtained of the head. Using automated exposure control and adj ustment of the mA and/or kV according to patient size, radiation dose was kept as low as reasonably a chievable to obtain optimal diagnostic quality images. FINDINGS: CEREBRUM: The ventricles are normal for age. No evidence of midline shift, mass lesion, hemorrhage or acute in farction. No extra-axial fluid collections are seen. POSTERIOR FOSSA: The cerebellum and brainstem are intact. The 4th ventricle is midline. The cerebellopontine angle i s unremarkable. EXTRACRANIAL: The visualized portion of the orbits is intact. SKULL: The calvaria is intact. No evidence of skull fracture. CONCLUSION: Normal examination. Chapo Abdul MD on February 08, 2017 at 19:13 Board Certified Radiologist. This report was verified electronically.
[2017-02-08 20:00] VITALS: BP 165/90; PULSE 101; RESP 21; TEMP 96.3; O2SAT 96
[2017-02-08] MEDS: RESP: ALBUTEROL 2.5 MG/IPRATROPIUM 0.5 MG NEB (SCH) NEB (20:00)
[2017-02-08 20:38] VITALS: O2SAT 98
[2017-02-08] MEDS: ATORVASTATIN 40 MG TAB PO SCH (22:20)
[2017-02-09] VITALS (8 sets, daily range): BP systolic 138–176; BP diastolic 80–96; PULSE 97–110; RESP 18–20; TEMP 96.6–98.3; O2SAT 79–100
[2017-02-09] MEDS: cefTRIAXone INJ 1,000 MG in SODIUM CHLORIDE 0.9% INJ 100 ML IV SCH ×2 (00:21→23:00)
[2017-02-09] MEDS: RESP: ALBUTEROL 2.5 MG/IPRATROPIUM 0.5 MG NEB (SCH) NEB ×8 (00:29→23:16)
[2017-02-09] MEDS: TEMAZEPAM 15 MG CAP PO PRN (02:22)
[2017-02-09 05:31] LABS: BLOOD GAS CARBOXYHEMOGLOBIN 1.5 % (0-4); BLOOD GAS HCO3 40 mmol/L (22-26); BLOOD GAS METHEMOGLOBIN 1.3 % (0-2); BLOOD GAS O2 HGB SATURATION 96 % (90-100); BLOOD GAS OXYGEN CONTENT 15.6 Vol % (12.0-20.0); BLOOD GAS PCO2 68 mmHg (38-42); BLOOD GAS PO2 142 mmHg (61-120); BLOOD GAS TOTAL HGB 11.4 G/DL (12.0-16.0); TEMP CORR TO 98.6
[2017-02-09 05:34] LABS: CRITICAL VALUE YES
[2017-02-09 05:35] LABS: DRAW SITE LT RADIAL; LITER FLOW 3 L/M; NUMBER OF ARTERIAL PUNCTURES 2; OXYGEN DEVICE NASAL CANNULA; STAT YES
--- NOTE | 2017-02-09 06:12 | RADRPT ---
EXAM DATE/TIME: 02/09/2017 05:23 [facility] COMPARISON: No previous studies available for comparison. INDICATIONS : Shortness of breath, desaturation, right sided chest tube. MEDICAL HISTORY : Chronic obstructive pulmonary disease. Myocardial infarction. Small cell lung cancer. SURGICAL HISTORY : CABG. Infusaport. ENCOUNTER: Subsequent ACUITY: 1 week PAIN SCORE: 2/10 LOCATION: Right chest FINDINGS: Considerable basilar consolidation again seen on the right with volume loss. Right chest tube remains in place. Hypodensity in pneumothorax. Mild atelectasis left lung base. Heart size stable, within normal limits. There is a right internal jugular [id number] catheter with tip at the atriocaval junction. CONCLUSION: No significant change. Basilar consolidation and volume loss again seen on the right. Chapo Cooley MD on February 09, 2017 at 6:09 Board Certified Radiologist. This report was verified electronically.
[2017-02-09 06:24] LABS: AUTOMATED NEUTROPHIL # 16.3 TH/MM3 (1.8-7.7); BASOPHIL # 0.1 TH/MM3 (0-0.2); BASOPHIL % 0.7 % (0.0-2.0); HEMATOCRIT 33.1 % (35.0-46.0); HEMO FLAGS DIFF FINAL; LYMPH % 1.9 % (9.0-44.0); LYMPHOCYTE # 0.3 TH/MM3 (1.0-4.8); MEAN CELL VOLUME 85.4 FL (80.0-100.0); MEAN CORPUSCULAR HEMOGLOBIN 28.6 PG (27.0-34.0); MEAN CORPUSCULAR HGB CONC 33.5 % (32.0-36.0); MONO % 1.7 % (0.0-8.0); NEUT % 95.7 % (16.0-70.0); PLATELET COUNT 449 TH/MM3 (150-450); RED BLOOD COUNT 3.87 MIL/MM3 (4.00-5.30); RED CELL DISTRIBUTION WIDTH 17.2 % (11.6-17.2)
[2017-02-09 06:48] LABS: BICARBONATE 42.5 MEQ/L (21.0-32.0); POTASSIUM 3.8 MEQ/L (3.5-5.1)
[2017-02-09] MEDS: DOCUSATE SODIUM 50 MG/SENNA 8.6 MG TAB PO SCH ×2 (08:28→21:45)
[2017-02-09] MEDS: predniSONE 10 MG TAB PO SCH ×2 (08:28→21:45)
[2017-02-09] MEDS: NYSTATIN SUSP 500,000 U/5 ML CUP SWISH-SWAL SCH ×4 (08:28→21:42)
[2017-02-09] MEDS: METOPROLOL SUCCINATE 25 MG EXTENDED RELEASE TAB PO SCH (08:28)
[2017-02-09] MEDS: FLUTICASONE 100 MCG/VILANTEROL 25 MCG INHALER INH SCH (08:28)
[2017-02-09] MEDS: SODIUM CHLORIDE 0.9% FLUSH 10 ML FLUSH IV FLUSH SCH ×2 (08:29→21:46)
[2017-02-09] MEDS: ACETAMINOPHEN/HYDROcodone 325 MG/7.5 MG TAB PO PRN ×2 (11:11→21:44)
--- NOTE | 2017-02-09 11:34 | HHI.PR ---
Subjective Remarks Follow up for metastatic stage IV lung cancer. Patient reports significant nausea when she tries to eat. She also went to respiratory distress overnight. Currently she is doing well on 1 L of oxygen via nasal cannula. No fever or chills. Objective Vitals Vital Signs Date Time Temp Pulse Resp B/P Pulse Ox O2 Delivery O2 Flow Rate FiO2 02/09/17 08:43 Nasal Cannula 1.00 21 02/09/17 08:00 97.3 110 19 176/96 100 02/09/17 07:42 100 Nasal Cannula 2.00 02/09/17 04:00 98.3 104 19 151/83 79 02/09/17 00:20 16 02/09/17 00:00 96.6 107 20 140/88 98 02/08/17 22:23 Nasal Cannula 2.00 02/08/17 20:38 98 2.00 02/08/17 20:00 96.3 101 21 165/90 96 02/08/17 15:50 96.9 92 20 159/95 96 I/O 02/08/17 02/08/17 02/08/17 02/09/17 02/09/17 02/09/17 07:00 15:00 23:00 07:00 15:00 23:00 Intake Total 240 ml 240 ml 0 ml Output Total 150 ml 310 ml 400 ml 40 ml 713 ml Balance 90 ml -310 ml -160 ml -40 ml -713 ml Intake Oral 240 ml 240 ml 0 ml Output Urine Total 150 ml 400 ml 500 ml Chest Tube Drainage Total 310 ml 40 ml 213 ml # Voids 3 1 2 # Bowel Movements 5 Result Diagram: 02/09/17 0502/09/17 05 Imaging Last Impressions Chest X-Ray 02/09/17 0000 Signed Impressions: Service Date/Time: Thursday, February 09, 2017 05:23 - CONCLUSION: No significant change. Basilar consolidation and volume loss again seen on the right. Chapo Cooley MD Head CT 02/08/17 0000 Signed Impressions: Service Date/Time: February 18:57 - CONCLUSION: Normal examination. Chapo Abdul MD Port Line Insertion 02/07/17 0000 Signed Impressions: Service Date/Time: Tuesday, February 07, 2017 09:31 - CONCLUSION: Uncomplicated ultrasound and fluoroscopic guided implanted central venous port catheter placement as described in detail above. An 8 Pasht[place] Power port was placed. Navid Tompkins MD Chest Tube Insertion 02/04/17 0000 Signed Impressions: Service Date/Time: Saturday, February 04, 2017 09:55 - CONCLUSION: Uncomplicated chest tube placement as above. John Contreras Jr., MD Chest Ultrasound 02/03/17 0000 Signed Impressions: Service Date/Time: Friday, February 03, 2017 07:59 - CONCLUSION: Right pleural effusion with septations. Skin marked. Keshav Krishnan MD Thoracentesis Ultrasound 02/01/17 0000 Signed Impressions: Service Date/Time: February 13:52 - CONCLUSION: Uncomplicated ultrasound guided thoracentesis with removal of 950 cc of fluid. The remaining fluid was not removed since the patient experienced chest pain. Given the right pulmonary mass and collapse of a portion of the lung, this fluid will likely recur. Chapo Escalona MD Abdomen/Pelvis CT 01/30/17 1634 Signed Impressions: Service Date/Time: Monday, January 30, 2017 17:06 - CONCLUSION: 1. Moderate to large right pleural effusion 2. Prominent consolidation/mass right hilar area with collapse of the right lower lung 3. Tiny gallstones in the gallbladder. No biliary tract obstruction. 4. Scattered diverticulosis of the sigmoid colon without inflammatory changes. Germain Msasey MD Objective Remarks GENERAL: Alert, NAD. SKIN: Warm and dry. HEAD: Normocephalic. EYES: No scleral icterus. No injection or drainage. NECK: Supple, trachea midline. No JVD or lymphadenopathy. CARDIOVASCULAR: Regular rate and rhythm without murmurs, gallops, or rubs. RESPIRATORY: Moderate air entry. Chest tube in place, No wheezing noted. GASTROINTESTINAL: Abdomen soft, non-tender, nondistended. MUSCULOSKELETAL: No cyanosis, or edema. BACK: Nontender without obvious deformity. No CVA tenderness. Procedures Right sided Chest tube placement on 02/04/2017 Port placement 02/07/2017. A/P Problem List: (1) Metastatic lung carcinoma ICD Code: C78.00 Status: Acute (2) Pleural effusion on right ICD Code: J90 Status: Acute (3) Acute respiratory failure ICD Code: J96.00 Status: Acute (4) COPD Status: Acute Assessment and Plan Ms. Vu is a pleasant 71 year old female with a long history of smoking, recently diagnosed with stage IV lung cancer who presented to the ED on 2016 due to worsening shortness of breath. Initial work up indicated significant pleural effusion on the right side as well as mass. Patient underwent thoracentesis. Medical oncology, Pulmonary are on board and following patient. Patient underwent Port placement on 02/07/2017 and chemotherapy started on the same day. - Stage IV non-small cell lung cancer - Malignant pleural effusion - s/p Thoracentesis X 2. Chest tube in place on the right side, draining. - Patient started on Carboplatin as well Paclitaxel per Oncology. - pleuro-x cath today by interventional radiology - Acute respiratory failure - Likely due to large pleural effusion as well as COPD. - Continue Ceftriaxone 1g Q24hrs. - Continue DuoNeb PRN, Prednisone 10mg BID. Continue Fluticasone-Vilanter INH. -Currently on nasal cannula 1 L of oxygen. - Oral/Pharyngeal candidiasis - Poor nutrition - Continue Nystatin liquid. - GI consulted per pulmonary recommendation. Patient currently does not want a PEG tube. - Discussed with oncology. We will start patient on megestrol liquid 400mg Qday. - Hypertension - Patient's BP elevated during the course of Chemotherapy today. - BP within reasonable range. Continue Clonidine 0.1mg Q6hrs PRN - Hyperlipidemia - continue Lipitor 40mg QHS. - Neuropathic pain - Continue nortriptyline, reduced dose from 50 mg to 25 mg daily which is her home dose. Full code. SCDs. Will consider Pharmacological prophylaxis once chest tube is discontinued. Problem Qualifiers (1) Metastatic lung carcinoma: Qualified Code: C78.00 - Metastatic lung carcinoma, unspecified laterality Yakov Galdamez DO Feb 09, 2017 11:34
[2017-02-09] MEDS ORDERED: MEGESTROL ACETATE SUSP 400 MG/10 ML CUP PO ONE (13:00)
[2017-02-09] MEDS: clonazePAM 0.5 MG TAB PO SCH ×2 (14:00→21:43)
--- NOTE | 2017-02-09 14:04 | PD.ONC.PN ---
Subjective Subjective Remarks Afebrile overnight. Patient with >200cc drainage from chest tube/24 hours Going for pleur-x catheter placement today Still without appetite Objective Data Date Time Temp Pulse Resp B/P Pulse Ox O2 Delivery O2 Flow Rate FiO2 02/09/17 12:00 97.3 97 19 164/92 100 02/09/17 08:43 Nasal Cannula 1.00 21 02/09/17 08:00 97.3 110 19 176/96 100 02/09/17 07:42 100 Nasal Cannula 2.00 02/09/17 04:00 98.3 104 19 151/83 79 02/09/17 00:20 16 02/09/17 00:00 96.6 107 20 140/88 98 02/08/17 22:23 Nasal Cannula 2.00 02/08/17 20:38 98 2.00 02/08/17 20:00 96.3 101 21 165/90 96 02/08/17 15:50 96.9 92 20 159/95 96 02/09/17 02/09/17 02/09/17 07:00 15:00 23:00 Intake Total 0 ml Output Total 40 ml 713 ml Balance -40 ml -713 ml Result Diagram: 02/09/17 0519 02/09/17 05 Laboratory Results Laboratory Tests Test 02/09/17 02/09/17 05:15 05:19 Blood Gas Puncture Site LT RADIAL Blood Gas Patient Temperature 98.6 Blood Gas HCO3 40 mmol/L Blood Gas Base Excess 14.0 mmol/L Blood Gas Oxygen Saturation 96 % Arterial Blood pH 7.39 Arterial Blood Partial 68 mmHg Pressure CO2 Arterial Blood Partial 142 mmHg Pressure O2 Arterial Blood Oxygen Content 15.6 Vol % Arterial Blood 1.5 % Carboxyhemoglobin Arterial Blood Methemoglobin 1.3 % Blood Gas Hemoglobin 11.4 G/DL Oxygen Delivery Device NASAL CANNULA Blood Gas Liter Flow 3 L/M White Blood Count 17.0 TH/MM3 Red Blood Count 3.87 MIL/MM3 Hemoglobin 11.1 GM/DL Hematocrit 33.1 % Mean Corpuscular Volume 85.4 FL Mean Corpuscular Hemoglobin 28.6 PG Mean Corpuscular Hemoglobin 33.5 % Concent Red Cell Distribution Width 17.2 % Platelet Count 449 TH/MM3 Mean Platelet Volume 7.9 FL Neutrophils (%) (Auto) 95.7 % Lymphocytes (%) (Auto) 1.9 % Monocytes (%) (Auto) 1.7 % Eosinophils (%) (Auto) 0.0 % Basophils (%) (Auto) 0.7 % Neutrophils # (Auto) 16.3 TH/MM3 Lymphocytes # (Auto) 0.3 TH/MM3 Monocytes # (Auto) 0.3 TH/MM3 Eosinophils # (Auto) 0.0 TH/MM3 Basophils # (Auto) 0.1 TH/MM3 CBC Comment DIFF FINAL Differential Comment Sodium Level 138 MEQ/L Potassium Level 3.8 MEQ/L Chloride Level 95 MEQ/L Carbon Dioxide Level 42.5 MEQ/L Anion Gap 1 MEQ/L Blood Urea Nitrogen 17 MG/DL Creatinine 0.35 MG/DL Estimat Glomerular Filtration 184 ML/MIN Rate Random Glucose 135 MG/DL Calcium Level 8.6 MG/DL Imaging Studies Last 24 hours Impressions Chest X-Ray 02/09/17 0000 Signed Impressions: Service Date/Time: Thursday, February 09, 2017 05:23 - CONCLUSION: No significant change. Basilar consolidation and volume loss again seen on the right. Chapo Cooley MD Administered Medications Medications (Trade) Dose Ordered Sig/Eloise Route PRN Reason Start Time Stop Time Status Last Admin Dose Admin Sodium Chloride (NS 1000 ml Inj) 1,000 ml @ 83 mls/hr Q12H3M IV 01/30/17 20:00 Hold 02/03/17 08:21 Sodium Chloride (NS Flush) 2 ml BID IV FLUSH 01/30/17 21:00 02/09/17 08:29 Acetaminophen/ Hydrocodone Bitart ([place] 5-325 Mg) 1 tab Q4H PRN PO PAIN SCALE 3 TO 5 01/30/17 18:15 02/02/17 14:04 Acetaminophen/ Hydrocodone Bitart ([place] 7.5-325 Mg) 1 tab Q4H PRN PO PAIN SCALE 6 TO 10 01/30/17 18:15 02/09/17 11:11 Senna/Docusate Sodium (Janneth-Colace) 1 tab BID PO 01/30/17 21:00 02/09/17 08:28 Magnesium Hydroxide (Milk Of Magnesia Liq) 30 ml Q12H PRN PO MILD - MODERATE CONSTIPATION 01/30/17 18:15 02/07/17 23:18 Atorvastatin Calcium (Lipitor) 40 mg HS PO 01/30/17 21:00 02/08/17 22:20 Fluticasone/ Vilanterol (Breo Ellipta 100-25 Inh) 1 puff DAILY INH 01/31/17 09:00 02/09/17 08:28 Metoprolol Succinate (Toprol Xl) 50 mg DAILY PO 01/31/17 09:00 02/09/17 08:28 Ondansetron HCl (Zofran Inj) 4 mg Q4HR PRN IV PUSH Nausea 02/05/17 12:00 02/08/17 22:23 Nystatin (Mycostatin Liq) 5 ml QID SWISH-SWAL 02/06/17 13:00 02/09/17 08:28 Prednisone (Deltasone) 10 mg BID PO 02/06/17 21:00 02/09/17 08:28 Heparin Sodium (Porcine) 500 units 500 units UNSCH IV FLUSH 02/07/17 10:30 02/08/17 22:35 Ceftriaxone Sodium/Sodium Chloride (Rocephin Inj/NS Inj) 100 ml @ 200 mls/hr Q24H IV 02/07/17 23:00 02/09/17 00:21 Temazepam (Restoril) 15 mg HS PRN PO INSOMNIA 02/07/17 21:15 02/09/17 02:22 Objective Remarks GENERAL: Elderly female, lying in bed in nad. SKIN: Warm and dry. HEAD: Normocephalic. EYES: No injection or drainage. NECK: Supple, trachea midline. CARDIOVASCULAR: Regular rate and rhythm RESPIRATORY: diminished along right lung chang. diminished at bases. occasional wheeze. On 1L O2 via NC GASTROINTESTINAL: Abdomen soft, non-tender, nondistended. EXTREMITIES: No cyanosis NEUROLOGICAL: awake and alert, normal speech. moving all extremities. Assessment/Plan Problem List: (1) Metastatic lung carcinoma Status: Acute Plan: 02/09: pleurx catheter placement today. start Megace for appetite stimulation 02/08: Tolerated chemo OK yesterday. Chest tube output significantly decreased. Will arrange for Pleur-X cath placement. Pt somewhat more lethargic than yesterday. Will obtain CT head. 02/07: The pt got her infusaport today. Chemotherapy planned for later today. Emotional care provided. Will monitor. 02/06: will transfer to [facility] and start Carbo/Taxol tomorrow. will also consult invasive radiology for port placement. --+ pleural effusion --stage IV disease (2) Pleural effusion on right Status: Acute Plan: --s/p thoracentesis x 2, chest tube still draining. --pleurodesis vs pleur-x catheter placement Assessment 71y/o female with recently diagnosed stage IV non-small cell lung cancer with malignant pleural effusion. Admitted with dyspnea. h/o COPD. Coronary artery disease status post IN. Hypertension. Hypercholesterolemia. Peripheral neuropathy. Attending Statement Still very short of breath Complaining of fatigue and weakness Decrease appetite pleurx tube today Discuss with the patient and her sister Problem Qualifiers (1) Metastatic lung carcinoma: Qualified Code: C78.00 - Metastatic lung carcinoma, unspecified laterality Radha Whipple Feb 09, 2017 14:04 Katarzyna Jaquez MD Feb 10, 2017 06:53
[2017-02-09] MEDS ORDERED: LIDOCAINE 1%/EPINEPHrine 1:100,000 SOLN 30 ML VIAL ONE (14:35)
--- NOTE | 2017-02-09 15:36 | PD.RAD ---
Post Procedure Progress Note Pre Procedure Diagnosis: (1) Metastatic lung carcinoma (2) Pleural effusion on right Post Procedure Diagnosis: (1) Metastatic lung carcinoma (2) Pleural effusion on right Procedure Date: Feb 09, 2017 Supervising Radiologist: John Contreras JR Proceduralist/Assist: Jennifer Wong, RT(R), Renu Manzano RT(R)() Anesthesia: Conscious Sedation Plan of Activity Patient to Unit: ROPU Patient Condition: Good See PACS Report for procedural detail/treatment Drainage Procedure Procedure 1 Imaging Guidance: Fluoroscopy Side: Right Procedure Type: Chest Tube Tunneled Procedure: Placement Prydeinig: 14 Findings: Replaced non-tunneled chest tube with tunneled Aspira drain. In good position. Plan Patient to drain daily for 7 days then daily or PRN Sutures holding Aspira drain in place can be removed in 2-3 weeks Jr. Ben,John Roman MD Feb 09, 2017 15:36
--- NOTE | 2017-02-09 17:47 | RADRPT ---
EXAM DATE/TIME: 02/09/2017 14:41 [place] COMPARISON: No previous studies available for comparison. INDICATIONS : Patient with lung cancer and recurrent plueral effusion. Tunneled catheter placement requested. MEDICAL HISTORY : 1. Lung cancer 2. HTN 3. COPD 4. CAD SURGICAL HISTORY : 1. rt chest tube 2. Appendectomy 3. Hysterectomy ENCOUNTER: Subsequent ACUITY: 2 weeks PAIN SCORE: 4/10 LOCATION: Right chest FLUORO TIME: 2.4 minutes IMAGE SERIES: 1 SEDATION TIME: 30 minutes MEDICATION(S): 1.) 100 mcg fentanyl (Sublimaze) IV 2.) DEVICE(S): 1.) 16 [place] Aspiria catheter PROCEDURE : 1. exchange of a nonpalpable chest tube for a tunneled chest tube. 2. Conscious sedation with continuous EKG and Oximetry monitoring. The risks, benefits and alternatives to the procedure were explained and verbal and written consent w as obtained. The site was prepped in sterile fashion. Full sterile technique was used, including ca p, mask, sterile gloves and gown and a large sterile sheet. Hand hygiene and 2% chlorhexidine prep w as utilized per protocol for cutaneous antisepsis with appropriate dry time for site. The skin and s ubcutaneous tissues were infiltrated with local anesthetic solution. Fluoroscopic evaluation of the existing chest tube shows it in good position within the inferior port ion of the right hemithorax. The tube was ligated and removed over wire. An Aspira catheter was tunne led for approximately 15 cm 2 the entry site of the existing chest tube. Serial dilatation and placem ent of a peel-away sheath performed. Through the peel-away sheath the Aspira catheter was placed and positioned within the lower hemithorax. The peel-away sheath was removed. The dermatotomy site was cl osed with 2-0 silk suture. 2-0 silk suture was used to anchor the catheter in place. Fluoroscopic con firmation of the appropriate positioning of the tube performed. Conscious sedation was performed with the prescribed dosages and duration as above in the presence of an independent trained radiology nurse to assist in the monitoring of the patient. EKG and oximetry remained stable throughout the procedure. CONCLUSION: 1. Exchange of a non-tunneled chest tube for a tunneled chest tube. The patient will need to drain da gio for the next 5-7 days and p.r.n. thereafter. The sutures can be removed in 2-3 weeks. John Contreras Jr., MD on February 09, 2017 at 17:42 Board Certified Radiologist. This report was verified electronically.
[2017-02-09] MEDS: ATORVASTATIN 40 MG TAB PO SCH (21:00)
[2017-02-09] MEDS: ONDANSETRON HCL 4 MG/2 ML VIAL IV PUSH PRN (21:42)
[2017-02-09] MEDS: NORTRIPTYLINE HCL 25 MG CAP PO SCH (21:46)
[2017-02-10] VITALS (10 sets, daily range): BP systolic 109–149; BP diastolic 64–81; PULSE 69–117; RESP 17–24; TEMP 95.4–98.4; O2SAT 92–100
[2017-02-10] MEDS: ACETAMINOPHEN/HYDROcodone 325 MG/5 MG TAB PO PRN ×3 (03:51→19:25)
[2017-02-10] MEDS: RESP: ALBUTEROL 2.5 MG/IPRATROPIUM 0.5 MG NEB (SCH) NEB ×6 (03:53→23:28)
[2017-02-10] MEDS: clonazePAM 0.5 MG TAB PO SCH ×3 (06:26→21:08)
--- NOTE | 2017-02-10 08:41 | HHI.PR ---
Subjective Remarks Follow up for metastatic stage IV lung cancer. Patient is resting in bed, no acute concerns. She reports sleeping better and her appetite is somewhat improved as well. No fever, chills. Objective Vitals Vital Signs Date Time Temp Pulse Resp B/P Pulse Ox O2 Delivery O2 Flow Rate FiO2 02/10/17 08:18 97 Nasal Cannula 1.50 02/10/17 05:13 18 02/10/17 04:00 97.9 103 18 136/78 96 02/10/17 03:53 95 Nasal Cannula 2.00 02/10/17 00:00 97.7 102 18 136/81 100 02/09/17 23:51 20 02/09/17 21:43 Nasal Cannula 2.00 02/09/17 20:36 96 Nasal Cannula 2.00 02/09/17 20:00 97.6 107 18 138/80 95 02/09/17 16:00 97.7 108 19 171/96 99 02/09/17 12:00 97.3 97 19 164/92 100 02/09/17 08:43 Nasal Cannula 1.00 21 I/O 02/09/17 02/09/17 02/09/17 02/10/17 02/10/17 02/10/17 07:00 15:00 23:00 07:00 15:00 23:00 Intake Total 0 ml 120 ml 120 ml Output Total 40 ml 713 ml Balance -40 ml -713 ml 120 ml 120 ml Intake Oral 0 ml 120 ml 120 ml Output Urine Total 500 ml Chest Tube Drainage Total 40 ml 213 ml # Voids 2 3 1 Result Diagram: 02/09/17 0519 02/09/17 0519 Imaging Last Impressions Catheter Placement X-Ray 02/09/17 1308 Signed Impressions: Service Date/Time: Thursday, February 09, 2017 14:41 - CONCLUSION: 1. Exchange of a non-tunneled chest tube for a tunneled chest tube. The patient will need to drain daily for the next 5-7 days and p.r.n. thereafter. The sutures can be removed in 2-3 weeks. John Contreras Jr., MD Chest X-Ray 02/09/17 0000 Signed Impressions: Service Date/Time: Thursday, February 09, 2017 05:23 - CONCLUSION: No significant change. Basilar consolidation and volume loss again seen on the right. Chapo Cooley MD Head CT 02/08/17 0000 Signed Impressions: Service Date/Time: February 18:57 - CONCLUSION: Normal examination. Chapo Abdul MD Port Line Insertion 02/07/17 Signed Impressions: Service Date/Time: Tuesday, February 07, 2017 09:31 - CONCLUSION: Uncomplicated ultrasound and fluoroscopic guided implanted central venous port catheter placement as described in detail above. An 8 [place] Power port was placed. Navid Tompkins MD Chest Tube Insertion 02/04/17 Signed Impressions: Service Date/Time: Saturday, February 04, 2017 09:55 - CONCLUSION: Uncomplicated chest tube placement as above. John Contreras Jr., MD Chest Ultrasound 02/03/17 Signed Impressions: Service Date/Time: Friday, February 03, 2017 07:59 - CONCLUSION: Right pleural effusion with septations. Skin marked. Keshav Krishnan MD Thoracentesis Ultrasound 02/01/17 Signed Impressions: Service Date/Time: February 13:52 - CONCLUSION: Uncomplicated ultrasound guided thoracentesis with removal of 950 cc of fluid. The remaining fluid was not removed since the patient experienced chest pain. Given the right pulmonary mass and collapse of a portion of the lung, this fluid will likely recur. Chapo Escalona MD Abdomen/Pelvis CT 01/30/17 1634 Signed Impressions: Service Date/Time: Monday, January 30, 2017 17:06 - CONCLUSION: 1. Moderate to large right pleural effusion 2. Prominent consolidation/mass right hilar area with collapse of the right lower lung 3. Tiny gallstones in the gallbladder. No biliary tract obstruction. 4. Scattered diverticulosis of the sigmoid colon without inflammatory changes. Germain Massey MD Objective Remarks GENERAL: Alert, NAD. SKIN: Warm and dry. HEAD: Normocephalic. EYES: No scleral icterus. No injection or drainage. NECK: Supple, trachea midline. No JVD or lymphadenopathy. CARDIOVASCULAR: Regular rate and rhythm without murmurs, gallops, or rubs. RESPIRATORY: Moderate air entry. No wheezing noted. GASTROINTESTINAL: Abdomen soft, non-tender, nondistended. MUSCULOSKELETAL: No cyanosis, or edema. BACK: Nontender without obvious deformity. No CVA tenderness. Procedures Right sided Chest tube placement on 02/04/2017 Port placement 02/07/2017. Pleuro-x catheter placement on 02/09/2017. A/P Problem List: (1) Metastatic lung carcinoma ICD Code: C78.00 Status: Acute (2) Pleural effusion on right ICD Code: J90 Status: Acute (3) Acute respiratory failure ICD Code: J96.00 Status: Acute (4) COPD Status: Acute Assessment and Plan Ms. Vu is a pleasant 71 year old female with a long history of smoking, recently diagnosed with stage IV lung cancer who presented to the ED on 2016 due to worsening shortness of breath. Initial work up indicated significant pleural effusion on the right side as well as mass. Patient underwent thoracentesis. Medical oncology, Pulmonary are on board and following patient. Patient underwent Port placement on 02/07/2017 and chemotherapy started on the same day. - Stage IV non-small cell lung cancer - Malignant pleural effusion - s/p Thoracentesis X 2. Chest tube in place on the right side, draining. - Patient started on Carboplatin as well Paclitaxel per Oncology. - pleuro-x cath placed on 02/09/2017 by interventional radiology - Acute respiratory failure - Likely due to large pleural effusion as well as COPD. - Continue Ceftriaxone 1g Q24hrs. - Continue DuoNeb PRN, Prednisone 10mg BID. Continue Fluticasone-Vilanter INH. -Currently on nasal cannula 1 L of oxygen. - Oral/Pharyngeal candidiasis - Poor nutrition - Continue Nystatin liquid. - GI consulted per pulmonary recommendation. Patient currently does not want a PEG tube. - Discussed with oncology. Continue megestrol liquid 400mg Qday. - If patient tolerates diet well, we can consider sending her to rehab on 07/2017. - Hypertension - Patient's BP elevated during the course of Chemotherapy today. - BP within reasonable range. Continue Clonidine 0.1mg Q6hrs PRN - Hyperlipidemia - continue Lipitor 40mg QHS. - Neuropathic pain - Continue nortriptyline, reduced dose from 50 mg to 25 mg daily which is her home dose. Full code. SCDs. Potential discharge on 02/11/2017 if she tolerates diet well. PT recommends rehab. Problem Qualifiers (1) Metastatic lung carcinoma: Qualified Code: C78.00 - Metastatic lung carcinoma, unspecified laterality Yakov Galdamez DO Feb 10, 2017 8:41 am
[2017-02-10] MEDS: NYSTATIN SUSP 500,000 U/5 ML CUP SWISH-SWAL SCH ×4 (09:00→19:27)
[2017-02-10] MEDS: DOCUSATE SODIUM 50 MG/SENNA 8.6 MG TAB PO SCH ×2 (09:17→19:27)
[2017-02-10] MEDS: predniSONE 10 MG TAB PO SCH ×2 (09:17→19:26)
[2017-02-10] MEDS: NORTRIPTYLINE HCL 25 MG CAP PO SCH ×2 (09:17→19:27)
[2017-02-10] MEDS: METOPROLOL SUCCINATE 25 MG EXTENDED RELEASE TAB PO SCH (09:17)
[2017-02-10] MEDS: MEGESTROL ACETATE SUSP 400 MG/10 ML CUP PO SCH (09:17)
[2017-02-10] MEDS: SODIUM CHLORIDE 0.9% FLUSH 10 ML FLUSH IV FLUSH SCH ×2 (09:17→19:27)
[2017-02-10] MEDS: FLUTICASONE 100 MCG/VILANTEROL 25 MCG INHALER INH SCH (09:28)
--- NOTE | 2017-02-10 11:25 | PD.ONC.PN ---
Subjective Subjective Remarks Afebrile overnight. Patient had hospira drain placement yesterday. Very fatigued today. Still eating very little. No breakfast this morning. Objective Data Date Time Temp Pulse Resp B/P Pulse Ox O2 Delivery O2 Flow Rate FiO2 02/10/17 08:18 97 Nasal Cannula 1.50 02/10/17 08:00 95.4 117 20 149/81 99 02/10/17 05:13 18 02/10/17 04:00 97.9 103 18 136/78 96 02/10/17 03:53 95 Nasal Cannula 2.00 02/10/17 00:00 97.7 102 18 136/81 100 02/09/17 23:51 20 02/09/17 21:43 Nasal Cannula 2.00 02/09/17 20:36 96 Nasal Cannula 2.00 02/09/17 20:00 97.6 107 18 138/80 95 02/09/17 16:00 97.7 108 19 171/96 99 02/09/17 12:00 97.3 97 19 164/92 100 02/10/17 02/10/17 02/10/17 07:00 15:00 23:00 Intake Total 120 ml Balance 120 ml Result Diagram: 02/09/17 0519 02/09/17 0519 Imaging Studies Last 24 hours Impressions Catheter Placement X-Ray 02/09/17 1308 Signed Impressions: Service Date/Time: Thursday, February 09, 2017 14:41 - CONCLUSION: 1. Exchange of a non-tunneled chest tube for a tunneled chest tube. The patient will need to drain daily for the next 5-7 days and p.r.n. thereafter. The sutures can be removed in 2-3 weeks. John Contreras Jr., MD Administered Medications Medications (Trade) Dose Ordered Sig/Eloise Route PRN Reason Start Time Stop Time Status Last Admin Dose Admin Sodium Chloride (NS 1000 ml Inj) 1,000 ml @ 83 mls/hr Q12H3M IV 01/30/17 20:00 Hold 02/03/17 08:21 Sodium Chloride (NS Flush) 2 ml BID IV FLUSH 01/30/17 21:00 02/10/17 09:17 Acetaminophen/ Hydrocodone Bitart (Broadway 5-325 Mg) 1 tab Q4H PRN PO PAIN SCALE 3 TO 5 01/30/17 18:15 02/10/17 09:25 Acetaminophen/ Hydrocodone Bitart ([place] 7.5-325 Mg) 1 tab Q4H PRN PO PAIN SCALE 6 TO 10 01/30/17 18:15 02/09/17 21:44 Senna/Docusate Sodium (Janneth-Colace) 1 tab BID PO 01/30/17 21:00 02/10/17 09:17 Magnesium Hydroxide (Milk Of Magnesia Liq) 30 ml Q12H PRN PO MILD - MODERATE CONSTIPATION 01/30/17 18:15 02/07/17 23:18 Atorvastatin Calcium (Lipitor) 40 mg HS PO 01/30/17 21:00 02/08/17 22:20 Fluticasone/ Vilanterol (Breo Ellipta 100-25 Inh) 1 puff DAILY INH 01/31/17 09:00 02/10/17 09:28 Metoprolol Succinate (Toprol Xl) 50 mg DAILY PO 01/31/17 09:00 02/10/17 09:17 Ondansetron HCl (Zofran Inj) 4 mg Q4HR PRN IV PUSH Nausea 02/05/17 12:00 02/09/17 21:42 Nystatin (Mycostatin Liq) 5 ml QID SWISH-SWAL 02/06/17 13:00 02/09/17 21:42 Prednisone (Deltasone) 10 mg BID PO 02/06/17 21:00 02/10/17 09:17 Heparin Sodium (Porcine) (Heparin Central Flush) 500 units UNSCH IV FLUSH 02/07/17 10:30 02/08/17 22:35 Heparin Sodium (Porcine) 250 units 250 units UNSCH PRN IV FLUSH SEE PROTOCOL 02/07/17 10:30 02/09/17 15:21 Ceftriaxone Sodium/Sodium Chloride (Rocephin Inj/NS Inj) 100 ml @ 200 mls/hr Q24H IV 02/07/17 23:00 02/09/17 00:21 Temazepam (Restoril) 15 mg HS PRN PO INSOMNIA 02/07/17 21:15 02/09/17 02:22 Clonazepam (KlonoPIN) 0.5 mg Q8HR PO 02/09/17 14:00 02/10/17 06:26 Megestrol Acetate (Megace Liq) 400 mg DAILY PO 02/10/17 09:00 02/10/17 09:17 Nortriptyline HCl (Pamelor) 25 mg BID PO 02/09/17 21:00 02/10/17 09:17 Objective Remarks GENERAL: Elderly female, sleeping in bed on approach. on 1.5L O2 via NC SKIN: Warm and dry. HEAD: Normocephalic. EYES: No injection or drainage. NECK: Supple, trachea midline. CARDIOVASCULAR: Regular rate and rhythm RESPIRATORY: diminished along right lung chang. diminished at bases. anterior chang with occasional rhonchi. hospira drain in place, right chest wall. GASTROINTESTINAL: Abdomen soft, non-tender, nondistended. EXTREMITIES: No cyanosis NEUROLOGICAL: awake and alert, but lethargic. normal speech Assessment/Plan Problem List: (1) Metastatic lung carcinoma Status: Acute Plan: 02/10: encouraged patient to eat. she is still very deconditioned. may need rehab.SNF but patient and family refusing, want to go home with [facility]. continue Megace. 02/09: pleurx catheter placement today. start Megace for appetite stimulation 02/08: Tolerated chemo OK yesterday. Chest tube output significantly decreased. Will arrange for Pleur-X cath placement. Pt somewhat more lethargic than yesterday. Will obtain CT head. 02/07: The pt got her infusaport today. Chemotherapy planned for later today. Emotional care provided. Will monitor. 02/06: will transfer to [facility] and start Carbo/Taxol tomorrow. will also consult invasive radiology for port placement. --+ pleural effusion --stage IV disease Assessment 71y/o female with recently diagnosed stage IV non-small cell lung cancer with malignant pleural effusion. Admitted with dyspnea. h/o COPD. Coronary artery disease status post [facility]. Hypertension. Hypercholesterolemia. Peripheral neuropathy. Attending Statement Less short of breath Complaining of severe weakness Discussed with the patient and two daughters I recommend rehab placement. Patient has agreed Consult case management for rehab placement We will followThe exam, history, and the medical decision-making described in the above note were completed with the assistance of the mid-level provider. I reviewed and agree with the findings presented. I attest that I had a face-to- face encounter with the patient on the same day, and personally performed and documented my assessment and findings in the medical record. Problem Qualifiers (1) Metastatic lung carcinoma: Qualified Code: C78.00 - Metastatic lung carcinoma, unspecified laterality Radha Whipple Feb 10, 2017 11:25 Katarzyna Jaquez MD Feb 10, 2017 21:25
[2017-02-10 14:42] LABS: AUTOMATED NEUTROPHIL # 19.2 TH/MM3 (1.8-7.7); BASOPHIL % 0.1 % (0.0-2.0); EOSINOPHIL # 0.1 TH/MM3 (0-0.4); EOSINOPHIL % 0.4 % (0.0-4.0); HEMATOCRIT 35.4 % (35.0-46.0); HEMO FLAGS DIFF FINAL; LYMPH % 1.5 % (9.0-44.0); LYMPHOCYTE # 0.3 TH/MM3 (1.0-4.8); MEAN CORPUSCULAR HEMOGLOBIN 27.3 PG (27.0-34.0); MEAN CORPUSCULAR HGB CONC 31.7 % (32.0-36.0); MONO % 0.8 % (0.0-8.0); NEUT % 97.2 % (16.0-70.0); PLATELET COUNT 352 TH/MM3 (150-450); RED BLOOD COUNT 4.12 MIL/MM3 (4.00-5.30); RED CELL DISTRIBUTION WIDTH 17.9 % (11.6-17.2); WHITE BLOOD COUNT 19.8 TH/MM3 (4.0-11.0)
[2017-02-10] MEDS: ONDANSETRON HCL 4 MG/2 ML VIAL IV PUSH PRN (19:26)
[2017-02-10] MEDS: ATORVASTATIN 40 MG TAB PO SCH (19:26)
[2017-02-10] MEDS: cefTRIAXone INJ 1,000 MG in SODIUM CHLORIDE 0.9% INJ 100 ML IV SCH (21:08)
[2017-02-10] MEDS: TEMAZEPAM 15 MG CAP PO PRN (22:59)
[2017-02-11] VITALS (8 sets, daily range): BP systolic 95–122; BP diastolic 60–78; PULSE 115–121; RESP 18–24; TEMP 96.3–98.4; O2SAT 92–99
[2017-02-11] MEDS: RESP: ALBUTEROL 2.5 MG/IPRATROPIUM 0.5 MG NEB (PRN) NEB ×2 (00:41→22:04)
[2017-02-11] MEDS: ACETAMINOPHEN/HYDROcodone 325 MG/7.5 MG TAB PO PRN (01:23)
[2017-02-11] MEDS: ONDANSETRON HCL 4 MG/2 ML VIAL IV PUSH PRN (01:26)
[2017-02-11] MEDS: RESP: ALBUTEROL 2.5 MG/IPRATROPIUM 0.5 MG NEB (SCH) NEB ×6 (03:53→23:55)
[2017-02-11 04:20] LABS: AUTOMATED NEUTROPHIL # 17.1 TH/MM3 (1.8-7.7); BASOPHIL % 0.2 % (0.0-2.0); EOSINOPHIL # 0.1 TH/MM3 (0-0.4); EOSINOPHIL % 0.5 % (0.0-4.0); HEMATOCRIT 34.8 % (35.0-46.0); HEMO FLAGS DIFF FINAL; LYMPH % 1.4 % (9.0-44.0); LYMPHOCYTE # 0.3 TH/MM3 (1.0-4.8); MEAN CELL VOLUME 85.8 FL (80.0-100.0); MEAN CORPUSCULAR HEMOGLOBIN 28.3 PG (27.0-34.0); MONO % 0.8 % (0.0-8.0); NEUT % 97.1 % (16.0-70.0); PLATELET COUNT 340 TH/MM3 (150-450); RED BLOOD COUNT 4.06 MIL/MM3 (4.00-5.30); RED CELL DISTRIBUTION WIDTH 17.6 % (11.6-17.2); WHITE BLOOD COUNT 17.6 TH/MM3 (4.0-11.0)
[2017-02-11] MEDS: clonazePAM 0.5 MG TAB PO SCH ×3 (05:31→22:44)
[2017-02-11] MEDS ORDERED: CLON.5 PO (08:37)
[2017-02-11] MEDS ORDERED: SENN1TAB PO (08:37)
[2017-02-11] MEDS ORDERED: MEGE40SU PO (08:37)
[2017-02-11] MEDS ORDERED: ATOR40TA16 PO (08:37)
[2017-02-11] MEDS ORDERED: REST15CA PO (08:37)
[2017-02-11] MEDS ORDERED: HYDR-3516 PO (08:37)
--- NOTE | 2017-02-11 08:38 | HHI.PR ---
Subjective Remarks Follow up for metastatic stage IV lung cancer. Patient is currently doing well. Denies any chest pain, shortness of breath, fever or chills. She has not been able to sleep much at night despite using Restoril. She is tolerating diet better. Objective Vitals Vital Signs Date Time Temp Pulse Resp B/P Pulse Ox O2 Delivery O2 Flow Rate FiO2 02/11/17 04:00 96.6 118 19 122/78 92 02/11/17 02:31 20 02/10/17 23:02 96.8 117 19 109/77 92 02/10/17 21:00 95 Nasal Cannula 2.00 21 02/10/17 21:00 18 02/10/17 20:00 98.4 108 17 123/78 95 02/10/17 19:46 96 Nasal Cannula 2.00 02/10/17 16:00 96.1 114 20 114/77 98 02/10/17 12:00 96.6 69 24 119/64 95 02/10/17 09:11 Nasal Cannula 2.00 I/O 02/10/17 02/10/17 02/10/17 02/11/17 02/11/17 02/11/17 07:00 15:00 23:00 07:00 15:00 23:00 Intake Total 120 ml 480 ml 0 ml Output Total 750 ml Balance 120 ml 480 ml -750 ml Intake Oral 120 ml 480 ml 0 ml Output Urine Total 300 ml Drainage Total 450 ml # Voids 1 1 # Bowel Movements 0 Result Diagram: 02/11/17 0343 02/09/17 0519 Imaging Last Impressions Catheter Placement X-Ray 02/09/17 1308 Signed Impressions: Service Date/Time: Thursday, February 09, 2017 14:41 - CONCLUSION: 1. Exchange of a non-tunneled chest tube for a tunneled chest tube. The patient will need to drain daily for the next 5-7 days and p.r.n. thereafter. The sutures can be removed in 2-3 weeks. John Contreras Jr., MD Chest X-Ray 02/09/17 0000 Signed Impressions: Service Date/Time: Thursday, February 09, 2017 05:23 - CONCLUSION: No significant change. Basilar consolidation and volume loss again seen on the right. Chapo Cooley MD Head CT 02/08/17 0000 Signed Impressions: Service Date/Time: February 18:57 - CONCLUSION: Normal examination. Chapo Abdul MD Port Line Insertion 02/07/17 0000 Signed Impressions: Service Date/Time: Tuesday, February 07, 2017 09:31 - CONCLUSION: Uncomplicated ultrasound and fluoroscopic guided implanted central venous port catheter placement as described in detail above. An 8 [place] Power port was placed. Navid Tompkins MD Chest Tube Insertion 02/04/17 0000 Signed Impressions: Service Date/Time: Saturday, February 04, 2017 09:55 - CONCLUSION: Uncomplicated chest tube placement as above. John Contreras Jr., MD Chest Ultrasound 02/03/17 0000 Signed Impressions: Service Date/Time: Friday, February 03, 2017 07:59 - CONCLUSION: Right pleural effusion with septations. Skin marked. Keshav Krishnan MD Thoracentesis Ultrasound 02/01/17 0000 Signed Impressions: Service Date/Time: February 13:52 - CONCLUSION: Uncomplicated ultrasound guided thoracentesis with removal of 950 cc of fluid. The remaining fluid was not removed since the patient experienced chest pain. Given the right pulmonary mass and collapse of a portion of the lung, this fluid will likely recur. Chapo Escalona MD Abdomen/Pelvis CT 01/30/17 1634 Signed Impressions: Service Date/Time: Monday, January 30, 2017 17:06 - CONCLUSION: 1. Moderate to large right pleural effusion 2. Prominent consolidation/mass right hilar area with collapse of the right lower lung 3. Tiny gallstones in the gallbladder. No biliary tract obstruction. 4. Scattered diverticulosis of the sigmoid colon without inflammatory changes. Germain Massey MD Objective Remarks GENERAL: Alert, NAD. SKIN: Warm and dry. HEAD: Normocephalic. EYES: No scleral icterus. No injection or drainage. NECK: Supple, trachea midline. No JVD or lymphadenopathy. CARDIOVASCULAR: Regular rhythm, mildly tachycardic without murmurs, gallops, or rubs. RESPIRATORY: Moderate air entry. No wheezing noted. GASTROINTESTINAL: Abdomen soft, non-tender, nondistended. MUSCULOSKELETAL: No cyanosis, or edema. BACK: Nontender without obvious deformity. No CVA tenderness. Procedures Right sided Chest tube placement on 02/04/2017 Port placement 02/07/2017. Pleuro-x catheter placement on 02/09/2017. A/P Problem List: (1) Metastatic lung carcinoma ICD Code: C78.00 Status: Acute (2) Pleural effusion on right ICD Code: J90 Status: Acute (3) Acute respiratory failure ICD Code: J96.00 Status: Acute (4) COPD Status: Acute Assessment and Plan Ms. Vu is a pleasant 71 year old female with a long history of smoking, recently diagnosed with stage IV lung cancer who presented to the ED on 2016 due to worsening shortness of breath. Initial work up indicated significant pleural effusion on the right side as well as mass. Patient underwent thoracentesis. Medical oncology, Pulmonary are on board and following patient. Patient underwent Port placement on 02/07/2017 and chemotherapy started on the same day. - Stage IV non-small cell lung cancer - Malignant pleural effusion - s/p Thoracentesis X 2. Chest tube in place on the right side, draining. - Patient started on Carboplatin as well Paclitaxel per Oncology. - pleuro-x cath placed on 02/09/2017 by interventional radiology - Acute respiratory failure - Likely due to large pleural effusion as well as COPD. - Currently on Ceftriaxone 1g Q24hrs. we'll DC IV antibiotics and start Levaquin 500 mg by mouth daily for total 5 days. - Continue DuoNeb PRN, Continue Fluticasone-Vilanter INH. - Discontinue prednisone. -Currently on nasal cannula 1-2 L of oxygen. - Oral/Pharyngeal candidiasis - Poor nutrition - Continue Nystatin liquid. - GI consulted per pulmonary recommendation. Patient currently does not want a PEG tube. - Discussed with oncology. Continue megestrol liquid 400mg Qday. - Hypertension - Patient's BP elevated during the course of Chemotherapy today. - BP within reasonable range. Continue Clonidine 0.1mg Q6hrs PRN - Hyperlipidemia - continue Lipitor 40mg QHS. - Neuropathic pain - Continue nortriptyline, reduced dose from 50 mg to 25 mg daily which is her home dose. Full code. SCDs. Discussed with patient's daughter on 02/11/2017. Patient and patient's daughter where reluctant about SNF. However now the would like to consider going to SNF. Consulted case management to see if SNF can be arranged today. [id number] form signed. Problem Qualifiers (1) Metastatic lung carcinoma: Qualified Code: C78.00 - Metastatic lung carcinoma, unspecified laterality Yakov Gladamez DO Feb 11, 2017 8:38 am
[2017-02-11] MEDS ORDERED: LEVA500T20 PO (08:46)
[2017-02-11] MEDS: NYSTATIN SUSP 500,000 U/5 ML CUP SWISH-SWAL SCH ×4 (09:00→21:00)
[2017-02-11] MEDS: NORTRIPTYLINE HCL 25 MG CAP PO SCH ×2 (09:00→22:44)
[2017-02-11] MEDS: METOPROLOL SUCCINATE 25 MG EXTENDED RELEASE TAB PO SCH (09:25)
[2017-02-11] MEDS: MEGESTROL ACETATE SUSP 400 MG/10 ML CUP PO SCH (09:25)
[2017-02-11] MEDS: DOCUSATE SODIUM 50 MG/SENNA 8.6 MG TAB PO SCH ×2 (09:25→22:44)
[2017-02-11] MEDS: FLUTICASONE 100 MCG/VILANTEROL 25 MCG INHALER INH SCH (09:27)
[2017-02-11] MEDS: SODIUM CHLORIDE 0.9% FLUSH 10 ML FLUSH IV FLUSH SCH ×2 (09:27→22:44)
--- NOTE | 2017-02-11 11:54 | PD.ONC.PN ---
Subjective Subjective Remarks Afebrile overnight. Ate a bit for dinner last night. Still quite fatigued. Says she is willing to go to SNF now. Objective Data Date Time Temp Pulse Resp B/P Pulse Ox O2 Delivery O2 Flow Rate FiO2 02/11/17 09:23 Nasal Cannula 2.00 02/11/17 08:48 94 Nasal Cannula 2.00 02/11/17 08:00 98.3 119 24 106/77 93 02/11/17 04:00 96.6 118 19 122/78 92 02/11/17 02:31 20 02/10/17 23:02 96.8 117 19 109/77 92 02/10/17 21:00 95 Nasal Cannula 2.00 21 02/10/17 21:00 18 02/10/17 20:00 98.4 108 17 123/78 95 02/10/17 19:46 96 Nasal Cannula 2.00 02/10/17 16:00 96.1 114 20 114/77 98 02/10/17 12:00 96.6 69 24 119/64 95 02/11/17 02/11/17 02/11/17 07:00 15:00 23:00 Intake Total 0 ml Output Total 750 ml Balance -750 ml Result Diagram: 02/11/17 0343 02/09/17 0519 Laboratory Results Laboratory Tests Test 02/10/17 02/11/17 14:30 03:43 White Blood Count 19.8 TH/MM3 17.6 TH/MM3 Red Blood Count 4.12 MIL/MM3 4.06 MIL/MM3 Hemoglobin 11.2 GM/DL 11.5 GM/DL Hematocrit 35.4 % 34.8 % Mean Corpuscular Volume 86.0 FL 85.8 FL Mean Corpuscular Hemoglobin 27.3 PG 28.3 PG Mean Corpuscular Hemoglobin 31.7 % 33.0 % Concent Red Cell Distribution Width 17.9 % 17.6 % Platelet Count 352 TH/MM3 340 TH/MM3 Mean Platelet Volume 7.5 FL 8.2 FL Neutrophils (%) (Auto) 97.2 % 97.1 % Lymphocytes (%) (Auto) 1.5 % 1.4 % Monocytes (%) (Auto) 0.8 % 0.8 % Eosinophils (%) (Auto) 0.4 % 0.5 % Basophils (%) (Auto) 0.1 % 0.2 % Neutrophils # (Auto) 19.2 TH/MM3 17.1 TH/MM3 Lymphocytes # (Auto) 0.3 TH/MM3 0.3 TH/MM3 Monocytes # (Auto) 0.2 TH/MM3 0.1 TH/MM3 Eosinophils # (Auto) 0.1 TH/MM3 0.1 TH/MM3 Basophils # (Auto) 0.0 TH/MM3 0.0 TH/MM3 CBC Comment DIFF FINAL DIFF FINAL Differential Comment Administered Medications Medications (Trade) Dose Ordered Sig/Eloise Route PRN Reason Start Time Stop Time Status Last Admin Dose Admin Sodium Chloride (NS Flush) 2 ml BID IV FLUSH 01/30/17 21:00 02/11/17 09:27 Acetaminophen/ Hydrocodone Bitart (Gwinner 5-325 Mg) 1 tab Q4H PRN PO PAIN SCALE 3 TO 5 01/30/17 18:15 02/10/17 19:25 Acetaminophen/ Hydrocodone Bitart (Gwinner 7.5-325 Mg) 1 tab Q4H PRN PO PAIN SCALE 6 TO 10 01/30/17 18:15 02/11/17 01:23 Senna/Docusate Sodium (Janneth-Colace) 1 tab BID PO 01/30/17 21:00 02/11/17 09:25 Magnesium Hydroxide (Milk Of Magnesia Liq) 30 ml Q12H PRN PO MILD - MODERATE CONSTIPATION 01/30/17 18:15 02/07/17 23:18 Atorvastatin Calcium (Lipitor) 40 mg HS PO 01/30/17 21:00 02/10/17 19:26 Fluticasone/ Vilanterol (Breo Ellipta 100-25 Inh) 1 puff DAILY INH 01/31/17 09:00 02/11/17 09:27 Metoprolol Succinate (Toprol Xl) 50 mg DAILY PO 01/31/17 09:00 02/11/17 09:25 Ondansetron HCl (Zofran Inj) 4 mg Q4HR PRN IV PUSH Nausea 02/05/17 12:00 02/11/17 01:26 Nystatin (Mycostatin Liq) 5 ml QID SWISH-SWAL 02/06/17 13:00 02/10/17 19:27 Heparin Sodium (Porcine) (Heparin Central Flush) 500 units UNSCH IV FLUSH 02/07/17 10:30 02/08/17 22:35 Heparin Sodium (Porcine) (Heparin Central Flush) 250 units UNSCH PRN IV FLUSH SEE PROTOCOL 02/07/17 10:30 02/09/17 15:21 Temazepam (Restoril) 15 mg HS PRN PO INSOMNIA 02/07/17 21:15 02/10/17 22:59 Clonazepam (KlonoPIN) 0.5 mg Q8HR PO 02/09/17 14:00 02/11/17 09:25 Megestrol Acetate (Megace Liq) 400 mg DAILY PO 02/10/17 09:00 02/11/17 09:25 Nortriptyline HCl (Pamelor) 25 mg BID PO 02/09/17 21:00 02/10/17 19:27 Objective Remarks GENERAL: Elderly female, sleeping in bed, but easily awakened. SKIN: Warm and dry. HEAD: Normocephalic. EYES: No injection or drainage. NECK: Supple, trachea midline. CARDIOVASCULAR: Regular rate and rhythm RESPIRATORY: aspira drain in place, right chest wall. anterior chang with occasional rhonchi. diminished at bases GASTROINTESTINAL: Abdomen soft, non-tender, nondistended. EXTREMITIES: No cyanosis NEUROLOGICAL: awake and alert, normal speech. moving all extremities. Assessment/Plan Problem List: (1) Metastatic lung carcinoma Status: Acute Plan: 02/11: agree with SNF placement, she is still quite weak. encouraged to eat. once discharged, follow up in clinic. 02/10: encouraged patient to eat. she is still very deconditioned. may need rehab.SNF but patient and family refusing, want to go home with [facility]. continue Megace. 02/09: pleurx catheter placement today. start Megace for appetite stimulation 02/08: Tolerated chemo OK yesterday. Chest tube output significantly decreased. Will arrange for Pleur-X cath placement. Pt somewhat more lethargic than yesterday. Will obtain CT head. 02/07: The pt got her infusaport today. Chemotherapy planned for later today. Emotional care provided. Will monitor. 02/06: will transfer to [facility] and start Carbo/Taxol tomorrow. will also consult invasive radiology for port placement. --+ pleural effusion --stage IV disease Assessment 71y/o female with recently diagnosed stage IV non-small cell lung cancer with malignant pleural effusion. Admitted with dyspnea. h/o COPD. Coronary artery disease status post MO. Hypertension. Hypercholesterolemia. Peripheral neuropathy. Attending Statement Still complaining of Shortness of breath and severe fatigue encourage to eat Awaiting SNF placement Okay to discharge The exam, history, and the medical decision-making described in the above note were completed with the assistance of the mid-level provider. I reviewed and agree with the findings presented. I attest that I had a [id number] encounter with the patient on the same day, and personally performed and documented my assessment and findings in the medical record. Problem Qualifiers (1) Metastatic lung carcinoma: Qualified Code: C78.00 - Metastatic lung carcinoma, unspecified laterality Radha Whipple Feb 11, 2017 11:54 Katarzyna Jaquez MD Feb 12, 2017 00:12
[2017-02-11] MEDS: ATORVASTATIN 40 MG TAB PO SCH (22:44)
[2017-02-12] VITALS (7 sets, daily range): BP systolic 100–121; BP diastolic 62–71; PULSE 107–124; RESP 18–20; TEMP 96.1–98.2; O2SAT 93–98
[2017-02-12] MEDS: RESP: ALBUTEROL 2.5 MG/IPRATROPIUM 0.5 MG NEB (SCH) NEB ×5 (03:29→20:54)
[2017-02-12] MEDS: clonazePAM 0.5 MG TAB PO SCH ×3 (06:20→20:55)
--- NOTE | 2017-02-12 08:28 | RADRPT ---
EXAM DATE/TIME: 02/12/2017 07:27 [facility] COMPARISON: CHEST SINGLE AP, February 09, 2017, 5:23. INDICATIONS : Shortness of breath. MEDICAL HISTORY : Chronic obstructive pulmonary disease. Myocardial infarction. Small cell lung cancer. SURGICAL HISTORY : CABG. Infusaport. ENCOUNTER: Subsequent ACUITY: 1 week PAIN SCORE: 0/10 LOCATION: Bilateral chest FINDINGS: Stable right IJ for [id number]. Interval exchange of right-sided chest tube for tunneled Aspira ca theter. Interval progression of right-sided pleural effusion with associated airspace disease and vol ume loss in the right upper lobe. Left lung is clear. Cardiac mediastinal contours are stable. CONCLUSION: 1. Interval exchange of right-sided chest tube for tunneled Aspira catheter with moderate progression of subpleural effusion and associated atelectasis. Plan: Will evaluate patency of the Aspira catheter and attempt drainage. Navid Tompkins MD on February 12, 2017 at 8:23 Board Certified Radiologist. This report was verified electronically.
[2017-02-12] MEDS: DOCUSATE SODIUM 50 MG/SENNA 8.6 MG TAB PO SCH ×2 (09:00→20:55)
[2017-02-12] MEDS: NYSTATIN SUSP 500,000 U/5 ML CUP SWISH-SWAL SCH ×4 (09:00→20:59)
[2017-02-12] MEDS: SODIUM CHLORIDE 0.9% FLUSH 10 ML FLUSH IV FLUSH SCH ×2 (09:00→20:56)
[2017-02-12] MEDS: MEGESTROL ACETATE SUSP 400 MG/10 ML CUP PO SCH (09:00)
[2017-02-12] MEDS: FLUTICASONE 100 MCG/VILANTEROL 25 MCG INHALER INH SCH (09:00)
[2017-02-12] MEDS: ACETAMINOPHEN/HYDROcodone 325 MG/5 MG TAB PO PRN (09:20)
[2017-02-12] MEDS: LEVOFLOXACIN 500 MG TAB PO SCH (09:21)
[2017-02-12] MEDS: METOPROLOL SUCCINATE 25 MG EXTENDED RELEASE TAB PO SCH (09:21)
[2017-02-12] MEDS: NORTRIPTYLINE HCL 25 MG CAP PO SCH ×2 (09:21→20:59)
--- NOTE | 2017-02-12 11:24 | HHI.DS ---
Discharge Summary Admission Date January 30, 2017 at 6:08 pm Discharge Date: Feb 12, 2017 Admitting Diagnosis Pleural Effusion with Acute Dyspnea (1) Metastatic lung carcinoma ICD Code: C78.00 Diagnosis: Principal (2) Pleural effusion on right ICD Code: J90 Diagnosis: Principal (3) Acute respiratory failure ICD Code: J96.00 (4) COPD Procedures Right sided Chest tube placement on 02/04/2017 Port placement 02/07/2017. Pleuro-x catheter placement on 02/09/2017. Brief History - From Admission Mrs. Vu is a 71 year old female. She came in today with shortness of breath. She has a history of lung cancer with metastasis to the abdomen. Pleural effusions have been a problem in the past, her last drainage is reported to be about two weeks ago. Tonight she has a right-sided pleural effusion. Symptoms at home have some dyspnea and shortness of breath. No fevers reported. I am seeing her after her thorocentesis, which pulled off about 1L of fluid and had to be discontinued due to pain. Mrs. Vu is still in pain when seen, and is breathing better. No other complaints present tonight. CBC/BMP: 02/11/17 0343 02/09/17 0519 Significant Findings Laboratory Tests Test 02/10/17 02/11/17 14:30 03:43 White Blood Count 19.8 TH/MM3 17.6 TH/MM3 (4.0-11.0) (4.0-11.0) Hemoglobin 11.2 GM/DL 11.5 GM/DL (11.6-15.3) (11.6-15.3) Mean Corpuscular Hemoglobin 31.7 % Concent (32.0-36.0) Red Cell Distribution Width 17.9 % 17.6 % (11.6-17.2) (11.6-17.2) Neutrophils (%) (Auto) 97.2 % 97.1 % (16.0-70.0) (16.0-70.0) Lymphocytes (%) (Auto) 1.5 % 1.4 % (9.0-44.0) (9.0-44.0) Neutrophils # (Auto) 19.2 TH/MM3 17.1 TH/MM3 (1.8-7.7) (1.8-7.7) Lymphocytes # (Auto) 0.3 TH/MM3 0.3 TH/MM3 (1.0-4.8) (1.0-4.8) Hematocrit 34.8 % (35.0-46.0) Imaging Last Impressions Chest X-Ray 02/12/17 0700 Signed Impressions: Service Date/Time: Sunday, February 12, 2017 07:27 - CONCLUSION: 1. Interval exchange of right-sided chest tube for tunneled Aspira catheter with moderate progression of subpleural effusion and associated atelectasis. Plan: Will evaluate patency of the Aspira catheter and attempt drainage. Navid Tompkins MD Catheter Placement X-Ray 02/09/17 1308 Signed Impressions: Service Date/Time: Thursday, February 09, 2017 14:41 - CONCLUSION: 1. Exchange of a non-tunneled chest tube for a tunneled chest tube. The patient will need to drain daily for the next 5-7 days and p.r.n. thereafter. The sutures can be removed in 2-3 weeks. John Contreras Jr., MD Head CT 02/08/17 0000 Signed Impressions: Service Date/Time: February 18:57 - CONCLUSION: Normal examination. Chapo Abdul MD Port Line Insertion 02/07/17 0000 Signed Impressions: Service Date/Time: Tuesday, February 07, 2017 09:31 - CONCLUSION: Uncomplicated ultrasound and fluoroscopic guided implanted central venous port catheter placement as described in detail above. An 8 [employer] port was placed. Navid Tompkins MD Chest Tube Insertion 02/04/17 0000 Signed Impressions: Service Date/Time: Saturday, February 04, 2017 09:55 - CONCLUSION: Uncomplicated chest tube placement as above. John Contreras Jr., MD Chest Ultrasound 02/03/17 0000 Signed Impressions: Service Date/Time: Friday, February 03, 2017 07:59 - CONCLUSION: Right pleural effusion with septations. Skin marked. Keshav Krishnan MD Thoracentesis Ultrasound 02/01/17 0000 Signed Impressions: Service Date/Time: February 13:52 - CONCLUSION: Uncomplicated ultrasound guided thoracentesis with removal of 950 cc of fluid. The remaining fluid was not removed since the patient experienced chest pain. Given the right pulmonary mass and collapse of a portion of the lung, this fluid will likely recur. Chapo Escalona MD Abdomen/Pelvis CT 01/30/17 1634 Signed Impressions: Service Date/Time: Monday, January 30, 2017 17:06 - CONCLUSION: 1. Moderate to large right pleural effusion 2. Prominent consolidation/mass right hilar area with collapse of the right lower lung 3. Tiny gallstones in the gallbladder. No biliary tract obstruction. 4. Scattered diverticulosis of the sigmoid colon without inflammatory changes. Germain Massey MD PE at Discharge GENERAL: Alert, NAD. SKIN: Warm and dry. HEAD: Normocephalic. EYES: No scleral icterus. No injection or drainage. NECK: Supple, trachea midline. No JVD or lymphadenopathy. CARDIOVASCULAR: Regular rhythm, mildly tachycardic without murmurs, gallops, or rubs. RESPIRATORY: Moderate air entry. No wheezing noted. GASTROINTESTINAL: Abdomen soft, non-tender, nondistended. MUSCULOSKELETAL: No cyanosis, or edema. BACK: Nontender without obvious deformity. No CVA tenderness. Pt update on day of discharge Patient is currently doing well. Daughter at bedside. Patient and daughter would rather go home with home health. Patient will have 24 hour care by her two daughters. Pt Condition on Discharge: Good Discharge Disposition: Disch w/ Home Health Serv Discharge Time: > 30 minutes Discharge Instructions DIET: Follow Instructions for: As Tolerated, No Restrictions Activities you can perform: Regular-No Restrictions Follow up Referrals: Oncology - 1 Week PCP Follow-up - 1 Week New Medications: Levofloxacin (Levaquin) 500 Mg Tablet 1 TAB PO DAILY Infection #5 TAB Atorvastatin (Atorvastatin) 40 Mg Tab 40 MG PO HS Cholesterol Management #90 TAB Clonazepam (Klonopin) 0.5 Mg Tab 0.5 MG PO Q8HR Anxiety #30 TAB Hydrocodone-Acetaminophen (Hydrocodone-Acetaminophen) 5-325 mg Tab 1 TAB PO Q4HR PAIN SCALE 4 TO 10 #30 TAB Megestrol Liq (Megestrol Liq) 40 Mg/Ml Susp 400 MG PO DAILY appetite #30 BOTTLE Sennosides-Docusate Sodium (Senna Plus 8.6-50 mg) 1 Tab Tab 1 TAB PO BID Constipation #30 TAB Temazepam (Restoril) 15 Mg Cap 15 MG PO HS PRN INSOMNIA #30 CAP Continued Medications: Coenzyme Q10 (Ubidecarenone) (Co Q 10) 100 Mg Cap 1 CAP PO DAILY Fluticasone-Vilanterol Inh (Breo Ellipta Inh) 100-25 Mcg/Act Inh 1 PUFF INH DAILY Use daily at the same time. #1 Ref 0 INHALER Ipratropium-Albuterol Neb (Duoneb) 0.5-2.5 Mg/3 Ml Neb 1 NEBULE INH Q4HR NEB Breathing Treatment #180 Ref 0 NEBULE Metoprolol Succinate ER 24 HR (Metoprolol Succinate ER 24 HR) 25 Mg Tab 50 MG PO DAILY #30 Ref 0 TAB Nortriptyline (Nortriptyline) 50 Mg Cap 50 MG PO BID Depression Control #30 Ref 0 CAP Discontinued Medications: Atorvastatin (Atorvastatin) 40 Mg Tab 50 MG PO HS Cholesterol Management #30 Ref 0 TAB Yakov Galdamez DO Feb 12, 2017 11:24
--- NOTE | 2017-02-12 11:26 | HHI.FF ---
Face to Face Verification Diagnosis: (1) Metastatic lung carcinoma (2) Pleural effusion on right (3) Depression (4) Postobstructive pneumonia Physical Therapy Order: Evaluate and Treat, Improve ambulation, Strength and gait training Home Health Nursing Order: Medical education Signs/symptoms of disease process Oxygen administration education Medication education-adverse effect Wound care and dressing changes Nursing assessment with vital signs I have seen patient Rashida Vu on 02/12/17. My clinical findings support the need for the requested home health care services because: Ltd mobility - disease progression Patient has SOB Deconditioned w/ increased weakness Limited ability to care for self Need for psychosocial assistance Impaired cognition/judgement High risk of falls Infection w/ risk of complications I certify that my clinical findings support that this patient is homebound because: Hx COPD- exertion dyspnea/weakness Unsteady gait/balance Unsafe to leave home unassisted Need for psychosocial assistance Ogo-refnqmerpm-zanoutdr bed/chair Unable to use public transportation Yakov Galdamez DO Feb 12, 2017 11:26 am
[2017-02-12] MEDS: ACETAMINOPHEN/HYDROcodone 325 MG/7.5 MG TAB PO PRN (14:22)
--- NOTE | 2017-02-12 17:14 | RADRPT ---
EXAM DATE/TIME: 02/12/2017 16:41 [facility] COMPARISON: CT ABDOMEN & PELVIS W/O CONTRAST, January 30, 2017, 17:06. INDICATIONS : Patient has aspira drain with poor drainage and enlarging effusion. RADIATION DOSE: 3.57 CTDIvol (mGy) MEDICAL HISTORY : Cardiovascular disease. Carcinoma, lung. SURGICAL HISTORY : None. ENCOUNTER: Initial ACUITY: 1 day PAIN SCALE: 5/10 LOCATION: Bilateral chest TECHNIQUE: Volumetric scanning of the chest was performed. Using automated exposure control and adjustment of t he mA and/or kV according to patient size, radiation dose was kept as low as reasonably achievable to obtain optimal diagnostic quality images. FINDINGS: LUNGS/PLEURA: There has been interval placement of a tunneled right pleural drainage catheter. The catheter is well -positioned. There is a small to moderate sized right-sided hydropneumothorax. There has been interva l progression of right-sided airspace disease and volume loss with now near complete right lung colla pse. There is progression of endobronchial occlusion to occlusion of the distal right mainstem bronch us on current exam. There is significant associated mediastinal shift to the right. HEART/MEDIASTINUM: Small pericardial effusion with coronary artery calcifications.. Mediastinal adenopathy is difficult to fully characterize due to lack of IV contrast and significant external shift. CHEST WALL: Right IJ [id number] in place. The trace subcutaneous emphysema at the Aspira insertion site. OSSEOUS STRUCTURES: No no abnormal lytic or blastic bony lesions. UPPER ABDOMEN: Visualized portions of the upper abdomen are grossly unremarkable. CONCLUSION: 1. Interval progression of right bronchial occlusion with now complete occlusion of the distal right mainstem bronchus resulting in near complete right lung collapse and associated mediastinal shift. 2. Small to moderate right sided hydropneumothorax with well-positioned tunneled Aspira drainage cath eter in place. Navid Tompkins MD on February 12, 2017 at 16:57 Board Certified Radiologist. This report was verified electronically.
--- NOTE | 2017-02-12 18:30 | HHI.PR ---
Subjective Remarks Breathing somewhat labored.. Still on O2 at 2 L. Going for revision of Pleur X catheter., Chest tube drained <100 CC Objective Vital Signs Date Time Temp Pulse Resp B/P Pulse Ox O2 Delivery O2 Flow Rate FiO2 02/12/17 15:50 96.2 113 20 117/69 97 02/12/17 13:21 Nasal Cannula 2.00 02/12/17 11:50 97.7 115 20 110/68 97 02/12/17 08:27 95 Nasal Cannula 2.00 02/12/17 07:50 96.1 116 20 121/68 97 02/12/17 04:00 98.0 120 20 100/65 93 02/12/17 00:00 98.2 124 19 104/71 96 02/11/17 22:44 Nasal Cannula 2.00 02/11/17 20:00 96.9 121 18 95/62 97 02/11/17 19:40 96 Nasal Cannula 2.00 I/O 02/11/17 02/11/17 02/11/17 02/12/17 02/12/17 02/12/17 07:00 15:00 23:00 07:00 15:00 23:00 Intake Total 0 ml 240 ml 120 ml 120 ml Output Total 750 ml 400 ml 275 ml Balance -750 ml 240 ml 120 ml -280 ml -275 ml Intake Oral 0 ml 240 ml 120 ml 120 ml Output Urine Total 300 ml 400 ml Chest Tube Drainage Total 275 ml Drainage Total 450 ml # Voids 1 0 # Bowel Movements 0 0 0 Result Diagram: 02/11/17 0343 02/09/17 0519 Procedures Right side Thoracentesis on 01/30/17 and 02/01/17. Objective Remarks GENERAL: This is a well-nourished, well-developed patient, in no distress.Pallor + CARDIOVASCULAR: Regular rate and rhythm without murmurs, gallops, or rubs. RESPIRATORY:diminished breath sounds right chest and occ crackles at the bases. GASTROINTESTINAL: Abdomen soft, non-tender,nondistended. Normal active bowel sounds. No mass MUSCULOSKELETAL: Extremities without clubbing, cyanosis, or edema. NEURO: Alert & Oriented x4 to person, place, time, situation. Moves all ext x4 Assessment and Plan Assessment and Plan Primary Impression: Pleural effusion on right Additional Impressions: Acute dyspnea/Hypoxia Metastatic lung carcinoma COPD. Anemia. Anxiety. Plan : 1. Chest catheter to be drained 2. O2 at 2 L 3. Nebs qid , duoneb. 4. Rpt Chest X ray 5. Radiation therapy 6. Bronch may not be of much benefit Antonio Cazares MD Feb 12, 2017 18:30
[2017-02-12] MEDS: TEMAZEPAM 15 MG CAP PO PRN (20:55)
[2017-02-12] MEDS: ATORVASTATIN 40 MG TAB PO SCH (20:55)
--- NOTE | 2017-02-12 22:58 | HHI.PR ---
Subjective Remarks Patient was seen in the morning. Follow up for metastatic stage IV lung cancer. Ms. Vu is sitting in the bed, waiting to go to radiology. Patient denies any acute concerns. Doing well on O2 via NC. Daughter is at bedside. Patient and daughter wants to go home with home health. While the plan was to send patient home with home health. However, patient went to the radiology department with regards to recently placed tunneled catheter ( PleurX catheter) and a CXR and a subsequent CT showed right bronchial occlusion with near complete collapse of the right lung. I discussed the case with radiologist this afternoon and subsequently cancelled our discharge plan. I also discussed with Dr. Cazares (National Business Director) who stated that bronchoscopy may be of no further help. We will consult radiation oncology. Objective Vitals Vital Signs Date Time Temp Pulse Resp B/P Pulse Ox O2 Delivery O2 Flow Rate FiO2 02/12/17 21:00 98 Nasal Cannula 2.00 02/12/17 21:00 96.9 107 18 102/62 98 02/12/17 15:50 96.2 113 20 117/69 97 02/12/17 13:21 Nasal Cannula 2.00 02/12/17 11:50 97.7 115 20 110/68 97 02/12/17 08:27 95 Nasal Cannula 2.00 02/12/17 07:50 96.1 116 20 121/68 97 02/12/17 04:00 98.0 120 20 100/65 93 02/12/17 00:00 98.2 124 19 104/71 96 I/O 02/11/17 02/11/17 02/11/17 02/12/17 02/12/17 02/12/17 07:00 15:00 23:00 07:00 15:00 23:00 Intake Total 0 ml 240 ml 120 ml 120 ml 0 ml Output Total 750 ml 400 ml 275 ml 425 ml Balance -750 ml 240 ml 120 ml -280 ml -275 ml -425 ml Intake Oral 0 ml 240 ml 120 ml 120 ml 0 ml Output Urine Total 300 ml 400 ml 0 ml Chest Tube Drainage Total 275 ml 425 ml Drainage Total 450 ml # Voids 1 0 # Bowel Movements 0 0 0 0 Result Diagram: 02/11/17 0343 02/09/17 0519 Imaging Last Impressions Chest X-Ray 02/12/17 0700 Signed Impressions: Service Date/Time: Sunday, February 12, 2017 07:27 - CONCLUSION: 1. Interval exchange of right-sided chest tube for tunneled Aspira catheter with moderate progression of subpleural effusion and associated atelectasis. Plan: Will evaluate patency of the Aspira catheter and attempt drainage. Navid Tompkins MD Chest CT 02/12/17 0000 Signed Impressions: Service Date/Time: Sunday, February 12, 2017 16:41 - CONCLUSION: 1. Interval progression of right bronchial occlusion with now complete occlusion of the distal right mainstem bronchus resulting in near complete right lung collapse and associated mediastinal shift. 2. Small to moderate right sided hydropneumothorax with well-positioned tunneled Aspira drainage catheter in place. Navid Tompkins MD Catheter Placement X-Ray 02/09/17 1308 Signed Impressions: Service Date/Time: Thursday, February 09, 2017 14:41 - CONCLUSION: 1. Exchange of a non-tunneled chest tube for a tunneled chest tube. The patient will need to drain daily for the next 5-7 days and p.r.n. thereafter. The sutures can be removed in 2-3 weeks. John Contreras Jr., MD Head CT 02/08/17 0000 Signed Impressions: Service Date/Time: February 18:57 - CONCLUSION: Normal examination. Chapo Abdul MD Port Line Insertion 02/07/17 0000 Signed Impressions: Service Date/Time: Tuesday, February 07, 2017 09:31 - CONCLUSION: Uncomplicated ultrasound and fluoroscopic guided implanted central venous port catheter placement as described in detail above. An 8 [place] Power port was placed. Navid Tompkins MD Chest Tube Insertion 02/04/17 0000 Signed Impressions: Service Date/Time: Saturday, February 04, 2017 09:55 - CONCLUSION: Uncomplicated chest tube placement as above. John Contreras Jr., MD Chest Ultrasound 02/03/17 0000 Signed Impressions: Service Date/Time: Friday, February 03, 2017 07:59 - CONCLUSION: Right pleural effusion with septations. Skin marked. Keshav Krishnan MD Thoracentesis Ultrasound 02/01/17 0000 Signed Impressions: Service Date/Time: February 13:52 - CONCLUSION: Uncomplicated ultrasound guided thoracentesis with removal of 950 cc of fluid. The remaining fluid was not removed since the patient experienced chest pain. Given the right pulmonary mass and collapse of a portion of the lung, this fluid will likely recur. Chapo Escalona MD Abdomen/Pelvis CT 01/30/17 1634 Signed Impressions: Service Date/Time: Monday, January 30, 2017 17:06 - CONCLUSION: 1. Moderate to large right pleural effusion 2. Prominent consolidation/mass right hilar area with collapse of the right lower lung 3. Tiny gallstones in the gallbladder. No biliary tract obstruction. 4. Scattered diverticulosis of the sigmoid colon without inflammatory changes. Germain Massey MD Objective Remarks GENERAL: Alert, NAD. SKIN: Warm and dry. HEAD: Normocephalic. EYES: No scleral icterus. No injection or drainage. NECK: Supple, trachea midline. No JVD or lymphadenopathy. CARDIOVASCULAR: Regular rhythm, mildly tachycardic without murmurs, gallops, or rubs. RESPIRATORY: Moderate air entry. No wheezing noted. GASTROINTESTINAL: Abdomen soft, non-tender, nondistended. MUSCULOSKELETAL: No cyanosis, or edema. BACK: Nontender without obvious deformity. No CVA tenderness. Procedures Right sided Chest tube placement on 02/04/2017 Port placement 02/07/2017. Pleuro-x catheter placement on 02/09/2017. A/P Problem List: (1) Metastatic lung carcinoma ICD Code: C78.00 Status: Acute (2) Pleural effusion on right ICD Code: J90 Status: Acute (3) Acute respiratory failure ICD Code: J96.00 Status: Acute (4) COPD Status: Acute Assessment and Plan Ms. Vu is a pleasant 71 year old female with a long history of smoking, recently diagnosed with stage IV lung cancer who presented to the ED on 2016 due to worsening shortness of breath. Initial work up indicated significant pleural effusion on the right side as well as mass. Patient underwent thoracentesis. Medical oncology, Pulmonary are on board and following patient. Patient underwent Port placement on 02/07/2017 and chemotherapy started on the same day. - Stage IV non-small cell lung cancer - Malignant pleural effusion - s/p Thoracentesis X 2. Chest tube in place on the right side, draining. - Patient started on Carboplatin as well Paclitaxel per Oncology. - pleurX cath placed on 02/09/2017 by interventional radiology - CT chest on 02/12/2017 shows near complete collapse of the right lung due to right main bronchus occlusion. - Discussed with radiologist and pulmonary as well as oncology. - Will consult Radiation oncology for likely need for radiation therapy. - Will also consult palliative care team for their input. - Acute respiratory failure - Likely due to large pleural effusion as well as COPD. - Continue Levaquin 500 mg by mouth daily for total 5 days. - Continue DuoNeb PRN, Continue Fluticasone-Vilanter INH. - Discontinued prednisone. - Currently on nasal cannula 1-2 L of oxygen. - Oral/Pharyngeal candidiasis - Poor nutrition - Continue Nystatin liquid. - GI consulted per pulmonary recommendation. Patient currently does not want a PEG tube. - Discussed with oncology. Continue megestrol liquid 400mg Qday. - Hypertension - Patient's BP elevated during the course of Chemotherapy today. - BP within reasonable range. Continue Clonidine 0.1mg Q6hrs PRN - Hyperlipidemia - continue Lipitor 40mg QHS. - Neuropathic pain - Continue nortriptyline, reduced dose from 50 mg to 25 mg daily which is her home dose. Full code. SCDs. Problem Qualifiers (1) Metastatic lung carcinoma: Qualified Code: C78.00 - Metastatic lung carcinoma, unspecified laterality Yakov Galdamez DO Feb 12, 2017 22:58
[2017-02-13] VITALS (8 sets, daily range): BP systolic 98–107; BP diastolic 62–65; PULSE 106–114; RESP 16–18; TEMP 96.7–98.2; O2SAT 90–100
--- NOTE | 2017-02-13 00:09 | PD.ONC.PN ---
Subjective Subjective Remarks c/o Anorexia weakness Complaining of shortness breath Objective Data Date Time Temp Pulse Resp B/P Pulse Ox O2 Delivery O2 Flow Rate FiO2 02/12/17 21:00 98 Nasal Cannula 2.00 02/12/17 21:00 96.9 107 18 102/62 98 02/12/17 15:50 96.2 113 20 117/69 97 02/12/17 13:21 Nasal Cannula 2.00 02/12/17 11:50 97.7 115 20 110/68 97 02/12/17 08:27 95 Nasal Cannula 2.00 02/12/17 07:50 96.1 116 20 121/68 97 02/12/17 04:00 98.0 120 20 100/65 93 Result Diagram: 02/11/17 0343 02/09/17 0519 Imaging Studies Last 24 hours Impressions Chest X-Ray 02/12/17 0700 Signed Impressions: Service Date/Time: Sunday, February 12, 2017 07:27 - CONCLUSION: 1. Interval exchange of right-sided chest tube for tunneled Aspira catheter with moderate progression of subpleural effusion and associated atelectasis. Plan: Will evaluate patency of the Aspira catheter and attempt drainage. Navid Tompkins MD Administered Medications Medications (Trade) Dose Ordered Sig/Eloise Route PRN Reason Start Time Stop Time Status Last Admin Dose Admin Sodium Chloride (NS Flush) 2 ml BID IV FLUSH 01/30/17 21:00 02/12/17 20:56 Acetaminophen/ Hydrocodone Bitart (Ozan 5-325 Mg) 1 tab Q4H PRN PO PAIN SCALE 3 TO 5 01/30/17 18:15 02/12/17 09:20 Acetaminophen/ Hydrocodone Bitart (Ozan 7.5-325 Mg) 1 tab Q4H PRN PO PAIN SCALE 6 TO 10 01/30/17 18:15 02/12/17 14:22 Senna/Docusate Sodium (Janneth-Colace) 1 tab BID PO 01/30/17 21:00 02/12/17 20:55 Magnesium Hydroxide (Milk Of Magnesia Liq) 30 ml Q12H PRN PO MILD - MODERATE CONSTIPATION 01/30/17 18:15 02/07/17 23:18 Atorvastatin Calcium (Lipitor) 40 mg HS PO 01/30/17 21:00 02/12/17 20:55 Fluticasone/ Vilanterol (Breo Ellipta 100-25 Inh) 1 puff DAILY INH 01/31/17 09:00 02/11/17 09:27 Metoprolol Succinate (Toprol Xl) 50 mg DAILY PO 01/31/17 09:00 02/12/17 09:21 Ondansetron HCl (Zofran Inj) 4 mg Q4HR PRN IV PUSH Nausea 02/05/17 12:00 02/11/17 01:26 Nystatin (Mycostatin Liq) 5 ml QID SWISH-SWAL 02/06/17 13:00 02/12/17 17:52 Heparin Sodium (Porcine) (Heparin Central Flush) 500 units UNSCH IV FLUSH 02/07/17 10:30 02/08/17 22:35 Heparin Sodium (Porcine) (Heparin Central Flush) 250 units UNSCH PRN IV FLUSH SEE PROTOCOL 02/07/17 10:30 02/09/17 15:21 Temazepam (Restoril) 15 mg HS PRN PO INSOMNIA 02/07/17 21:15 02/12/17 20:55 Clonazepam (KlonoPIN) 0.5 mg Q8HR PO 02/09/17 14:00 02/12/17 20:55 Megestrol Acetate (Megace Liq) 400 mg DAILY PO 02/10/17 09:00 02/11/17 09:25 Nortriptyline HCl (Pamelor) 25 mg BID PO 02/09/17 21:00 02/12/17 09:21 Levofloxacin (Levaquin) 500 mg DAILY PO 02/12/17 09:00 02/17/17 08:59 02/12/17 09:21 Objective Remarks GENERAL: mal-nourished, well-developed patient. SKIN: Warm and dry. HEAD: Normocephalic. EYES: No scleral icterus. No injection or drainage. NECK: Supple, trachea midline. No JVD or lymphadenopathy. LYMPHATIC: No adenopathy. CARDIOVASCULAR: Regular rate and rhythm without murmurs. RESPIRATORY: Breath sounds decrease right side GASTROINTESTINAL: Abdomen soft, non-tender, nondistended. EXTREMITIES: No cyanosis, or edema. MUSCULOSKELETAL: Adequate muscle tone. NEUROLOGICAL: No obvious focal deficit. Awake, alert, and oriented x3. PSYCHIATRIC: Appropriate mood and affect; insight and judgment normal. Assessment/Plan Problem List: (1) Metastatic lung carcinoma Status: Acute Plan: 02/12 CT Chest = progression of R lung mass with coplete collapse Right lung Consult XRT for palliative radiation to open up the lung 02/11: agree with SNF placement, she is still quite weak. encouraged to eat. once discharged, follow up in clinic. 02/10: encouraged patient to eat. she is still very deconditioned. may need rehab.SNF but patient and family refusing, want to go home with [facility]. continue Megace. 02/09: pleurx catheter placement today. start Megace for appetite stimulation 02/08: Tolerated chemo OK yesterday. Chest tube output significantly decreased. Will arrange for Pleur-X cath placement. Pt somewhat more lethargic than yesterday. Will obtain CT head. 02/07: The pt got her infusaport today. Chemotherapy planned for later today. Emotional care provided. Will monitor. 02/06: will transfer to [facility] and start Carbo/Taxol tomorrow. will also consult invasive radiology for port placement. --+ pleural effusion --stage IV disease Assessment 71y/o female with recently diagnosed stage IV non-small cell lung cancer with malignant pleural effusion. Admitted with dyspnea. h/o COPD. Coronary artery disease status post CO. Hypertension. Hypercholesterolemia. Peripheral neuropathy. Problem Qualifiers (1) Metastatic lung carcinoma: Qualified Code: C78.00 - Metastatic lung carcinoma, unspecified laterality Katarzyna Jaquez MD Feb 13, 2017 00:09
[2017-02-13] MEDS: RESP: ALBUTEROL 2.5 MG/IPRATROPIUM 0.5 MG NEB (SCH) NEB ×4 (03:44→11:31)
[2017-02-13] MEDS: clonazePAM 0.5 MG TAB PO SCH ×3 (06:12→22:45)
--- NOTE | 2017-02-13 07:46 | MB ---
cc: ARI JAQUEZ M.D.,GIO RESENDIZ M.D. PAIGE ACOSTA DATE OF CONSULTATION 02/12/2017 DATE OF 1945 REASON FOR CONSULTATION A 71-year-old female with Stage IV metastatic [id number] lung cancer recently hospitalized with increasing shortness of breath associated with a pleural effusion. She had a chest tube placed but a CT scan performed today showed complete collapse of her right lung. We are being asked to see her for consideration of palliative radiation treatment in an attempt to open her lung. BRIEF HISTORY This is a 71-year-old female who was admitted to the hospital in December of this year. A workup at that time documented a right lung lesion which was found to be a lung cancer. She was discharged to be worked up on an outpatient basis. She had an MRI of her brain as an outpatient which was negative. She had a PET/CT scan which showed widespread metastatic disease including the mediastinum of the lung and within the abdomen. She was readmitted to the hospital on this occasion with increasing shortness of breath associated with the pleural effusion. She did have a chest tube placed which is still present. She has gone on to have a CT scan of her chest performed today. This was done in conjunction with a chest x-ray. This shows a small to moderate-sized, right-sided hydropneumothorax consistent with her chest tube. There has been progression of the intrabronchial occlusion of the right distal mainstem bronchus. This is associated with a mediastinal shift and a virtual collapse of her lung. She has received chemotherapy perhaps approximately a week ago. We are being asked to see her because of the progression of disease to attempt to open her airways. PAST MEDICAL AND SURGICAL HISTORY 1. COPD. 2. Coronary artery disease status post PR. 3. Hypertension. 4. Hypercholesterolemia. 5. Peripheral neuropathy. 6. Depression. 7. Previous appendectomy. 8. Complete hysterectomy. 9. Coronary artery stenting. ALLERGIES None. OUTPATIENT MEDICATIONS 1. Metoprolol. 2. Atorvastatin. 3. Nebulizer. 4. Aspirin. SOCIAL HISTORY/FAMILY HISTORY She has two daughters who were present in the room when I was there today. She has had a son who has from a heart attack. Her parents with stroke. She did smoke two packs of cigarettes per day for 50 years but quit 3 years ago. 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 PHYSICAL EXAMINATION GENERAL: On exam this lady is noted to be frail but otherwise resting comfortably in bed. She has oxygen running by nasal prongs. VITAL SIGNS: She was afebrile. Pulse was 113, respiratory rate of 20, blood pressure 117/69, pulse oximetry on 2 liters of oxygen was 97%. She was alert and oriented. HEAD AND NECK: There is no jaundice. There is no adenopathy that I could feel in the head and neck. CHEST: She had complete loss of air entry on the right. Her left lung field was clear. CARDIOVASCULAR: Her heart sounds were normal. ABDOMEN: There are no abdominal masses or tenderness. NEUROLOGIC: She is moving all limbs normally. I discussed with this lady and her daughters the reason and rationale for palliative radiation treatment to the lung. I have discussed delivering approximately 10 treatments in an attempt to open her airway as quickly as possible so that she will be stronger in be in a better position to proceed with ongoing chemotherapy. I would hope to bring her down and proceed with simulation tomorrow and start her radiation treatment at the latest on Sunday, unless there are unexpected problems which preclude that arrangement. I will discuss this with Dr. Jaquez in the morning. MD MAGGY Figueredo/ROB /7:31 PM /7:39 AM
[2017-02-13] MEDS: FLUTICASONE 100 MCG/VILANTEROL 25 MCG INHALER INH SCH (09:00)
[2017-02-13] MEDS: SODIUM CHLORIDE 0.9% FLUSH 10 ML FLUSH IV FLUSH SCH ×2 (09:00→22:44)
[2017-02-13] MEDS: NORTRIPTYLINE HCL 25 MG CAP PO SCH ×2 (09:50→21:00)
[2017-02-13] MEDS: MEGESTROL ACETATE SUSP 400 MG/10 ML CUP PO SCH (09:50)
[2017-02-13] MEDS: LEVOFLOXACIN 500 MG TAB PO SCH (09:50)
[2017-02-13] MEDS: DOCUSATE SODIUM 50 MG/SENNA 8.6 MG TAB PO SCH ×2 (09:50→22:44)
[2017-02-13] MEDS: METOPROLOL SUCCINATE 25 MG EXTENDED RELEASE TAB PO SCH (09:50)
[2017-02-13] MEDS: NYSTATIN SUSP 500,000 U/5 ML CUP SWISH-SWAL SCH ×4 (09:50→21:00)
--- NOTE | 2017-02-13 09:53 | HHI.PR ---
Subjective Remarks SOB is about the same, not worse. Stable on 2 L NC. Planning for radiation underway. Objective Vitals Vital Signs Date Time Temp Pulse Resp B/P Pulse Ox O2 Delivery O2 Flow Rate FiO2 02/13/17 08:01 96 Nasal Cannula 2.00 02/13/17 08:00 97.9 114 18 101/63 90 02/13/17 04:00 97.2 106 18 107/65 97 02/13/17 01:00 98.2 110 18 107/62 100 02/12/17 21:00 98 Nasal Cannula 2.00 02/12/17 21:00 96.9 107 18 102/62 98 02/12/17 20:55 Nasal Cannula 2.00 21 02/12/17 15:50 96.2 113 20 117/69 97 02/12/17 13:21 Nasal Cannula 2.00 02/12/17 11:50 97.7 115 20 110/68 97 I/O 02/12/17 02/12/17 02/12/17 02/13/17 02/13/17 02/13/17 07:00 15:00 23:00 07:00 15:00 23:00 Intake Total 120 ml 0 ml Output Total 400 ml 275 ml 425 ml 100 ml Balance -280 ml -275 ml -425 ml -100 ml Intake Oral 120 ml 0 ml Output Urine Total 400 ml 0 ml Chest Tube Drainage Total 275 ml 425 ml Drainage Total 100 ml # Voids 0 # Bowel Movements 0 0 Result Diagram: 02/11/17 0343 02/09/17 0519 Imaging Last Impressions Chest X-Ray 02/12/17 0700 Signed Impressions: Service Date/Time: Sunday, February 12, 2017 07:27 - CONCLUSION: 1. Interval exchange of right-sided chest tube for tunneled Aspira catheter with moderate progression of subpleural effusion and associated atelectasis. Plan: Will evaluate patency of the Aspira catheter and attempt drainage. Navid Tompkins MD Chest CT 02/12/17 0000 Signed Impressions: Service Date/Time: Sunday, February 12, 2017 16:41 - CONCLUSION: 1. Interval progression of right bronchial occlusion with now complete occlusion of the distal right mainstem bronchus resulting in near complete right lung collapse and associated mediastinal shift. 2. Small to moderate right sided hydropneumothorax with well-positioned tunneled Aspira drainage catheter in place. Navid Tompkins MD Catheter Placement X-Ray 02/09/17 1308 Signed Impressions: Service Date/Time: Thursday, February 09, 2017 14:41 - CONCLUSION: 1. Exchange of a non-tunneled chest tube for a tunneled chest tube. The patient will need to drain daily for the next 5-7 days and p.r.n. thereafter. The sutures can be removed in 2-3 weeks. John Contreras Jr., MD Head CT 02/08/17 0000 Signed Impressions: Service Date/Time: February 18:57 - CONCLUSION: Normal examination. Chapo Abdul MD Port Line Insertion 02/07/17 0000 Signed Impressions: Service Date/Time: Tuesday, February 07, 2017 09:31 - CONCLUSION: Uncomplicated ultrasound and fluoroscopic guided implanted central venous port catheter placement as described in detail above. An 8 [place] Power port was placed. Navid Tompkins MD Chest Tube Insertion 02/04/17 0000 Signed Impressions: Service Date/Time: Saturday, February 04, 2017 09:55 - CONCLUSION: Uncomplicated chest tube placement as above. John Contreras Jr., MD Chest Ultrasound 02/03/17 0000 Signed Impressions: Service Date/Time: Friday, February 03, 2017 07:59 - CONCLUSION: Right pleural effusion with septations. Skin marked. Keshav Krishnan MD Thoracentesis Ultrasound 02/01/17 0000 Signed Impressions: Service Date/Time: February 13:52 - CONCLUSION: Uncomplicated ultrasound guided thoracentesis with removal of 950 cc of fluid. The remaining fluid was not removed since the patient experienced chest pain. Given the right pulmonary mass and collapse of a portion of the lung, this fluid will likely recur. Chapo Escalona MD Abdomen/Pelvis CT 01/30/17 1634 Signed Impressions: Service Date/Time: Monday, January 30, 2017 17:06 - CONCLUSION: 1. Moderate to large right pleural effusion 2. Prominent consolidation/mass right hilar area with collapse of the right lower lung 3. Tiny gallstones in the gallbladder. No biliary tract obstruction. 4. Scattered diverticulosis of the sigmoid colon without inflammatory changes. Germain Massey MD Objective Remarks GENERAL: Frail and chronically ill appearing female CARDIOVASCULAR: Rate about 105 and regular rhythm without murmurs, gallops, or rubs. RESPIRATORY: Shallow breathing. Completely absent breath sounds on the right. Right chest tube draining clear fluid. Left lung chang with some faint rhonchi. GASTROINTESTINAL: Abdomen soft, non-tender, non-distended. Normal active bowel sounds MUSCULOSKELETAL: Extremities without cyanosis, or edema. NEURO: Alert & Oriented x4 to person, place, time, situation. Moves all ext x4 PSYCH: Appropriate mood and affect. Procedures Right sided Chest tube placement on 02/04/2017 Port placement 02/07/2017. Pleuro-x catheter placement on 02/09/2017. A/P Problem List: (1) Metastatic lung carcinoma ICD Code: C78.00 Status: Acute (2) Pleural effusion on right ICD Code: J90 Status: Acute (3) Acute respiratory failure ICD Code: J96.00 Status: Acute (4) COPD Status: Acute Assessment and Plan 71 year old female with a long history of smoking, recently diagnosed with stage IV lung cancer who presented to the ED on 01/30/2017 due to worsening shortness of breath. Initial work up indicated significant pleural effusion on the right side as well as mass. Patient underwent thoracentesis. Medical oncology, Pulmonary are on board and following patient. Patient underwent Port placement on 02/07/2017 and chemotherapy started on the same day. - Stage IV non-small cell lung cancer - Malignant pleural effusion - s/p Thoracentesis X 2. Chest tube in place on the right side, draining. - Patient started on Carboplatin as well Paclitaxel per Oncology. - pleurX cath placed on 02/09/2017 by interventional radiology - CT chest on 02/12/2017 shows near complete collapse of the right lung due to right main bronchus occlusion. -Radiation oncology following. Patient will undergo palliative radiation -Palliative care consulted for assistance as well. - Acute respiratory failure - Likely due to large pleural effusion as well as COPD. - Continue Levaquin 500 mg by mouth daily for total 5 days. - Continue DuoNeb PRN, Continue Fluticasone-Vilanter INH. - Discontinued prednisone. - Currently on nasal cannula 1-2 L of oxygen. - Oral/Pharyngeal candidiasis - Poor nutrition - Continue Nystatin liquid. - GI consulted per pulmonary recommendation. Patient currently does not want a PEG tube. - Discussed with oncology. Continue megestrol liquid 400mg Qday. - Hypertension - Patient's BP elevated during the course of Chemotherapy today. - BP within reasonable range. Continue Clonidine 0.1mg Q6hrs PRN - Hyperlipidemia - continue Lipitor 40mg QHS. - Neuropathic pain - Continue nortriptyline, reduced dose from 50 mg to 25 mg daily which is her home dose. Full code. SCDs. Problem Qualifiers (1) Metastatic lung carcinoma: Qualified Code: C78.00 - Metastatic lung carcinoma, unspecified laterality Jose Carlos Dave MD Feb 13, 2017 09:53
--- NOTE | 2017-02-13 12:25 | PD.CONS ---
Consult Service Palliative Care . Consult Requested By Dr. Galdamez . Primary Care Physician Rashida Mcneil MD . Reason for Consultation a. To assist with evaluation and management of symptoms including: dyspnea, pain,debility b. To assist medical decision maker(s) with: better understanding of current medical conditions; weighing benefits/burdens of medical treatment options; making medical treatment decisions. . HPI History of Present Illness Ms. Vu is a 71-year-old female with metastatic lung cancer who presented to [facility] ED on 01/30/2017 with complaints of generalized weakness, abdominal discomfort and increasing exertional shortness of breath. The patient was diagnosed with metastatic lung cancer in December,; history of pleural effusions with last reported thoracentesis [address] Jaquez is her oncologist. Patient reported decreased appetite but was tolerating fluids. She reported abdominal cramping and bloating, as well as having mucus- like stools. Patient's past medical history includes hypertension, hyperlipidemia, peripheral neuropathy, COPD, depression, CAD s/p myocardial infarction, metastatic lung cancer . Additional diagnostic findings while in the ED include: * Vital signs: Pulse 87, respirations 15, BP 156/79, oxygen saturation 94% on room air, oral temperature 97.6 * WBC: 21.1, hemoglobin 12.8, hematocrit 40.4, platelets 459, neutrophils 90.8% * Sodium: 136, potassium 4.8, chloride 96, carbon dioxide 31.5, glucose 1:15, calcium 9.7, magnesium 2.4 * BUN: 16, creatinine 0.59, GFR 101 * Total bilirubin: 0.5, AST 29, ALT 22, alkaline phosphatase 92 * Total protein: 7.0, albumin 3.0 * Lipase: 105 * Lactic acid: 11 * PT: 10.7, INR 1.0, APTT 24.1 * Urinalysis WNL; no culture indicated * Chest x-ray revealed a moderate sized right pleural effusion, increased in size from the prior study; there is persistent associated atelectasis and masslike consolidation. * CT abdomen/pelvis showed moderate to large right pleural effusion; prominent consolidation/mass in the right hilar area with collapse of the right lower lung ; tiny gallstones in the gallbladder. No biliary tract obstruction; scattered diverticulosis of the sigmoid colon without inflammatory changes * Normal EKG Ms. Vu was was recently diagnosed with lung cancer in December, an outpatient MRI of her brain was negative. However, a PET/CT can showed widespread metastatic disease including the mediastinum of the lung and within the abdomen. A chest x-ray while in the ED showed a moderate sized right pleural effusion that was increased in size in comparison to a prior study; there was persistent associated atelectasis and masslike consolidation. The patient was started on IV azithromycin and ceftriaxone. The patient had a worsening T symptoms with 1000ml of clear, yellow fluid was removed. A repeat thoracentesis was done the following day on 02/01/2017 with another 950ml of fluid removed. There was concern for continued reaccumulation of fluid secondary to the right-sided pulmonary mass and collapse of a portion of the lung; fluid reaccumulated for the third time on 02/04/2017 the patient returned to IR for chest tube placement. Pulmonology is following, considering pleurodesis vs. Pleurx catheter Dr. Jaquez, oncology, was consulted for follow-up on his patient with non- small cell lung cancer. Patient was scheduled to begin chemotherapy on 2016, but it was canceled because of insurance issues. Dr. Jaquez made recommendations for inpatient chemotherapy. If that is not an option, he recommends the patient be discharged home with a Pleurx catheter so she can begin outpatient chemotherapy as soon as possible. Patient started on nystatin for oral/pharyngeal candidiasis with odynophagia. Patient having chronic nausea with poor nutritional intake. Gastroenterology was consulted for recommendations. Dr. Baxter and the patient discussed an endoscopy for evaluation of esophagitis or other conditions that may contribute to nausea, but the patient refused stating her nausea was not severe enough to warrant the procedure. The patient does not want PEG tube placement at this time eating she will try to eat more. A CT scan of the head was normal. Patient had an Aksgln-o-Ooeh placed on 2016 with plans to initiate chemotherapy later that day. Patient started on Carboplatin as well Paclitaxel per Oncology; she received one round of chemotherapy but is not a candidate for further treatments at this time because she is so significantly deconditioned. Recommendations were made for rehabilitation at a senior care facility. Chest tube removed and Pleurx catheter was placed on 02/09/2017. A CT of the chest on 02/12/17 in conjunction with a chest x-ray reveals a small to moderate-sized, right-sided hydropneumothorax consistent with her chest tube. There has been progression of the intrabronchial occlusion of the right distal mainstem bronchus which is associated with a mediastinal shift and a virtual collapse of the lung. Dr. Hernandez was consulted to evaluate the patient for consideration of palliative radiation treatments and an attempt to open her lung. Dr. Hernandez discussed the reason and rationale for palliative radiation treatments to the long with the patient and her daughters. He recommended approximately 10 treatments and an attempt to open the patient's airway has quickly as possible, hoping the patient will be able to get stronger and be in a better position to proceed with ongoing chemotherapy. Plan to proceed with simulation tomorrow 02/13/17 and initiate radiation treatment by Sunday02/14/17 unless unexpected comp locations arise. Palliative Care was consulted to assist with symptom management and to discuss with the patient/family the benefits and burdens of her current illnesses and the options regarding future care. . Function/Cognitive Trajectory Patient reports increased weakness and progressively worsening shortness of breath for several months that she associated with her COPD. She states she went to her PCP in early December, and was treated with antibiotics and steroids. When her symptoms continued to worsen she went to the ED to be evaluated later that month; it was then that she was diagnosed with stage IV lung cancer. Since that time the patient has become increasingly weak, her appetite is poor. The patient reports a 10+ pound weight loss in the past month or two. Patient is lethargic, falling asleep during our conversation. She has intermittent dyspnea with conversation and at rest. . Review of Systems ROS Limitations: Clinical Condition Constitutional: COMPLAINS OF: Fatigue, Weight loss (10+ pound weight loss in the past 12 months), Change in appetite (decreased appetite), Generalized weakness Endocrine: DENIES: Polydipsia, Polyuria, Polyphagia Ears, nose, mouth, throat: COMPLAINS OF: Odynophagia (secondary to candidiasis) , DENIES: Hearing loss Respiratory: COMPLAINS OF: Cough, Shortness of breath Cardiovascular: COMPLAINS OF: Lower Extremity Edema Gastrointestinal: COMPLAINS OF: Nausea (intermittent nausea) Hematologic/Lymphatics: COMPLAINS OF: Bruising Neurologic: COMPLAINS OF: Headache (intermittent), DENIES: Seizures, Speech Problems Psychiatric: COMPLAINS OF: Anxiety, Depression Past Family Social History Coded Allergies: No Known Allergies (Unverified , 01/30/17) Past Medical History Hypertension Hyperlipidemia Peripheral neuropathy COPD Depression Coronary artery disease status post IA . Past Surgical History Appendectomy Hysterectomy . Reported Medications Co Q 10 (Coenzyme Q10 (Ubidecarenone)) 100 Mg Cap 1 Cap PO DAILY Atorvastatin (Atorvastatin Calcium) 40 Mg Tab 50 Mg PO HS Nortriptyline (Nortriptyline HCl) 50 Mg Cap 50 Mg PO BID Metoprolol Succinate ER 24 HR (Metoprolol Succinate) 25 Mg Tab 50 Mg PO DAILY Breo Ellipta Inh (Fluticasone/Vilanterol) 100-25 Mcg/Act Inh 1 Puff INH DAILY Use daily at the same time. Duoneb (Ipratropium-Albuterol Neb) 0.5-2.5 Mg/3 Ml Neb 1 Nebule INH Q4HR NEB . Current Medications Medications (Trade) Dose Ordered Sig/Eloise Route Start Time Stop Time Status Last Admin (NS Flush) 2 ml UNSCH PRN IV FLUSH 01/30/17 18:15 (NS Flush) 2 ml BID IV FLUSH 01/30/17 21:00 02/12/17 20:56 (Brocket 5-325 Mg) 1 tab Q4H PRN PO 01/30/17 18:15 02/12/17 09:20 (Brocket 7.5-325 Mg) 1 tab Q4H PRN PO 01/30/17 18:15 02/12/17 14:22 (Narcan Inj) 0.4 mg UNSCH PRN IV 01/30/17 18:15 (Janneth-Colace) 1 tab BID PO 01/30/17 21:00 02/13/17 09:50 (Milk Of Magnesia Liq) 30 ml Q12H PRN PO 01/30/17 18:15 02/07/17 23:18 (Senokot) 17.2 mg Q12H PRN PO 01/30/17 18:15 (Dulcolax Supp) 10 mg DAILY PRN RECTAL 01/30/17 18:15 (Lactulose Liq) 30 ml DAILY PRN PO 01/30/17 18:15 (Lipitor) 40 mg HS PO 01/30/17 21:00 02/12/17 20:55 (Breo Ellipta 100-25 Inh) 1 puff DAILY INH 01/31/17 09:00 02/11/17 09:27 (Toprol Xl) 50 mg DAILY PO 01/31/17 09:00 02/13/17 09:50 (Zofran Inj) 4 mg Q4HR PRN IV PUSH 02/05/17 12:00 02/11/17 01:26 (Mycostatin Liq) 5 ml QID SWISH-SWAL 02/06/17 13:00 02/13/17 09:50 (Heparin Central Flush) 500 units UNSCH IV FLUSH 02/07/17 10:30 02/08/17 22:35 (NS Flush) 5 ml UNSCH PRN IVF 02/07/17 10:30 (Heparin Central Flush) 250 units UNSCH PRN IV FLUSH 02/07/17 10:30 02/09/17 15:21 (Restoril) 15 mg HS PRN PO 02/07/17 21:15 02/12/17 20:55 (Catapres) 0.1 mg Q6H PRN PO 02/07/17 21:15 (KlonoPIN) 0.5 mg Q8HR PO 02/09/17 14:00 02/13/17 06:12 (Megace Liq) 400 mg DAILY PO 02/10/17 09:00 02/13/17 09:50 (Pamelor) 25 mg BID PO 02/09/17 21:00 02/13/17 09:50 (Levaquin) 500 mg DAILY PO 02/12/17 09:00 02/17/17 08:59 02/13/17 09:50 . Family History Since mother and father from complications related to CVA. She has one brother who has coronary artery disease. She has 2 daughters who are alive and healthy; she had one son who from a myocardial infarction. . Substance Use Tobacco: History of heavy cigarette smoking; patient smoked 1-2 packs daily for at least 50 years. She quit smoking approximately 3 years ago. Alcohol: Patient does not drink alcohol. Prescription med abuse: None known. Illicits: None known. . Psychosocial History Ms. Vu is a ; her last year. Together they had 3 children , 2 daughters and a son. Her son from a heart attack. 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 . Spiritual/Cultural Factors Taoism rony . Living Will: Completed, but not made available Health Care Surrogate: Completed, but not made available Durable Power of Picking Machine Operator: Completed, but not made available Documented care wishes: Patient and daughter state written advanced directives have been completed, but they do not want to provide copies at this time. The patient states her daughters know what she would want in various situations, and she is confident they will honor her wishes. . Today's verbally stated goals: Patient's medical treatment goals are aggressive at this time. . Family/friends goals: Patient's daughter, Zehra, verbalizing she will support any decision her mother makes regarding future interventions or transition to comfort focused care. . Ethical and Legal Issues No known ethical or legal issues at this time. . Physical Exam Vital Signs Date Time Temp Pulse Resp B/P Pulse Ox O2 Delivery O2 Flow Rate FiO2 02/13/17 08:01 96 Nasal Cannula 2.00 02/13/17 08:00 97.9 114 18 101/63 90 02/13/17 04:00 97.2 106 18 107/65 97 02/13/17 01:00 98.2 110 18 107/62 100 02/12/17 21:00 98 Nasal Cannula 2.00 02/12/17 21:00 96.9 107 18 102/62 98 02/12/17 20:55 Nasal Cannula 2.00 21 02/12/17 15:50 96.2 113 20 117/69 97 02/12/17 13:21 Nasal Cannula 2.00 02/12/17 11:50 97.7 115 20 110/68 97 . 02/12/17 02/13/17 19:00 07:00 Intake Total 0 ml Output Total 700 ml 100 ml Balance -700 ml -100 ml Intake Oral 0 ml Output Urine Total 0 ml Chest Tube Drainage Total 700 ml Drainage Total 100 ml # Voids 0 # Bowel Movements 0 . Exam CONSTITUTIONAL/GENERAL: This is a frail, elderly female patient in mild-to- moderate respiratory distress TUBES/LINES/DRAINS: [id number], Pleurx catheter SKIN: No jaundice, rashes, or lesions. Ecchymoses on upper extremities. Right- sided Pleurx catheter with dressing dry and intact. Skin temperature appropriate. Not diaphoretic. HEAD: Atraumatic. Normocephalic. EYES: Pupils equal and round and reactive. Extraocular motions intact. No scleral icterus. No injection or drainage. Fundi not examined. ENT: Hearing grossly normal. Nose without bleeding or purulent drainage. NECK: Trachea midline. Supple, nontender. No palpable thyroid enlargement or nodularity. CARDIOVASCULAR: Regular rate and rhythm without murmurs, gallops, or rubs. No JVD. Peripheral pulses symmetric. RESPIRATORY/CHEST: Symmetric, unlabored respirations. Breath sounds diminished at bases bilaterally. GASTROINTESTINAL: Abdomen soft, non-tender, nondistended. Bowel sounds present. GENITOURINARY: Without palpable bladder distension. MUSCULOSKELETAL: No obvious deformities Extremities without clubbing or cyanosis. Trace edema in bilateral lower extremities LYMPHATICS: No palpable cervical or supraclavicular adenopathy. NEUROLOGICAL: Awake. Lethargic. Answers questions, follows commands. Cognitively sharp. PSYCHIATRIC: No obvious anxiety/depression. no apparent hallucinations or other psychotic thought process. . Diagnostic Tests Laboratory Laboratory Tests Test 02/10/17 02/11/17 14:30 03:43 White Blood Count 19.8 TH/MM3 17.6 TH/MM3 (4.0-11.0) (4.0-11.0) Red Blood Count 4.12 MIL/MM3 4.06 MIL/MM3 (4.00-5.30) (4.00-5.30) Hemoglobin 11.2 GM/DL 11.5 GM/DL (11.6-15.3) (11.6-15.3) Hematocrit 35.4 % 34.8 % (35.0-46.0) (35.0-46.0) Mean Corpuscular Volume 86.0 FL 85.8 FL (80.0-100.0) (80.0-100.0) Mean Corpuscular Hemoglobin 27.3 PG 28.3 PG (27.0-34.0) (27.0-34.0) Mean Corpuscular Hemoglobin 31.7 % 33.0 % Concent (32.0-36.0) (32.0-36.0) Red Cell Distribution Width 17.9 % 17.6 % (11.6-17.2) (11.6-17.2) Platelet Count 352 TH/MM3 340 TH/MM3 (150-450) (150-450) Mean Platelet Volume 7.5 FL 8.2 FL (7.0-11.0) (7.0-11.0) Neutrophils (%) (Auto) 97.2 % 97.1 % (16.0-70.0) (16.0-70.0) Lymphocytes (%) (Auto) 1.5 % 1.4 % (9.0-44.0) (9.0-44.0) Monocytes (%) (Auto) 0.8 % (0.0-8.0) 0.8 % (0.0-8.0) Eosinophils (%) (Auto) 0.4 % (0.0-4.0) 0.5 % (0.0-4.0) Basophils (%) (Auto) 0.1 % (0.0-2.0) 0.2 % (0.0-2.0) Neutrophils # (Auto) 19.2 TH/MM3 17.1 TH/MM3 (1.8-7.7) (1.8-7.7) Lymphocytes # (Auto) 0.3 TH/MM3 0.3 TH/MM3 (1.0-4.8) (1.0-4.8) Monocytes # (Auto) 0.2 TH/MM3 0.1 TH/MM3 (0-0.9) (0-0.9) Eosinophils # (Auto) 0.1 TH/MM3 0.1 TH/MM3 (0-0.4) (0-0.4) Basophils # (Auto) 0.0 TH/MM3 0.0 TH/MM3 (0-0.2) (0-0.2) CBC Comment DIFF FINAL DIFF FINAL Differential Comment . Result Diagram: 02/11/17 0343 02/09/17 0519 Imaging Last 72 hours Impressions Chest X-Ray 02/12/17 0700 Signed Impressions: Service Date/Time: Sunday, February 12, 2017 07:27 - CONCLUSION: 1. Interval exchange of right-sided chest tube for tunneled Aspira catheter with moderate progression of subpleural effusion and associated atelectasis. Plan: Will evaluate patency of the Aspira catheter and attempt drainage. Navid Tompkins MD Chest CT 02/12/17 0000 Signed Impressions: Service Date/Time: Sunday, February 12, 2017 16:41 - CONCLUSION: 1. Interval progression of right bronchial occlusion with now complete occlusion of the distal right mainstem bronchus resulting in near complete right lung collapse and associated mediastinal shift. 2. Small to moderate right sided hydropneumothorax with well-positioned tunneled Aspira drainage catheter in place. Navid Tompkins MD . Procedures 01/30/17: Thoracentesis 02/01/17: Thoracentesis 02/04/17: Chest tube placement 02/07/17: [id number] placement 02/09/17: Chest tube removed, Pleurx catheter placed . Patient/Family Conference Present at Family Conference: Met with patient and daughter (Zehra) at bedside. . Family Conference Location: Bedside Issues Discussed: * Palliative care role, purpose, approach * Additional medical, psychosocial, and spiritual history * Patients general health, functional status, and cognitive changes in the months leading up to the current hospitalization * Patient/family understanding of the current medical problems * Patient/family understanding of prognosis * Patients goals of care as best understood from advance directives and/or conversations and/or values * Current medical treatment options and benefits/burdens of those options * Likely scenarios comparing ongoing aggressive care with a transition to comfort measures only * Questions answered to the best of my ability * Palliative care contact information provided . Assessment and Plan Disease Oriented Problem List: (1) Leukocytosis (2) HTN/Lungmass (3) Pleural effusion on right (4) Metastatic lung carcinoma (5) Lung mass (6) COPD (7) History of IA (myocardial infarction) (8) Peripheral neuropathy (9) Hyperlipidemia (10) Depression (11) Coronary artery disease (12) Depression Symptom Scale: (1) Pain (2) Debility (3) Dyspnea Pertinent Non-Medical Issues Psychosocial: Ms. Vu is a ; her last year. Together they had 3 children, 2 daughters and a son. Her son from a heart attack. 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 Spiritual: Taoism rony Legal: Ethical issues impacting care: No known ethical issues impacting care at this time . Important Contacts Zehra Cannon, daughter: [phone] Josephine, daughter: [phone] . . Prognosis Patient is a 71 year old female who was recently diagnosed with stage IV metastatic lung cancer. She has a history of recurrent pleural effusions secondary to the right-sided pulmonary mass and collapse portion of the lung. Status post thoracentesis 2, chest tube placement (removed 02/09/17) and Pleurx catheter placement since admission on 01/30/17. Patient has had one round of chemotherapy but is not a candidate for further treatment at this time due to deconditioning. Radiation oncology was consulted. Patient has decided to proceed with palliative radiation (10 treatments) in an attempt to open her airway. Patient's prognosis is poor; Dr. Jaquez recommending hospice at this time. . Code Status: Full Code Plan * FULL CODE * Decision-making: Patient is currently capacitated to wait the burdens and benefits of treatment options and understands the consequences of these decisions. Per [place] statutes, in the absence of written advanced directives healthcare proxy decision making would fall to the patient's 2 adult daughters ( Zehra and Josephine). Patient states she has had discussions with her daughters about what she would want in various scenarios; she states if she was no longer able to make her own medical treatment decisions, she would want her daughters to make decisions together. * Goals: Discussed aggressive goals vs. comfort focus goals. Goals remain aggressive at this time. * Patient diagnosed with stage IV metastatic lung cancer in 12/2016. Patient has had one round of chemotherapy but is not a candidate for further treatment at this time due to deconditioning. Radiation oncology was consulted. Patient has decided to proceed with palliative radiation. Patient's prognosis is poor; Dr. Jaquez recommending hospice at this time. * Symptom management-dyspnea: Patient with COPD, recently diagnosed stage IV metastatic lung cancer. Experiencing intermittent dyspnea with conversation and at rest. Oxygen saturation 96% on 2 L via nasal cannula History of recurrent pleural effusions secondary to the right-sided pulmonary mass and collapse portion of the lung. Status post thoracentesis 2, chest tube placement ( removed 02/09/17) and Pleurx catheter placement since admission on 01/30/17. Patient has consented to palliative radiation, 10 treatments to begin tomorrow , and an attempt to open her airway. No recommendations at this time; we' ll continue to monitor. * Palliative care contact information provided to the patient and family * Palliative care will continue to follow patient throughout her hospitalization to establish trust, assist with symptom management and clarification of medical treatment goals. . Thank you for the opportunity to participate in the care of Ms. Vu. . Attestation To help prompt me to consider important information that might be impacting today's encounter and assessment, information from prior notes written by myself or my colleagues may have been "brought forward" into today's note. My signature on this note, however, is an attestation that I personally performed the exam, history, and/or decision-making noted today, and, unless otherwise indicated, the interactions with patient, family, and staff as well as the review of records all occurred today. I also attest that the listed assessment and stated plan reflect my best clinical judgment today based on the combination of historical information, prior notes, and today's exam/ interactions. When time spent is documented, it refers only to time spent today by the signer, or if indicated, combined time spent today by collaborating physician/nurse practitioner. . Hellen Alaniz Feb 13, 2017 12:07
--- NOTE | 2017-02-13 13:41 | PD.ONC.PN ---
Subjective Subjective Remarks Afebrile overnight. Patient resting in bed. Just back from radiation simulation. Sister at bedside. Remains weak and dyspneic. Objective Data Date Time Temp Pulse Resp B/P Pulse Ox O2 Delivery O2 Flow Rate FiO2 02/13/17 08:01 96 Nasal Cannula 2.00 02/13/17 08:00 97.9 114 18 101/63 90 02/13/17 04:00 97.2 106 18 107/65 97 02/13/17 01:00 98.2 110 18 107/62 100 02/12/17 21:00 98 Nasal Cannula 2.00 02/12/17 21:00 96.9 107 18 102/62 98 02/12/17 20:55 Nasal Cannula 2.00 21 02/12/17 15:50 96.2 113 20 117/69 97 02/13/17 02/13/17 02/13/17 07:00 15:00 23:00 Output Total 100 ml Balance -100 ml Result Diagram: 02/11/17 0343 02/09/17 0519 Administered Medications Medications (Trade) Dose Ordered Sig/Eloise Route PRN Reason Start Time Stop Time Status Last Admin Dose Admin Sodium Chloride (NS Flush) 2 ml BID IV FLUSH 01/30/17 21:00 02/12/17 20:56 Acetaminophen/ Hydrocodone Bitart ([place] 5-325 Mg) 1 tab Q4H PRN PO PAIN SCALE 3 TO 5 01/30/17 18:15 02/12/17 09:20 Acetaminophen/ Hydrocodone Bitart ([place] 7.5-325 Mg) 1 tab Q4H PRN PO PAIN SCALE 6 TO 10 01/30/17 18:15 02/12/17 14:22 Senna/Docusate Sodium (Janneth-Colace) 1 tab BID PO 01/30/17 21:00 02/13/17 09:50 Magnesium Hydroxide (Milk Of Magnesia Liq) 30 ml Q12H PRN PO MILD - MODERATE CONSTIPATION 01/30/17 18:15 02/07/17 23:18 Atorvastatin Calcium (Lipitor) 40 mg HS PO 01/30/17 21:00 02/12/17 20:55 Fluticasone/ Vilanterol (Breo Ellipta 100-25 Inh) 1 puff DAILY INH 01/31/17 09:00 02/11/17 09:27 Metoprolol Succinate (Toprol Xl) 50 mg DAILY PO 01/31/17 09:00 02/13/17 09:50 Ondansetron HCl (Zofran Inj) 4 mg Q4HR PRN IV PUSH Nausea 02/05/17 12:00 02/11/17 01:26 Nystatin (Mycostatin Liq) 5 ml QID SWISH-SWAL 02/06/17 13:00 02/13/17 09:50 Heparin Sodium (Porcine) (Heparin Central Flush) 500 units UNSCH IV FLUSH 02/07/17 10:30 02/08/17 22:35 Heparin Sodium (Porcine) (Heparin Central Flush) 250 units UNSCH PRN IV FLUSH SEE PROTOCOL 02/07/17 10:30 02/09/17 15:21 Temazepam (Restoril) 15 mg HS PRN PO INSOMNIA 02/07/17 21:15 02/12/17 20:55 Clonazepam (KlonoPIN) 0.5 mg Q8HR PO 02/09/17 14:00 02/13/17 06:12 Megestrol Acetate (Megace Liq) 400 mg DAILY PO 02/10/17 09:00 02/13/17 09:50 Nortriptyline HCl (Pamelor) 25 mg BID PO 02/09/17 21:00 02/13/17 09:50 Levofloxacin (Levaquin) 500 mg DAILY PO 02/12/17 09:00 02/17/17 08:59 02/13/17 09:50 Objective Remarks GENERAL: Elderly female, sitting up in bed, dyspneic. on 2L O2 via NC SKIN: Warm and dry. HEAD: Normocephalic. EYES: No injection or drainage. NECK: Supple, trachea midline. CARDIOVASCULAR: Regular rate and rhythm RESPIRATORY: right lung breath sounds diminished. scattered coarse rhonchi GASTROINTESTINAL: Abdomen soft, non-tender, nondistended. EXTREMITIES: No cyanosis NEUROLOGICAL: No obvious focal deficit. Awake, alert, and oriented x3. Assessment/Plan Problem List: (1) Metastatic lung carcinoma Status: Acute Plan: 02/13: radiation simulation today. palliative care to see patient today as well. patient too weak for further chemotherapy at this point. 02/12 CT Chest = progression of R lung mass with complete collapse Right lung Consult XRT for palliative radiation to open up the lung 02/11: agree with SNF placement, she is still quite weak. encouraged to eat. once discharged, follow up in clinic. 02/10: encouraged patient to eat. she is still very deconditioned. may need rehab.SNF but patient and family refusing, want to go home with [facility]. continue Megace. 02/09: pleurx catheter placement today. start Megace for appetite stimulation 02/08: Tolerated chemo OK yesterday. Chest tube output significantly decreased. Will arrange for Pleur-X cath placement. Pt somewhat more lethargic than yesterday. Will obtain CT head. 02/07: The pt got her infusaport today. Chemotherapy planned for later today. Emotional care provided. Will monitor. 02/06: will transfer to [facility] and start Carbo/Taxol tomorrow. will also consult invasive radiology for port placement. --+ pleural effusion --stage IV disease Assessment 71y/o female with recently diagnosed stage IV non-small cell lung cancer with malignant pleural effusion. Admitted with dyspnea. h/o COPD. Coronary artery disease status post [place]. Hypertension. Hypercholesterolemia. Peripheral neuropathy. Attending Statement Patient is complaining of weakness and anorexia Complaining of shortness of breath I have discussed with the patient regarding hospice versus palliative radiation therapy Patient desires to have her radiation treatment Case discuss with The exam, history, and the medical decision-making described in the above note were completed with the assistance of the mid-level provider. I reviewed and agree with the findings presented. I attest that I had a [id number] encounter with the patient on the same day, and personally performed and documented my assessment and findings in the medical record. Problem Qualifiers (1) Metastatic lung carcinoma: Qualified Code: C78.00 - Metastatic lung carcinoma, unspecified laterality Radha Whipple Feb 13, 2017 13:41 Katarzyna Jaquez MD Feb 14, 2017 01:33
[2017-02-13] MEDS: ACETAMINOPHEN/HYDROcodone 325 MG/7.5 MG TAB PO PRN (14:42)
--- NOTE | 2017-02-13 19:07 | HHI.PR ---
Subjective Remarks Breathing better. Still on O2 at 2 L. Will go for palliative radiation for Right main bronchus occlusion Going for revision of Pleur X catheter., Objective Vital Signs Date Time Temp Pulse Resp B/P Pulse Ox O2 Delivery O2 Flow Rate FiO2 02/13/17 16:00 97.1 107 16 98/62 98 02/13/17 12:00 96.7 112 16 100/62 94 02/13/17 08:01 96 Nasal Cannula 2.00 02/13/17 08:00 97.9 114 18 101/63 90 02/13/17 04:00 97.2 106 18 107/65 97 02/13/17 01:00 98.2 110 18 107/62 100 02/12/17 21:00 98 Nasal Cannula 2.00 02/12/17 21:00 96.9 107 18 102/62 98 02/12/17 20:55 Nasal Cannula 2.00 21 I/O 02/12/17 02/12/17 02/12/17 02/13/17 02/13/17 02/13/17 07:00 15:00 23:00 07:00 15:00 23:00 Intake Total 120 ml 0 ml Output Total 400 ml 275 ml 425 ml 100 ml Balance -280 ml -275 ml -425 ml -100 ml Intake Oral 120 ml 0 ml Output Urine Total 400 ml 0 ml Chest Tube Drainage Total 275 ml 425 ml Drainage Total 100 ml # Voids 0 # Bowel Movements 0 0 Result Diagram: 02/11/17 0343 02/09/17 0519 Procedures Right side Thoracentesis on 01/30/17 and 02/01/17. Objective Remarks GENERAL: This is a well-nourished, well-developed patient, in no distress.Pallor + CARDIOVASCULAR: Regular rate and rhythm without murmurs, gallops, or rubs. RESPIRATORY:diminished breath sounds right chest and occ crackles and wheeze bilaterally. GASTROINTESTINAL: Abdomen soft, non-tender,nondistended. Normal active bowel sounds. No mass MUSCULOSKELETAL: Extremities without clubbing, cyanosis, or edema. NEURO: Alert & Oriented x4 to person, place, time, situation. Moves all ext x4 Assessment and Plan Assessment and Plan Primary Impression: Pleural effusion on right Additional Impressions: Acute dyspnea/Hypoxia Metastatic lung carcinoma COPD. Anemia. Anxiety. Plan : 1. Chest catheter to be drained very 2 days 2. O2 at 2 L 3. Nebs qid , duoneb. 4. Rpt Chest X ray in 1 week 5. Radiation therapy as planned 6. Cont Prednisone 20 mg bid Antonio Cazares MD Feb 13, 2017 19:07
[2017-02-13] MEDS: ATORVASTATIN 40 MG TAB PO SCH (21:00)
[2017-02-13] MEDS ORDERED: RESP: ACETYLCYSTEINE 20% 30 ML NEB NEB ONE (21:15)
[2017-02-13] MEDS ORDERED: RESP: ALBUTEROL 2.5 MG/IPRATROPIUM 0.5 MG NEB (SCH) NEB ONE (21:15)
[2017-02-13] MEDS: TEMAZEPAM 15 MG CAP PO PRN (22:43)
[2017-02-13] MEDS: predniSONE 20 MG TAB PO SCH (22:44)
[2017-02-14] VITALS (9 sets, daily range): BP systolic 99–118; BP diastolic 61–81; PULSE 99–114; RESP 16–20; TEMP 96.8–97.9; O2SAT 96–100
[2017-02-14] MEDS: RESP: ALBUTEROL 2.5 MG/IPRATROPIUM 0.5 MG NEB (PRN) NEB ×2 (00:50→22:17)
[2017-02-14] MEDS ORDERED: BUMETANIDE INJ 1 MG/4 ML VIAL IV PUSH ONE (01:30)
[2017-02-14] MEDS: ACETAMINOPHEN/HYDROcodone 325 MG/7.5 MG TAB PO PRN (02:46)
[2017-02-14] MEDS: clonazePAM 0.5 MG TAB PO SCH (06:19)
[2017-02-14] MEDS: predniSONE 20 MG TAB PO SCH ×2 (11:14→22:38)
[2017-02-14] MEDS: DOCUSATE SODIUM 50 MG/SENNA 8.6 MG TAB PO SCH ×2 (11:14→22:39)
[2017-02-14] MEDS: LEVOFLOXACIN 500 MG TAB PO SCH (11:15)
[2017-02-14] MEDS: METOPROLOL SUCCINATE 25 MG EXTENDED RELEASE TAB PO SCH (11:16)
[2017-02-14] MEDS: MEGESTROL ACETATE SUSP 400 MG/10 ML CUP PO SCH (11:22)
[2017-02-14] MEDS: NORTRIPTYLINE HCL 25 MG CAP PO SCH ×2 (11:22→22:38)
[2017-02-14] MEDS: NYSTATIN SUSP 500,000 U/5 ML CUP SWISH-SWAL SCH ×4 (11:23→21:00)
[2017-02-14] MEDS: FLUTICASONE 100 MCG/VILANTEROL 25 MCG INHALER INH SCH (11:24)
[2017-02-14] MEDS: SODIUM CHLORIDE 0.9% FLUSH 10 ML FLUSH IV FLUSH SCH ×2 (11:24→22:35)
--- NOTE | 2017-02-14 11:40 | HHI.PR ---
Subjective Remarks Patient had worsening respiratory distress overnight. She was given breathing treatments, Mucomyst, and a dose of Bumex. This morning her breathing is much better. She is comfortable on 2 L nasal cannula. Objective Vitals Vital Signs Date Time Temp Pulse Resp B/P Pulse Ox O2 Delivery O2 Flow Rate FiO2 02/14/17 09:26 98 Nasal Cannula 2.00 02/14/17 07:50 97.7 113 20 106/71 96 02/14/17 05:00 96.8 114 18 108/66 98 02/14/17 03:45 21 02/14/17 01:08 96 Nasal Cannula 2.00 02/14/17 00:51 96 Nasal Cannula 2.00 02/14/17 00:00 97.3 112 18 99/66 96 02/13/17 22:26 99 Nasal Cannula 2.00 02/13/17 20:00 96.8 106 18 99/63 96 02/13/17 16:00 97.1 107 16 98/62 98 02/13/17 12:00 96.7 112 16 100/62 94 I/O 02/13/17 02/13/17 02/13/17 02/14/17 02/14/17 02/14/17 07:00 15:00 23:00 07:00 15:00 23:00 Intake Total 240 ml Output Total 100 ml 200 ml 600 ml Balance -100 ml -200 ml 240 ml -600 ml Intake Oral 240 ml Output Urine Total 400 ml Chest Tube Drainage Total 200 ml Drainage Total 100 ml 200 ml Result Diagram: 02/11/17 0343 Objective Remarks GENERAL: Frail and chronically ill appearing female CARDIOVASCULAR: Rate about 105 and regular rhythm without murmurs, gallops, or rubs. RESPIRATORY: Shallow breathing. Completely absent breath sounds on the right. Right chest tube draining clear fluid. Left lung chang with some faint rhonchi. GASTROINTESTINAL: Abdomen soft, non-tender, non-distended. Normal active bowel sounds MUSCULOSKELETAL: Extremities without cyanosis, or edema. NEURO: Alert & Oriented x4 to person, place, time, situation. Moves all ext x4 PSYCH: Appropriate mood and affect. Procedures Right sided Chest tube placement on 02/04/2017 Port placement 02/07/2017. Pleuro-x catheter placement on 02/09/2017. A/P Problem List: (1) Metastatic lung carcinoma ICD Code: C78.00 Status: Acute (2) Pleural effusion on right ICD Code: J90 Status: Acute (3) Acute respiratory failure ICD Code: J96.00 Status: Acute (4) COPD Status: Acute Assessment and Plan 71 year old female with a long history of smoking, recently diagnosed with stage IV lung cancer who presented to the ED on 01/30/2017 due to worsening shortness of breath. Initial work up indicated significant pleural effusion on the right side as well as mass. Patient underwent thoracentesis. Medical oncology, Pulmonary are on board and following patient. Patient underwent Port placement on 02/07/2017 and chemotherapy started on the same day. - Stage IV non-small cell lung cancer - Malignant pleural effusion - s/p Thoracentesis X 2. Chest tube in place on the right side, draining. - Patient started on Carboplatin as well Paclitaxel per Oncology. - pleurX cath placed on 02/09/2017 by interventional radiology - CT chest on 02/12/2017 shows near complete collapse of the right lung due to right main bronchus occlusion. -Radiation oncology following. Patient will undergo palliative radiation -Palliative care following - Acute respiratory failure - Likely due to large pleural effusion as well as COPD. - Continue Levaquin 500 mg by mouth daily for total 5 days. - Continue DuoNeb PRN, Continue Fluticasone-Vilanter INH. - Appreciate Pulmonology following - Prednisone restarted per Pulmonology. - Currently on nasal cannula 1-2 L of oxygen. - Oral/Pharyngeal candidiasis - Poor nutrition - Continue Nystatin liquid. - GI consulted per pulmonary recommendation. Patient currently does not want a PEG tube. - Continue megestrol liquid 400mg Qday. - Hypertension : labile BP - BP within reasonable range. Continue Clonidine 0.1mg Q6hrs PRN - Hyperlipidemia - continue Lipitor 40mg QHS. - Neuropathic pain - Continue nortriptyline, reduced dose from 50 mg to 25 mg daily which is her home dose. Full code. SCDs. Problem Qualifiers (1) Metastatic lung carcinoma: Qualified Code: C78.00 - Metastatic lung carcinoma, unspecified laterality Jose Carlos Dave MD Feb 14, 2017 11:40
--- NOTE | 2017-02-14 15:23 | PD.ONC.PN ---
Subjective Subjective Remarks Afebrile overnight. Patient states she ate some breakfast, but no lunch. She still has no appetite. She states she is breathing a bit better today. Objective Data Date Time Temp Pulse Resp B/P Pulse Ox O2 Delivery O2 Flow Rate FiO2 02/14/17 11:50 97.9 111 20 118/81 99 Automatic Cuff 02/14/17 09:26 98 Nasal Cannula 2.00 02/14/17 07:50 97.7 113 20 106/71 96 02/14/17 05:00 96.8 114 18 108/66 98 02/14/17 03:45 21 02/14/17 01:08 96 Nasal Cannula 2.00 02/14/17 00:51 96 Nasal Cannula 2.00 02/14/17 00:00 97.3 112 18 99/66 96 02/13/17 22:26 99 Nasal Cannula 2.00 02/13/17 20:00 96.8 106 18 99/63 96 02/13/17 16:00 97.1 107 16 98/62 98 02/14/17 02/14/17 02/14/17 06:59 14:59 22:59 Output Total 600 ml Balance -600 ml Result Diagram: 02/11/17 0343 Administered Medications Medications (Trade) Dose Ordered Sig/Eloise Route PRN Reason Start Time Stop Time Status Last Admin Dose Admin Sodium Chloride (NS Flush) 2 ml BID IV FLUSH 01/30/17 21:00 02/14/17 11:24 Acetaminophen/ Hydrocodone Bitart ([place] 5-325 Mg) 1 tab Q4H PRN PO PAIN SCALE 3 TO 5 01/30/17 18:15 02/12/17 09:20 Acetaminophen/ Hydrocodone Bitart ([place] 7.5-325 Mg) 1 tab Q4H PRN PO PAIN SCALE 6 TO 10 01/30/17 18:15 02/14/17 02:46 Senna/Docusate Sodium (Janneth-Colace) 1 tab BID PO 01/30/17 21:00 02/14/17 11:14 Magnesium Hydroxide (Milk Of Magnesia Liq) 30 ml Q12H PRN PO MILD - MODERATE CONSTIPATION 01/30/17 18:15 02/07/17 23:18 Atorvastatin Calcium (Lipitor) 40 mg HS PO 01/30/17 21:00 02/12/17 20:55 Fluticasone/ Vilanterol (Breo Ellipta 100-25 Inh) 1 puff DAILY INH 01/31/17 09:00 02/11/17 09:27 Metoprolol Succinate (Toprol Xl) 50 mg DAILY PO 01/31/17 09:00 02/14/17 11:16 Ondansetron HCl (Zofran Inj) 4 mg Q4HR PRN IV PUSH Nausea 02/05/17 12:00 02/11/17 01:26 Nystatin (Mycostatin Liq) 5 ml QID SWISH-SWAL 02/06/17 13:00 02/13/17 14:42 Heparin Sodium (Porcine) (Heparin Central Flush) 500 units UNSCH IV FLUSH 02/07/17 10:30 02/08/17 22:35 Heparin Sodium (Porcine) (Heparin Central Flush) 250 units UNSCH PRN IV FLUSH SEE PROTOCOL 02/07/17 10:30 02/09/17 15:21 Temazepam (Restoril) 15 mg HS PRN PO INSOMNIA 02/07/17 21:15 02/13/17 22:43 Megestrol Acetate (Megace Liq) 400 mg DAILY PO 02/10/17 09:00 02/14/17 11:22 Nortriptyline HCl (Pamelor) 25 mg BID PO 02/09/17 21:00 02/13/17 09:50 Levofloxacin (Levaquin) 500 mg DAILY PO 02/12/17 09:00 02/17/17 08:59 02/14/17 11:15 Prednisone (Deltasone) 20 mg BID PO 02/13/17 21:00 02/14/17 11:14 Objective Remarks GENERAL: Elderly female, lying in bed, sleeping on approach. On 2L O2 via NC SKIN: Warm and dry. HEAD: Normocephalic. EYES: No injection or drainage. NECK: Supple, trachea midline. CARDIOVASCULAR: Regular rate and rhythm RESPIRATORY: aspira drain in place, draining clear yellow fluid. anterior chang with occasional rhonchi. GASTROINTESTINAL: Abdomen soft, non-tender, nondistended. EXTREMITIES: No cyanosis NEUROLOGICAL: awake and alert, normal speech. Assessment/Plan Problem List: (1) Metastatic lung carcinoma Status: Acute Plan: 02/14: await radiation. encouraged patient to try to eat more. continue Megace. 02/13: radiation simulation today. palliative care to see patient today as well. patient too weak for further chemotherapy at this point. 02/12 CT Chest = progression of R lung mass with complete collapse Right lung Consult XRT for palliative radiation to open up the lung 02/11: agree with SNF placement, she is still quite weak. encouraged to eat. once discharged, follow up in clinic. 02/10: encouraged patient to eat. she is still very deconditioned. may need rehab.SNF but patient and family refusing, want to go home with [facility]. continue Megace. 02/09: pleurx catheter placement today. start Megace for appetite stimulation 02/08: Tolerated chemo OK yesterday. Chest tube output significantly decreased. Will arrange for Pleur-X cath placement. Pt somewhat more lethargic than yesterday. Will obtain CT head. 02/07: The pt got her infusaport today. Chemotherapy planned for later today. Emotional care provided. Will monitor. 02/06: will transfer to [facility] and start Carbo/Taxol tomorrow. will also consult invasive radiology for port placement. --+ pleural effusion --stage IV disease Assessment 71y/o female with recently diagnosed stage IV non-small cell lung cancer with malignant pleural effusion. Admitted with dyspnea. h/o COPD. Coronary artery disease status post [place]. Hypertension. Hypercholesterolemia. Peripheral neuropathy. Attending Statement Complaining of anorexia and weakness Short of breath Waiting to start radiation therapy Continue supportive care The exam, history, and the medical decision-making described in the above note were completed with the assistance of the mid-level provider. I reviewed and agree with the findings presented. I attest that I had a [id number] encounter with the patient on the same day, and personally performed and documented my assessment and findings in the medical record. Problem Qualifiers (1) Metastatic lung carcinoma: Qualified Code: C78.00 - Metastatic lung carcinoma, unspecified laterality Radha Whipple Feb 14, 2017 15:22 Katarzyna Jaquez MD Feb 15, 2017 06:43
[2017-02-14] MEDS: clonazePAM 1 MG TAB PO SCH ×2 (16:00→22:39)
--- NOTE | 2017-02-14 17:16 | HHI.HCPN ---
Reason for visit a. To assist with evaluation and management of symptoms including: dyspnea, pain,debility, anxiety b. To assist medical decision maker(s) with: better understanding of current medical conditions; weighing benefits/burdens of medical treatment options; making medical treatment decisions. . Subjective/Interval History Ms. Vu is a 71-year-old female with metastatic lung cancer who presented to [facility] ED on 01/30/2017 with complaints of generalized weakness, abdominal discomfort and increasing exertional shortness of breath. The patient was diagnosed with metastatic lung cancer in December,; history of recurrent pleural effusions. Concern for continued reaccumulation of fluid secondary to the right-sided pulmonary mass and collapse of a portion of the lung status post thoracentesis 2 and chest tube placement, now with Pleurx catheter. Patient received chemotherapy 1 since admission but is not a candidate for further chemotherapy because she is so deconditioned. Radiation oncology, Dr. Felder, offered palliative radiation and an attempt to open the patient's airway. Patient to begin radiation treatments today 02/14/17. Patient with a history of COPD, having worsening respiratory distress overnight. She received breathing treatments, Mucomyst and Bumex 1 and reported her breathing improved. Patient is short of breath on exam, using accessory muscles, with associated anxiety. Clonazepam dose increased to 1 mg PO every 8 hours. Appetite remains poor on Megace. BMI 21.0 Heart rate 111, respirations 18, BP 118/81, oxygen saturation 99% on 2 L via nasal cannula, oral temperature 97.9. No new blood work available. . Advance Directives Living Will: Completed, but not made available Health Care Surrogate: Completed, but not made available Durable Power of Automobile Mechanic Assistant: Completed, but not made available Advance Directive Specifics Documented care wishes: Patient and daughter state written advanced directives have been completed, but they do not want to provide copies at this time. The patient states her daughters know what she would want in various situations, and she is confident they will honor her wishes. . Objective Vital Signs Date Time Temp Pulse Resp B/P Pulse Ox O2 Delivery O2 Flow Rate FiO2 02/14/17 11:50 97.9 111 20 118/81 99 Automatic Cuff 02/14/17 09:26 98 Nasal Cannula 2.00 02/14/17 07:50 97.7 113 20 106/71 96 02/14/17 05:00 96.8 114 18 108/66 98 02/14/17 03:45 21 02/14/17 01:08 96 Nasal Cannula 2.00 02/14/17 00:51 96 Nasal Cannula 2.00 02/14/17 00:00 97.3 112 18 99/66 96 02/13/17 22:26 99 Nasal Cannula 2.00 02/13/17 20:00 96.8 106 18 99/63 96 Intake & Output 02/14/17 02/14/17 07:00 19:00 Intake Total 240 ml Output Total 600 ml Balance -360 ml Intake Oral 240 ml Output Urine Total 400 ml Drainage Total 200 ml . Physical Exam CONSTITUTIONAL/GENERAL: This is a frail, elderly female patient in mild-to- moderate respiratory distress using accessory muscles TUBES/LINES/DRAINS: Nfqzir-[id number]-Pioi, Pleurx catheter SKIN: No jaundice, rashes, or lesions. Ecchymoses on upper extremities. Right- sided Pleurx catheter with dressing dry and intact. Skin temperature appropriate. Not diaphoretic. HEAD: Atraumatic. Normocephalic. EYES: Pupils equal and round and reactive. Extraocular motions intact. No scleral icterus. No injection or drainage. Fundi not examined. ENT: Hearing grossly normal. Nose without bleeding or purulent drainage. NECK: Trachea midline. CARDIOVASCULAR: Regular rate and rhythm without murmurs, gallops, or rubs. No JVD. Peripheral pulses symmetric. RESPIRATORY/CHEST: Respirations unlabored with accessory muscles used, breath sounds diminished - right greater than left. GASTROINTESTINAL: Abdomen soft, non-tender, nondistended. Bowel sounds present. GENITOURINARY: Without palpable bladder distension. MUSCULOSKELETAL: No obvious deformities Extremities without clubbing or cyanosis. Trace edema in bilateral lower extremities LYMPHATICS: No palpable cervical or supraclavicular adenopathy. NEUROLOGICAL: Awake and alert, smiling. More engaged in conversation today. PSYCHIATRIC: Anxiety associated with episodes of increasing respiratory distress. No apparent hallucinations or other psychotic thought process. . . Diagnostic Tests Result Diagram: 02/11/17 0343 Procedures 01/30/17: Thoracentesis 02/01/17: Thoracentesis 02/04/17: Chest tube placement 02/07/17: [id number] placement 02/09/17: Chest tube removed, Pleurx catheter placed . Assessment and Plan Disease Oriented Problem List: (1) Leukocytosis (2) HTN/Lungmass (3) Pleural effusion on right (4) Metastatic lung carcinoma (5) Lung mass (6) COPD (7) History of CT (myocardial infarction) (8) Peripheral neuropathy (9) Hyperlipidemia (10) Depression (11) Coronary artery disease (12) Depression Symptom Scale: (1) Pain (2) Debility (3) Dyspnea (4) Anxiety Pertinent Non-Medical Issues Psychosocial: Ms. Vu is a ; her last year. Together they had 3 children, 2 daughters and a son. Her son from a heart attack. 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 Spiritual: Yazidism rony Legal: Ethical issues impacting care: No known ethical issues impacting care at this time . Important Contacts Zehra Cannon, daughter: [phone] Josephine, daughter: [phone] . . Prognosis Patient is a 71 year old female who was recently diagnosed with stage IV metastatic lung cancer. She has a history of recurrent pleural effusions secondary to the right-sided pulmonary mass and collapse portion of the lung. Status post thoracentesis 2, chest tube placement (removed 02/09/17) and Pleurx catheter placement since admission on 01/30/17. Patient has had one round of chemotherapy but is not a candidate for further treatment at this time due to deconditioning. Radiation oncology was consulted. Patient has decided to proceed with palliative radiation (10 treatments) in an attempt to open her airway. Patient's prognosis is poor; Dr. Jaquez recommending hospice at this time. . Code Status: Full Code Plan * FULL CODE * Decision-making: Patient is currently capacitated to wait the burdens and benefits of treatment options and understands the consequences of these decisions. Per [place] statutes, in the absence of written advanced directives healthcare proxy decision making would fall to the patient's 2 adult daughters ( Zehra and Josephine). Patient states she has had discussions with her daughters about what she would want in various scenarios; she states if she was no longer able to make her own medical treatment decisions, she would want her daughters to make decisions together. * Goals: Discussed aggressive goals vs. comfort focus goals. Goals remain aggressive at this time. * Patient diagnosed with stage IV metastatic lung cancer in 12/2016. Patient has had one round of chemotherapy but is not a candidate for further treatment at this time due to deconditioning. Radiation oncology was consulted. Patient has decided to proceed with palliative radiation. Patient's prognosis is poor; Dr. Jaquez recommending hospice at this time. * Symptom management-dyspnea: Patient with COPD, recently diagnosed stage IV metastatic lung cancer. Experiencing intermittent dyspnea with conversation and at rest. History of recurrent pleural effusions secondary to the right-sided pulmonary mass and collapse portion of the lung. Status post thoracentesis 2, chest tube placement (removed 02/09/17) and Pleurx catheter placement since admission on 01/30/17. Patient will begin palliative radiation 02/14/17. Patient with a history of COPD, having worsening respiratory distress overnight. She received breathing treatments, Mucomyst and Bumex 1 and reported her breathing improved. Patient is short of breath on exam, using accessory muscles, with associated anxiety. Clonazepam dose increased to 1 mg PO every 8 hours. * Symptom managementanxiety: Patient having increased anxiety that she associates with episodes of dyspnea. Clonazepam dose increased to 1 mg PO every 8 hours for symptom management. * Symptom managementpain: Patient denies pain on exam. Possible causes of pain include disease progression, her tumor burden, invasive lines, bedbound status, immobility. Current orders for Hooper 53 25 mg or 7.5325 mg PO every 4 hours as needed for pain, being used sparingly with 1 dose (7.5mg- 325mg) in the past 24 hours. May consider initiating low-dose dexamethasone, 4mg PO daily , which may be effective in reducing pain and dyspnea. * Palliative care will continue to follow patient throughout her hospitalization to establish trust, assist with symptom management and clarification of medical treatment goals. . Attestation To help prompt me to consider important information that might be impacting today's encounter and assessment, information from prior notes written by myself or my colleagues may have been "brought forward" into today's note. My signature on this note, however, is an attestation that I personally performed the exam, history, and/or decision-making noted today, and, unless otherwise indicated, the interactions with patient, family, and staff as well as the review of records all occurred today. I also attest that the listed assessment and stated plan reflect my best clinical judgment today based on the combination of historical information, prior notes, and today's exam/ interactions. When time spent is documented, it refers only to time spent today by the signer, or if indicated, combined time spent today by collaborating physician/nurse practitioner. . Hellen Alaniz Feb 14, 2017 17:16
--- NOTE | 2017-02-14 19:55 | HHI.PR ---
Subjective Remarks No change . Went for radiation simulation. Still on O2 at 2 L. Will go for palliative radiation for Right main bronchus occlusion Chest catheter in place Objective Vital Signs Date Time Temp Pulse Resp B/P Pulse Ox O2 Delivery O2 Flow Rate FiO2 02/14/17 15:50 97.6 100 20 109/68 100 02/14/17 11:50 97.9 111 20 118/81 99 Automatic Cuff 02/14/17 11:14 Nasal Cannula 2.00 02/14/17 09:26 98 Nasal Cannula 2.00 02/14/17 07:50 97.7 113 20 106/71 96 02/14/17 05:00 96.8 114 18 108/66 98 02/14/17 03:45 21 02/14/17 01:08 96 Nasal Cannula 2.00 02/14/17 00:51 96 Nasal Cannula 2.00 02/14/17 00:00 97.3 112 18 99/66 96 02/13/17 22:26 99 Nasal Cannula 2.00 02/13/17 20:00 96.8 106 18 99/63 96 I/O 02/13/17 02/13/17 02/13/17 02/14/17 02/14/17 02/14/17 07:00 15:00 23:00 07:00 15:00 23:00 Intake Total 240 ml Output Total 100 ml 200 ml 600 ml Balance -100 ml -200 ml 240 ml -600 ml Intake Oral 240 ml Output Urine Total 400 ml Chest Tube Drainage Total 200 ml Drainage Total 100 ml 200 ml Result Diagram: 02/11/17 0343 Procedures Right side Thoracentesis on 01/30/17 and 02/01/17. Objective Remarks GENERAL: This is a well-nourished, well-developed patient, in no distress.Pallor + CARDIOVASCULAR: Regular rate and rhythm without murmurs, gallops, or rubs. RESPIRATORY:diminished breath sounds right chest and occ crackles at right base GASTROINTESTINAL: Abdomen soft, non-tender,nondistended. Normal active bowel sounds. No mass MUSCULOSKELETAL: Extremities without clubbing, cyanosis, or edema. NEURO: Alert & Oriented x4 to person, place, time, situation. Moves all ext x4 Assessment and Plan Assessment and Plan Primary Impression: Pleural effusion on right Additional Impressions: Acute dyspnea/Hypoxia Metastatic lung carcinoma COPD. Anemia. Anxiety. Plan : 1. Chest catheter to be drained very 2 days 2. O2 at 2 L 3. Nebs qid , duoneb. 4. Labs in am 5. Radiation therapy as planned 6. Prednisone 20 mg bid Antonio Cazares MD Feb 14, 2017 19:55
[2017-02-14] MEDS: ATORVASTATIN 40 MG TAB PO SCH (21:00)
[2017-02-14] MEDS: TEMAZEPAM 15 MG CAP PO PRN (22:39)
[2017-02-15] VITALS (7 sets, daily range): BP systolic 99–112; BP diastolic 61–70; PULSE 98–115; RESP 16–22; TEMP 96.1–97.6; O2SAT 96–99
[2017-02-15] MEDS: clonazePAM 1 MG TAB PO SCH ×3 (05:08→23:44)
[2017-02-15] MEDS: RESP: ALBUTEROL 2.5 MG/IPRATROPIUM 0.5 MG NEB (PRN) NEB ×2 (05:23→23:33)
[2017-02-15 06:55] LABS: HEMATOCRIT 30.9 % (35.0-46.0); MEAN CELL VOLUME 84.9 FL (80.0-100.0); MEAN CORPUSCULAR HEMOGLOBIN 28.2 PG (27.0-34.0); MEAN CORPUSCULAR HGB CONC 33.2 % (32.0-36.0); PLATELET COUNT 262 TH/MM3 (150-450); RED BLOOD COUNT 3.64 MIL/MM3 (4.00-5.30); REVIEW FLAG FINAL; WHITE BLOOD COUNT 5.5 TH/MM3 (4.0-11.0)
[2017-02-15 07:12] LABS: BICARBONATE 34.2 MEQ/L (21.0-32.0); POTASSIUM 3.8 MEQ/L (3.5-5.1)
[2017-02-15] MEDS: NYSTATIN SUSP 500,000 U/5 ML CUP SWISH-SWAL SCH ×4 (09:00→21:00)
[2017-02-15] MEDS: NORTRIPTYLINE HCL 25 MG CAP PO SCH ×2 (09:00→22:57)
[2017-02-15] MEDS: predniSONE 20 MG TAB PO SCH (10:00)
[2017-02-15] MEDS: LEVOFLOXACIN 500 MG TAB PO SCH (10:00)
[2017-02-15] MEDS: DOCUSATE SODIUM 50 MG/SENNA 8.6 MG TAB PO SCH ×2 (10:00→22:58)
[2017-02-15] MEDS: METOPROLOL SUCCINATE 25 MG EXTENDED RELEASE TAB PO SCH (10:00)
[2017-02-15] MEDS: MEGESTROL ACETATE SUSP 400 MG/10 ML CUP PO SCH (10:00)
[2017-02-15] MEDS: SODIUM CHLORIDE 0.9% FLUSH 10 ML FLUSH IV FLUSH SCH ×2 (10:07→23:49)
[2017-02-15] MEDS: FLUTICASONE 100 MCG/VILANTEROL 25 MCG INHALER INH SCH (10:08)
[2017-02-15] MEDS: ACETAMINOPHEN/HYDROcodone 325 MG/5 MG TAB PO PRN ×2 (10:12→16:00)
--- NOTE | 2017-02-15 10:26 | HHI.PR ---
Subjective Remarks Patient reports feeling okay. She slept okay last night. Shortness of breath is stable. On 2 L nasal cannula. Objective Vitals Vital Signs Date Time Temp Pulse Resp B/P Pulse Ox O2 Delivery O2 Flow Rate FiO2 02/15/17 08:00 97.0 115 22 106/70 99 02/15/17 04:00 96.1 104 18 105/64 98 02/15/17 00:00 97.6 98 16 112/66 98 02/14/17 22:19 98 2.00 02/14/17 20:00 Nasal Cannula 2.00 21 02/14/17 20:00 99 16 116/61 98 02/14/17 15:50 97.6 100 20 109/68 100 02/14/17 11:50 97.9 111 20 118/81 99 Automatic Cuff 02/14/17 11:14 Nasal Cannula 2.00 I/O 02/14/17 02/14/17 02/14/17 02/15/17 02/15/17 02/15/17 07:00 15:00 23:00 07:00 15:00 23:00 Intake Total 180 ml 240 ml Output Total 600 ml 100 ml Balance -600 ml 180 ml 140 ml Intake Oral 180 ml 240 ml Output Urine Total 400 ml Drainage Total 200 ml 100 ml # Voids 0 1 0 # Bowel Movements 0 Result Diagram: 02/15/1715 02/15/17 0615 Objective Remarks GENERAL: Frail and chronically ill appearing female CARDIOVASCULAR: Rate about 105 and regular rhythm without murmurs, gallops, or rubs. RESPIRATORY: Shallow breathing. Completely absent breath sounds on the right. Right chest tube draining clear fluid. Left lung chang with some faint rhonchi. GASTROINTESTINAL: Abdomen soft, non-tender, non-distended. Normal active bowel sounds MUSCULOSKELETAL: Extremities without cyanosis, or edema. NEURO: Alert & Oriented. Moves all ext x4. Normal speech PSYCH: Appropriate mood and affect. Procedures Right sided Chest tube placement on 02/04/2017 Port placement 02/07/2017. Pleuro-x catheter placement on 02/09/2017. A/P Problem List: (1) Metastatic lung carcinoma ICD Code: C78.00 Status: Acute (2) Pleural effusion on right ICD Code: J90 Status: Acute (3) Acute respiratory failure ICD Code: J96.00 Status: Acute (4) COPD Status: Acute Assessment and Plan 71 year old female with a long history of smoking, recently diagnosed with stage IV lung cancer who presented to the ED on 01/30/2017 due to worsening shortness of breath. Initial work up indicated significant pleural effusion on the right side as well as mass. Patient underwent thoracentesis. Medical oncology, Pulmonary are on board and following patient. Patient underwent Port placement on 02/07/2017 and chemotherapy started on the same day. - Stage IV non-small cell lung cancer - Malignant pleural effusion - s/p Thoracentesis X 2. Chest tube in place on the right side, draining. - Patient started on Carboplatin as well Paclitaxel per Oncology. - pleurX cath placed on 02/09/2017 by interventional radiology - CT chest on 02/12/2017 shows near complete collapse of the right lung due to right main bronchus occlusion. -Radiation oncology following. Patient undergoing palliative radiation -Palliative care following - Acute respiratory failure - Likely due to large pleural effusion as well as COPD. - Continue Levaquin 500 mg by mouth daily for total 5 days. - Continue DuoNeb PRN, Continue Fluticasone-Vilanter INH. - Appreciate Pulmonology following - Prednisone per Pulmonology. - Currently on nasal cannula 1-2 L of oxygen. Sinus tachycardia: Related to above. Continue to follow for now. - Oral/Pharyngeal candidiasis - Poor nutrition - Continue Nystatin liquid. - GI consulted per pulmonary recommendation. Patient currently does not want a PEG tube. - Continue megestrol liquid 400mg Qday. - Hypertension : labile BP - BP within reasonable range. Continue Clonidine 0.1mg Q6hrs PRN - Hyperlipidemia - continue Lipitor 40mg QHS. - Neuropathic pain - Continue nortriptyline, reduced dose from 50 mg to 25 mg daily which is her home dose. Full code. SCDs. Problem Qualifiers (1) Metastatic lung carcinoma: Qualified Code: C78.00 - Metastatic lung carcinoma, unspecified laterality Jsoe Carlos Dave MD Feb 15, 2017 10:26
--- NOTE | 2017-02-15 13:50 | PD.ONC.PN ---
Subjective Subjective Remarks Afebrile overnight. Patient did not eat breakfast and she doesn't think she will eat lunch. She is anxious, she asks me if she's dying. Breathing about the same. Objective Data Date Time Temp Pulse Resp B/P Pulse Ox O2 Delivery O2 Flow Rate FiO2 02/15/17 12:00 97.0 110 20 103/64 96 02/15/17 11:36 99 21 02/15/17 09:50 Nasal Cannula 2.00 02/15/17 08:00 97.0 115 22 106/70 99 02/15/17 04:00 96.1 104 18 105/64 98 02/15/17 00:00 97.6 98 16 112/66 98 02/14/17 22:19 98 2.00 02/14/17 20:00 Nasal Cannula 2.00 21 02/14/17 20:00 99 16 116/61 98 02/14/17 15:50 97.6 100 20 109/68 100 02/15/17 02/15/17 02/15/17 06:59 14:59 22:59 Output Total 700 ml Balance -700 ml Result Diagram: 02/15/1715 02/15/1715 Laboratory Results Laboratory Tests Test 02/15/17 06:15 White Blood Count 5.5 TH/MM3 Red Blood Count 3.64 MIL/MM3 Hemoglobin 10.3 GM/DL Hematocrit 30.9 % Mean Corpuscular Volume 84.9 FL Mean Corpuscular Hemoglobin 28.2 PG Mean Corpuscular Hemoglobin 33.2 % Concent Red Cell Distribution Width 18.0 % Platelet Count 262 TH/MM3 Mean Platelet Volume 8.5 FL Sodium Level 133 MEQ/L Potassium Level 3.8 MEQ/L Chloride Level 92 MEQ/L Carbon Dioxide Level 34.2 MEQ/L Anion Gap 7 MEQ/L Blood Urea Nitrogen 26 MG/DL Creatinine 0.50 MG/DL Estimat Glomerular Filtration 122 ML/MIN Rate Random Glucose 123 MG/DL Calcium Level 8.9 MG/DL Administered Medications Medications (Trade) Dose Ordered Sig/Eloise Route PRN Reason Start Time Stop Time Status Last Admin Dose Admin Sodium Chloride (NS Flush) 2 ml BID IV FLUSH 01/30/17 21:00 02/15/17 10:07 Acetaminophen/ Hydrocodone Bitart ([place] 5-325 Mg) 1 tab Q4H PRN PO PAIN SCALE 3 TO 5 5/30/17 18:15 02/15/17 10:12 Acetaminophen/ Hydrocodone Bitart ([place] 7.5-325 Mg) 1 tab Q4H PRN PO PAIN SCALE 6 TO 10 01/30/17 18:15 02/14/17 02:46 Senna/Docusate Sodium (Janneth-Colace) 1 tab BID PO 01/30/17 21:00 02/15/17 10:00 Magnesium Hydroxide (Milk Of Magnesia Liq) 30 ml Q12H PRN PO MILD - MODERATE CONSTIPATION 01/30/17 18:15 02/07/17 23:18 Atorvastatin Calcium (Lipitor) 40 mg HS PO 01/30/17 21:00 02/12/17 20:55 Fluticasone/ Vilanterol (Breo Ellipta 100-25 Inh) 1 puff DAILY INH 01/31/17 09:00 02/15/17 10:08 Metoprolol Succinate (Toprol Xl) 50 mg DAILY PO 01/31/17 09:00 02/15/17 10:00 Ondansetron HCl (Zofran Inj) 4 mg Q4HR PRN IV PUSH Nausea 02/05/17 12:00 02/11/17 01:26 Nystatin (Mycostatin Liq) 5 ml QID SWISH-SWAL 02/06/17 13:00 02/13/17 14:42 Heparin Sodium (Porcine) (Heparin Central Flush) 500 units UNSCH IV FLUSH 02/07/17 10:30 02/08/17 22:35 Heparin Sodium (Porcine) (Heparin Central Flush) 250 units UNSCH PRN IV FLUSH SEE PROTOCOL 02/07/17 10:30 02/09/17 15:21 Temazepam (Restoril) 15 mg HS PRN PO INSOMNIA 02/07/17 21:15 02/14/17 22:39 Megestrol Acetate (Megace Liq) 400 mg DAILY PO 02/10/17 09:00 02/15/17 10:00 Nortriptyline HCl (Pamelor) 25 mg BID PO 02/09/17 21:00 02/14/17 22:38 Levofloxacin (Levaquin) 500 mg DAILY PO 02/12/17 09:00 02/17/17 08:59 02/15/17 10:00 Prednisone (Deltasone) 20 mg BID PO 02/13/17 21:00 02/15/17 10:00 Clonazepam (KlonoPIN) 1 mg Q8HR PO 02/14/17 14:00 02/15/17 05:08 Objective Remarks GENERAL: Elderly female, weak appearing and anxious, sitting up in bed on 2L O2 via NC SKIN: Warm and dry. HEAD: Normocephalic. EYES: No injection or drainage. NECK: Supple, trachea midline. CARDIOVASCULAR: tachy, regular rhythm RESPIRATORY: diminished right lung chang. scattered coarse rhonchi. Aspira drain in place right lung GASTROINTESTINAL: Abdomen soft, non-tender, nondistended. EXTREMITIES: No cyanosis NEUROLOGICAL: awake and alert, normal speech. Assessment/Plan Problem List: (1) Metastatic lung carcinoma Status: Acute Plan: 02/15: continue XRT, (completion date is tentatively 02/27). again encouraged patient to eat. she asked if she was dying. we gently discussed the terminal nature of her illness and also discussed her increasingly debilitated and weakened state. gently explored continuing radiation or considering hospice. patient talked for about 15 minutes about her family and concerns about her daughters. She ended by saying she wants to continue radiation for now. we also discussed code status. she wants to discuss with her family before making a decision about that. 02/14: XRT started encouraged patient to try to eat more. continue Megace. 02/13: radiation simulation today. palliative care to see patient today as well. patient too weak for further chemotherapy at this point. 02/12 CT Chest = progression of R lung mass with complete collapse Right lung Consult XRT for palliative radiation to open up the lung 02/11: agree with SNF placement, she is still quite weak. encouraged to eat. once discharged, follow up in clinic. 02/10: encouraged patient to eat. she is still very deconditioned. may need rehab.SNF but patient and family refusing, want to go home with [facility]. continue Megace. 02/09: pleurx catheter placement today. start Megace for appetite stimulation 02/08: Tolerated chemo OK yesterday. Chest tube output significantly decreased. Will arrange for Pleur-X cath placement. Pt somewhat more lethargic than yesterday. Will obtain CT head. 02/07: The pt got her infusaport today. Chemotherapy planned for later today. Emotional care provided. Will monitor. 02/06: [facility] and start Carbo/Taxol tomorrow. will also consult invasive radiology for port placement. --+ pleural effusion --stage IV disease Assessment 71y/o female with recently diagnosed stage IV non-small cell lung cancer with malignant pleural effusion. Admitted with dyspnea. h/o COPD. Coronary artery disease status post FL. Hypertension. Hypercholesterolemia. Peripheral neuropathy. Attending Statement Continue to have severe weakness and anorexia Tolerating radiation so far well Code status pending Prognosis is poor Problem Qualifiers (1) Metastatic lung carcinoma: Qualified Code: C78.00 - Metastatic lung carcinoma, unspecified laterality Radha Whipple Feb 15, 2017 13:50 Katarzyna Jaquez MD Feb 16, 2017 06:06
--- NOTE | 2017-02-15 17:52 | HHI.PR ---
Subjective Remarks Breathing easier. Went for radiation today . Still on O2 at 2 L. Chest catheter in place Objective Vital Signs Date Time Temp Pulse Resp B/P Pulse Ox O2 Delivery O2 Flow Rate FiO2 02/15/17 16:00 97.0 111 20 99/68 97 02/15/17 12:00 97.0 110 20 103/64 96 02/15/17 11:36 99 21 02/15/17 09:50 Nasal Cannula 2.00 02/15/17 08:00 97.0 115 22 106/70 99 02/15/17 04:00 96.1 104 18 105/64 98 02/15/17 00:00 97.6 98 16 112/66 98 02/14/17 22:19 98 2.00 02/14/17 20:00 Nasal Cannula 2.00 21 02/14/17 20:00 99 16 116/61 98 I/O 02/14/17 02/14/17 02/14/17 02/15/17 02/15/17 02/15/17 07:00 15:00 23:00 07:00 15:00 23:00 Intake Total 180 ml 240 ml 480 ml Output Total 600 ml 100 ml 700 ml 600 ml Balance -600 ml 180 ml 140 ml -700 ml -120 ml Intake Oral 180 ml 240 ml 480 ml Output Urine Total 400 ml 600 ml Drainage Total 200 ml 100 ml 700 ml # Voids 0 1 0 # Bowel Movements 0 Result Diagram: 02/15/17 0615 02/15/17 0615 Procedures Right side Thoracentesis on 01/30/17 and 02/01/17. Objective Remarks GENERAL: This is a well-nourished, well-developed patient, in no distress.Pallor + CARDIOVASCULAR: Regular rate and rhythm without murmurs, gallops, or rubs. RESPIRATORY:diminished breath sounds right chest and occ crackles at right chest. GASTROINTESTINAL: Abdomen soft, non-tender,nondistended. Normal active bowel sounds. No mass MUSCULOSKELETAL: Extremities without clubbing, cyanosis, or edema. NEURO: Alert & Oriented x4 to person, place, time, situation. Moves all ext x4 Assessment and Plan Assessment and Plan Primary Impression: Pleural effusion on right Additional Impressions: Acute dyspnea/Hypoxia Metastatic lung carcinoma COPD. Anemia. Anxiety. Plan : 1. Chest catheter to be drained very 2 days 2. O2 at 2 L 3. Nebs qid , duoneb. 4. CXR in am 5. Radiation therapy as planned 6. Prednisone 30 mg daily Antonio Cazares MD Feb 15, 2017 17:52
[2017-02-15] MEDS: ATORVASTATIN 40 MG TAB PO SCH (22:57)
[2017-02-15] MEDS ORDERED: RESP: ALBUTEROL 2.5 MG/IPRATROPIUM 0.5 MG NEB (SCH) NEB ONE (23:45)
[2017-02-15] MEDS ORDERED: RESP: ACETYLCYSTEINE 20% 30 ML NEB NEB ONE (23:45)
[2017-02-16] VITALS (7 sets, daily range): BP systolic 99–124; BP diastolic 65–73; PULSE 108–120; RESP 16–18; TEMP 96.2–97; O2SAT 93–100
[2017-02-16] MEDS: clonazePAM 1 MG TAB PO SCH ×3 (06:00→21:52)
--- NOTE | 2017-02-16 06:51 | RADRPT ---
EXAM DATE/TIME: 02/16/2017 06:08 [place] COMPARISON: CHEST SINGLE AP, February 12, 2017, 7:27. INDICATIONS : Evaluate for effusion. MEDICAL HISTORY : Chronic obstructive pulmonary disease. Myocardial infarction. Small cell lung cancer. SURGICAL HISTORY : CABG. Infusaport. ENCOUNTER: Subsequent ACUITY: 1 month PAIN SCORE: 0/10 LOCATION: chest FINDINGS: The cardiac silhouette is normal in transverse diameter. [id number] is in place via right internal jugular approach with its tip in the superior vena cava. There is complete opacification of the righ t hemithorax with volume loss.. The left lung is free of acute parenchymal opacity. CONCLUSION: 1. Complete opacification of the right hemithorax unchanged Han Christie MD on February 16, 2017 at 6:48 Board Certified Radiologist. This report was verified electronically.
[2017-02-16] MEDS: NYSTATIN SUSP 500,000 U/5 ML CUP SWISH-SWAL SCH ×4 (09:00→19:54)
[2017-02-16] MEDS: DOCUSATE SODIUM 50 MG/SENNA 8.6 MG TAB PO SCH ×2 (10:15→19:49)
[2017-02-16] MEDS: predniSONE 10 MG TAB PO SCH (10:15)
[2017-02-16] MEDS: LEVOFLOXACIN 500 MG TAB PO SCH (10:15)
[2017-02-16] MEDS: MEGESTROL ACETATE SUSP 400 MG/10 ML CUP PO SCH (10:15)
[2017-02-16] MEDS: ACETAMINOPHEN/HYDROcodone 325 MG/5 MG TAB PO PRN (10:16)
[2017-02-16] MEDS: METOPROLOL SUCCINATE 25 MG EXTENDED RELEASE TAB PO SCH (10:16)
[2017-02-16] MEDS: NORTRIPTYLINE HCL 25 MG CAP PO SCH ×2 (10:18→19:49)
[2017-02-16] MEDS: SODIUM CHLORIDE 0.9% FLUSH 10 ML FLUSH IV FLUSH SCH ×2 (10:19→19:50)
[2017-02-16] MEDS: FLUTICASONE 100 MCG/VILANTEROL 25 MCG INHALER INH SCH (10:22)
--- NOTE | 2017-02-16 11:05 | PD.ONC.PN ---
Subjective Subjective Remarks Afebrile overnight. "I feel awful." Still eating very little. Drank some chocolate milk. Breathing somewhat improved. Objective Data Date Time Temp Pulse Resp B/P Pulse Ox O2 Delivery O2 Flow Rate FiO2 02/16/17 08:21 97 Nasal Cannula 2.00 02/16/17 08:00 97.0 120 18 104/73 93 02/16/17 04:00 96.4 110 18 104/65 98 02/16/17 00:00 96.5 108 18 124/73 100 02/15/17 23:33 Nasal Cannula 2.00 02/15/17 21:00 97 Nasal Cannula 2.00 21 02/15/17 20:00 96.1 110 16 100/61 97 02/15/17 16:00 97.0 111 20 99/68 97 02/15/17 12:00 97.0 110 20 103/64 96 02/15/17 11:36 99 21 02/16/17 02/16/17 02/16/17 07:00 15:00 23:00 Intake Total 240 ml Output Total 200 ml Balance 40 ml Result Diagram: 02/15/1715 02/15/17 0615 Imaging Studies Last 24 hours Impressions Chest X-Ray 02/16/17 06 Signed Impressions: Service Date/Time: Thursday, February 16, 2017 06:08 - CONCLUSION: 1. Complete opacification of the right hemithorax unchanged Han Christie MD Administered Medications Medications (Trade) Dose Ordered Sig/Eloise Route PRN Reason Start Time Stop Time Status Last Admin Dose Admin Sodium Chloride (NS Flush) 2 ml BID IV FLUSH 01/30/17 21:00 02/16/17 10:19 Acetaminophen/ Hydrocodone Bitart (Evans 5-325 Mg) 1 tab Q4H PRN PO PAIN SCALE 3 TO 5 01/30/17 18:15 02/16/17 10:16 Acetaminophen/ Hydrocodone Bitart (Evans 7.5-325 Mg) 1 tab Q4H PRN PO PAIN SCALE 6 TO 10 01/30/17 18:15 02/14/17 02:46 Senna/Docusate Sodium (Janneth-Colace) 1 tab BID PO 01/30/17 21:00 02/16/17 10:15 Magnesium Hydroxide (Milk Of Magnesia Liq) 30 ml Q12H PRN PO MILD - MODERATE CONSTIPATION 01/30/17 18:15 02/07/17 23:18 Atorvastatin Calcium (Lipitor) 40 mg HS PO 01/30/17 21:00 02/15/17 22:57 Fluticasone/ Vilanterol (Breo Ellipta 100-25 Inh) 1 puff DAILY INH 01/31/17 09:00 02/16/17 10:22 Metoprolol Succinate (Toprol Xl) 50 mg DAILY PO 01/31/17 09:00 02/16/17 10:16 Ondansetron HCl (Zofran Inj) 4 mg Q4HR PRN IV PUSH Nausea 02/05/17 12:00 02/11/17 01:26 Nystatin (Mycostatin Liq) 5 ml QID SWISH-SWAL 02/06/17 13:00 02/13/17 14:42 Heparin Sodium (Porcine) (Heparin Central Flush) 500 units UNSCH IV FLUSH 02/07/17 10:30 02/08/17 22:35 Heparin Sodium (Porcine) (Heparin Central Flush) 250 units UNSCH PRN IV FLUSH SEE PROTOCOL 02/07/17 10:30 02/09/17 15:21 Temazepam (Restoril) 15 mg HS PRN PO INSOMNIA 02/07/17 21:15 02/14/17 22:39 Megestrol Acetate (Megace Liq) 400 mg DAILY PO 02/10/17 09:00 02/16/17 10:15 Nortriptyline HCl (Pamelor) 25 mg BID PO 02/09/17 21:00 02/16/17 10:18 Levofloxacin (Levaquin) 500 mg DAILY PO 02/12/17 09:00 02/17/17 08:59 02/16/17 10:15 Clonazepam (KlonoPIN) 1 mg Q8HR PO 02/14/17 14:00 02/15/17 23:44 Prednisone (Deltasone) 30 mg DAILY PO 02/16/17 09:00 02/16/17 10:15 Objective Remarks GENERAL: Elderly female, fatigued and weak, lying in bed. on 2L O2 via NC SKIN: Warm and dry. HEAD: Normocephalic. EYES: No injection or drainage. NECK: Supple, trachea midline. CARDIOVASCULAR: tachy, regular rhythm RESPIRATORY: scattered rhonchi. diminished right lung chang. GASTROINTESTINAL: Abdomen soft, non-tender, nondistended. EXTREMITIES: No cyanosis NEUROLOGICAL: awake and alert, and oriented x 3. normal speech. moving extremities. Assessment/Plan Problem List: (1) Metastatic lung carcinoma Status: Acute Plan: 02/16: patient states she has thought about code status and wants to be a NO CODE. we discussed what that would mean--no chest compressions, no resuscitation medications, and no intubation. She discussed that she has been trying to discuss with her family the terminal nature of her illness but they don't seem to understand. I offer to discuss her illness with them. She says she will call them and try to get them to come to the hospital. will check on her again this afternoon. She wants to continue XRT for now. UPDATE: family meeting held with patient, and two daughters. we discussed the patient's diagnosis of metastatic lung cancer. we discussed her increasingly weakened state. discussed that she is too weak to have further chemotherapy. Discussed that she could continue with XRT or consider hospice comfort care. patient stated she wanted to go home with hospice. daughters stated they were in agreement with whatever their mother wanted. will consult hospice. 02/15: continue XRT, (completion date is tentatively 02/27). again encouraged patient to eat. she asked if she was dying. we gently discussed the terminal nature of her illness and also discussed her increasingly debilitated and weakened state. gently explored continuing radiation or considering hospice. patient talked for about 15 minutes about her family and concerns about her daughters. She ended by saying she wants to continue radiation for now. we also discussed code status. she wants to discuss with her family before making a decision about that. 02/14: XRT started encouraged patient to try to eat more. continue Megace. 02/13: radiation simulation today. palliative care to see patient today as well. patient too weak for further chemotherapy at this point. 02/12 CT Chest = progression of R lung mass with complete collapse Right lung Consult XRT for palliative radiation to open up the lung 02/11: agree with SNF placement, she is still quite weak. encouraged to eat. once discharged, follow up in clinic. 02/10: encouraged patient to eat. she is still very deconditioned. may need rehab.SNF but patient and family refusing, want to [facility]. continue Megace. 02/09: pleurx catheter placement today. start Megace for appetite stimulation 02/08: Tolerated chemo OK yesterday. Chest tube output significantly decreased. Will arrange for Pleur-X cath placement. Pt somewhat more lethargic than yesterday. Will obtain CT head. 02/07: The pt got her infusaport today. Chemotherapy planned for later today. Emotional care provided. Will monitor. 02/06: will transfer to [facility] and start Carbo/Taxol tomorrow. will also consult invasive radiology for port placement. --+ pleural effusion --stage IV disease Assessment 71y/o female with recently diagnosed stage IV non-small cell lung cancer with malignant pleural effusion. Admitted with dyspnea. h/o COPD. Coronary artery disease status post NV. Hypertension. Hypercholesterolemia. Peripheral neuropathy. Attending Statement very weak , can not walk still can not eat much PEG tube discuss. She decline at this time. XRT Code status discuss. She wants NO COde. pt has agreed to hospice. ok to d/c with hospice. The exam, history, and the medical decision-making described in the above note were completed with the assistance of the mid-level provider. I reviewed and agree with the findings presented. I attest that I had a [id number] encounter with the patient on the same day, and personally performed and documented my assessment and findings in the medical record. Problem Qualifiers (1) Metastatic lung carcinoma: Qualified Code: C78.00 - Metastatic lung carcinoma, unspecified laterality Rdaha Whipple Feb 16, 2017 11:05 Katarzyna Jaquez MD Feb 16, 2017 13:52
--- NOTE | 2017-02-16 11:49 | HHI.PR ---
Subjective Remarks Patient's shortness of breath is unchanged. I discussed with her and one of her daughter at length. She was accepted at a SNF and she can do radiation from there. She will discuss her overall goals of care with her family today. She will then decide if she want to continue with radiation. We did discuss Hospice as an option if she wish to transition to comfort care only. Objective Vitals Vital Signs Date Time Temp Pulse Resp B/P Pulse Ox O2 Delivery O2 Flow Rate FiO2 02/16/17 08:21 97 Nasal Cannula 2.00 02/16/17 08:00 97.0 120 18 104/73 93 02/16/17 04:00 96.4 110 18 104/65 98 02/16/17 00:00 96.5 108 18 124/73 100 02/15/17 23:33 Nasal Cannula 2.00 02/15/17 21:00 97 Nasal Cannula 2.00 21 02/15/17 20:00 96.1 110 16 100/61 97 02/15/17 16:00 97.0 111 20 99/68 97 02/15/17 12:00 97.0 110 20 103/64 96 I/O 02/15/17 02/15/17 02/15/17 02/16/17 02/16/17 02/16/17 07:00 15:00 23:00 07:00 15:00 23:00 Intake Total 720 ml 240 ml Output Total 700 ml 1000 ml 200 ml Balance -700 ml -280 ml 40 ml Intake Oral 720 ml 240 ml Output Urine Total 1000 ml 200 ml Drainage Total 700 ml # Voids 0 1 Result Diagram: 02/15/17 0615 02/15/17 0615 Objective Remarks GENERAL: Frail and chronically ill appearing female CARDIOVASCULAR: Rate about 105 and regular rhythm without murmurs, gallops, or rubs. RESPIRATORY: Shallow breathing. Completely absent breath sounds on the right. Right chest tube in place. Left lung chang with some diffuse rhonchi. GASTROINTESTINAL: Abdomen soft, non-tender, non-distended. Normal active bowel sounds MUSCULOSKELETAL: Extremities without cyanosis, or edema. NEURO: Alert & Oriented. Moves all ext x4. Normal speech PSYCH: Appropriate mood and affect. Procedures Right sided Chest tube placement on 02/04/2017 Port placement 02/07/2017. Pleuro-x catheter placement on 02/09/2017. A/P Problem List: (1) Metastatic lung carcinoma ICD Code: C78.00 Status: Acute (2) Pleural effusion on right ICD Code: J90 Status: Acute (3) Acute respiratory failure ICD Code: J96.00 Status: Acute (4) COPD Status: Acute Assessment and Plan 71 year old female with a long history of smoking, recently diagnosed with stage IV lung cancer who presented to the ED on 01/30/2017 due to worsening shortness of breath. Initial work up indicated significant pleural effusion on the right side as well as mass. Patient underwent thoracentesis. Medical oncology, Pulmonary are on board and following patient. Patient underwent Port placement on 02/07/2017 and chemotherapy started on the same day. - Stage IV non-small cell lung cancer - Malignant pleural effusion - s/p Thoracentesis X 2. Chest tube in place on the right side, draining. - Patient started on Carboplatin as well Paclitaxel per Oncology. - pleurX cath placed on 02/09/2017 by interventional radiology - CT chest on 02/12/2017 shows near complete collapse of the right lung due to right main bronchus occlusion. - Radiation oncology following. Patient undergoing palliative radiation. Prognosis is poor. Patient will discuss with her family today whether or not to continue with radiation. - Palliative care following - DW with Oncology Radha LONG who will discuss with the patient's family as well. - Functional status appear to be getting worse. - Acute respiratory failure - Likely due to large pleural effusion as well as COPD. - Continue Levaquin 500 mg by mouth daily for total 5 days. - Continue DuoNeb PRN, Continue Fluticasone-Vilanter INH. - Appreciate Pulmonology following - Prednisone per Pulmonology. - Currently on nasal cannula 1-2 L of oxygen. Sinus tachycardia: Related to above. Continue to follow for now. - Oral/Pharyngeal candidiasis - Poor nutrition - Continue Nystatin liquid. - GI consulted per pulmonary recommendation. Patient currently does not want a PEG tube. - Continue megestrol liquid 400mg Qday. - Hypertension : labile BP - BP within reasonable range. Continue Clonidine 0.1mg Q6hrs PRN - Hyperlipidemia - continue Lipitor 40mg QHS. - Neuropathic pain - Continue nortriptyline, reduced dose from 50 mg to 25 mg daily which is her home dose. Full code. SCDs. Discharge Planning Possible DC to SNF vs Hospice. Patient will discuss with her family today to make a decision. Problem Qualifiers (1) Metastatic lung carcinoma: Qualified Code: C78.00 - Metastatic lung carcinoma, unspecified laterality Jose Carlos Dave MD Feb 16, 2017 11:49
--- NOTE | 2017-02-16 12:34 | HHI.PR ---
Subjective Remarks Seems more labored with breathing. Still on O2 at 2 L. Chest catheter in place. Will go to hospice Objective Vital Signs Date Time Temp Pulse Resp B/P Pulse Ox O2 Delivery O2 Flow Rate FiO2 02/16/17 08:21 97 Nasal Cannula 2.00 02/16/17 08:00 97.0 120 18 104/73 93 02/16/17 04:00 96.4 110 18 104/65 98 02/16/17 00:00 96.5 108 18 124/73 100 02/15/17 23:33 Nasal Cannula 2.00 02/15/17 21:00 97 Nasal Cannula 2.00 21 02/15/17 20:00 96.1 110 16 100/61 97 02/15/17 16:00 97.0 111 20 99/68 97 I/O 02/15/17 02/15/17 02/15/17 02/16/17 02/16/17 02/16/17 07:00 15:00 23:00 07:00 15:00 23:00 Intake Total 720 ml 240 ml Output Total 700 ml 1000 ml 200 ml Balance -700 ml -280 ml 40 ml Intake Oral 720 ml 240 ml Output Urine Total 1000 ml 200 ml Drainage Total 700 ml # Voids 0 1 Result Diagram: 02/15/17 0615 02/15/17 0615 Procedures Right side Thoracentesis on 01/30/17 and 02/01/17. Objective Remarks GENERAL: This is a well-nourished, well-developed patient, in no distress.Pallor + CARDIOVASCULAR: Regular rate and rhythm without murmurs, gallops, or rubs. RESPIRATORY:diminished breath sounds right chest and occ wheeze at right chest. GASTROINTESTINAL: Abdomen soft, non-tender,nondistended. Normal active bowel sounds. No mass MUSCULOSKELETAL: Extremities without clubbing, cyanosis, or edema. NEURO: Alert & Oriented x4 to person, place, time, situation. Moves all ext x4 Assessment and Plan Assessment and Plan Primary Impression: Pleural effusion on right Additional Impressions: Acute dyspnea/Hypoxia Metastatic lung carcinoma COPD. Anemia. Anxiety. Plan : 1. Chest catheter to be drained very 4 days 2. O2 at 2 L 3. Nebs qid , duoneb. 4. Hospice to see 5. Radiation therapy as planned 6. Cont Prednisone 30 mg daily 7. Ativan 1 mg tid prn D'Chow,V. Chapo MD Feb 16, 2017 12:34
[2017-02-16] MEDS: RESP: ALBUTEROL 2.5 MG/IPRATROPIUM 0.5 MG NEB (PRN) NEB (13:41)
[2017-02-16] MEDS ORDERED: RESP: ALBUTEROL 2.5 MG/IPRATROPIUM 0.5 MG NEB (PRN) NEB (14:00)
[2017-02-16] MEDS ORDERED: RESP: ACETYLCYSTEINE 20% 30 ML NEB NEB PRN (16:00)
[2017-02-16] MEDS ORDERED: RESP: ACETYLCYSTEINE 20% 30 ML NEB NEB SCH (16:00)
--- NOTE | 2017-02-16 16:12 | HHI.HCPN ---
Reason for visit a. To assist with evaluation and management of symptoms including: dyspnea, pain,debility, anxiety b. To assist medical decision maker(s) with: better understanding of current medical conditions; weighing benefits/burdens of medical treatment options; making medical treatment decisions. . Subjective/Interval History Ms. Vu is a 71-year-old female with metastatic lung cancer who presented to [facility] ED on 01/30/2017 with complaints of generalized weakness, abdominal discomfort and increasing exertional shortness of breath. The patient was diagnosed with metastatic lung cancer in December,; history of recurrent pleural effusions. Concern for continued reaccumulation of fluid secondary to the right-sided pulmonary mass and collapse of a portion of the lung status post thoracentesis 2 and chest tube placement, now with Pleurx catheter. Patient received chemotherapy 1 since admission but is not a candidate for further chemotherapy because she is so deconditioned. Radiation oncology, Dr. Felder, offered palliative radiation and an attempt to open the patient's airway. Patient to began radiation treatments today 02/14/17. On exam the patient states that she is feeling "awful" and has decided to forego further diagnostic testing or palliative interventions. She had discussed her decision with Melvi LONG earlier in the day; Melvi LONG consulted hospice and change the patient's CODE STATUS to NO CODE at that time. During our discussion , the patient again stated that she wanted to go home with hospice. Her daughters verbalized they would support of whatever their mother wanted. Patient having ongoing shortness of breath with accessory muscle use. Anxiety has decreased since clonazepam dose increased to 1 mg PO every 8 hours on . Appetite remains poor, having difficulty swallowing. BMI 21.0, on Megace. Heart rate 120, respirations 18, BP 104/73, oxygen saturation 93% on 2 L via nasal cannula, oral temperature 97.0; No recent lab work available follow-up chest x-ray on 02/16/17 showed complete opacification of the right hemothorax, unchanged from previous image. . Advance Directives Living Will: Completed, but not made available Health Care Surrogate: Completed, but not made available Durable Power of Residence Life Director: Completed, but not made available Advance Directive Specifics Documented care wishes: Patient and daughter state written advanced directives have been completed, but they do not want to provide copies at this time. The patient states her daughters know what she would want in various situations, and she is confident they will honor her wishes. . Significant change in goals: Hospice consult pending . Objective Vital Signs Date Time Temp Pulse Resp B/P Pulse Ox O2 Delivery O2 Flow Rate FiO2 02/16/17 10:15 Nasal Cannula 2.00 02/16/17 08:21 97 Nasal Cannula 2.00 02/16/17 08:00 97.0 120 18 104/73 93 02/16/17 04:00 96.4 110 18 104/65 98 02/16/17 00:00 96.5 108 18 124/73 100 02/15/17 23:33 Nasal Cannula 2.00 02/15/17 21:00 97 Nasal Cannula 2.00 21 02/15/17 20:00 96.1 110 16 100/61 97 02/15/17 16:00 97.0 111 20 99/68 97 Intake & Output 02/16/17 02/16/17 07:00 19:00 Intake Total 480 ml 240 ml Output Total 600 ml Balance -120 ml 240 ml Intake Oral 480 ml 240 ml Output Urine Total 600 ml # Voids 1 . Physical Exam CONSTITUTIONAL/GENERAL: This is a frail, elderly female patient in some respiratory distress using accessory muscles TUBES/LINES/DRAINS: [id number]-i-[id number], Pleurx catheter SKIN: No jaundice, rashes, or lesions. Ecchymoses on upper extremities. Skin temperature appropriate. Not diaphoretic. HEAD: Atraumatic. Normocephalic. EYES: Pupils equal and round and reactive. Extraocular motions intact. No scleral icterus. No injection or drainage. Fundi not examined. ENT: Hearing grossly normal. Nose without bleeding or purulent drainage. NECK: Trachea midline. CARDIOVASCULAR: Regular rate and rhythm without murmurs, gallops, or rubs. No JVD. Peripheral pulses symmetric. RESPIRATORY/CHEST: Respirations unlabored with accessory muscles used, breath sounds diminished. GASTROINTESTINAL: Abdomen soft, non-tender, nondistended. Bowel sounds present. GENITOURINARY: Without palpable bladder distension. MUSCULOSKELETAL: No obvious deformities. Extremities without clubbing or cyanosis. LYMPHATICS: No palpable cervical or supraclavicular adenopathy. NEUROLOGICAL: Awake and alert, attempting to make jokes. Able to make needs known. Answering questions, following commands. PSYCHIATRIC: Anxiety decreased since increasing her clonazepam dose on .. No apparent hallucinations or other psychotic thought process. . Diagnostic Tests Laboratory Laboratory Tests Test 02/15/17 06:15 White Blood Count 5.5 TH/MM3 (4.0-11.0) Red Blood Count 3.64 MIL/MM3 (4.00-5.30) Hemoglobin 10.3 GM/DL (11.6-15.3) Hematocrit 30.9 % (35.0-46.0) Mean Corpuscular Volume 84.9 FL (80.0-100.0) Mean Corpuscular Hemoglobin 28.2 PG (27.0-34.0) Mean Corpuscular Hemoglobin 33.2 % Concent (32.0-36.0) Red Cell Distribution Width 18.0 % (11.6-17.2) Platelet Count 262 TH/MM3 (150-450) Mean Platelet Volume 8.5 FL (7.0-11.0) Sodium Level 133 MEQ/L (136-145) Potassium Level 3.8 MEQ/L (3.5-5.1) Chloride Level 92 MEQ/L (98-107) Carbon Dioxide Level 34.2 MEQ/L (21.0-32.0) Anion Gap 7 MEQ/L (5-15) Blood Urea Nitrogen 26 MG/DL (7-18) Creatinine 0.50 MG/DL (0.50-1.00) Estimat Glomerular Filtration 122 ML/MIN Rate (>89) Random Glucose 123 MG/DL (74-106) Calcium Level 8.9 MG/DL (8.5-10.1) . Result Diagram: 02/15/1715 02/15/17 0615 Imaging Last 72 hours Impressions Chest X-Ray 02/16/17 0600 Signed Impressions: Service Date/Time: Thursday, February 16, 2017 06:08 - CONCLUSION: 1. Complete opacification of the right hemithorax unchanged Han Christie MD . Procedures 01/30/17: Thoracentesis 02/01/17: Thoracentesis 02/04/17: Chest tube placement 02/07/17: [id number]-b-[id number] placement 02/09/17: Chest tube removed, Pleurx catheter placed . Assessment and Plan Disease Oriented Problem List: (1) Leukocytosis (2) HTN/Lungmass (3) Pleural effusion on right (4) Metastatic lung carcinoma (5) Lung mass (6) COPD (7) History of DE (myocardial infarction) (8) Peripheral neuropathy (9) Hyperlipidemia (10) Depression (11) Coronary artery disease (12) Depression Symptom Scale: (1) Pain (2) Debility (3) Dyspnea (4) Anxiety Pertinent Non-Medical Issues Psychosocial: Ms. Vu is a ; her last year. Together they had 3 children, 2 daughters and a son. Her son from a heart attack. 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 Spiritual: [employer] Legal: Ethical issues impacting care: No known ethical issues impacting care at this time . Important Contacts Zehra Cannon, daughter: [phone] Josephine, daughter: [phone] . . Prognosis Patient is a 71 year old female who was recently diagnosed with stage IV metastatic lung cancer. She has a history of recurrent pleural effusions secondary to the right-sided pulmonary mass and collapse portion of the lung. Status post thoracentesis 2, chest tube placement (removed 02/09/17) and Pleurx catheter placement since admission on 01/30/17. Patient has had one round of chemotherapy but is not a candidate for further treatment at this time due to deconditioning. Radiation oncology was consulted. Patient has decided to proceed with palliative radiation (10 treatments) in an attempt to open her airway. Patient's prognosis is poor; Dr. Jaquez recommending hospice at this time. . Code Status: Full Code Plan * FULL CODE * Decision-making: Patient is currently capacitated to wait the burdens and benefits of treatment options and understands the consequences of these decisions. Per [place] statutes, in the absence of written advanced directives healthcare proxy decision making would fall to the patient's 2 adult daughters ( Zehra and Josephine). Patient states she has had discussions with her daughters about what she would want in various scenarios; she states if she was no longer able to make her own medical treatment decisions, she would want her daughters to make decisions together. * Goals: Hospice consult pending. * Patient diagnosed with stage IV metastatic lung cancer in 12/2016. Patient has had one round of chemotherapy but is not a candidate for further treatment at this time due to deconditioning. Radiation oncology was consulted. Patient has decided to proceed with palliative radiation. Patient's prognosis is poor; Dr. Jaquez recommending hospice at this time. * On exam the patient states that she is feeling "awful" and has decided to forego further diagnostic testing or palliative interventions. She had discussed her decision with Melvi LONG earlier in the day; Melvi LONG consulted hospice and change the patient's CODE STATUS to NO CODE at that time. During our discussion, the patient again stated that she wanted to go home with hospice. Her daughters verbalized they would support of whatever their mother wanted. * Symptom management-dyspnea: Patient with COPD, recently diagnosed stage IV metastatic lung cancer. Experiencing intermittent dyspnea with conversation and at rest. History of recurrent pleural effusions secondary to the right-sided pulmonary mass and collapse portion of the lung. Status post thoracentesis 2, chest tube placement (removed 02/09/17) and Pleurx catheter placement since admission on 01/30/17. Patient started palliative radiation 02/14/17. * Symptom managementanxiety: Patient having increased anxiety that she associates with episodes of dyspnea. Clonazepam dose increased to 1 mg PO every 8 hours for symptom management with symptom improvement. * Symptom managementpain: Patient denies pain on exam. Possible causes of pain include disease progression, her tumor burden, invasive lines, bedbound status, immobility. Current orders for Freeland 53 25 mg or 7.5325 mg PO every 4 hours as needed for pain, being used sparingly with 2 doses (7.5mg- 325mg) in the past 24 hours. May consider initiating low-dose dexamethasone, 4mg PO daily , which may be effective in reducing pain and dyspnea. * Palliative care will continue to follow patient throughout her hospitalization to establish trust, assist with symptom management and clarification of medical treatment goals. . Attestation To help prompt me to consider important information that might be impacting today's encounter and assessment, information from prior notes written by myself or my colleagues may have been "brought forward" into today's note. My signature on this note, however, is an attestation that I personally performed the exam, history, and/or decision-making noted today, and, unless otherwise indicated, the interactions with patient, family, and staff as well as the review of records all occurred today. I also attest that the listed assessment and stated plan reflect my best clinical judgment today based on the combination of historical information, prior notes, and today's exam/ interactions. When time spent is documented, it refers only to time spent today by the signer, or if indicated, combined time spent today by collaborating physician/nurse practitioner. . Hellen Alaniz Feb 16, 2017 16:12
[2017-02-16] MEDS: ATORVASTATIN 40 MG TAB PO SCH (19:49)
[2017-02-17] VITALS: BP 100/59; PULSE 110; RESP 16; TEMP 96.4; O2SAT 97
[2017-02-17] MEDS: RESP: ALBUTEROL 2.5 MG/IPRATROPIUM 0.5 MG NEB (PRN) NEB ×2 (00:31→13:01)
[2017-02-17 04:00] VITALS: BP 98/59; PULSE 116; RESP 17; TEMP 96.4; O2SAT 96
[2017-02-17] MEDS: clonazePAM 1 MG TAB PO SCH (06:00)
[2017-02-17 08:00] VITALS: BP 101/63; PULSE 108; RESP 18; TEMP 97; O2SAT 97
[2017-02-17] MEDS: predniSONE 10 MG TAB PO SCH (09:00)
[2017-02-17] MEDS: SODIUM CHLORIDE 0.9% FLUSH 10 ML FLUSH IV FLUSH SCH (09:00)
[2017-02-17] MEDS: FLUTICASONE 100 MCG/VILANTEROL 25 MCG INHALER INH SCH (09:00)
[2017-02-17] MEDS: METOPROLOL SUCCINATE 25 MG EXTENDED RELEASE TAB PO SCH (09:00)
[2017-02-17] MEDS: MEGESTROL ACETATE SUSP 400 MG/10 ML CUP PO SCH (09:00)
[2017-02-17] MEDS: NYSTATIN SUSP 500,000 U/5 ML CUP SWISH-SWAL SCH ×2 (09:00→12:38)
[2017-02-17] MEDS: NORTRIPTYLINE HCL 25 MG CAP PO SCH (09:00)
[2017-02-17] MEDS: DOCUSATE SODIUM 50 MG/SENNA 8.6 MG TAB PO SCH (09:00)
[2017-02-17 09:43] VITALS: O2SAT 96
--- NOTE | 2017-02-17 09:49 | HHI.DS ---
Discharge Summary Admission Date January 30, 2017 at 18:08 Discharge Date: Feb 17, 2017 Admitting Diagnosis Pleural Effusion with Acute Dyspnea (1) Metastatic lung carcinoma ICD Code: C78.00 Diagnosis: Principal (2) Pleural effusion on right ICD Code: J90 Diagnosis: Principal (3) Acute respiratory failure ICD Code: J96.00 (4) COPD Procedures Right sided Chest tube placement on 02/04/2017 Port placement 02/07/2017. Pleuro-x catheter placement on 02/09/2017. Brief History - From Admission Mrs. Vu is a 71 year old female. She came in today with shortness of breath. She has a history of lung cancer with metastasis to the abdomen. Pleural effusions have been a problem in the past, her last drainage is reported to be about two weeks ago. Tonight she has a right-sided pleural effusion. Symptoms at home have some dyspnea and shortness of breath. No fevers reported. I am seeing her after her thorocentesis, which pulled off about 1L of fluid and had to be discontinued due to pain. Mrs. Vu is still in pain when seen, and is breathing better. No other complaints present tonight. CBC/BMP: 02/15/17 0615 02/15/17 0615 Significant Findings Laboratory Tests Test 02/15/17 06:15 Red Blood Count 3.64 MIL/MM3 (4.00-5.30) Hemoglobin 10.3 GM/DL (11.6-15.3) Hematocrit 30.9 % (35.0-46.0) Red Cell Distribution Width 18.0 % (11.6-17.2) Sodium Level 133 MEQ/L (136-145) Chloride Level 92 MEQ/L (98-107) Carbon Dioxide Level 34.2 MEQ/L (21.0-32.0) Blood Urea Nitrogen 26 MG/DL (7-18) Random Glucose 123 MG/DL (74-106) Imaging Last Impressions Chest X-Ray 02/16/17 0600 Signed Impressions: Service Date/Time: Thursday, February 16, 2017 06:08 - CONCLUSION: 1. Complete opacification of the right hemithorax unchanged Han Christie MD Chest CT 02/12/17 0000 Signed Impressions: Service Date/Time: Sunday, February 12, 2017 16:41 - CONCLUSION: 1. Interval progression of right bronchial occlusion with now complete occlusion of the distal right mainstem bronchus resulting in near complete right lung collapse and associated mediastinal shift. 2. Small to moderate right sided hydropneumothorax with well-positioned tunneled Aspira drainage catheter in place. Navid Tompkins MD Catheter Placement X-Ray 02/09/17 1308 Signed Impressions: Service Date/Time: Thursday, February 09, 2017 14:41 - CONCLUSION: 1. Exchange of a non-tunneled chest tube for a tunneled chest tube. The patient will need to drain daily for the next 5-7 days and p.r.n. thereafter. The sutures can be removed in 2-3 weeks. John Contreras Jr., MD Head CT 02/08/17 0000 Signed Impressions: Service Date/Time: February 18:57 - CONCLUSION: Normal examination. Chapo Abdul MD Port Line Insertion 02/07/17 0000 Signed Impressions: Service Date/Time: Tuesday, February 07, 2017 09:31 - CONCLUSION: Uncomplicated ultrasound and fluoroscopic guided implanted central venous port catheter placement as described in detail above. An 8 [employer] port was placed. Navid Tompkins MD Chest Tube Insertion 02/04/17 0000 Signed Impressions: Service Date/Time: Saturday, February 04, 2017 09:55 - CONCLUSION: Uncomplicated chest tube placement as above. John Contreras Jr., MD Chest Ultrasound 02/03/17 0000 Signed Impressions: Service Date/Time: Friday, February 03, 2017 07:59 - CONCLUSION: Right pleural effusion with septations. Skin marked. Keshav Krishnan MD Thoracentesis Ultrasound 02/01/17 0000 Signed Impressions: Service Date/Time: February 13:52 - CONCLUSION: Uncomplicated ultrasound guided thoracentesis with removal of 950 cc of fluid. The remaining fluid was not removed since the patient experienced chest pain. Given the right pulmonary mass and collapse of a portion of the lung, this fluid will likely recur. Chapo Escalona MD Abdomen/Pelvis CT 01/30/17 1634 Signed Impressions: Service Date/Time: Monday, January 30, 2017 17:06 - CONCLUSION: 1. Moderate to large right pleural effusion 2. Prominent consolidation/mass right hilar area with collapse of the right lower lung 3. Tiny gallstones in the gallbladder. No biliary tract obstruction. 4. Scattered diverticulosis of the sigmoid colon without inflammatory changes. Germain Massey MD PE at Discharge GENERAL: Frail and chronically ill appearing female CARDIOVASCULAR: Rate about 105 and regular rhythm without murmurs, gallops, or rubs. RESPIRATORY: Shallow breathing. Completely absent breath sounds on the right. Right chest tube in place. Left lung chang with some diffuse rhonchi. GASTROINTESTINAL: Abdomen soft, non-tender, non-distended. Normal active bowel sounds MUSCULOSKELETAL: Extremities without cyanosis, or edema. NEURO: Alert & Oriented. Moves all ext x4. Normal speech PSYCH: Appropriate mood and affect. Pt update on day of discharge Patient states she slept okay. Shortness of breath is unchanged today. She decided to go home with hospice. Hospital Course 71 year old female with a long history of smoking, recently diagnosed with stage IV lung cancer who presented to the ED on 01/30/2017 due to worsening shortness of breath. Initial work up indicated significant pleural effusion on the right side as well as mass. Patient underwent thoracentesis. Medical oncology, Pulmonary followed the patient. Patient underwent Port placement on 02/07/2017 and chemotherapy started on the same day. She could not tolerate the chemotherapy. She was started on palliative radiation due to right main bronchus occlusion. Unfortunately the patient's respiratory status and functional status continued to decline. She ultimately chose to transition to comfort care and go home with hospice. Treatment course detailed below: - Stage IV non-small cell lung cancer - Malignant pleural effusion - s/p Thoracentesis X 2. Chest tube in place on the right side, draining. - Patient started on Carboplatin as well Paclitaxel per Oncology. - pleurX cath placed on 02/09/2017 by interventional radiology - CT chest on 02/12/2017 shows near complete collapse of the right lung due to right main bronchus occlusion. - Radiation oncology followed. Patient underwent palliative radiation without much improvement. Patient decided to transition to comfort care and go home with hospice. - Acute respiratory failure - Likely due to large pleural effusion as well as COPD. -Patient treated with Levaquin 500 mg - DuoNeb PRN, Continue Fluticasone-Vilanter INH. - Prednisone per Pulmonology. -Supplemental oxygen. Sinus tachycardia: Related to above. - Oral/Pharyngeal candidiasis - Poor nutrition - Continue Nystatin liquid. - GI consulted per pulmonary recommendation. Patient currently decline PEG tube. - Continue megestrol liquid 400mg Qday. - Hypertension : labile BP - Clonidine 0.1mg Q6hrs PRN - Neuropathic pain - Continue nortriptyline, Lortab. Pt Condition on Discharge: Good Discharge Disposition: Hospice/ Home Discharge Time: > 30 minutes Discharge Instructions DIET: Follow Instructions for: As Tolerated, No Restrictions Activities you can perform: Regular-No Restrictions New Medications: Levofloxacin (Levaquin) 500 Mg Tablet 1 TAB PO DAILY Infection #5 TAB Atorvastatin (Atorvastatin) 40 Mg Tab 40 MG PO HS Cholesterol Management #90 TAB Clonazepam (Klonopin) 0.5 Mg Tab 0.5 MG PO Q8HR Anxiety #30 TAB Hydrocodone-Acetaminophen (Hydrocodone-Acetaminophen) 5-325 mg Tab 1 TAB PO Q4HR PAIN SCALE 4 TO 10 #30 TAB Megestrol Liq (Megestrol Liq) 40 Mg/Ml Susp 400 MG PO DAILY appetite #30 BOTTLE Sennosides-Docusate Sodium (Senna Plus 8.6-50 mg) 1 Tab Tab 1 TAB PO BID Constipation #30 TAB Temazepam (Restoril) 15 Mg Cap 15 MG PO HS PRN INSOMNIA #30 CAP Continued Medications: Coenzyme Q10 (Ubidecarenone) (Co Q 10) 100 Mg Cap 1 CAP PO DAILY Fluticasone-Vilanterol Inh (Breo Ellipta Inh) 100-25 Mcg/Act Inh 1 PUFF INH DAILY Use daily at the same time. #1 Ref 0 INHALER Ipratropium-Albuterol Neb (Duoneb) 0.5-2.5 Mg/3 Ml Neb 1 NEBULE INH Q4HR NEB Breathing Treatment #180 Ref 0 NEBULE Metoprolol Succinate ER 24 HR (Metoprolol Succinate ER 24 HR) 25 Mg Tab 50 MG PO DAILY #30 Ref 0 TAB Nortriptyline (Nortriptyline) 50 Mg Cap 50 MG PO BID Depression Control #30 Ref 0 CAP Discontinued Medications: Atorvastatin (Atorvastatin) 40 Mg Tab 50 MG PO HS Cholesterol Management #30 Ref 0 TAB Jose Carlos Dave MD Feb 17, 2017 09:49
[2017-02-17 11:40] VITALS: BP 93/66; PULSE 106; RESP 18; TEMP 97.6; O2SAT 98
--- NOTE | 2017-02-17 14:08 | HHI.PR ---
Subjective Remarks Feels weak.on O2 at 2 L. Chest catheter in place. Will go to hospice today Objective Vital Signs Date Time Temp Pulse Resp B/P Pulse Ox O2 Delivery O2 Flow Rate FiO2 02/17/17 11:40 97.6 106 18 93/66 98 02/17/17 10:17 Nasal Cannula 2.00 02/17/17 09:43 96 Nasal Cannula 2.00 02/17/17 08:00 97.0 108 18 101/63 97 02/17/17 04:00 96.4 116 17 98/59 96 02/17/17 00:00 96.4 110 16 100/59 97 02/16/17 21:15 96 Nasal Cannula 2.00 02/16/17 21:00 95 Nasal Cannula 2.00 21 02/16/17 20:00 96.2 113 16 99/67 95 02/16/17 16:00 96.6 108 18 108/71 96 I/O 02/16/17 02/16/17 02/16/17 02/17/17 02/17/17 02/17/17 07:00 15:00 23:00 07:00 15:00 23:00 Intake Total 240 ml 240 ml 480 ml 120 ml Output Total 200 ml 100 ml Balance 40 ml 240 ml 480 ml 20 ml Intake Oral 240 ml 240 ml 480 ml 120 ml Output Urine Total 200 ml Drainage Total 100 ml Result Diagram: 02/15/1715 02/15/17 0615 Procedures Right side Thoracentesis on 01/30/17 and 02/01/17. Objective Remarks GENERAL: This is a well-nourished, well-developed patient, in no distress.Pallor + CARDIOVASCULAR: Regular rate and rhythm without murmurs, gallops, or rubs. RESPIRATORY:diminished breath sounds right chest. GASTROINTESTINAL: Abdomen soft, non-tender,nondistended. Normal active bowel sounds. No mass MUSCULOSKELETAL: Extremities without clubbing, cyanosis, or edema. NEURO: Alert & Oriented x4 to person, place, time, situation. Moves all ext x4 Assessment and Plan Assessment and Plan Primary Impression: Pleural effusion on right Additional Impressions: Acute dyspnea/Hypoxia Metastatic lung carcinoma COPD. Anemia. Anxiety. Plan : 1. Chest catheter to be drained very 4 days 2. O2 at 2 L 3. Nebs qid , duoneb. 4. Hospice to see 5. Radiation therapy as planned 6. Prednisone 20 mg daily 7. Ativan 1 mg tid ron Antonio Cazares MD Feb 17, 2017 14:08
== END 2017-02-17 15:00 | disposition hospice, inpatient (51) | DRG 180 ==
LOC: NEPC 15:13 → NEDA 17:58 → OBSVTOIN 18:08 → N04B 22:05 → HOCB 02-06 18:43 → HOCA 02-06 21:55
PROVIDERS: ADMIT Family Medicine; ATTEND Family Medicine
PROC: 0W993ZZ Drainage of Right Pleural Cavity, Percutaneous Approach (ICD-10-PCS; principal; 2017-01-30)
PROC: 0W993ZZ Drainage of Right Pleural Cavity, Percutaneous Approach (ICD-10-PCS; 2017-02-01)
PROC: 0W9930Z Drainage of Right Pleural Cavity with Drainage Device, Percutaneous Approach (ICD-10-PCS; 2017-02-04)
PROC: 0JH63WZ Insertion of Totally Implantable Vascular Access Device into Chest Subcutaneous Tissue and Fascia, Percutaneous Approach (ICD-10-PCS; 2017-02-07)
PROC: 05HM33Z Insertion of Infusion Device into Right Internal Jugular Vein, Percutaneous Approach (ICD-10-PCS; 2017-02-07)
PROC: B513YZA Fluoroscopy of Right Jugular Veins using Other Contrast, Guidance (ICD-10-PCS; 2017-02-07)
PROC: B543ZZA Ultrasonography of Right Jugular Veins, Guidance (ICD-10-PCS; 2017-02-07)
PROC: 0W29X0Z Change Drainage Device in Right Pleural Cavity, External Approach (ICD-10-PCS; 2017-02-09)
PROC: DWY27ZZ Contact Radiation of Chest (ICD-10-PCS; 2017-02-14)
DX: C34.01 Malignant neoplasm of right main bronchus (principal); J96.01 Acute respiratory failure with hypoxia; J91.0 Malignant pleural effusion; B37.89 Other sites of candidiasis; B37.0 Candidal stomatitis; C79.89 Secondary malignant neoplasm of other specified sites; J44.9 Chronic obstructive pulmonary disease, unspecified; J98.19 Other pulmonary collapse; J98.11 Atelectasis; G62.9 Polyneuropathy, unspecified; Z51.5 Encounter for palliative care; R13.10 Dysphagia, unspecified; I10 Essential (primary) hypertension; I25.10 Atherosclerotic heart disease of native coronary artery without angina pectoris; E78.5 Hyperlipidemia, unspecified; R30.0 Dysuria; E78.00 Pure hypercholesterolemia, unspecified; I48.91 Unspecified atrial fibrillation; G47.00 Insomnia, unspecified; D64.9 Anemia, unspecified; I25.2 Old myocardial infarction; F32.9 Major depressive disorder, single episode, unspecified; F41.9 Anxiety disorder, unspecified; R63.0 Anorexia; R63.4 Abnormal weight loss; R00.0 Tachycardia, unspecified; Z66 Do not resuscitate; Z68.21 Body mass index [BMI] 21.0-21.9, adult; Z87.891 Personal history of nicotine dependence; Z95.5 Presence of coronary angioplasty implant and graft
CPT/HCPCS: 32550; 32555; 32557; 36561; 36600; 70450; 71010; 71020; 71250; 74176; 75989; 76604; 76937; 77001; 77263; 77280; 77295; 77300; 77334; 77336; 77387; 77412; 77427; 80048; 80053; 81001; 82805; 83605; 83690; 83735; 85007; 85025; 85027; 85610; 85730; 87040; 93005; 94640; 94664; 96361; 96374; 96375; 99152; 99222; C1729; C1769; C1788; J0456; J0696; J1100; J1170; J1626; J1642; J1940; J2060; J2250; J2405; J2920; J3010; J3370; J7030; J7040; J7050; J7512; J7608; J9045; J9267